=== PATIENT | male | born 1945 | race Caucasian/White ===

== ENCOUNTER 2022-04-04 18:28 | Inpatient (IN) ==
--- NOTE | 2022-04-04 18:39 | Emergency Department Note ---
Impression & Plan Acute exacerbation of chronic obstructive airways disease, Acute bronchitis, RBBB, Hypoxia, Acute UTI (urinary tract infection) ED Provider Note NAME: MOSHE ZABALA AGE: 76 SEX: M : 1945 ARRIVES VIA: Ambulance INFORMANT: Patient, ED PROVIDER(S): Angel Gordon DO CHIEF COMPLAINT: Shortness of breath HPI: The patient is a 76-year-old male who presented to the emergency department by ambulance for an evaluation of shortness of breath. The patient states that he has had a productive cough over the course of the last week. He is having significant shortness of breath with exertion. He denies having any hemoptysis. He has no lower extremity swelling or pain. He has no history of DVT or PE but does have a history of bladder cancer. He went to [facility] and was found have significant hypoxia. He was sent to the emergency department by ambulance for further evaluation. The patient states his symptoms are significantly improved. He was treated with a DuoNeb as well as supplemental oxygen prior to arrival. ROS: See above HPI for pertinent positives & negatives. A total of 10 systems reviewed and were otherwise negative. PAST MEDICAL HISTORY: See Below PAST SURGICAL HISTORY: See Below FAMILY HISTORY: See Below SOCIAL HISTORY: See Below HOME MEDICATIONS: See Below ALLERGIES: See Below VITALS: See Below PHYSICAL EXAMINATION: GENERAL: Patient is awake alert in no acute distress patient is resting comfortably and showing no signs of anxiety EYES: The conjunctivae are clear. The pupils are round and reactive. EARS, NOSE, MOUTH AND THROAT: The nose is without any evidence of any deformity. Mucous membranes are moist. Tongue is midline. NECK: The neck is nontender and supple. RESPIRATORY: Diminished breath sounds are noted throughout. There were rales in both lower lung campuzano. Mild conversational dyspnea was appreciated. CARDIOVASCULAR: Tachycardic and regular heart sounds were noted to auscultation. There is no definite murmur. GASTROINTESTINAL: The abdomen is soft. Abdomen is nontender. MUSCULOSKELETAL/EXTREMITIES: There is no evidence of gross deformity full range of motion is noted in the hips and shoulders. SKIN: There is no obvious evidence of any rash. There is no pedal edema or calf tenderness elicited. NEUROLOGIC: Patient is awake alert and oriented x3 MEDICAL DECISION MAKING: The patient is a 76-year-old male who presented to the emergency department for an evaluation of difficulty breathing. The patient does have a history of COPD. The patient was treated with bronchodilator nebulizer prior to arrival. He initially presented to an urgent care center and was found to have significant hypoxia. The patient did have significant shortness of breath with any exertion. I discussed the patient's laboratory and radiographic studies with him. I did recommend a CT of the chest with contrast but the patient refuses as he was told in the past that his kidneys would not be able to tolerate IV contrast. The patient was treated with IV antibiotics and IV steroids. He was also treated with IV fluids. He was feeling much better on subsequent reevaluation. Given the patient's degree of hypoxia as well as shortness of breath with any exertion I will discuss his case with the on-call [facility] hospitalist. Triage Nursing notes reviewed. Prior medical records reviewed Vital Signs: reviewed and remarkable for tachypnea and tachycardia. Differential diagnosis: Reactive airway disease, pneumonia, pneumothorax, COPD, CHF, infections, cardiac ischemia, pulmonary embolism, musculoskeletal, gastrointestinal, as well as other pathologies. ER treatment provided: See below Diagnostics interpreted by me: ECG: EKG was obtained in the emergency department. My interpretation is sinus tachycardia at 123 bpm. Right bundle branch block pattern was noted. This was compared to a tracing from March 06, 2003. The right bundle branch block is new compared to the earlier tracing. Cardiac Monitoring: An order was placed for continuous cardiac monitoring. The monitor shows a rate of 110 bpm with sinus tachycardia. Laboratory studies: As stated above and show below. Imaging studies: See below Consultation(s): Dr. White was notified about the patient. ED COURSE: Procedures: none Critical Care: I have personally spent greater than 45 minutes of critical care time in the direct management of this patient. This includes bedside care, interpretation of diagnostic studies, and testing, discussion with consultants, patient, and family members, and other required patient management activities. This 45 minutes is in excess of all separately billable procedures. Past Med/Surg History Medical History Bladder tumor Hypokalemia Thrombocytopenia Family History Other Family history non-contributory Social History Smoking Status: Former smoker Tobacco Type: Cigarettes Feels Safe at Home: Yes Allergies Allergies Allergy/AdvReac Type Severity Reaction Status Date / Time bee venom protein (honey bee) Allergy Severe Anaphylaxis Verified 04/04/22 19:58 rhubarb Allergy Intermediate ANXIETY, Verified 04/04/22 19:58 "ON EDGE", "FEELS LIKE NAILS ON CHALKBOARD". Home Meds Home Medications Medication Instructions Recorded Confirmed Lactobacillus acidophilus 10 10,000 mmu cells PO DAILY 04/04/22 04/04/22 billion cell capsule (Probiotic) acetaminophen 500 mg tablet 500 - 1,000 mg PO DIRECTED PRN 04/04/22 04/04/22 (Tylenol Extra Strength) Pain albuterol sulfate 90 mcg/actuation 2 puff inhalation DIRECTED PRN 04/04/22 04/04/22 aerosol inhaler Shortness Of Breath Or Wheezing desonide 0.05 % topical cream 1 applic topical DIRECTED PRN 04/04/22 04/04/22 Skin Irritation fluticasone propionate 50 2 spray intranasal DAILY PRN 04/04/22 04/04/22 mcg/actuation nasal Congestion spray,suspension guaifenesin 600 mg tablet, 600 mg PO Q12H PRN Congestion 04/04/22 04/04/22 extended release 12 hr (Mucinex) hydrophilic 1 applic topical DIRECTED PRN 04/04/22 04/04/22 NEEDED PER MED LIST losartan 25 mg tablet 25 mg PO DAILY 04/04/22 04/04/22 mirabegron 25 mg tablet,extended 25 mg PO DAILY 04/04/22 04/04/22 release 24 hr (Myrbetriq) multivitamin 1 tab PO DAILY 04/04/22 04/04/22 omeprazole 20 mg capsule,delayed 20 mg PO DAILY 04/04/22 04/04/22 release phenazopyridine 100 mg tablet 100 mg PO TID PRN BLADDER PAIN 04/04/22 04/04/22 sildenafil 25 mg tablet 0 mg PO DAILY PRN Sexual Activity 04/04/22 04/04/22 tamsulosin 0.4 mg capsule 0.4 mg PO DAILY 04/04/22 04/04/22 tiotropium 2.5 mcg-olodaterol 2.5 2 inh inhalation DAILY 04/04/22 04/04/22 mcg/actuation mist for inhalation (Stiolto Respimat) Results & Data (ED) Vital Signs Vital Signs - 24 hr 04/04/22 18:34 04/04/22 18:57 04/04/22 18:32 Temperature 36.8 C Temperature Source Oral Pulse Rate 126 H 124 H Pulse Rate from SpO2 Sensor Respiratory Rate 26 H 24 Respiratory Pattern Tachypnea Blood Pressure 148/82 H 148/82 H Blood Pressure Mean 104 104 Pulse Oximetry 94 94 Oxygen Delivery Method Room Air Room Air Room Air Sepsis Recent Fever Within 48 Hours No Sepsis New/Unexplained Change in Mental Status No Sepsis Action Taken by Nursing Physician Notified 04/04/22 19:00 04/04/22 19:40 04/04/22 19:44 Temperature Temperature Source Pulse Rate 134 H 115 H 113 H Pulse Rate from SpO2 Sensor 116 H Respiratory Rate 29 H 29 H 27 H Respiratory Pattern Blood Pressure 110/69 127/59 L 114/69 Blood Pressure Mean 82 81 84 Pulse Oximetry 94 92 92 Oxygen Delivery Method Room Air Room Air Room Air Sepsis Recent Fever Within 48 Hours Sepsis New/Unexplained Change in Mental Status Sepsis Action Taken by Nursing 04/04/22 19:45 04/04/22 20:00 04/04/22 20:15 Temperature Temperature Source Pulse Rate 110 H Pulse Rate from SpO2 Sensor 112 H 109 H Respiratory Rate 34 H 37 H 30 H Respiratory Pattern Blood Pressure 127/59 L 130/78 143/89 H Blood Pressure Mean 81 95 107 Pulse Oximetry 92 92 92 Oxygen Delivery Method Room Air Room Air Room Air Sepsis Recent Fever Within 48 Hours Sepsis New/Unexplained Change in Mental Status Sepsis Action Taken by Nursing 04/04/22 20:45 04/04/22 21:00 Temperature Temperature Source Pulse Rate 115 H 103 H Pulse Rate from SpO2 Sensor Respiratory Rate 29 H 38 H Respiratory Pattern Blood Pressure 133/90 117/75 Blood Pressure Mean 104 89 Pulse Oximetry 92 92 Oxygen Delivery Method Room Air Room Air Sepsis Recent Fever Within 48 Hours Sepsis New/Unexplained Change in Mental Status Sepsis Action Taken by [facility] Medications Current Medication List: was personally reviewed by me Laboratory Data Attestation: I reviewed the patient's lab results. Result diagrams: 04/04/22 18:50 04/04/22 18:50 Lab Results 04/04/22 04/04/22 04/04/22 Range/Units 18:45 18:50 18:50 WBC 11.36 H (4.8-10.8) K/ul RBC 4.84 (4.63-6.08) M/uL Hgb 14.3 (14.0-18.0) g/dl Hct 44.2 (40.1-51.0) % MCV 91.3 (80.0-100.0) fL MCH 29.5 (25.0-34.0) pg MCHC 32.4 (32.0-36.0) g/dL RDW Std Deviation 45.7 (36.4-46.3) fL RDW Coeff of Charanjit 13.5 (11.5-14.5) % Plt Count 206 (130-400) K/uL MPV 8.8 L (9.4-12.4) fL Immature Gran % (Auto) 0.4 % Neut % (Auto) 81.0 % Lymph % (Auto) 7.5 % Parmer % (Auto) 10.3 % Eos % (Auto) 0.4 % Baso % (Auto) 0.4 % Neut # (Auto) 9.20 H (1.4-6.5) K/uL Lymph # (Auto) 0.85 L (1.2-3.4) K/uL Parmer # (Auto) 1.17 H (0.24-0.82) K/uL Eos # (Auto) 0.05 (0-0.50) K/uL Baso # (Auto) 0.04 (0-0.2) K/uL Immature Gran # (Auto) 0.05 H (0.00-0.02) K/uL PT 11.0 (9.0-12.0) Seconds INR 1.0 (0.9-1.1) APTT 29.3 (21.0-31.0) Seconds PTT Ratio 1.1 D-Dimer (0-500) ug/L FEU VBG pH (7.36-7.41) VBG pCO2 (38-50) mmHg VBG pO2 mmHg VBG HCO3 mmol/L VBG O2 Saturation % VBG Base Excess mEq/L Sodium (136-145) mmol/L Potassium (3.5-5.1) mmol/L Chloride (98-107) mmol/L Carbon Dioxide (21-32) mmol/L Anion Gap (3-11) BUN (6-23) mg/dl Creatinine (0.6-1.4) mg/dl Est Cr Clr Drug Dosing ml/min Est GFR ( Amer) ml/min Est GFR (Non-Af Amer) ml/min BUN/Creatinine Ratio (10-20) Glucose (70-99(Fasting)) mg/dl Lactate (0.4-2.0) mmol/L Calcium (8.5-10.1) mg/dl Magnesium (1.7-2.4) mg/dl Total Bilirubin (0.2-1.0) mg/dl Direct Bilirubin (0-0.2) mg/dl AST (13-39) U/L ALT (7-52) U/L Alkaline Phosphatase (34-104) U/L Troponin I High Sens (0-20) pg/ml Total Protein (6.0-8.3) gm/dl Albumin (3.4-5.0) gm/dl Procalcitonin (0-0.5) ng/ml Urine Color Urine Appearance (Clear) Urine pH (4.5-7.5) Ur Specific [place] (1.000-1.030) Urine Protein (Negative) Urine Glucose (UA) (Negative) Urine Ketones (Negative) Urine Blood (Negative) Urine Nitrite (Negative) Urine Bilirubin (Negative) Urine Urobilinogen (Negative) Ur Leukocyte Esterase (Negative) Urine WBC (Auto) (0-5) /hpf Urine RBC (Auto) (0-4) /hpf U Hyaline Cast (Auto) (0-5) /lpf U Epithel Cells (Auto) (0-5) /lpf Urine Bacteria (Auto) (Negative) Ur Renal Epithelial Cell Adenovirus (PCR) Not Detected (NotDetected) B. pertussis DNA (PCR) Not Detected (NotDetected) B.parapertussis DNA PCR Not Detected (NotDetected) C. pneumoniae DNA (PCR) Not Detected (NotDetected) Coronavirus OC43 (PCR) Not Detected (NotDetected) Coronavirus HKU1 (PCR) Not Detected (NotDetected) Coronavirus 229E (PCR) Not Detected (NotDetected) SARS-CoV-2 (PCR) Not Detected (NotDetected) Coronavirus NL63 (PCR) Not Detected (NotDetected) Human Metapneumovir PCR Not Detected (NotDetected) Influenza Type A (PCR) Not Detected (NotDetected) Influenza Type B (PCR) Not Detected (NotDetected) M. pneumoniae (PCR) Not Detected (NotDetected) Parainfluenza 1 (PCR) Not Detected (NotDetected) Parainfluenza 2 (PCR) Not Detected (NotDetected) Parainfluenza 3 (PCR) Not Detected (NotDetected) Parainfluenza 4 (PCR) Not Detected (NotDetected) RSV (PCR) Not Detected (NotDetected) Entero/Rhino (PCR) Not Detected (NotDetected) 04/04/22 04/04/22 04/04/22 Range/Units 18:50 18:50 18:50 WBC (4.8-10.8) K/ul RBC (4.63-6.08) M/uL Hgb (14.0-18.0) g/dl Hct (40.1-51.0) % MCV (80.0-100.0) fL MCH (25.0-34.0) pg MCHC (32.0-36.0) g/dL RDW Std Deviation (36.4-46.3) fL RDW Coeff of Charanjit (11.5-14.5) % Plt Count (130-400) K/uL MPV (9.4-12.4) fL Immature Gran % (Auto) % Neut % (Auto) % Lymph % (Auto) % Parmer % (Auto) % Eos % (Auto) % Baso % (Auto) % Neut # (Auto) (1.4-6.5) K/uL Lymph # (Auto) (1.2-3.4) K/uL Parmer # (Auto) (0.24-0.82) K/uL Eos # (Auto) (0-0.50) K/uL Baso # (Auto) (0-0.2) K/uL Immature Gran # (Auto) (0.00-0.02) K/uL PT (9.0-12.0) Seconds INR (0.9-1.1) APTT (21.0-31.0) Seconds PTT Ratio D-Dimer (0-500) ug/L FEU VBG pH (7.36-7.41) VBG pCO2 (38-50) mmHg VBG pO2 mmHg VBG HCO3 mmol/L VBG O2 Saturation % VBG Base Excess mEq/L Sodium 140 (136-145) mmol/L Potassium 3.6 (3.5-5.1) mmol/L Chloride 105 (98-107) mmol/L Carbon Dioxide 24 (21-32) mmol/L Anion Gap 11 (3-11) BUN 24 H (6-23) mg/dl Creatinine 1.32 (0.6-1.4) mg/dl Est Cr Clr Drug Dosing 43.8 ml/min Est GFR ( Amer) 59.9 ml/min Est GFR (Non-Af Amer) 51.7 ml/min BUN/Creatinine Ratio 18.2 (10-20) Glucose 118 H (70-99(Fasting)) mg/dl Lactate 1.1 (0.4-2.0) mmol/L Calcium 10.3 H (8.5-10.1) mg/dl Magnesium 2.1 (1.7-2.4) mg/dl Total Bilirubin 1.6 H (0.2-1.0) mg/dl Direct Bilirubin 0.4 H (0-0.2) mg/dl AST 79 H (13-39) U/L ALT 73 H (7-52) U/L Alkaline Phosphatase 144 H (34-104) U/L Troponin I High Sens 6.6 (0-20) pg/ml Total Protein 7.7 (6.0-8.3) gm/dl Albumin 4.2 (3.4-5.0) gm/dl Procalcitonin 0.17 (0-0.5) ng/ml Urine Color Urine Appearance (Clear) Urine pH (4.5-7.5) Ur Specific [place] (1.000-1.030) Urine Protein (Negative) Urine Glucose (UA) (Negative) Urine Ketones (Negative) Urine Blood (Negative) Urine Nitrite (Negative) Urine Bilirubin (Negative) Urine Urobilinogen (Negative) Ur Leukocyte Esterase (Negative) Urine WBC (Auto) (0-5) /hpf Urine RBC (Auto) (0-4) /hpf U Hyaline Cast (Auto) (0-5) /lpf U Epithel Cells (Auto) (0-5) /lpf Urine Bacteria (Auto) (Negative) Ur Renal Epithelial Cell Adenovirus (PCR) (NotDetected) B. pertussis DNA (PCR) (NotDetected) B.parapertussis DNA PCR (NotDetected) C. pneumoniae DNA (PCR) (NotDetected) Coronavirus OC43 (PCR) (NotDetected) Coronavirus HKU1 (PCR) (NotDetected) Coronavirus 229E (PCR) (NotDetected) SARS-CoV-2 (PCR) (NotDetected) Coronavirus NL63 (PCR) (NotDetected) Human Metapneumovir PCR (NotDetected) Influenza Type A (PCR) (NotDetected) Influenza Type B (PCR) (NotDetected) M. pneumoniae (PCR) (NotDetected) Parainfluenza 1 (PCR) (NotDetected) Parainfluenza 2 (PCR) (NotDetected) Parainfluenza 3 (PCR) (NotDetected) Parainfluenza 4 (PCR) (NotDetected) RSV (PCR) (NotDetected) Entero/Rhino (PCR) (NotDetected) 04/04/22 04/04/22 04/04/22 Range/Units 18:50 19:17 19:26 WBC (4.8-10.8) K/ul RBC (4.63-6.08) M/uL Hgb (14.0-18.0) g/dl Hct (40.1-51.0) % MCV (80.0-100.0) fL MCH (25.0-34.0) pg MCHC (32.0-36.0) g/dL RDW Std Deviation (36.4-46.3) fL RDW Coeff of Charanjit (11.5-14.5) % Plt Count (130-400) K/uL MPV (9.4-12.4) fL Immature Gran % (Auto) % Neut % (Auto) % Lymph % (Auto) % Parmer % (Auto) % Eos % (Auto) % Baso % (Auto) % Neut # (Auto) (1.4-6.5) K/uL Lymph # (Auto) (1.2-3.4) K/uL Parmer # (Auto) (0.24-0.82) K/uL Eos # (Auto) (0-0.50) K/uL Baso # (Auto) (0-0.2) K/uL Immature Gran # (Auto) (0.00-0.02) K/uL PT (9.0-12.0) Seconds INR (0.9-1.1) APTT (21.0-31.0) Seconds PTT Ratio D-Dimer 2110 H* (0-500) ug/L FEU VBG pH 7.41 (7.36-7.41) VBG pCO2 42 (38-50) mmHg VBG pO2 27 mmHg VBG HCO3 27 mmol/L VBG O2 Saturation < 60.0 % VBG Base Excess 1.7 mEq/L Sodium (136-145) mmol/L Potassium (3.5-5.1) mmol/L Chloride (98-107) mmol/L Carbon Dioxide (21-32) mmol/L Anion Gap (3-11) BUN (6-23) mg/dl Creatinine (0.6-1.4) mg/dl Est Cr Clr Drug Dosing ml/min Est GFR ( Amer) ml/min Est GFR (Non-Af Amer) ml/min BUN/Creatinine Ratio (10-20) Glucose (70-99(Fasting)) mg/dl Lactate (0.4-2.0) mmol/L Calcium (8.5-10.1) mg/dl Magnesium (1.7-2.4) mg/dl Total Bilirubin (0.2-1.0) mg/dl Direct Bilirubin (0-0.2) mg/dl AST (13-39) U/L ALT (7-52) U/L Alkaline Phosphatase (34-104) U/L Troponin I High Sens (0-20) pg/ml Total Protein (6.0-8.3) gm/dl Albumin (3.4-5.0) gm/dl Procalcitonin (0-0.5) ng/ml Urine Color Dark Yellow Urine Appearance Clear (Clear) Urine pH 6.0 (4.5-7.5) Ur Specific [place] 1.018 (1.000-1.030) Urine Protein 2+ H (Negative) Urine Glucose (UA) Negative (Negative) Urine Ketones 1+ H (Negative) Urine Blood 2+ H (Negative) Urine Nitrite Positive A (Negative) Urine Bilirubin 1+ H (Negative) Urine Urobilinogen Negative (Negative) Ur Leukocyte Esterase 2+ H (Negative) Urine WBC (Auto) >30 H (0-5) /hpf Urine RBC (Auto) >30 H (0-4) /hpf U Hyaline Cast (Auto) 0 (0-5) /lpf U Epithel Cells (Auto) >30 H (0-5) /lpf Urine Bacteria (Auto) Negative (Negative) Ur Renal Epithelial Cell Not Reportable Adenovirus (PCR) (NotDetected) B. pertussis DNA (PCR) (NotDetected) B.parapertussis DNA PCR (NotDetected) C. pneumoniae DNA (PCR) (NotDetected) Coronavirus OC43 (PCR) (NotDetected) Coronavirus HKU1 (PCR) (NotDetected) Coronavirus 229E (PCR) (NotDetected) SARS-CoV-2 (PCR) (NotDetected) Coronavirus NL63 (PCR) (NotDetected) Human Metapneumovir PCR (NotDetected) Influenza Type A (PCR) (NotDetected) Influenza Type B (PCR) (NotDetected) M. pneumoniae (PCR) (NotDetected) Parainfluenza 1 (PCR) (NotDetected) Parainfluenza 2 (PCR) (NotDetected) Parainfluenza 3 (PCR) (NotDetected) Parainfluenza 4 (PCR) (NotDetected) RSV (PCR) (NotDetected) Entero/Rhino (PCR) (NotDetected) Administered Medications Sodium Chloride (Nss 1000ml) 500 mls @ 999 mls/hr IV .Q31M ONE Stop: 04/04/22 21:52 Last Admin: 04/04/22 21:24 Dose: 999 mls/hr Documented By: DP Discontinued Medications Piperacillin Sod/Tazobactam Sod (Zosyn) 4.5 gm in 120 mls @ 240 mls/hr IV NOW ONE Stop: 04/04/22 21:04 Last Admin: 04/04/22 21:23 Dose: 240 mls/hr Documented By: MANI Methylprednisolone (Methylprednisolone 125 Mg/2 Ml Vial) 125 mg IV NOW STA Stop: 04/04/22 21:14 Last Admin: 04/04/22 21:21 Dose: 125 mg Documented By: DP Imaging Data Radiologist's Impression: Chest X-Ray 04/04/22 18:35 XR chest 1V portable CLINICAL HISTORY: Sepsis TECHNIQUE: Single frontal radiograph of the chest was obtained. Comparison: None available at the time of this dictation. FINDINGS: No lines and tubes are seen. The cardiomediastinal silhouette is normal. The thien ngs are clear. No evidence of pleural effusion or pneumothorax. IMPRESSION: No acute abnormality and in particular no evidence of pneumonia. ACT 112: Negative or not required by law. Electronically signed by: Eliot Quiñoenz M.D. 04/04/2022 7:[address] 04/04/22 20:37 CT chest diagnostic wo con CLINICAL HISTORY: SOB TECHNIQUE: Multidetector row helical CT of the chest was performed. Coronal and sagittal reformations were obtained. Automated dose lowering techniques and/or adjustment according to patient size were utilized for this exam. CT DOSE: 344.42 mGy.cm Comparison: Comparison is made to chest radiograph 03/25/2022 FINDINGS: Lungs and pleura: Diffuse centrilobular emphysema is seen most prominent in the upper lobes. Tree in bud nodularity is noted prominently in the right upper lobe and bilateral lower lobes. Bronchial wall thickening is noted. Heart and pericardium: Heart size is normal. No pericardial effusion. Vessels: Severe atherosclerotic changes in the aorta and coronary arteries. Mediastinum and myesha: Unremarkable. Chest wall and lower neck: Unremarkable. Abdomen: A right renal cyst is noted. Patient is status post cholecystectomy. Bones: Degenerative changes in the thoracic spine. IMPRESSION: There is diffuse emphysema. Scattered tree in bud nodularity and bronchial wall thickening may represent infectious/inflammatory process. ACT 112: Negative or not required by law. Electronically signed by: Eliot Quiñonez M.D. 04/04/2022 9:06 PM Discharge Plan Visit Data Chief Complaint: Shortness of Breath/Dyspnea Stated Complaint: SOB - COPD ED Provider: Angel Gordon Discharge Problem: Acute exacerbation of chronic obstructive airways disease, Acute bronchitis, RBBB, Hypoxia, Acute UTI (urinary tract infection) Patient Disposition: Being Evaluated by Hospitalist Forms Stand Alone Forms: My [facility] [employer] Prescriptions Prescriptions: No Action multivitamin Tablet 1 tab PO DAILY desonide 0.05 % cream 1 applic TOPICAL DIRECTED PRN (Reason: Skin Irritation) hydrophilic Ointment 1 applic TOPICAL DIRECTED PRN (Reason: NEEDED PER MED LIST) sildenafil 25 mg Tablet 0 mg PO DAILY PRN (Reason: Sexual Activity) Rx Instructions: UNABLE TO VERIFY DOSE. administer 30 minutes to 4 hours before activity acetaminophen [Tylenol Extra Strength] 500 mg Tablet 500 - 1,000 mg PO DIRECTED PRN (Reason: Pain) tamsulosin 0.4 mg capsule 0.4 mg PO DAILY phenazopyridine 100 mg tablet 100 mg PO TID PRN (Reason: BLADDER PAIN) losartan 25 mg tablet 25 mg PO DAILY omeprazole 20 mg capsule,delayed release(DR/EC) 20 mg PO DAILY albuterol sulfate 90 mcg/actuation Hfa Aerosol Inhaler 2 puff INHALATION DIRECTED PRN (Reason: Shortness Of Breath Or Wheezing) fluticasone propionate 50 mcg/actuation spray,suspension 2 spray INTRANASAL DAILY PRN (Reason: Congestion) Probiotic 10 billion cell Capsule 10,000 mmu cells PO DAILY guaifenesin [Mucinex] 600 mg Tablet Extended Release 12hr 600 mg PO Q12H PRN (Reason: Congestion) Stiolto Respimat 2.5-2.5 mcg/actuation mist 2 inh INHALATION DAILY Myrbetriq 25 mg Tablet Extended Release 24 Hr 25 mg PO DAILY Rx Instructions: PT HAS NOT STARTED THIS MEDICATION YET Referrals Referrals: Alejandro Bello DO [Primary Care Provider] -
[2022-04-04 19:02] LABS: Basophils # (auto) 0.04 K/uL (0-0.2); Basophils % (auto) 0.4 %; Eosinophils # (auto) 0.05 K/uL (0-0.50); Eosinophils % (auto) 0.4 %; Hematocrit (blood only) 44.2 % (40.1-51.0); Hemoglobin 14.3 g/dl (14.0-18.0); Immature Granulocytes # (auto) 0.05 K/uL (0.00-0.02); Immature Granulocytes % (auto) 0.4 %; Lymphocytes # (auto) 0.85 K/uL (1.2-3.4); Lymphocytes % (auto) 7.5 %; Mean Corpuscular Hemoglobin 29.5 pg (25.0-34.0); Mean Corpuscular Hgb Conc 32.4 g/dL (32.0-36.0); Mean Corpuscular Volume 91.3 fL (80.0-100.0); Mean Platelet Volume 8.8 fL (9.4-12.4); Monocytes # (auto) 1.17 K/uL (0.24-0.82); Monocytes % (auto) 10.3 %; Platelet Count 206 K/uL (130-400); RDW Coefficient of Variation 13.5 % (11.5-14.5); RDW Standard Deviation 45.7 fL (36.4-46.3); Red Blood Count 4.84 M/uL (4.63-6.08); White Blood Count 11.36 K/ul (4.8-10.8)
[2022-04-04 19:14] LABS: Partial Thromboplastin Ratio 1.1; Partial Thromboplastin Time 29.3 Seconds (21.0-31.0)
--- NOTE | 2022-04-04 19:16 | XRay Report ---
XR chest 1V portable CLINICAL HISTORY: Sepsis TECHNIQUE: Single frontal radiograph of the chest was obtained. Comparison: None available at the time of this dictation. FINDINGS: No lines and tubes are seen. The cardiomediastinal silhouette is normal. The lungs are clear. No evid ence of pleural effusion or pneumothorax. IMPRESSION: No acute abnormality and in particular no evidence of pneumonia. ACT 112: Negative or not required by law. Electronically signed by: Eliot Quiñonez M.D. 04/04/2022 7:15 PM
[2022-04-04 19:28] LABS: Albumin Level 4.2 gm/dl (3.4-5.0); BUN Creatinine Ratio 18.2 (10-20); Bilirubin Direct 0.4 mg/dl (0-0.2); Bilirubin,Total 1.6 mg/dl (0.2-1.0); Calcium 10.3 mg/dl (8.5-10.1); Creatinine Clr Calc Pharmacy 43.8 ml/min; Est GFR (African American) 59.9 ml/min; Est GFR (Non-African American) 51.7 ml/min; Magnesium 2.1 mg/dl (1.7-2.4); Potassium 3.6 mmol/L (3.5-5.1); Total Protein 7.7 gm/dl (6.0-8.3); Troponin I High Sensitivity 6.6 pg/ml (0-20)
[2022-04-04 19:48] LABS: Base Excess VBG 1.7 mEq/L; HCO3 VBG 27 mmol/L; Oxygen Saturation VBG < 60.0 %; PCO2 VBG 42 mmHg (38-50); PO2 VBG 27 mmHg; pH VBG 7.41 (7.36-7.41)
[2022-04-04 19:55] LABS: Appearance Urine Clear (Clear); Bacteria Urine Automated Negative (Negative); Blood Urine 2+ (Negative); Color Urine Dark Yellow; Epithelial Cell Urine Auto >30 /lpf (0-5); Glucose Urine UA Negative (Negative); Ketones Urine 1+ (Negative); Leukocyte Esterase Urine 2+ (Negative); Nitrite Urine Positive (Negative); Protein Urine 2+ (Negative); RBC Urine Automated >30 /hpf (0-4); Specific Gravity Urine 1.018 (1.000-1.030); Urobilinogen Urine Negative (Negative); WBC Urine Automated >30 /hpf (0-5)
[2022-04-04 19:57] LABS: Adenovirus PCR Not Detected (NotDetected); Bordetella parapertussis PCR Not Detected (NotDetected); Bordetella pertussis PCR Not Detected (NotDetected); Chlamydia pneumoniae PCR Not Detected (NotDetected); Coronavirus 229E PCR Not Detected (NotDetected); Coronavirus CoV-2 (COVID19)PCR Not Detected (NotDetected); Coronavirus HKU1 PCR Not Detected (NotDetected); Coronavirus NL63 PCR Not Detected (NotDetected); Coronavirus OC43PCR Not Detected (NotDetected); Human Metapneumovirus PCR Not Detected (NotDetected); Influenza A PCR Not Detected (NotDetected); Influenza B PCR Not Detected (NotDetected); Mycoplasma pneumoniae PCR Not Detected (NotDetected); Parainfluenza Virus 1 PCR Not Detected (NotDetected); Parainfluenza Virus 2 PCR Not Detected (NotDetected); Parainfluenza Virus 3 PCR Not Detected (NotDetected); Parainfluenza Virus 4 PCR Not Detected (NotDetected); Respiratory Syncytial VirusPCR Not Detected (NotDetected); Rhinovirus/Enterovirus PCR Not Detected (NotDetected)
[2022-04-04 19:57] LABS: Bilirubin Urine 1+ (Negative)
[2022-04-04 20:08] LABS: Cast Urine Automated 0 /lpf (0-5)
[2022-04-04] MEDS ORDERED: SODIUM CHLORIDE 0.9% 1000ML 500 ML IV ONE ×2 (20:35→21:22)
[2022-04-04] MEDS ORDERED: PIPERACILLIN/TAZOBACTAM 4.5 GM/120 ML BAG IV ONE (20:35)
--- NOTE | 2022-04-04 21:09 | CT Scan Report ---
CT chest diagnostic wo con CLINICAL HISTORY: SOB TECHNIQUE: Multidetector row helical CT of the chest was performed. Coronal and sagittal reformations were obtained. Automated dose lowering techniques and/or adjustment according to patient size were u tilized for this exam. CT DOSE: 344.42 mGy.cm Comparison: Comparison is made to chest radiograph 03/25/2022 FINDINGS: Lungs and pleura: Diffuse centrilobular emphysema is seen most prominent in the upper lobes. Tree in bud nodularity is noted prominently in the right upper lobe and bilateral lower lobes. Bronchial wall thickening is noted. Heart and pericardium: Heart size is normal. No pericardial effusion. Vessels: Severe atherosclerotic changes in the aorta and coronary arteries. Mediastinum and myesha: Unremarkable. Chest wall and lower neck: Unremarkable. Abdomen: A right renal cyst is noted. Patient is status post cholecystectomy. Bones: Degenerative changes in the thoracic spine. IMPRESSION: There is diffuse emphysema. Scattered tree in bud nodularity and bronchial wall thickening may repres ent infectious/inflammatory process. ACT 112: Negative or not required by law. Electronically signed by: Eliot Quiñonez M.D. 04/04/2022 9:06 PM
[2022-04-04] MEDS ORDERED: cefTRIAXone SODIUM 2,000 MG/70 ML BAG IV STA (21:13)
[2022-04-04] MEDS ORDERED: methylPREDNISolone 125 MG/2 ML VIAL IV STA (21:13)
[2022-04-04] MEDS ORDERED: ALBUT/IPRATROP 3MG/0.5MG NEB 3 ML VIAL NEB STA (21:22)
[2022-04-04 21:28] LABS: D Dimer 2110 ug/L FEU (0-500)
--- NOTE | 2022-04-04 22:18 | History & Physical Report ---
Date of Service April 04, 2022 Assessment & Plan (1) Dyspnea on exertion: Plan: Danie is a 76 year old male w/ PmHx of COPD, HTN, bladder cancer admitted for dyspnea on exertion and hypoxia. Acute exac of chronic obstructive airway disease/Collins/Hypoxia: -Patient tachycardic 100's-120's, otherwise vitals stable. -WBC 11.36, D-dimer 2110. -CT chest w/o contrast w/ evidence of emphysema, possible infectious/inflammatory process R upper lobe, b/l lower lobes. -?Hospital acquired PNA given patient's recent visit to aunt's fdc vs COPD exacerbation vs PE. -Ordered V/Q scan since patient declines contrast per HPI. -Given Zosyn and CTX in ED, continued Zosyn 4.5g q6h and added Azithromycin for atypical coverage. -Received 125mg IV solu-medrol in ED, will continue 40mg PO prednisone for 5 days for possible COPD contribution. -Duoneb q2h PRN, Mucinex BID -Continue to monitor vitals, O2 as needed for O2 <88%. Bladder tumor: -Past history of bladder cancer, in maintenance therapy. -U/A +LE, Nitrates, blood, negative bacteria. -Dysuria most likely secondary to side effect from maintenance therapy or multiple cystoscopy in past. -On Zosyn as above if infection. -Continue home mirabegron, tamsulosin, phenazopyridine PRN. Conjunctivitis: -New onset of purulent conjunctivitis. -Will treat with Ciprofloxacin 0.3% 2 drops QID for 5 days. Transaminitis: -AST 79, ALT 73, T bili 1.6, Alk phos 144 on CMP -CT chest without read of fatty liver for portion visualized. -May be secondary to sepsis from lung infection. -Continue to trend with AM CMP. HTN: -Continue home losartan. GERD: -Continue home omeprazole. DVT Prophylaxis: Heparin 5,000U q12h F/E/N/GI: Regular diet. Code Status: Full code Dispo: Med/Surg Telemetry. (2) Hypoxia: (3) Bladder tumor: (4) Acute exacerbation of chronic obstructive airways disease: (5) Conjunctivitis, right eye: History of Present Illness Chief Complaint: Shortness of breath, hypoxia Primary Care Provider: Alejandro Bello, DO [place] is a 76 year old male w/ PmHx COPD, HTN, GERD presenting to the emergency department sent from urgent care for hypoxia and dyspnea on exertion. For the past 4 days patient has had worsening of shortness of breath with exertion and cough with sputum production of yellow and sometimes white color. He said he was previously in [place] visiting his 93 year old aunt and had to COVID test prior to entering her facility, for which he tested negative. Saturday when he got back he started to have symptoms as described previously for which he thought could be COVID. He called into the [place] and asked for advice and they had advised him to go to urgent care for testing and said they would cover the cost. When he went to urgent care he was found to be hypoxic and told to go the ED. In the ED CXR was clear however CT of chest showed emphysema and evidence for possible early pneumonia, had a WBC 11, and tachycardic. He denies any fevers, chills, chest pain, headaches, diarrhea, nausea, vomiting. Has constipation at times with bowel movements being a few days apart at times. When asked about prior COPD exacerbations, patient denies ever needing to be hospitalized for treatment of COPD however he did have an episode of shortness of breath and cough last July which required a course of prednisone. Regarding patient's history of bladder cancer, he has been seeing urology in [place]. He has a past history of smoking cigars which he quit 6 years ago and had been smoking them since he was in the [place]. He said he is 5 years out or more from his diagnosis and he is now on maintenance treatment for the bladder cancer with BCG, which he gets every 6 weeks, last treatment a few weeks prior. He says that he's had dysuria since August and been on at least 4 antibiotics for the dysuria which he says may be due to a side effect from the BCG. He seems to have discussed this with his urologist and said the alternative would be to undergo chemotherapy. Patient also has conjunctivitis his noticed a few days prior and the other day he had started to get the feeling of having sand in the eye. Today they started to notice discharge from the eye. No swelling to the orbital or periorbital skin noted by patient. No involvement of the other eye. He had previously had cataract surgery a few months prior to this and has antibiotics eye drops from that time but has not used yet. Discussed obtaining CTA with patient and utilizing contrast given his good kidney function on CMP today, however patient says he is hesitant and declines at this time due to being told [facility] that his blood work indicated his kidney function was not the best and recommended against using any contrast for imaging. Allergies Allergy/AdvReac Type Severity Reaction Status Date / Time bee venom protein (honey bee) Allergy Severe Anaphylaxis Verified 04/04/22 19:58 rhubarb Allergy Intermediate ANXIETY, Verified 04/04/22 19:58 "ON EDGE", "FEELS LIKE NAILS ON CHALKBOARD". Home Medications Medication Instructions Recorded Confirmed Type Lactobacillus acidophilus 10 10,000 mmu cells PO DAILY 04/04/22 04/04/22 History billion cell capsule (Probiotic) acetaminophen 500 mg tablet 500 - 1,000 mg PO DIRECTED PRN 04/04/22 04/04/22 History (Tylenol Extra Strength) Pain albuterol sulfate 90 mcg/actuation 2 puff inhalation DIRECTED PRN 04/04/22 04/04/22 History aerosol inhaler Shortness Of Breath Or Wheezing desonide 0.05 % topical cream 1 applic topical DIRECTED PRN 04/04/22 04/04/22 History Skin Irritation fluticasone propionate 50 2 spray intranasal DAILY PRN 04/04/22 04/04/22 History mcg/actuation nasal Congestion spray,suspension guaifenesin 600 mg tablet, 600 mg PO Q12H PRN Congestion 04/04/22 04/04/22 H istory extended release 12 hr (Mucinex) hydrophilic 1 applic topical DIRECTED PRN 04/04/22 04/04/22 History NEEDED PER MED LIST losartan 25 mg tablet 25 mg PO DAILY 04/04/22 04/04/22 History mirabegron 25 mg tablet,extended 25 mg PO DAILY 04/04/22 04/04/22 History release 24 hr (Myrbetriq) multivitamin 1 tab PO DAILY 04/04/22 04/04/22 History omeprazole 20 mg capsule,delayed 20 mg PO DAILY 04/04/22 04/04/22 History release phenazopyridine 100 mg tablet 100 mg PO TID PRN BLADDER PAIN 04/04/22 04/04/22 History sildenafil 25 mg tablet 0 mg PO DAILY PRN Sexual Activity 04/04/22 04/04/22 History tamsulosin 0.4 mg capsule 0.4 mg PO DAILY 04/04/22 04/04/22 History tiotropium 2.5 mcg-olodaterol 2.5 2 inh inhalation DAILY 04/04/22 04/04/22 History mcg/actuation mist for inhalation (Stiolto Respimat) Past Med/Surg History Medical History Bladder tumor Hypokalemia Thrombocytopenia Family History Other Family history non-contributory Social History Smoking Status: Former smoker Tobacco Type: Cigarettes Hx Alcohol Use: No Hx Substance Use: No Preferred Language: [place]an Communication Ability: Effective 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 Physical Exam Constitutional: WD/WN, vitals as above Eyes: Conjunctivitis of the R eye with mild light green discharge. L eye conjunctivitis or discharge. PERRL. Respiratory: Mild end expiratory wheezing at the R mid to lower lung campuzano, clear to auscultation elsewhere. Cardiovascular: Rate/Rhythm: regular rhythm and + tachycardic Heart Sounds: normal S1 and normal S2 No edema at bilateral upper or lower extremities. Pulses 2+ bilaterally U&L extremities. Gastrointestinal (Abdomen): normal bowel sounds, soft, nontender, no hepatosplenomegaly Psychiatric: A+Ox3, euthymic affect Results & Data Results & Data ([facility]) Vital Signs (Past 12 Hours) Vital Signs Temp Pulse Pulse Resp BP Pulse Ox O2 Del Method 04/04/22 21:39 101 H 22 93 Room Air 04/04/22 21:00 103 H 38 H 117/75 92 Room Air 04/04/22 20:45 115 H 29 H 133/90 92 Room Air 04/04/22 20:15 110 H 30 H 143/89 H 92 Room Air 04/04/22 20:00 37 H 130/78 92 Room Air 04/04/22 19:45 34 H 127/59 L 92 Room Air 10/12/22 19:44 113 H 27 H 114/69 92 Room Air 04/04/22 19:40 115 H 29 H 127/59 L 92 Room Air 04/04/22 19:00 134 H 29 H 110/69 94 Room Air 04/04/22 18:32 124 H 24 148/82 H 94 Room Air 04/04/22 18:57 Room Air 04/04/22 18:34 36.8 C 126 H 26 H 148/82 H 94 Room Air Code Status & VTE Plan Code Status Full code Supervising Physician Co-Signing Physician Notes Attending addendum: I have physically seen this patient, have supervised the medical residents activities, and agree with the H&P unless as otherwise noted. Assessment and Plan: Pneumonia/COPD exacerbation/hypoxia- Zosyn 4.5 g IV every 8 hours Azithromycin 5 mg IV daily Status post methylprednisolone 125 mg IV in ED, will continue 40 mg IV every 8 hours Duonebs every 4 hours while awake and every 2 hours when necessary. Guaifenesin extended release 1200 mg p.o. twice daily Sputum gram stain and culture Conjunctivitis- Ciloxan 0.3%, 2 drops 4 times daily for 5 days Abnormal LFTs- CTA chest reports normal-appearing liver Question associated with sepsis Repeat laboratories in a.m. Remaining orders and notations as noted Resident Activity Tracking Resident Involvement: Resident Care Provided Care Provided: Adult [facility] Medicine
[2022-04-05] MEDS ORDERED: AZITHROMYCIN 250 MG TAB PO ONE (02:38)
[2022-04-05] MEDS ORDERED: ALBUTEROL HFA 8 GM INHALER INH PRN (02:38)
[2022-04-05] MEDS ORDERED: POLYETHYLENE (MIRALAX) 17 GM PACK PO PRN (02:38)
[2022-04-05] MEDS ORDERED: ALBUT/IPRATROP 3MG/0.5MG NEB 3 ML VIAL NEB PRN (02:38)
[2022-04-05] MEDS ORDERED: ACETAMINOPHEN 325 MG TAB PO PRN (02:38)
[2022-04-05] MEDS: PIPERACILLIN/TAZOBACTAM 4.5 GM in DEXTROSE 5% 100 ML IV SCH ×2 (03:49→13:56)
[2022-04-05 07:31] LABS: Hematocrit (blood only) 38.7 % (40.1-51.0); Hemoglobin 12.5 g/dl (14.0-18.0); Mean Corpuscular Hemoglobin 29.3 pg (25.0-34.0); Mean Corpuscular Hgb Conc 32.3 g/dL (32.0-36.0); Mean Corpuscular Volume 90.8 fL (80.0-100.0); Mean Platelet Volume 9.1 fL (9.4-12.4); Platelet Count 200 K/uL (130-400); RDW Coefficient of Variation 13.4 % (11.5-14.5); RDW Standard Deviation 44.7 fL (36.4-46.3); Red Blood Count 4.26 M/uL (4.63-6.08); White Blood Count 9.33 K/ul (4.8-10.8)
[2022-04-05 07:59] LABS: Basophils # (auto) 0.01 K/uL (0-0.2); Basophils % (auto) 0.1 %; Echinocytes 1+; Immature Granulocytes # (auto) 0.04 K/uL (0.00-0.02); Immature Granulocytes % (auto) 0.4 %; Lymphocytes # (auto) 0.49 K/uL (1.2-3.4); Lymphocytes % (auto) 5.3 %; Monocytes # (auto) 0.18 K/uL (0.24-0.82); Monocytes % (auto) 1.9 %; Neutrophils # (auto) 8.61 K/uL (1.4-6.5); Neutrophils % (auto) 92.3 %
[2022-04-05 08:02] LABS: Albumin Globulin Ratio 1.3 (0.9-2); Albumin Level 3.9 gm/dl (3.4-5.0); BUN Creatinine Ratio 19.8 (10-20); Bilirubin,Total 1.5 mg/dl (0.2-1.0); Calcium 9.5 mg/dl (8.5-10.1); Creatinine Clr Calc Pharmacy 47.8 ml/min; Est GFR (African American) 66.5 ml/min; Est GFR (Non-African American) 57.4 ml/min; Globulin 2.9 gm/dl (2.5-4.0); Potassium 3.6 mmol/L (3.5-5.1); Total Protein 6.8 gm/dl (6.0-8.3)
[2022-04-05] MEDS: MIRABEGRON ER 25 MG TAB PO SCH (08:20)
[2022-04-05] MEDS: guaiFENesin 600 MG TABCR PO SCH ×2 (08:20→20:07)
[2022-04-05] MEDS: LOSARTAN POTASSIUM 25 MG TAB PO SCH (08:20)
[2022-04-05] MEDS: PANTOprazole 40 MG TAB PO SCH (08:21)
[2022-04-05] MEDS: CIPROFLOXACIN HCL 0.3% OP SOLN 2.5 ML BTL OPR SCH ×4 (08:24→20:06)
[2022-04-05] MEDS: HEPARIN SOD 5,000 UNIT/0.5 ML VIAL SQ SCH ×2 (08:25→20:06)
[2022-04-05] MEDS ORDERED: Nursing to Pharmacy Communication SCH (08:30)
[2022-04-05] MEDS ORDERED: TAMSULOSIN HCL 0.4 MG CAP PO SCH ×2 (09:00→21:00)
--- NOTE | 2022-04-05 09:50 | Nuclear Medicine Report ---
NM pul perfusion CLINICAL HISTORY: Elevated D-dimer, patient declines contrast COMPARISON STUDY: Chest radiograph and chest CT April 04, 2022. TECHNIQUE: A nuclear medicine perfusion study was performed. 5.5 mCi of technetium 99m MAA was inject ed IV at 9:05 AM on April 05, 2022. Following injection, imaging of the chest was performed in mult iple projections. Ventilation imaging was not performed given Covid precautions. FINDINGS: Heterogeneous perfusion is noted. There are several wedge-shaped perfusion defects are iden tified within the lungs. This exam is compromised given lack of ventilation imaging. Therefore, this study is considered intermediate/indeterminate probability for pulmonary embolus. IMPRESSION: Heterogeneous perfusion with several wedge-shaped perfusion defects within the lungs. Ex am compromised given lack of ventilation imaging. This study is considered intermediate/indeterminate probability for pulmonary embolus. ACT 112: Negative or not required by law. Electronically signed by: Javier Flower M.D. 04/05/2022 9:49 AM
--- NOTE | 2022-04-05 10:05 | Hospitalist Progress Note ---
Date of Service April 05, 2022 Assessment & Plan (1) Dyspnea on exertion: Plan: Danie is a 76 year old male w/ PmHx of COPD, HTN, bladder cancer admitted for dyspnea on exertion and hypoxia. Acute hypoxic respiratory failure with COPD exacerbation -WBC 11.36 on admission -D-dimer 2109, -Chest CT without contrast- diffuse emphysema, bronchial wall thickening, possible infectious/inflammatory process -Differential includes bacterial pneumonia, COPD exacerbation, PE -Differential includes pneumonia/viral URI with associated COPD exacerbation, pulmonary embolism -Discontinued Zosyn, continue azithromycin (day 2/5) -Continue prednisone 40 mg daily (day 2/5) -Continue supportive care- Duoneb q2h PRN, Mucinex BID, supplemental O2 -Currently saturating well on RA, hemodynamically stable, afebrile Bladder tumor -Past history of bladder cancer, on maintenance therapy -U/A +LE, nitrates, blood, negative bacteria -Dysuria most likely secondary to side effect from maintenance therapy or multiple cystoscopies in past -Continue home mirabegron, tamsulosin, phenazopyridine PRN Transaminitis: -AST 79, ALT 73 -Likely reactive, low suspicion for acute hepatobiliary pathology -Trend CMP HTN: -Continue home losartan -BP stable GERD: -Continue home omeprazole DVT Prophylaxis: Heparin 5,000U q12h F/E/N/GI: Regular diet. Code Status: Full code Dispo: Medical/surgical with telemetry. (2) Hypoxia: (3) Bladder tumor: (4) Acute exacerbation of chronic obstructive airways disease: (5) Conjunctivitis, right eye: Admission and Anticipated Discharge Date Admission Date: April 04, 2022 Supervising Physician Co-Signing Physician Notes I personally examined the patient and verified all pierre points of history and exam, discussed case, and agree with decision making with Dr Mckeon. Feeling better. Breathing better. Vitals noted, in general he is awake and alert pleasant no distress. HEENT normocephalic atraumatic mucous membranes moist. Breathing unlabored no accesso ry muscle use good effort. However, lungs show diffuse wheezing throughoutsymmetric, bilateral COPD exacerbationsteroids, Zithromax, supportive care. Improving nicely. Otherwise as above. DVT proph - heparin SQ Subjective No acute events overnight. Pt feels his breathing is improved from yesterday, is "correction" back to his usual state of health. Reports less coughing as well, denies other acute complaints. Review of Systems Review of Systems: Per subjective Physical Exam Constitutional: WD/WN, vitals as above Respiratory: Diffuse end expiratory wheezing without crackles, no increased work of breathing Cardiovascular: Rate/Rhythm: regular rate and regular rhythm Heart Sounds: normal S1 and normal S2 No edema at bilateral lower extremities Results & Data Results & Data ([facility]) Vital Signs (Past 12 Hours) Vital Signs Temp Pulse Pulse Resp BP BP Pulse Ox 04/05/22 07:47 36.3 C L 85 16 145/76 H 91 04/05/22 03:27 36.3 C L 87 20 116/72 90 04/05/22 02:03 04/05/22 02:03 36.3 C L 102 H 18 135/76 91 04/05/22 01:30 93 H 26 H 132/80 90 04/05/22 01:15 93 H 26 H 108/68 90 04/05/22 01:00 97 H 27 H 123/66 90 04/05/22 00:45 96 H 29 H 119/71 90 04/05/22 00:32 104 H 26 H 133/78 91 04/05/22 00:15 101 H 21 131/77 93 04/05/22 00:00 100 H 19 121/75 92 04/04/22 23:47 105 H 34 H 135/79 93 04/04/22 23:30 102 H 23 120/76 93 04/04/22 23:15 103 H 33 H 116/75 92 04/04/22 22:45 109 H 35 H 133/73 90 04/04/22 22:30 109 H 41 H 102/66 91 04/04/22 22:15 110 H 31 H 126/69 91 O2 Del Method 04/05/22 07:47 Room Air 04/05/22 03:27 Room Air 04/05/22 02:03 Room Air 04/05/22 02:03 Room Air 04/05/22 01:30 Room Air 04/05/22 01:15 Room Air 04/05/22 01:00 Room Air 04/05/22 00:45 Room Air 04/05/22 00:32 Room Air 04/05/22 00:15 Room Air 04/05/22 00:00 Room Air 04/04/22 23:47 Room Air 04/04/22 23:30 Room Air 04/04/22 23:15 Room Air 04/04/22 22:45 Room Air 04/04/22 22:30 Room Air 04/04/22 22:15 Room Air Resident Activity Tracking Resident Involvement: Resident Care Provided Care Provided: Adult Hospital Medicine
[2022-04-05] MEDS: PHENAZOPYRIDINE HCL 100 MG TAB PO PRN ×2 (12:42→20:07)
[2022-04-05] MEDS ORDERED: predniSONE 20 MG TAB PO STA (14:30)
--- NOTE | 2022-04-05 16:48 | Billing Data ---
Date of Service April 05, 2022 Coding Level of Care Code 38181 Subseq Hosp Care Lvl 3
[2022-04-05] MEDS ORDERED: BENZONATATE 100 MG CAPSULE PO PRN (17:11)
[2022-04-05] MEDS ORDERED: predniSONE 20 MG TAB PO SCH (21:00)
--- NOTE | 2022-04-05 22:14 | Billing Data ---
Date of Service April 05, 2022 Coding Level of Care Code 01553 Initial Inpt Care Lvl 3
--- NOTE | 2022-04-06 05:23 | Electrocardiogram Report ---
Test Reason : Blood Pressure : / mmHG Vent. Rate : 123 BPM Atrial Rate : 123 BPM P-R Int : 138 ms QRS Dur : 144 ms QT Int : 336 ms P-R-T Axes : 061 072 028 degrees QTc Int : 481 ms Sinus tachycardia Right bundle branch block Abnormal ECG When compared with ECG of 05-Mar-2003 11:38, Right bundle branch block is now Present Vent. rate has increased by 60 bpm Confirmed by Mundo Li ([id number]) on 04/06/2022 5:23:15 AM Referred By: REFERRED SELF Confirmed By:Mundo Li
[2022-04-06 06:42] LABS: Hematocrit (blood only) 37.1 % (40.1-51.0); Hemoglobin 12.2 g/dl (14.0-18.0); Mean Corpuscular Hemoglobin 29.4 pg (25.0-34.0); Mean Corpuscular Hgb Conc 32.9 g/dL (32.0-36.0); Mean Corpuscular Volume 89.4 fL (80.0-100.0); Mean Platelet Volume 8.9 fL (9.4-12.4); Platelet Count 226 K/uL (130-400); RDW Coefficient of Variation 13.4 % (11.5-14.5); RDW Standard Deviation 43.9 fL (36.4-46.3); Red Blood Count 4.15 M/uL (4.63-6.08); White Blood Count 17.84 K/ul (4.8-10.8)
[2022-04-06 07:11] LABS: BUN Creatinine Ratio 27.1 (10-20); Calcium 9.6 mg/dl (8.5-10.1); Creatinine Clr Calc Pharmacy 44.8 ml/min; Est GFR (African American) 61.6 ml/min; Est GFR (Non-African American) 53.1 ml/min; Potassium 3.8 mmol/L (3.5-5.1)
[2022-04-06] MEDS: PHENAZOPYRIDINE HCL 100 MG TAB PO PRN (07:21)
[2022-04-06] MEDS: PANTOprazole 40 MG TAB PO SCH (07:21)
[2022-04-06] MEDS: CIPROFLOXACIN HCL 0.3% OP SOLN 2.5 ML BTL OPR SCH ×2 (07:22→13:47)
[2022-04-06] MEDS: HEPARIN SOD 5,000 UNIT/0.5 ML VIAL SQ SCH (07:22)
[2022-04-06] MEDS: LOSARTAN POTASSIUM 25 MG TAB PO SCH (07:22)
[2022-04-06] MEDS: guaiFENesin 600 MG TABCR PO SCH (07:22)
[2022-04-06] MEDS: MIRABEGRON ER 25 MG TAB PO SCH (08:52)
[2022-04-06] MEDS ORDERED: predniSONE 20 MG TAB PO SCH (09:00)
[2022-04-06] MEDS ORDERED: AZITHROMYCIN 250 MG TAB PO SCH (09:00)
[2022-04-06] MEDS ORDERED: INFLUENZA VACCINE HIGH DOSE PF 65+ 0.7 ML SYR IM ONE (09:59)
[2022-04-06] MEDS ORDERED: PNEUMOCOCCAL POLYSACCHARIDES 25 MCG/0.5 ML VIAL/SYR IM ONE (09:59)
--- NOTE | 2022-04-06 12:09 | Discharge Summary ---
Date of Service April 06, 2022 Admission HPI Per Admitting Provider Danie is a 76 year old male w/ PmHx COPD, HTN, GERD presenting to the emergency department sent from urgent care for hypoxia and dyspnea on exertion. For the past 4 days patient has had worsening of shortness of breath with exertion and cough with sputum production of yellow and sometimes white color. He said he was previously in [place] visiting his 93 year old aunt and had to COVID test prior to entering her facility, for which he tested negative. Saturday when he got back he started to have symptoms as described previously for which he thought could be COVID. He called into the [facility] and asked for advice and they had advised him to go to urgent care for testing and said they would cover the cost. When he went to urgent care he was found to be hypoxic and told to go the ED. In the ED CXR was clear however CT of chest showed emphysema and evidence for possible early pneumonia, had a WBC 11, and tachycardic. He denies any fevers, chills, chest pain, headaches, diarrhea, nausea, vomiting. Has constipation at times with bowel movements being a few days apart at times. When asked about prior COPD exacerbations, patient denies ever needing to be hospitalized for treatment of COPD however he did have an episode of shortness of breath and cough last July which required a course of prednisone. Regarding patient's history of bladder cancer, he has been seeing urology in [place]. He has a past history of smoking cigars which he quit 6 years ago and had been smoking them since he was in the [place]. He said he is 5 years out or more from his diagnosis and he is now on maintenance treatment for the bladder cancer with BCG, which he gets every 6 weeks, last treatment a few weeks prior. He says that he's had dysuria since August and been on at least 4 antibiotics for the dysuria which he says may be due to a side effect from the BCG. He seems to have discussed this with his urologist and said the alternative would be to undergo chemotherapy. Patient also has conjunctivitis his noticed a few days prior and the other day he had started to get the feeling of having sand in the eye. Today they started to notice discharge from the eye. No swelling to the orbital or periorbital skin noted by patient. No involvement of the other eye. He had previously had cataract surgery a few months prior to this and has antibiotics eye drops from that time but has not used yet. Discussed obtaining CTA with patient and utilizing contrast given his good kidney function on CMP today, however patient says he is hesitant and declines at this time due to being told last week [facility] that his blood work indicated his kidney function was not the best and recommended against using any contrast for imaging. Admission Exam Per Admitting Provider Constitutional: WD/WN, vitals as above Eyes: Conjunctivitis of the R eye with mild light green discharge. L eye conjunctivitis or discharge. PERRL. Respiratory: Mild end expiratory wheezing at the R mid to lower lung campuzano, clear to auscultation elsewhere. B Cardiovascular: Rate/Rhythm: regular rhythm and + tachycardic Heart Sounds: normal S1 and normal S2 No edema at bilateral upper or lower extremities. Pulses 2+ bilaterally U&L extremities. Gastrointestinal (Abdomen): normal bowel sounds, soft, nontender, no hepatosplenomegaly Psychiatric: A+Ox3, euthymic affect Principal Diagnosis COPD exacerbation Discharge Exam Constitutional: WD/WN, vitals as above Respiratory: Mild expiratory wheezing, significantly improved lung exam from day prior Cardiovascular: Rate/Rhythm: regular rhythm. Heart Sounds: normal S1 and normal S2 No edema at bilateral upper or lower extremities. Discharge Data Allergies Allergy/AdvReac Type Severity Reaction Status Date / Time bee venom protein (honey bee) Allergy Severe Anaphylaxis Verified 04/04/22 19:58 rhubarb Allergy Intermediate ANXIETY, Verified 04/04/22 19:58 "ON EDGE", "FEELS LIKE NAILS ON CHALKBOARD". Consultations 04/04/22 21:17 ED Decision to Admit Stat 04/05/22 15:01 Burn CD for patient Routine Ordered Studies 04/04/22 20:37 CT chest diagnostic wo con Stat Hospital Course (1) Dyspnea on exertion: Danie is a 76 year old male w/ PmHx of COPD, HTN, bladder cancer admitted for dyspnea on exertion and hypoxia. Acute hypoxic respiratory failure with COPD exacerbation -WBC 11.36 on admission, 17.8 at time of discharge (likely due to steroid leukocytosis) -D-dimer 2109 -Chest CT without contrast- diffuse emphysema, bronchial wall thickening, possible infectious/inflammatory process -Suspect symptoms likely due to COPD exacerbation 2/2 viral URI -Pt improved with stable respiratory status and minor wheezing on exam by time of discharge -Discharged with scripts to complete 5 day course of azithromycin and prednisone as outpatient Bladder tumor -Past history of bladder cancer, on maintenance therapy -U/A +LE, nitrates, blood, negative bacteria -Dysuria most likely secondary to side effect from maintenance therapy or multiple cystoscopies in past -Continued home mirabegron, tamsulosin, phenazopyridine PRN (2) Hypoxia: (3) Bladder tumor: (4) Acute exacerbation of chronic obstructive airways disease: (5) Conjunctivitis, right eye: Total Time Total Time Spent Total Time Spent (In Minutes): <30 Discharge Plan Discharge Items Patient Disposition: Home - Self-Care Reason For Visit: PNA, COPD EXACERBATION Discharge Diagnosis: COPD exacerbation, viral infection Activity: Resume your previous activity Non-emergency contact: Primary Care Provider Call non-emergency contact if: your symptoms worsen and you have a fever Follow-up/Referrals: Alejandro Bello, [Primary Care Provider] - 04/09/22 11:30 am (Appointment with Dr. Bello on Saturday April 09, 2022 at 11:30 am.) Diet: Regular Addtl Attending Provider Instructions: You were admitted to the hospital for a COPD exacerbation which was likely caused by a viral infection such as the common cold virus. Your COPD exacerbation was treated with steroids, antibiotics and inhalers/nebulizers. Please keep an eye on your oxygen levels with the pulse oximeter over the next few days and use your inhaler as needed for any shortness of breath. Please get your influenza and pneumonia vaccines at the direction of your PCP at your next appointment. A discharge summary will be sent to your primary care physician to ensure continuity of care. Please bring this discharge summary with you to your next office appointment so that your provider can review it at that time. Follow-up appointments: Make a follow-up appointment with your PCP within the next week. It is very important that you follow up with them shortly after discharge from the hospital. Medications: Your medication list has been reviewed and reconciled upon discharge to ensure accuracy and continuity of care. An updated list of all your medications is included with your hospital discharge paperwork. Please review this list closely, and make note of any changes. We sent two medications to the pharmacy to treat the remainder of your COPD exacerbation. The first is azithromycin, an antibiotic. The second is prednisone, a steroid. You will take both medications tomorrow and Saturday to complete a 5 day treatment course for both. We recommend you take it with food as the prednisone can cause some stomach upset otherwise. Take your medications as instructed; do not skip a dose of your medicines. Make sure all of your doctors know every medicine you are taking (including [id number] medicines, vitamins, and supplements). Call your primary care provider before taking any new medicines (including [id number] medicines, vitamins, and supplements), because some of these may interact with your current medications, or may make your symptoms worse. Tell your primary care provider if you cannot afford your medications. CONTACT YOUR PRIMARY CARE PROVIDER if you experience any of the following: Shortness of breath Fever Chest pain Excessive cough Wheezing Difficulty following your treatment plan, or difficulty taking medications CALL 911 OR GO TO THE EMERGENCY DEPARTMENT if you experience any of the following: Sudden, severe abdominal pain or nausea/vomiting Severe chest pain, or chest pain that radiates (moves) to your jaw or arm Sudden, severe shortness of breath or difficulty breathing Thank you for allowing us to participate in your care. Pending Studies at Discharge: No Stand-Alone Forms: My [facility] Medications and DC Order Prescriptions: New azithromycin 250 mg Tablet 250 mg PO QAM Qty: 2 0RF prednisone 20 mg Tablet 40 mg PO DAILY Qty: 2 0RF Continued multivitamin Tablet 1 tab PO DAILY desonide 0.05 % cream 1 applic TOPICAL DIRECTED PRN (Reason: Skin Irritation) hydrophilic Ointment 1 applic TOPICAL DIRECTED PRN (Reason: NEEDED PER MED LIST) sildenafil 25 mg Tablet 0 mg PO DAILY PRN (Reason: Sexual Activity) Rx Instructions: UNABLE TO VERIFY DOSE. administer 30 minutes to 4 hours before activity acetaminophen [Tylenol Extra Strength] 500 mg Tablet 500 - 1,000 mg PO DIRECTED PRN (Reason: Pain) tamsulosin 0.4 mg capsule 0.4 mg PO DAILY phenazopyridine 100 mg tablet 100 mg PO TID PRN (Reason: BLADDER PAIN) losartan 25 mg tablet 25 mg PO DAILY omeprazole 20 mg capsule,delayed release(DR/EC) 20 mg PO DAILY albuterol sulfate 90 mcg/actuation Hfa Aerosol Inhaler 2 puff INHALATION DIRECTED PRN (Reason: Shortness Of Breath Or Wheezing) fluticasone propionate 50 mcg/actuation spray,suspension 2 spray INTRANASAL DAILY PRN (Reason: Congestion) Probiotic 10 billion cell Capsule 10,000 mmu cells PO DAILY guaifenesin [Mucinex] 600 mg Tablet Extended Release 12hr 600 mg PO Q12H PRN (Reason: Congestion) Stiolto Respimat 2.5-2.5 mcg/actuation mist 2 inh INHALATION DAILY Myrbetriq 25 mg Tablet Extended Release 24 Hr 25 mg PO DAILY Rx Instructions: PT HAS NOT STARTED THIS MEDICATION YET Discharge Orders: Discharge Order (Routine); Ordered 04/06/22 Ordered By: Che Mckeon Admission Data Admit Date/Time: 04/04/22 22:52 Attending Provider: Leeroy Pickett Admit Provider: Milton Gonsalves Primary Care Provider: Alejandro Bello Other Providers: [facility] ; Burke White Other Interventions: Discharge Summary Assessment (RN) Last Done: 04/06/22 12:34 Supervising Physician Co-Signing Physician Notes I personally examined the patient and verified all pierre points of history and exam, discussed case, and agree with decision making with Dr Mckeon. Feeling better. Breathing better. feels up to going home Vitals noted, in general he is awake and alert pleasant no distress. HEENT normocephalic atraumatic mucous membranes moist. Breathing unlabored no accessory muscle use good effort. lungs surprisingly clear - no r/r/w good effort good air entry COPD exacerbationsafe for home - steroids, zithromax. outpt f/u DVT proph - heparin SQ utilized while here Resident Activity Tracking Resident Involvement: Resident Care Provided Care Provided: Adult Hospital Medicine
--- NOTE | 2022-04-06 18:06 | Billing Data ---
Date of Service April 06, 2022 Coding Level of Care Code D/C DAY MANAGEMENT <30 MINS
== END 2022-04-06 13:50 | disposition home or self-care (01) | DRG 189 ==
LOC: ED 18:28 → SUATTDRO 22:52 → 2S 22:52 → 2N 04-05 11:24 → 3W 04-06 02:22
DX: K59.00 Constipation, unspecified; H10.9 Unspecified conjunctivitis; N39.0 Urinary tract infection, site not specified; J96.01 Acute respiratory failure with hypoxia; I45.10 Unspecified right bundle-branch block; J06.9 Acute upper respiratory infection, unspecified; J44.0 Chronic obstructive pulmonary disease with (acute) lower respiratory infection; J44.1 Chronic obstructive pulmonary disease with (acute) exacerbation; C67.9 Malignant neoplasm of bladder, unspecified; Z87.891 Personal history of nicotine dependence

== ENCOUNTER 2022-06-18 02:33 | Inpatient (IN) ==
[2022-06-18] MEDS ORDERED: DEXAMETHASONE SOD INJ 4 MG/ML VIAL IV STA (02:45)
[2022-06-18] MEDS ORDERED: AMPICILLIN/SULBACTAM SOD 1,500 MG in 0.9 % SODIUM CHLORIDE 100 ML IV STA (02:45)
--- NOTE | 2022-06-18 02:49 | Emergency Department Note ---
History of Present Illness General Chief complaint: Sore Throat Stated complaint: SEVERE SORE THROAT, TROUBLING SWALLOWING Time Seen by Provider: 06/18/22 02:40 History of Present Illness Maximum Pain Intensity: 5 This 76-year-old presents to the ER complaining of severe sore throat and dysphagia tonight that was rapid in onset Location: Throat Quality: Difficulty swallowing Severity: Severe Duration: Tonight Timing: Tonight Context: Patient was concerned and came in Modifying factors: better with rest; worse with swallowing No new foods soaps or detergents. Patient states symptoms started tonight and gotten progressively worse. He feels like he is having issues swallowing. His uvula feels slightly enlarged. Patient denies chest pain, dyspnea, fevers, flulike illness. Home Medications Medication Instructions Recorded Confirmed Type Lactobacillus acidophilus 10 10,000 mmu cells PO DAILY 04/04/22 04/04/22 History billion cell capsule (Probiotic) acetaminophen 500 mg tablet 500 - 1,000 mg PO DIRECTED PRN 04/04/22 04/04/22 History (Tylenol Extra Strength) Pain albuterol sulfate 90 mcg/actuation 2 puff inhalation DIRECTED PRN 04/04/22 04/04/22 History aerosol inhaler Shortness Of Breath Or Wheezing desonide 0.05 % topical cream 1 applic topical DIRECTED PRN 04/04/22 04/04/22 History Skin Irritation fluticasone propionate 50 2 spray intranasal DAILY PRN 04/04/22 04/04/22 History mcg/actuation nasal Congestion spray,suspension guaifenesin 600 mg tablet, 600 mg PO Q12H PRN Congestion 04/04/22 04/04/22 History extended release 12 hr (Mucinex) hydrophilic 1 applic topical DIRECTED PRN 04/04/22 04/04/22 History NEEDED PER MED LIST losartan 25 mg tablet 25 mg PO DAILY 04/04/22 04/04/22 History mirabegron 25 mg tablet,extended 25 mg PO DAILY 04/04/22 04/04/22 History release 24 hr (Myrbetriq) multivitamin 1 tab PO DAILY 04/04/22 04/04/22 History omeprazole 20 mg capsule,delayed 20 mg PO DAILY 04/04/22 04/04/22 History release phenazopyridine 100 mg tablet 100 mg PO TID PRN BLADDER PAIN 04/04/22 04/04/22 History sildenafil 25 mg tablet 0 mg PO DAILY PRN Sexual Activity 04/04/22 04/04/22 Hist ory tamsulosin 0.4 mg capsule 0.4 mg PO DAILY 04/04/22 04/04/22 History tiotropium 2.5 mcg-olodaterol 2.5 2 inh inhalation DAILY 04/04/22 04/04/22 History mcg/actuation mist for inhalation (Stiolto Respimat) azithromycin 250 mg tablet 250 mg PO QAM #2 tabs 04/06/22 Rx prednisone 20 mg tablet 40 mg PO DAILY #2 tabs 04/06/22 Rx Allergies Allergy/AdvReac Type Severity Reaction Status Date / Time bee venom protein (honey bee) Allergy Severe Anaphylaxis Verified 04/04/22 19:58 rhubarb Allergy Intermediate ANXIETY, Verified 04/04/22 19:58 "ON EDGE", "FEELS LIKE NAILS ON CHALKBOARD". Past Med/Surg History Medical History Acute exacerbation of chronic obstructive airways disease Bladder spasms Bladder tumor BPH w urinary obs/LUTS COPD (chronic obstructive pulmonary disease) Erectile dysfunction GERD (gastroesophageal reflux disease) Hypertension Hypokalemia Thrombocytopenia Family History Other Family history non-contributory Social History Smoking Status: Former smoker Tobacco Type: Cigarettes Hx Alcohol Use: No Hx Substance Use: No Preferred Language: Nepali Communication Ability: Effective Coil Tester Required: No Beliefs That Will Affect Care: None Current Living Situation: Spouse Feels Safe at Home: Yes Assistive Devices: None Review of Systems A total of 10 systems reviewed and were otherwise negative Physical Exam Vital Signs Vital Signs - 24 hr 06/18/22 02:38 06/18/22 03:55 06/18/22 03:55 Temperature 36.5 C Temperature Source Temporal Artery Scan Pulse Rate 109 H Pulse Rate [Finger] 90 Respiratory Rate 18 20 Respiratory Effort / Characteristics Non-Labored Spontaneous Respiratory Depth Normal Blood Pressure 136/84 Blood Pressure [Left Arm] 172/88 H Blood Pressure Mean 101 Blood Pressure Mean [Left Arm] 116 Pulse Oximetry 94 90 93 Oxygen Delivery Method Room Air Room Air Room Air Sepsis Recent Fever Within 48 Hours No Sepsis New/Unexplained Change in Mental Status N/A Sepsis Action Taken by Nursing No Action Required 06/18/22 06:08 Temperature Temperature Source Pulse Rate Pulse Rate [Finger] 89 Respiratory Rate 12 Respiratory Effort / Characteristics Respiratory Depth Blood Pressure Blood Pressure [Left Arm] 134/89 Blood Pressure Mean Blood Pressure Mean [Left Arm] 104 Pulse Oximetry 93 Oxygen Delivery Method Room Air Sepsis Recent Fever Within 48 Hours Sepsis New/Unexplained Change in Mental Status Sepsis Action Taken by Nursing VITALS: Vitals are noted on the nurse's note and reviewed by myself. Vital signs reviewed. GENERAL: Pleasant gentleman maintaining his own secretions, in no acute distress, nondiaphoretic, well-developed well-nourished. SKIN: The skin was without rashes, erythema, edema, or bruising. There is no tenting of the skin. Capillary reflex less than 2 seconds. HEAD: Normocephalic atraumatic. EARS: External auditory canals clear, tympanic membranes pearly nguyễn without erythema or effusion bilaterally. EYES: Pupils equal round and reactive to light and accommodation. Conjunctivae without injection, sclerae without icterus. Extraocular movements intact. NOSE: Patent, turbinates without inflammation or discharge. MOUTH: Mucous membranes moist. Pharynx with erythema without r exudate. Uvula edematous and glossy and midline. Airway patent. Tongue does not deviate. NECK: Supple without nuchal rigidity. No lymphadenopathy. No thyromegaly. Cervical spine is nontender. No JVD. HEART: Regular rate and rhythm LUNGS: Clear to auscultation bilaterally without wheezes, rales or rhonchi. No retractions or accessory muscle use. ABDOMEN: Positive bowel sounds x 4. Normal tympanic percussion. Soft, nontender, without masses or organomegaly. Youngblood sign negative. No guarding or rebound tenderness. No CVA tenderness MUSCULOSKELETAL: No muscle atrophy, erythema, or edema noted. NEURO: Patient was alert and oriented to person place and time. Normal sensation to light and sharp touch. No focal neurological deficits. Course Administered Medications Ampicillin Sodium/Sulbactam Sodium 3,000 mg/ Sodium Chloride 108 mls @ 200 mls/hr IV Q6H [facility]; Protocol Stop: 06/28/22 06:44 Last Infusion: 06/18/22 18:41 Dose: 0 mls/hr Documented By: Admin: 06/18/22 18:03 Dose: 200 mls/hr Documented By: Infusion: 06/18/22 12:05 Dose: 0 mls/hr Documented By: Admin: 06/18/22 11:34 Dose: 200 mls/hr Documented By: Infusion: 06/18/22 09:14 Dose: 0 mls/hr Documented By: Admin: 06/18/22 07:08 Dose: 200 mls/hr Documented By: LEO Dexamethasone 6 mg/ Syringe 1.5 mls @ 1 mls/min IV Q6H [facility] Stop: 07/18/22 06:44 Last Admin: 06/18/22 18:04 Dose: 1 mls/min Documented By: Admin: 06/18/22 11:33 Dose: 1 mls/min Documented By: Admin: 06/18/22 07:06 Dose: 1 mls/min Documented By: LEO Potassium Chloride/Sodium Chloride (Normal Saline W/20 Meq Kcl) 20 meq in 1,000 mls @ 80 mls/hr IV .[id number] TREV Stop: 07/18/22 09:29 Last Admin: 06/18/22 09:55 Dose: 80 mls/hr Documented By: MARCEL Pantoprazole Sodium 40 mg/ (Syringe) 10 mls @ 5 mls/min IV DAILY@1100 [facility] Stop: 07/18/22 10:59 Last Admin: 06/18/22 11:33 Dose: 5 mls/min Documented By: MARCEL Mirabegron (Mirabegron Er 25 Mg Tab) 25 mg PO DAILY TREV Stop: 07/18/22 09:29 Last Admin: 06/18/22 09:55 Dose: 25 mg Documented By: MARCEL Miscellaneous (Icu Protocol For Hyperglycemia) 1 each N/A ACHS TREV Stop: 06/20/22 09:09 Last Admin: 06/18/22 16:16 Dose: 1 each Documented By: Admin: 06/18/22 11:33 Dose: 1 each Documented By: Admin: 06/18/22 09:55 Dose: 1 each Documented By: MARCEL Tamsulosin HCl (Tamsulosin Hcl 0.4 Mg Cap) 0.4 mg PO DAILY TREV Stop: 07/18/22 09:29 Last Admin: 06/18/22 09:55 Dose: 0.4 mg Documented By: MARCEL Umeclidinium/Vilanterol (Umeclidinium/Vilanterol 62.5/25mcg 7 Puffs/Inhaler) 1 puffs INH DAILY TREV; Protocol Stop: 07/18/22 09:29 Last Admin: 06/18/22 10:17 Dose: 1 puffs Documented By: MARCEL Discontinued Medications Dexamethasone (Dexamethasone Sod Inj 4 Mg/Ml Vial) 10 mg IV NOW STA Stop: 06/18/22 02:46 Last Admin: 06/18/22 03:50 Dose: 10 mg Documented By: ADONIS Ampicillin Sodium/Sulbactam Sodium 1,500 mg/ Sodium Chloride 104 mls @ 200 mls/hr IV NOW STA; Protocol Stop: 06/18/22 03:16 Last Infusion: 06/18/22 04:42 Dose: 0 mls/hr Documented By: Admin: 06/18/22 03:49 Dose: 200 mls/hr Documented By: ADONIS Vancomycin HCl 1,500 mg/ (Sodium Chloride) 530 mls @ 200 mls/hr IV NOW ONE Stop: 06/18/22 08:24 Last Admin: 06/18/22 08:01 Dose: 200 mls/hr Documented By: LEO Famotidine 20 mg/ Syringe 5 mls @ 2.5 mls/min IV Q12H TREV Stop: 07/18/22 09:29 Last Admin: 06/18/22 10:05 Dose: Not Given Documented By: MARCEL Ioversol (Optiray 350 100ml) 100 ml IV ONCE ONE Stop: 06/18/22 04:24 Last Admin: 06/18/22 04:23 Dose: 83 ml Documented By: LIZBETH Critical Care Time Critical Care Time: Yes Total Critical Care Time: 35 I have personally spent 35 minutes of critical care time in the direct management of this patient. This includes bedside care, interpretation of diagnostic studies, and testing, discussion with consultants, patient, and family members, and other required patient management activities. This 35 minutes is in excess of all separately billable procedures. Medical Decision Making Medical Records Attestation: I reviewed the patient's medical records. Home Medications Current Medication List: was personally reviewed by me Laboratory Data Attestation: I reviewed the patient's lab results. Result diagrams: 06/18/22 03:00 06/18/22 03:00 Lab Results 06/18/22 06/18/22 06/18/22 Range/Units 03:00 03:00 03:20 WBC 10.58 (4.8-10.8) K/ul RBC 4.78 (4.63-6.08) M/uL Hgb 14.1 (14.0-18.0) g/dl Hct 43.1 (40.1-51.0) % MCV 90.2 (80.0-100.0) fL MCH 29.5 (25.0-34.0) pg MCHC 32.7 (32.0-36.0) g/dL RDW Std Deviation 44.5 (36.4-46.3) fL RDW Coeff of Charanjit 13.4 (11.5-14.5) % Plt Count 238 (130-400) K/uL MPV 9.1 L (9.4-12.4) fL Immature Gran % (Auto) 0.4 % Neut % (Auto) 78.1 % Lymph % (Auto) 10.9 % Island % (Auto) 6.1 % Eos % (Auto) 3.8 % Baso % (Auto) 0.7 % Neut # (Auto) 8.27 H (1.4-6.5) K/uL Lymph # (Auto) 1.15 L (1.2-3.4) K/uL Island # (Auto) 0.65 (0.24-0.82) K/uL Eos # (Auto) 0.40 (0-0.50) K/uL Baso # (Auto) 0.07 (0-0.2) K/uL Immature Gran # (Auto) 0.04 H (0.00-0.02) K/uL Sodium 137 (136-145) mmol/L Potassium 3.9 (3.5-5.1) mmol/L Chloride 104 (98-107) mmol/L Carbon Dioxide 25 (21-32) mmol/L Anion Gap 8 (3-11) BUN 27 H (6-23) mg/dl Creatinine 1.30 (0.6-1.4) mg/dl Est Cr Clr Drug Dosing 44.5 ml/min Est GFR ( Amer) 61.0 ml/min Est GFR (Non-Af Amer) 52.6 ml/min BUN/Creatinine Ratio 20.8 H (10-20) Glucose 105 H (70-99(Fasting)) mg/dl POC Glucose 107 H (70-99) mg/dl Calcium 9.4 (8.5-10.1) mg/dl Total Bilirubin 1.4 H (0.2-1.0) mg/dl AST 15 (13-39) U/L ALT 15 (7-52) U/L Alkaline Phosphatase 97 (34-104) U/L Total Protein 7.3 (6.0-8.3) gm/dl Albumin 4.2 (3.4-5.0) gm/dl Globulin 3.1 (2.5-4.0) gm/dl Albumin/Globulin Ratio 1.4 (0.9-2) SARS-CoV-2, RNA, NAAT (NEGATIVE) Group A Strep (PCR) (NotDetected) 06/18/22 06/18/22 Range/Units 04:30 06:05 WBC (4.8-10.8) K/ul RBC (4.63-6.08) M/uL Hgb (14.0-18.0) g/dl Hct (40.1-51.0) % MCV (80.0-100.0) fL MCH (25.0-34.0) pg MCHC (32.0-36.0) g/dL RDW Std Deviation (36.4-46.3) fL RDW Coeff of Charanjit (11.5-14.5) % Plt Count (130-400) K/uL MPV (9.4-12.4) fL Immature Gran % (Auto) % Neut % (Auto) % Lymph % (Auto) % Island % (Auto) % Eos % (Auto) % Baso % (Auto) % Neut # (Auto) (1.4-6.5) K/uL Lymph # (Auto) (1.2-3.4) K/uL Island # (Auto) (0.24-0.82) K/uL Eos # (Auto) (0-0.50) K/uL Baso # (Auto) (0-0.2) K/uL Immature Gran # (Auto) (0.00-0.02) K/uL Sodium (136-145) mmol/L Potassium (3.5-5.1) mmol/L Chloride (98-107) mmol/L Carbon Dioxide (21-32) mmol/L Anion Gap (3-11) BUN (6-23) mg/dl Creatinine (0.6-1.4) mg/dl Est Cr Clr Drug Dosing ml/min Est GFR ( Amer) ml/min Est GFR (Non-Af Amer) ml/min BUN/Creatinine Ratio (10-20) Glucose (70-99(Fasting)) mg/dl POC Glucose (70-99) mg/dl Calcium (8.5-10.1) mg/dl Total Bilirubin (0.2-1.0) mg/dl AST (13-39) U/L ALT (7-52) U/L Alkaline Phosphatase (34-104) U/L Total Protein (6.0-8.3) gm/dl Albumin (3.4-5.0) gm/dl Globulin (2.5-4.0) gm/dl Albumin/Globulin Ratio (0.9-2) SARS-CoV-2, RNA, NAAT NEGATIVE (NEGATIVE) Group A Strep (PCR) NOT DETECTED (NotDetected) Imaging Data Attestation: I personally reviewed and interpreted this imaging study as follows: MDM Narrative Prior records/ancillary studies reviewed. Triage Nursing notes reviewed. Additional history obtained from family The patient's history was concerning for a sore throat. Differential diagnosis: Etiologies such as viral syndrome, tonsillitis, streptococcal pharyngitis, mononucleosis, peritonsillar abscess, retropharyngeal abscess, otitis, pneumonia, influenza, as well as others were entertained. ER treatment provided: Decadron, Unasyn, vancomycin On reassessment the patient felt better. Diagnostics interpreted by me: The labs revealed no worrisome leukocytosis, negative strep test Imaging studies: Patient: MOSHE ZABALA (Male) : 43 Status: ER Date: 06/18/22 04:26 Room #: History: SEVERE DYSPHAGIA Slices: 755 Priors: Tech: Dami Mckeon @ [phone] Exams: CT NECK Contrast: IV Amt: 83 ML OPTIRAY 350 Accession Numbers: [id number] Referring Physician: REFERRED SELF Preliminary Findings Only See Final Report For Complete Findings CT NECK: Thickened epiglottis, consistent with epiglottitis. Thickened oropharyngeal/hypopharyngeal mucosa and vocal folds. Moderate stenosis proximal left ICA. Minimal stenosis proximal right ICA. Patent vertebral arteries. E mphysema. Left mastoid effusion. Radiologist: Wendie Diamond MD Consultation: I spoke with Dr. Manuel and will evaluate the patient on consult. He recommends the patient be admitted to the unit with antibiotics and steroids. Medicine is consulted and will be admitted to the medical service. The ICU was made aware. This appears to be consistent with epiglottitis. Dr. Manuel was not on-call but will is willing to see the patient on consult. He recommends patient be admitted to the unit and anesthesia on standby if warranted. Medicine was consulted. Patient will be admitted to the medical service. By the evaluation outlined above emergent etiologies such as peritonsillar abscess, retropharyngeal abscess, otitis, pneumonia, meningitis, urinary tract infection, sepsis, bacteremia, as well as others were deemed relatively unlikely. The pt informed about the findings as listed above. All questions were answered and pleased with the treatment. The chart was completed utilizing [employer] Speech voice recognition software. Grammatical errors, random word insertions, pronoun errors, and incomplete sentences are an occassional consequence of this system due to software limitations, ambient noise, and hardware issues. Any formal questions or concerns about the content, text, or information contained within the body of this dictation should be directly addressed to the physician supply assistant for clarification. Impression & Plan Acute epiglottitis Discharge Plan Visit Data Chief Complaint: Sore Throat Stated Complaint: SEVERE SORE THROAT, TROUBLING SWALLOWING ED Provider: Jared Miller ED Midlevel Provider: Shivani Lara Discharge Problem: Acute epiglottitis Patient Disposition: Admitted As Inpatient Condition: Fair Discharge Instructions Interventions: ED Discharge Assessment Last Done: 06/18/22 08:40 : Acute epiglottitis Qualifiers: Airway obstruction: without obstruction Qualified Code(s): J05.10 - Acute epiglottitis without obstruction
[2022-06-18 03:30] LABS: Basophils # (auto) 0.07 K/uL (0-0.2); Basophils % (auto) 0.7 %; Eosinophils % (auto) 3.8 %; Hematocrit (blood only) 43.1 % (40.1-51.0); Hemoglobin 14.1 g/dl (14.0-18.0); Immature Granulocytes # (auto) 0.04 K/uL (0.00-0.02); Immature Granulocytes % (auto) 0.4 %; Lymphocytes # (auto) 1.15 K/uL (1.2-3.4); Lymphocytes % (auto) 10.9 %; Mean Corpuscular Hemoglobin 29.5 pg (25.0-34.0); Mean Corpuscular Hgb Conc 32.7 g/dL (32.0-36.0); Mean Corpuscular Volume 90.2 fL (80.0-100.0); Mean Platelet Volume 9.1 fL (9.4-12.4); Monocytes # (auto) 0.65 K/uL (0.24-0.82); Monocytes % (auto) 6.1 %; Neutrophils # (auto) 8.27 K/uL (1.4-6.5); Neutrophils % (auto) 78.1 %; Platelet Count 238 K/uL (130-400); RDW Coefficient of Variation 13.4 % (11.5-14.5); RDW Standard Deviation 44.5 fL (36.4-46.3); Red Blood Count 4.78 M/uL (4.63-6.08); White Blood Count 10.58 K/ul (4.8-10.8)
[2022-06-18 03:50] LABS: Albumin Globulin Ratio 1.4 (0.9-2); Albumin Level 4.2 gm/dl (3.4-5.0); BUN Creatinine Ratio 20.8 (10-20); Bilirubin,Total 1.4 mg/dl (0.2-1.0); Calcium 9.4 mg/dl (8.5-10.1); Creatinine Clr Calc Pharmacy 44.5 ml/min; Est GFR (Non-African American) 52.6 ml/min; Globulin 3.1 gm/dl (2.5-4.0); Potassium 3.9 mmol/L (3.5-5.1); Total Protein 7.3 gm/dl (6.0-8.3)
[2022-06-18] MEDS ORDERED: OPTIRAY 350 100ml IV ONE (04:23)
[2022-06-18] MEDS ORDERED: VANCOMYCIN HCL 1,500 MG in SODIUM CHLORIDE 0.9% 500 ML IV ONE (05:46)
[2022-06-18] MEDS ORDERED: VANCOMYCIN CONSULT ACTIVE PRN (05:46)
--- NOTE | 2022-06-18 06:35 | Critical Care Consultation ---
Date of Consultation June 18, 2022 Assessment & Plan (1) Hypertension: (2) Bladder spasms: (3) Acute epiglottitis: (4) COPD (chronic obstructive pulmonary disease): Plan ICU CONSULT NOTE FORMAT: Reason Critically Ill: 76 YOM presents with about 5 days of sore throat and <24 hours of feeling like throat was getting tighter, with initial difficulty swallowing. Improved following steroid dosing. Admitted to ICU with request from ENT. Patient will be NPO, continue steroids and antibiotics. Appreciate surgical evaluation Neuro - No acute needs CAM ICU: Negative Cardiac - HTN, AAA, LICA stenosis - Hold ANASTASIYA/ARB follow hemodyanmics and renal indices - [facility] this year and patient reports this as being measured at 4.1 - LICA stenosis on CT of neck- consider ultrasound for evaluation - asymptomatic Respiratory - Epiglotitis, COPD(emphysema) - Received steroids and abx in EMD- evaluation by ENT pending - ENT consult/Anesthesia consult placed - Patient is without tonsillar/adenoid swelling, uvula is normal in appearance, swallowing and voice is normal, is without stridor - Hypopharynx with mild erythema - Continue Vancomycin and Unasyn - de-escalate as able - NPO - Continue steroids- defer to ENT - received Decadron 10mg in EMD - consideration to flex scope visualization either with ENT or ICU Emphysema- continue JOANNA, continue Stiolto- nebs prn GI - NO acute needs - PPI while on higher dose steroids RENAL/LYTES - No acute needs - ICU electrolyte protocol - avoid nephrotoxic medications - Overactive bladder - continue with tamsulosin and Myrbetriq ENDO - no cacute needs - ICU hyperglycemic protocol while on steroids - goal <180mg/dl HEME - NO acute needs ID - Epiglotitis, Left Mastoid ear effusion - ENT consultation - Care as above- - Group A strep negative, consider Monospot LINES/IV ACCESS - PIV Continue use of these lines DVT PROPHYLAXIS - SCDS - initiate chemoprophylaxis following surgical evaluation DISPO- ICU for airway monitoring I have personally spent 35 minutes of critical care time in the direct management of this patient. This is a life/limb threatening event. This includes time spent evaluating patient, direct bedside care, chart review, placing orders, interpretation of diagnostic studies, discussion with consultants, patient, and family members, as well as other required patient management activities. This time is exclusive of all separately billable procedures, separate from and in addition to any other critical care service time. Thank you for allowing us to participate in the care of this patient. Please refer to my attending physician's documentation for any further recommendations. Supervising Physician Co-Signing Physician Notes I have seen the patient and agree with the assessment and plan of VIBHA Sharma. Patient reports his odynophagia is improving, no voice change no difficulty speaking. Anticipate downgrade tomorrow. Discontinued vancomycin continue with Unasyn. History of Present Illness Reason for Consultation: epiglottis Requesting Physician: Dr. White Attending Physician: Dr. White History of Present Illness 76 YOM with medical history COPD, BPH with overactive bladder, HTN, GERD. He states he was with family for the holiday season and had sore throat that progressively gotten worse. He had onset of feeling like his throat was getting tight and couldn't swallow well. In the EMD the patient received steroids, Unasyn had CT scan of neck completed which was notable for inflammation of the upper airway and epiglottis. ENT was consulted and reqeusted ICU admission. Patient admitted, Anesthesia consultation palced, continue with NPO. COVID Negative on admission CODE: FULL Allergies Allergy/AdvReac Type Severity Reaction Status Date / Time bee venom protein (honey bee) Allergy Severe Anaphylaxis Verified 04/04/22 19:58 rhubarb Allergy Intermediate ANXIETY, Verified 04/04/22 19:58 "ON EDGE", "FEELS LIKE NAILS ON CHALKBOARD". Home Medications Medication Instructions Recorded Confirmed Type Lactobacillus acidophilus 10 10,000 mmu cells PO DAILY 04/04/22 04/04/22 History billion cell capsule (Probiotic) acetaminophen 500 mg tablet 500 - 1,000 mg PO DIRECTED PRN 04/04/22 04/04/22 History (Tylenol Extra Strength) Pain albuterol sulfate 90 mcg/actuation 2 puff inhalation DIRECTED PRN 04/04/22 04/04/22 History aerosol inhaler Shortness Of Breath Or Wheezing desonide 0.05 % topical cream 1 applic topical DIRECTED PRN 04/04/22 04/04/22 History Skin Irritation fluticasone propionate 50 2 spray intranasal DAILY PRN 04/04/22 04/04/22 History mcg/actuation nasal Congestion spray,suspension guaifenesin 600 mg tablet, 600 mg PO Q12H PRN Congestion 04/04/22 04/04/22 History extended release 12 hr (Mucinex) hydrophilic 1 applic topical DIRECTED PRN 04/04/22 04/04/22 History NEEDED PER MED LIST losartan 25 mg tablet 25 mg PO DAILY 04/04/22 04/04/22 History mirabegron 25 mg tablet,extended 25 mg PO DAILY 04/04/22 04/04/22 History release 24 hr (Myrbetriq) multivitamin 1 tab PO DAILY 04/04/22 04/04/22 History omeprazole 20 mg capsule,delayed 20 mg PO DAILY 04/04/22 04/04/22 History release phenazopyridine 100 mg tablet 100 mg PO TID PRN BLADDER PAIN 04/04/22 04/04/22 History sildenafil 25 mg tablet 0 mg PO DAILY PRN Sexual Activity 04/04/22 04/04/22 History tamsulosin 0.4 mg capsule 0.4 mg PO DAILY 04/04/22 04/04/22 History tiotropium 2.5 mcg-olodaterol 2.5 2 inh inhalation DAILY 04/04/22 04/04/22 History mcg/actuation mist for inhalation (Stiolto Respimat) azithromycin 250 mg tablet 250 mg PO QAM #2 tabs 04/06/22 Rx prednisone 20 mg tablet 40 mg PO DAILY #2 tabs 04/06/22 Rx Patient History Medical History Acute exacerbation of chronic obstructive airways disease Bladder spasms Bladder tumor BPH w urinary obs/LUTS COPD (chronic obstructive pulmonary disease) Erectile dysfunction GERD (gastroesophageal reflux disease) Hypertension Hypokalemia Thrombocytopenia Family History Other Family history non-contributory Social History Smoking Status: Former smoker Tobacco Type: Cigarettes Hx Alcohol Use: No Hx Substance Use: No Preferred Language: Italian Communication Ability: Effective 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 Beliefs That Will Affect Care: None Current Living Situation: Spouse Feels Safe at Home: Yes Assistive Devices: None Review of Systems Review of Systems: REVIEW OF SYSTEMS: Constitutional: (+) fever, sweats or chills Eyes: No diplopia, no worsening or blurred vision ENT: (+) left ear fullness, sore throat with pain/difficulty swallowing, wears hearing aids, dentures Respiratory: (+) chronic cough, sputum, dyspnea at rest or on exertion Cardiovascular: (+) AAA history, No chest pain, tightness or palpitations Abdomen: (+) overactive bladder/frequency No pain, nausea, vomiting, diarrhea or constipation Musculoskeletal: No joint pain, calf pain, swelling Neurologic: No weakness, numbness/tingling, or balance problems Psychiatric: No anxiety or depression Skin: No rash or itch Physical Exam Physical Exam: PHYSICAL EXAM: General: awake, alert, no apparent distress Head: Normocephalic, atraumatic ENT: PERRLA, EOMI, no pharyngeal exudate, hypopharyngeal erythema, no obstruction with tonsils or adenoids, no abscess noted upper airway, no submandibular swelling or pain, tongue normal size, swallowing without diff iculty and voice is normal. Neuro: AAO x 3, speech clear and appropriate, strength intact bilaterally 5/5, sensation intact and equal all extremities and dermatomes, no pronator drift Chest: equal rise and fall of the chest, no accessory muscle use, no heaves or thrills, decreased throughout no wheeze Cardiac: Regular rate and rhythm, telemetry reviewed- NSR, skin warm dry, cap refill <3 seconds, peripheral pusles +2 no JVD, no murmur, no JVD, no edema GI: NABS x 4 quadrants, soft, nontender to palpation, no rebound, guarding or tenderness : Spontaneously voiding, no pain, no CVA tenderness, Extremities: Normal inspection, no peripheral edema or erythema, calfs nontender to palpation Psych: Normal mood and affect Skin: no rash or erythema Results & Data Results & Data ([facility]) Vital Signs (Past 12 Hours) Vital Signs Temp Pulse Pulse Resp BP BP Pulse Ox 06/18/22 06:08 89 12 134/89 93 06/18/22 03:55 90 20 172/88 H 93 06/18/22 03:55 90 06/18/22 02:38 36.5 C 109 H 18 136/84 94 O2 Del Method 06/18/22 06:08 Room Air 06/18/22 03:55 Room Air 06/18/22 03:55 Room Air 06/18/22 02:38 Room Air Laboratory Results Abnormal lab results 06/18/22 06/18/22 06/18/22 Range/Units 03:00 03:00 03:20 MPV 9.1 L (9.4-12.4) fL Neut # (Auto) 8.27 H (1.4-6.5) K/uL Lymph # (Auto) 1.15 L (1.2-3.4) K/uL Immature Gran # (Auto) 0.04 H (0.00-0.02) K/uL BUN 27 H (6-23) mg/dl BUN/Creatinine Ratio 20.8 H (10-20) Glucose 105 H (70-99(Fasting)) mg/dl POC Glucose 107 H (70-99) mg/dl Total Bilirubin 1.4 H (0.2-1.0) mg/dl Diagnostic Findings CT soft tissue neck- 06/18 @0245 Medications Administered Home Medications Lactobacillus acidophilus 10 billion cell capsule (Probiotic) 10,000 mmu cells PO DAILY 04/04/22 [History Confirmed 04/04/22] acetaminophen 500 mg tablet (Tylenol Extra Strength) 500 - 1,000 mg PO DIRECTED PRN Pain 04/04/22 [History Confirmed 04/04/22] albuterol sulfate 90 mcg/actuation aerosol inhaler 2 puff inhalation DIRECTED PRN Shortness Of Breath Or Wheezing 04/04/22 [History Confirmed 04/04/22] desonide 0.05 % topical cream 1 applic topical DIRECTED PRN Skin Irritation 04/04/22 [History Confirmed 04/04/22] fluticasone propionate 50 mcg/actuation nasal spray,suspension 2 spray intranasal DAILY PRN Congestion 04/04/22 [History Confirmed 04/04/22] guaifenesin 600 mg tablet, extended release 12 hr (Mucinex) 600 mg PO Q12H PRN Congestion 04/04/22 [History Confirmed 04/04/22] hydrophilic 1 applic topical DIRECTED PRN NEEDED PER MED LIST 04/04/22 [History Confirmed 04/04/22] losartan 25 mg tablet 25 mg PO DAILY 04/04/22 [History Confirmed 04/04/22] mirabegron 25 mg tablet,extended release 24 hr (Myrbetriq) 25 mg PO DAILY 04/04/22 [History Confirmed 04/04/22] multivitamin 1 tab PO DAILY 04/04/22 [History Confirmed 04/04/22] omeprazole 20 mg capsule,delayed release 20 mg PO DAILY 04/04/22 [History Confirmed 04/04/22] phenazopyridine 100 mg tablet 100 mg PO TID PRN BLADDER PAIN 04/04/22 [History Confirmed 04/04/22] sildenafil 25 mg tablet 0 mg PO DAILY PRN Sexual Activity 04/04/22 [History Confirmed 04/04/22] tamsulosin 0.4 mg capsule 0.4 mg PO DAILY 04/04/22 [History Confirmed 04/04/22] tiotropium 2.5 mcg-olodaterol 2.5 mcg/actuation mist for inhalation (Stiolto Respimat) 2 inh inhalation DAILY 04/04/22 [History Confirmed 04/04/22] azithromycin 250 mg tablet 250 mg PO QAM #2 tabs 04/06/22 [Rx] prednisone 20 mg tablet 40 mg PO DAILY #2 tabs 04/06/22 [Rx] Active Medications Vancomycin HCl 1,500 mg/ (Sodium Chloride) 530 mls @ 200 mls/hr IV NOW ONE Stop: 06/18/22 08:24 Ampicillin Sodium/Sulbactam Sodium 3,000 mg/ Sodium Chloride 108 mls @ 200 mls/hr IV Q6H [facility]; Protocol Stop: 06/28/22 06:44 Dexamethasone 6 mg/ Syringe 1.5 mls @ 1 mls/min IV Q6H [facility] Stop: 07/18/22 06:44 Miscellaneous Information (Vancomycin Consult Active) 1 each N/A UD PRN PRN Reason: Consult Stop: 07/18/22 05:45 ECG Additional Comments: ordered on admission Coding Level of Care Code Critical Care 1st 30-74 mins Diagnoses Hypertension I10 Bladder spasms N32.89 Acute epiglottitis J05.10 Airway obstruction: without obstruction COPD (chronic obstructive pulmonary disease) J44.9 (1) Acute epiglottitis Airway obstruction: without obstruction Qualified Code(s): J05.10 - Acute epiglottitis without obstruction
--- NOTE | 2022-06-18 06:50 | History & Physical Report ---
Date of Service June 18, 2022 Assessment & Plan (1) Acute epiglottitis: (2) Bladder tumor: (3) BPH w urinary obs/LUTS: (4) COPD (chronic obstructive pulmonary disease): (5) Hypertension: (6) Bladder spasms: (7) GERD (gastroesophageal reflux disease): (8) Erectile dysfunction: (9) RBBB: Plan Acute epiglottitis- From the ED received the following: Dexamethasone 10 mg IV, vancomycin IV, and Unasyn 3 g IV Dexamethasone 6 mg IV every 6 hours Vancomycin IV per pharmacokinetic monitoring Unasyn 3 g IV every 6 hours Zofran 4 mg IV every 6 hours as needed Famotidine 20 mg IV every 12 hours NSS + KCl 20 mEq at 80 mils per hour NPO Consult ENT Dr. Manuel Patient will be admitted to the ICU for close airway monitoring. He appears to be somewhat improving based on history of presentation with initial ED interventions Hypertension- Hold lisinopril COPD- Hold nebulizers for now Bladder spasm/BPH with LUTS- While n.p.o., hold Myrbetriq, and tamsulosin GERD- Changing omeprazole to famotidine IV for now History of Present Illness Chief Complaint: The patient presents to the emergency department with worsening difficulty with swallowing and controlling secretions, after exposure to a sick grandson for sore throat in the past 24 hours. Primary Care Provider: Eliot Carter MD The patient is a 76-year-old male with a past medical history including COPD, BPH with LUTS, hypertension, bladder spasm, GERD and ED. He presents to the emergency department with rapidly progressive issues with shortness of breath, dyspnea on exertion, and control of secretions with difficulty with swallowing. Work-up in the emergency department for the CT scan of the soft tissues of the neck which showed a thickened epiglottis consistent with epiglottitis. There was thickened oropharyngeal/hypopharyngeal mucosal and vocal folds. Moderate stenosis of the proximal left ICA. Minimal stenosis of the proximal right ICA. Patent vertebral arteries. Emphysema. Left mastoid effusion. From the emergency department the patient received the following: Dexamethasone 10 mg IV, vancomycin IV, and Unasyn 3 g IV Allergies Allergy/AdvReac Type Severity Reaction Status Date / Time bee venom protein (honey bee) Allergy Severe Anaphylaxis Verified 04/04/22 19:58 rhubarb Allergy Intermediate ANXIETY, Verified 04/04/22 19:58 "ON EDGE", "FEELS LIKE NAILS ON CHALKBOARD". Home Medications Medication Instructions Recorded Confirmed Type Lactobacillus acidophilus 10 10,000 mmu cells PO DAILY 04/04/22 04/04/22 History billion cell capsule (Probiotic) acetaminophen 500 mg tablet 500 - 1,000 mg PO DIRECTED PRN 04/04/22 04/04/22 History (Tylenol Extra Strength) Pain albuterol sulfate 90 mcg/actuation 2 puff inhalation DIRECTED PRN 04/04/22 04/04/22 History aerosol inhaler Shortness Of Breath Or Wheezing desonide 0.05 % topical cream 1 applic topical DIRECTED PRN 04/04/22 04/04/22 History Skin Irritation fluticasone propionate 50 2 spray intranasal DAILY PRN 04/04/22 04/04/22 History mcg/actuation nasal Congestion spray,suspension guaifenesin 600 mg tablet, 600 mg PO Q12H PRN Congestion 04/04/22 04/04/22 History extended release 12 hr (Mucinex) hydrophilic 1 applic topical DIRECTED PRN 04/04/22 04/04/22 History NEEDED PER MED LIST losartan 25 mg tablet 25 mg PO DAILY 04/04/22 04/04/22 History mirabegron 25 mg tablet,extended 25 mg PO DAILY 04/04/22 04/04/22 History release 24 hr (Myrbetriq) multivitamin 1 tab PO DAILY 04/04/22 04/04/22 History omeprazole 20 mg capsule,delayed 20 mg PO DAILY 04/04/22 04/04/22 History release phenazopyridine 100 mg tablet 100 mg PO TID PRN BLADDER PAIN 04/04/22 04/04/22 History sildenafil 25 mg tablet 0 mg PO DAILY PRN Sexual Activity 04/04/22 04/04/22 History tamsulosin 0.4 mg capsule 0.4 mg PO DAILY 04/04/22 04/04/22 History tiotropium 2.5 mcg-olodaterol 2.5 2 inh inhalation DAILY 04/04/22 04/04/22 History mcg/actuation mist for inhalation (Stiolto Respimat) azithromycin 250 mg tablet 250 mg PO QAM #2 tabs 04/06/22 Rx prednisone 20 mg tablet 40 mg PO DAILY #2 tabs 10/14/22 Rx Past Med/Surg History Medical History (Updated 06/18/22 @ 06:46 by Burke White MD) Acute exacerbation of chronic obstructive airways disease Bladder spasms Bladder tumor BPH w urinary obs/LUTS COPD (chronic obstructive pulmonary disease) Erectile dysfunction GERD (gastroesophageal reflux disease) Hypertension Hypokalemia Thrombocytopenia Family History Other Family history non-contributory Social History Smoking Status: Never smoker Tobacco Type: Cigarettes Hx Alcohol Use: No Hx Substance Use: No Preferred Language: Salvadorean Communication Ability: Effective 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 Beliefs That Will Affect Care: None Current Living Situation: Spouse Feels Safe at Home: Yes Assistive Devices: None Review of Systems Review of Systems: The patient denies chest pain, palpitations, cough, lower extremity swelling, fevers, chills, sweats, weight change, fatigue, nausea, vomiting, diarrhea , constipation, abdominal pain, pelvic pain, blood in urine or stool, dysuria, urinary frequency or urgency, lightheadedness, dizziness, headache, memory loss, loss of consciousness, rash, abnormal bruising or bleeding, imbalance, focal or generalized weakness, numbness or tingling in arms or legs, generalized arthralgias or myalgias, back or neck pain, or night sweats. The review of systems is otherwise negative other than for that already noted above, and at least 10 systems have been reviewed. Physical Exam Physical Exam: The patient is awake, alert and oriented 3, well developed and well nourished, normocephalic and atraumatic, lying in bed and in no acute distress. HEENT--PERRL, EOMI, mucous membranes and posterior oropharynx with swollen epiglottis and erythematous and edematous mucous membranes Neck--supple. No JVD. No bruits. Thyroid normal, trachea midline, no adenopathy. Heart--normal S1 and S2. No murmurs, rubs or gallops. Lungs--decreased breath sounds throughout. No respiratory distress, no accessory muscle use. Abdomen--normal bowel sounds and soft. Nontender. Nondistended, no hernias or masses, no organomegaly. Extremities--no cyanosis or clubbing. No edema. Dermatologic--normal skin turgor, normal color, no abnormal lymph nodes, no rash. Neurologic--cranial nerves II through XII grossly intact. Rheumatologic--normal range of motion. Psychiatric--normal affect. Results & Data Results & Data ([facility]) Vital Signs (Past 12 Hours) Vital Signs Temp Pulse Pulse Resp BP BP Pulse Ox 06/18/22 06:08 89 12 134/89 93 06/18/22 03:55 90 20 172/88 H 93 06/18/22 03:55 90 06/18/22 02:38 36.5 C 109 H 18 136/84 94 O2 Del Method 06/18/22 06:08 Room Air 06/18/22 03:55 Room Air 06/18/22 03:55 Room Air 06/18/22 02:38 Room Air Laboratory Results Laboratory Results WBC 10.58 K/ul (4.8-10.8) 06/18/22 03:00 RBC 4.78 M/uL (4.63-6.08) 06/18/22 03:00 Hgb 14.1 g/dl (14.0-18.0) 06/18/22 03:00 Hct 43.1 % (40.1-51.0) 06/18/22 03:00 MCV 90.2 fL (80.0-100.0) 06/18/22 03:00 MCH 29.5 pg (25.0-34.0) 06/18/22 03:00 MCHC 32.7 g/dL (32.0-36.0) 06/18/22 03:00 RDW Std Deviation 44.5 fL (36.4-46.3) 06/18/22 03:00 RDW Coeff of Charanjit 13.4 % (11.5-14.5) 06/18/22 03:00 Plt Count 238 K/uL (130-400) 06/18/22 03:00 MPV 9.1 fL (9.4-12.4) L 06/18/22 03:00 Immature Gran % (Auto) 0.4 % 06/18/22 03:00 Neut % (Auto) 78.1 % 06/18/22 03:00 Lymph % (Auto) 10.9 % 06/18/22 03:00 [place] % (Auto) 6.1 % 06/18/22 03:00 Eos % (Auto) 3.8 % 06/18/22 03:00 Baso % (Auto) 0.7 % 06/18/22 03:00 Neut # (Auto) 8.27 K/uL (1.4-6.5) H 06/18/22 03:00 Lymph # (Auto) 1.15 K/uL (1.2-3.4) L 06/18/22 03:00 [place] # (Auto) 0.65 K/uL (0.24-0.82) 06/18/22 03:00 Eos # (Auto) 0.40 K/uL (0-0.50) 06/18/22 03:00 Baso # (Auto) 0.07 K/uL (0-0.2) 06/18/22 03:00 Immature Gran # (Auto) 0.04 K/uL (0.00-0.02) H 06/18/22 03:00 Sodium 137 mmol/L (136-145) 06/18/22 03:00 Potassium 3.9 mmol/L (3.5-5.1) 06/18/22 03:00 Chloride 104 mmol/L (98-107) 06/18/22 03:00 Carbon Dioxide 25 mmol/L (21-32) 06/18/22 03:00 Anion Gap 8 (3-11) 06/18/22 03:00 BUN 27 mg/dl (6-23) H 06/18/22 03:00 Creatinine 1.30 mg/dl (0.6-1.4) 06/18/22 03:00 Est Cr Clr Drug Dosing 44.5 ml/min 06/18/22 03:00 Est GFR ( Amer) 61.0 ml/min 06/18/22 03:00 Est GFR (Non-Af Amer) 52.6 ml/min 06/18/22 03:00 BUN/Creatinine Ratio 20.8 (10-20) H 06/18/22 03:00 Glucose 105 mg/dl (70-99(Fasting)) H 06/18/22 03:00 POC Glucose 107 mg/dl (70-99) H 06/18/22 03:20 Calcium 9.4 mg/dl (8.5-10.1) 06/18/22 03:00 Total Bilirubin 1.4 mg/dl (0.2-1.0) H 06/18/22 03:00 AST 15 U/L (13-39) 06/18/22 03:00 ALT 15 U/L (7-52) 06/18/22 03:00 Alkaline Phosphatase 97 U/L (34-104) 06/18/22 03:00 Total Protein 7.3 gm/dl (6.0-8.3) 06/18/22 03:00 Albumin 4.2 gm/dl (3.4-5.0) 06/18/22 03:00 Globulin 3.1 gm/dl (2.5-4.0) 06/18/22 03:00 Albumin/Globulin Ratio 1.4 (0.9-2) 06/18/22 03:00 SARS-CoV-2, RNA, NAAT NEGATIVE (NEGATIVE) 06/18/22 06:05 Group A Strep (PCR) NOT DETECTED (NotDetected) 06/18/22 04:30 Code Status & VTE Plan Code Status Full code VTE Prophylaxis Plan VTE Prophylaxis will be ordered: Yes Critical Care Time 40 minutes (1) Acute epiglottitis Airway obstruction: without obstruction Qualified Code(s): J05.10 - Acute epiglottitis without obstruction
--- NOTE | 2022-06-18 06:50 | Billing Data ---
Date of Service June 18, 2022 Coding Level of Care Code Critical Care mins
[2022-06-18] MEDS: dexAMETHasone 6 MG in SYRINGE 0 ML IV SCH ×3 (07:06→18:04)
[2022-06-18] MEDS: AMPICILLIN/SULBACTAM SOD 3,000 MG in 0.9 % SODIUM CHLORIDE 100 ML IV SCH ×3 (07:08→18:03)
--- NOTE | 2022-06-18 09:09 | CT Scan Report ---
CT soft tissue neck w con CLINICAL HISTORY: severe dysphagia Technique: Axial CT images of the soft tissues of the neck were obtained following intravenous admini stration of 100 cc of Omnipaque 300. Automated dose lowering techniques and/or adjustment according t o patient size were utilized for this exam. CT DOSE: 483.64 mGy.cm Comparison: None available at the time of this dictation. Findings: There is thickening of the epiglottis. There is mild narrowing of the pharynx. The oropharynx, hypoph arynx, larynx, and trachea are patent. No enlarged lymph nodes are seen. The parotid glands, submandi bular glands, and thyroid gland are unremarkable. Emphysema is partially visualized. There is trace left mastoid effusion. The paranasal sinuses and m astoid air cells are normal in appearance. Impression: Prominence of the epiglottis compatible with epiglottitis. Narrowing of the pharynx without evidence of cut off. ACT 112: Negative or not required by law. Electronically signed by: Eliot Quiñonez M.D. 06/18/2022 9:08 AM
--- NOTE | 2022-06-18 09:10 | ENT Consultation ---
Date of Consultation June 18, 2022 Assessment & Plan (1) Acute epiglottitis: Improved this AM after IV steroids and antibiotics, evaluated with Dr. Hein, he looks good, no plan for surgical intervention or intubation at this point. Must have been very early epiglottitis. History of Present Illness Reason for Consultation: epiglottitis Attending Physician: Burke Whiet MD History of Present Illness 76yo, S/T x 5 days, dyphagia last night, improving this AM after steroids and antibiotics Allergies Allergy/AdvReac Type Severity Reaction Status Date / Time bee venom protein (honey bee) Allergy Severe Anaphylaxis Verified 04/04/22 19:58 rhubarb Allergy Intermediate ANXIETY, Verified 04/04/22 19:58 "ON EDGE", "FEELS LIKE NAILS ON CHALKBOARD". Home Medications Medication Instructions Recorded Confirmed Type Lactobacillus acidophilus 10 10,000 mmu cells PO DAILY 04/04/22 04/04/22 History billion cell capsule (Probiotic) acetaminophen 500 mg tablet 500 - 1,000 mg PO DIRECTED PRN 04/04/22 04/04/22 History (Tylenol Extra Strength) Pain albuterol sulfate 90 mcg/actuation 2 puff inhalation DIRECTED PRN 04/04/22 04/04/22 History aerosol inhaler Shortness Of Breath Or Wheezing desonide 0.05 % topical cream 1 applic topical DIRECTED PRN 04/04/22 04/04/22 History Skin Irritation fluticasone propionate 50 2 spray intranasal DAILY PRN 04/04/22 04/04/22 History mcg/actuation nasal Congestion spray,suspension guaifenesin 600 mg tablet, 600 mg PO Q12H PRN Congestion 04/04/22 04/04/22 History extended release 12 hr (Mucinex) hydrophilic 1 applic topical DIRECTED PRN 04/04/22 04/04/22 History NEEDED PER MED LIST losartan 25 mg tablet 25 mg PO DAILY 04/04/22 04/04/22 History mirabegron 25 mg tablet,extended 25 mg PO DAILY 04/04/22 04/04/22 History release 24 hr (Myrbetriq) multivitamin 1 tab PO DAILY 04/04/22 04/04/22 History omeprazole 20 mg capsule,delayed 20 mg PO DAILY 04/04/22 04/04/22 History release phenazopyridine 100 mg tablet 100 mg PO TID PRN BLADDER PAIN 04/04/22 04/04/22 History sildenafil 25 mg tablet 0 mg PO DAILY PRN Sexual Activity 04/04/22 04/04/22 History tamsulosin 0.4 mg capsule 0.4 mg PO DAILY 04/04/22 04/04/22 History tiotropium 2.5 mcg-olodaterol 2.5 2 inh inhalation DAILY 04/04/22 04/04/22 History mcg/actuation mist for inhalation (Stiolto Respimat) azithromycin 250 mg tablet 250 mg PO QAM #2 tabs 04/06/22 Rx prednisone 20 mg tablet 40 mg PO DAILY #2 tabs 04/06/22 Rx Patient History Medical History Acute exacerbation of chronic obstructive airways disease Bladder spasms Bladder tumor BPH w urinary obs/LUTS COPD (chronic obstructive pulmonary disease) Erectile dysfunction GERD (gastroesophageal reflux disease) Hypertension Hypokalemia Thrombocytopenia Family History Other Family history non-contributory Social History Smoking Status: Never smoker Tobacco Type: Cigarettes Hx Alcohol Use: No Hx Substance Use: No Preferred Language: Colombian Communication Ability: Effective Correction Officer Head Required: No Beliefs That Will Affect Care: None Current Living Situation: Spouse Feels Safe at Home: Yes Assistive Devices: None Physical Exam Constitutional: WD/WN, vitals as above Eyes: PERRL, conjunctivae normal, anicteric sclerae ENMT: external ear and nose normal, oropharynx normal Mouth: + oropharynx abnormality (erythema, minmal edema) Neck: trachea midline, no thyromegaly Respiratory: normal respiratory effort, lungs clear to auscultation Results & Data ([facility]) Vital Signs (Past 12 Hours) Vital Signs Temp Pulse Pulse Resp BP BP Pulse Ox 06/18/22 07:10 93 H 24 138/89 95 06/18/22 06:08 89 12 134/89 93 06/18/22 03:55 90 20 172/88 H 93 06/18/22 03:55 90 06/18/22 02:38 36.5 C 109 H 18 136/84 94 O2 Del Method 06/18/22 07:10 Room Air 06/18/22 06:08 Room Air 06/18/22 03:55 Room Air 06/18/22 03:55 Room Air 06/18/22 02:38 Room Air (1) Acute epiglottitis Airway obstruction: without obstruction Qualified Code(s): J05.10 - Acute epiglottitis without obstruction
[2022-06-18] MEDS ORDERED: FAMOTIDINE 20 MG in SYRINGE 3 ML IV SCH (09:30)
[2022-06-18] MEDS: TAMSULOSIN HCL 0.4 MG CAP PO SCH (09:55)
[2022-06-18] MEDS: MIRABEGRON ER 25 MG TAB PO SCH (09:55)
[2022-06-18] MEDS: NSS + 20MEQ KCL 20 MEQ/1,000 ML BAG IV SCH (09:55)
[2022-06-18] MEDS: ICU Protocol for HYPERglycemia SCH ×4 (09:55→22:13)
[2022-06-18] MEDS: UMECLIDINIUM/VILANTEROL 62.5/25MCG 7 PUFFS/INHALER INH SCH (10:17)
[2022-06-18] MEDS ORDERED: PANTOprazole 40 MG in SYRINGE 0 ML IV SCH (11:00)
--- NOTE | 2022-06-18 12:26 | Electrocardiogram Report ---
Test Reason : Blood Pressure : / mmHG Vent. Rate : 098 BPM Atrial Rate : 098 BPM P-R Int : 154 ms QRS Dur : 140 ms QT Int : 400 ms P-R-T Axes : 028 048 009 degrees QTc Int : 510 ms Poor data quality, interpretation may be adversely affected Normal sinus rhythm Non-specific intra-ventricular conduction block Abnormal ECG When compared with ECG of 04-APR-2022 18:40, Non-specific intra-ventricular conduction block has replaced Right bundle branch block Confirmed by Angel Kuhn ([id number]) on 06/18/2022 12:26:06 PM Referred By: REFERRED SELF Confirmed By:Angel Kuhn
[2022-06-19] MEDS: AMPICILLIN/SULBACTAM SOD 3,000 MG in 0.9 % SODIUM CHLORIDE 100 ML IV SCH ×2 (00:13→06:10)
[2022-06-19] MEDS: dexAMETHasone 6 MG in SYRINGE 0 ML IV SCH ×2 (01:30→06:10)
[2022-06-19] MEDS: NSS + 20MEQ KCL 20 MEQ/1,000 ML BAG IV SCH (02:23)
[2022-06-19 04:47] LABS: Basophils # (auto) 0.02 K/uL (0-0.2); Basophils % (auto) 0.2 %; Hematocrit (blood only) 38.3 % (40.1-51.0); Hemoglobin 12.6 g/dl (14.0-18.0); Immature Granulocytes # (auto) 0.05 K/uL (0.00-0.02); Immature Granulocytes % (auto) 0.5 %; Lymphocytes # (auto) 0.75 K/uL (1.2-3.4); Lymphocytes % (auto) 8.2 %; Mean Corpuscular Hemoglobin 29.3 pg (25.0-34.0); Mean Corpuscular Hgb Conc 32.9 g/dL (32.0-36.0); Mean Corpuscular Volume 89.1 fL (80.0-100.0); Mean Platelet Volume 9.1 fL (9.4-12.4); Monocytes # (auto) 0.26 K/uL (0.24-0.82); Monocytes % (auto) 2.9 %; Neutrophils # (auto) 8.03 K/uL (1.4-6.5); Neutrophils % (auto) 88.2 %; Platelet Count 233 K/uL (130-400); RDW Coefficient of Variation 13.3 % (11.5-14.5); RDW Standard Deviation 43.5 fL (36.4-46.3); White Blood Count 9.11 K/ul (4.8-10.8)
[2022-06-19 05:15] LABS: Albumin Globulin Ratio 1.3 (0.9-2); Albumin Level 3.4 gm/dl (3.4-5.0); BUN Creatinine Ratio 24.4 (10-20); Bilirubin,Total 0.7 mg/dl (0.2-1.0); Calcium 8.9 mg/dl (8.5-10.1); Creatinine Clr Calc Pharmacy 48.6 ml/min; Est GFR (African American) 67.9 ml/min; Est GFR (Non-African American) 58.6 ml/min; Globulin 2.7 gm/dl (2.5-4.0); Magnesium 2.1 mg/dl (1.7-2.4); Potassium 4.5 mmol/L (3.5-5.1); Total Protein 6.1 gm/dl (6.0-8.3)
--- NOTE | 2022-06-19 07:08 | Ears,Nose,Throat Progress Note ---
Date of Service June 19, 2022 Assessment & Plan (1) Acute epiglottitis: Plan: He feels improved today. Able to eat and swallow. Improved. ENT will sign off. Admission and Anticipated Discharge Date Admission Date: June 18, 2022 Subjective He feels improved this morning, minimal sore throat, able to eat Physical Exam Constitutional: WD/WN, vitals as above Eyes: PERRL, conjunctivae normal, anicteric sclerae ENMT: external ear and nose normal, oropharynx normal Neck: trachea midline, no thyromegaly Results & Data ([facility]) Vital Signs (Past 12 Hours) Vital Signs Temp Pulse Resp BP Pulse Ox 06/19/22 04:00 74 17 91 06/19/22 04:00 111/67 06/19/22 03:00 76 12 90 06/19/22 03:00 117/65 06/19/22 02:06 94 H 25 H 92 06/19/22 01:00 76 24 91 06/19/22 00:00 83 19 89 L 06/19/22 00:00 126/81 06/19/22 03:00 36.7 C 06/19/22 00:00 78 06/18/22 23:00 84 18 93 06/18/22 23:00 123/75 06/18/22 22:09 101 H 25 H 93 06/18/22 21:00 101 H 21 91 06/18/22 21:00 117/81 06/18/22 20:01 122 H 28 H 93 06/18/22 20:01 138/78 06/18/22 20:00 116 H 23 89 L 06/18/22 23:00 36.8 C (1) Acute epiglottitis Airway obstruction: without obstruction Qualified Code(s): J05.10 - Acute epiglottitis without obstruction
[2022-06-19] MEDS: ICU Protocol for HYPERglycemia SCH (07:42)
--- NOTE | 2022-06-19 07:46 | Critical Care Progress Note ---
Date of Service June 19, 2022 Assessment & Plan (1) Hypertension: (2) Bladder spasms: (3) Acute epiglottitis: (4) COPD (chronic obstructive pulmonary disease): Plan ICU CONSULT NOTE FORMAT: Reason Critically Ill: 76 YOM presents with about 5 days of sore throat and <24 hours of feeling like throat was getting tighter, with initial difficulty swallowing. Improved following steroid dosing. Admitted to ICU with request from ENT. Continue steroids and antibiotics. Appreciate surgical evaluation Neuro - No acute needs CAM ICU: Negative Cardiac - HTN, AAA, LICA stenosis - Hold ANASTASIYA/ARB follow hemodyanmics and renal indices - [facility] and patient reports this as being measured at 4.1 - LICA stenosis on CT of neck- consider ultrasound for evaluation - asymptomatic Respiratory - Epiglotitis, COPD(emphysema): improving - Received steroids and abx in EMD- evaluation by ENT pending - ENT consult/Anesthesia consult reviewed - Continue Unasyn - consider transition to augmentin by mouth - Discontinue steroids- Emphysema- continue JOANNA, continue Stiolto- nebs prn GI - NO acute needs - PPI while on higher dose steroids RENAL/LYTES - No acute needs - ICU electrolyte protocol - Overactive bladder - continue with tamsulosin and Myrbetriq ENDO - no cacute needs - ICU hyperglycemic protocol while on steroids - goal <180mg/dl HEME - NO acute needs ID - Epiglotitis, Left Mastoid ear effusion - ENT consultation - Care as above- - Group A strep negative, consider Monospot LINES/IV ACCESS - PIV Continue use of these lines DVT PROPHYLAXIS - SCDS DISPO- Stable for downgrade out of the ICU Admission and Anticipated Discharge Date Admission Date: June 18, 2022 Subjective Mild sore throat, however, significant improvement overall. No other complaints. Physical Exam Physical Exam: General: Alert. nontoxic. Skin: Warm, dry, Head: Atraumatic Ears, nose, mouth and throat: airway patent Cardiovascular: Normal peripheral perfusion Respiratory: no respiratory distress Gastrointestinal: Non distended Musculoskeletal: No deformity Results & Data Results & Data ([facility]) Vital Signs (Past 12 Hours) Vital Signs Temp Pulse Resp BP Pulse Ox O2 Del Method 06/19/22 07:00 81 24 118/73 94 Room Air 06/19/22 07:00 36.8 C 06/19/22 07:30 82 06/19/22 04:00 74 17 91 06/19/22 04:00 111/67 06/19/22 03:00 76 12 90 06/19/22 03:00 117/65 06/19/22 02:06 94 H 25 H 92 06/19/22 01:00 76 24 91 06/19/22 00:00 83 19 89 L 06/19/22 00:00 126/81 06/19/22 03:00 36.7 C 06/19/22 00:00 78 06/18/22 23:00 84 18 93 06/18/22 23:00 123/75 06/18/22 22:09 101 H 25 H 93 06/18/22 21:00 101 H 21 91 06/18/22 21:00 117/81 06/18/22 20:01 122 H 28 H 93 06/18/22 20:01 138/78 06/18/22 20:00 116 H 23 89 L 06/18/22 23:00 36.8 C Critical Care Results & Data Vital Signs (Past 12 Hours) Vital Signs Temp Pulse Resp BP Pulse Ox O2 Del Method 06/19/22 07:00 81 24 118/73 94 Room Air 06/19/22 07:00 36.8 C 06/19/22 07:30 82 06/19/22 04:00 74 17 91 06/19/22 04:00 111/67 06/19/22 03:00 76 12 90 06/19/22 03:00 117/65 06/19/22 02:06 94 H 25 H 92 06/19/22 01:00 76 24 91 06/19/22 00:00 83 19 89 L 06/19/22 00:00 126/81 06/19/22 03:00 36.7 C 06/19/22 00:00 78 06/18/22 23:00 84 18 93 06/18/22 23:00 123/75 06/18/22 22:09 101 H 25 H 93 06/18/22 21:00 101 H 21 91 06/18/22 21:00 117/81 06/18/22 20:01 122 H 28 H 93 06/18/22 20:01 138/78 06/18/22 20:00 116 H 23 89 L 06/18/22 23:00 36.8 C Lab & Micro Results (Past 24 Hours) No Data to Display No Data to Display No Data to Display Diagnostic Findings (Past 24 Hours) Soft Tissue Neck CT 06/18/22 02:45 CT soft tissue neck w con CLINICAL HISTORY: severe dysphagia Technique: Axial CT images of the soft tissues of the neck were obtained following intravenous administration of 100 cc of Omnipaque 300. Automated dose lowering techniques and/or adjustment according to patient size were utilized for this exam. CT DOSE: 483.64 mGy.cm Comparison: None available at the time of this dictation. Findings: There is thickening of the epiglottis. There is mild narrowing of the pharynx. The oropharynx, hypopharynx, larynx, and trachea are patent. No enlarged lymph nodes are seen. The parotid glands, submandibular glands, and thyroid gland are unremarkable. Emphysema is partially visualized. There is trace left mastoid effusion. The paranasal sinuses and mastoid air cells are normal in appearance. Impression: Prominence of the epiglottis compatible with epiglottitis. Narrowing of the pharynx without evidence of cut off. ACT 112: Negative or not required by law. Electronically signed by: Eliot Quiñonez M.D. 06/18/2022 9:08 AM I & O Totals 24 Hours 06/18/22 06/19/22 06/20/22 06:59 06:59 06:59 Intake Total 104 / 104 1790 / 1790 Output Total 1153 / 1153 Balance 104 / 104 637 / 637 Cumulative 06/18/22 02:33 thru 06/19/22 06:44 Intake Total 1894 Output Total 1153 Balance 741 RT Ventilator Mngmt (Last Documented) Ventilator Ordered Settings Respiratory Rate 24 06/19/22 07:00 Ventilator - PT Measurements Respiratory Rate 24 Coding Level of Care Code 52482 Subseq Hosp Care Lvl 2 Diagnoses Hypertension I10 Bladder spasms N32.89 Acute epiglottitis J05.10 Airway obstruction: without obstruction COPD (chronic obstructive pulmonary disease) J44.9 (1) Acute epiglottitis Airway obstruction: without obstruction Qualified Code(s): J05.10 - Acute epiglottitis without obstruction
[2022-06-19] MEDS: UMECLIDINIUM/VILANTEROL 62.5/25MCG 7 PUFFS/INHALER INH SCH (08:34)
[2022-06-19] MEDS: MIRABEGRON ER 25 MG TAB PO SCH (08:35)
[2022-06-19] MEDS: TAMSULOSIN HCL 0.4 MG CAP PO SCH (08:35)
--- NOTE | 2022-06-19 10:19 | Discharge Summary ---
Date of Service June 19, 2022 Admission HPI Per Admitting Provider The patient is a 76-year-old male with a past medical history including COPD, BPH with LUTS, hypertension, bladder spasm, GERD and ED. He presents to the emergency department with rapidly progressive issues with shortness of breath, dyspnea on exertion, and control of secretions with difficulty with swallowing. Work-up in the emergency department for the CT scan of the soft tissues of the neck which showed a thickened epiglottis consistent with epiglottitis. There was thickened oropharyngeal/hypopharyngeal mucosal and vocal folds. Moderate stenosis of the proximal left ICA. Minimal stenosis of the proximal right ICA. Patent vertebral arteries. Emphysema. Left mastoid effusion. From the emergency department the patient received the following: Dexamethasone 10 mg IV, vancomycin IV, and Unasyn 3 g IV Principal Diagnosis Epiglottitis Discharge Exam Vitals reviewed Gen: [AAOx3, NAD] HEENT: [anicteric sclerae, EOMI, posterior OP with erythema, no edema, with scant mucoid drainage] CV: [RRR no mgr nl S1S2] Pulm: [CTAB no wcr,diminished throughout] Abd: [+BS soft NT ND no masses or hernias] Ext: [no edema Skin: [no rashes, warm/dry] Neuro: [full strength throughout] Discharge Data Allergies Allergy/AdvReac Type Severity Reaction Status Date / Time bee venom protein (honey bee) Allergy Severe Anaphylaxis Verified 04/04/22 19:58 rhubarb Allergy Intermediate ANXIETY, Verified 04/04/22 19:58 "ON EDGE", "FEELS LIKE NAILS ON CHALKBOARD". Consultations 06/18/22 05:54 ED Decision to Admit Stat 06/18/22 06:46 Consult Anesthesiology Routine 06/18/22 09:10 Consult Engagement Liaison Routine Ordered Studies 06/18/22 02:45 CT soft tissue neck w con Urgent Hospital Course (1) Acute epiglottitis: (2) Bladder tumor: (3) BPH w urinary obs/LUTS: (4) COPD (chronic obstructive pulmonary disease): (5) Hypertension: (6) Bladder spasms: (7) GERD (gastroesophageal reflux disease): (8) Erectile dysfunction: (9) RBBB: Plan 76 YOM presents with about 5 days of sore throat and <24 hours of feeling like throat was getting tighter, with initial difficulty swallowing. Improved following steroid dosing. Admitted to ICU with request from ENT. Was admitted and initially kept NPO, given steroids and antibiotics. Appreciate surgical evaluation--> ENT has signed off, says much iproved, likely was early epiglottitis He had diet advanced and was tolerating a regular diet. Rapid strep negative Stable for dc to home, finish out course of 7 days of Augmentin, no further steroids Cardiac - HTN, AAA, LICA stenosis -ok to restart losartan on discharge - [facility] and patient reports this as being measured at 4.1 - LICA stenosis on CT of neck- consider ultrasound for evaluation as outpt - asymptomatic Emphysema- continue JOANNA, continue Stiolto- nebs prn starting PULM rehab soon GI - NO acute needs - PPI RENAL/LYTES - No acute needs - ICU electrolyte protocol - avoid nephrotoxic medications - Overactive bladder - continue with tamsulosin and Myrbetriq ID - Epiglottitis, Left Mastoid ear effusion - ENT consultation - Care as above- - Group A strep negative finish out antibiotics Total Time Total Time Spent Total Time Spent (In Minutes): 35 min Discharge Plan Discharge Items Patient Disposition: Home - Self-Care Reason For Visit: EPIGLOTTITIS Discharge Diagnosis: Epiglottitis Condition on Discharge: Good Activity: Resume your previous activity Non-emergency contact: Primary Care Provider Call non-emergency contact if: you have any medication questions and your symptoms worsen Follow-up/Referrals: Eliot Briggs MD [Primary Care Provider] - (Follow up within 1-2 weeks.) Diet: Heart Healthy Addtl Attending Provider Instructions: Please finish out the course of antibiotics for your throat infection. If you develop any worsening ability to swallow or breathe, please return to the hospital right away. Pending Studies at Discharge: No Stand-Alone Forms: [facility], Smoking Cessation Medications and DC Order Prescriptions: New amoxicillin-pot clavulanate 875-125 mg tablet 1 tab PO BID Qty: 11 0RF Continued multivitamin Tablet 1 tab PO DAILY desonide 0.05 % cream 1 applic TOPICAL DIRECTED PRN (Reason: Skin Irritation) hydrophilic Ointment 1 applic TOPICAL DIRECTED PRN (Reason: NEEDED PER MED LIST) sildenafil 25 mg Tablet 0 mg PO DAILY PRN (Reason: Sexual Activity) Rx Instructions: UNABLE TO VERIFY DOSE. administer 30 minutes to 4 hours before activity acetaminophen [Tylenol Extra Strength] 500 mg Tablet 500 - 1,000 mg PO DIRECTED PRN (Reason: Pain) tamsulosin 0.4 mg capsule 0.4 mg PO DAILY phenazopyridine 100 mg tablet 100 mg PO TID PRN (Reason: BLADDER PAIN) losartan 25 mg tablet 25 mg PO DAILY omeprazole 20 mg capsule,delayed release(DR/EC) 20 mg PO DAILY albuterol sulfate 90 mcg/actuation Hfa Aerosol Inhaler 2 puff INHALATION DIRECTED PRN (Reason: Shortness Of Breath Or Wheezing) fluticasone propionate 50 mcg/actuation spray,suspension 2 spray INTRANASAL DAILY PRN (Reason: Congestion) Probiotic 10 billion cell Capsule 10,000 mmu cells PO DAILY guaifenesin [Mucinex] 600 mg Tablet Extended Release 12hr 600 mg PO Q12H PRN (Reason: Congestion) Stiolto Respimat 2.5-2.5 mcg/actuation mist 2 inh INHALATION DAILY Myrbetriq 25 mg Tablet Extended Release 24 Hr 25 mg PO DAILY Rx Instructions: PT HAS NOT STARTED THIS MEDICATION YET Discharge Orders: Discharge Order (Routine); Ordered 06/19/22 Ordered By: Trinidad Mckeon Admission Data Admit Date/Time: 06/18/22 06:32 Attending Provider: Trinidad Mckeon Admit Provider: Burke White Primary Care Provider: Eliot Briggs Other Providers: Burke White ; Jovita Dumont ; Dorota Saldivar ; Lyn Padilla ; Elsy Ordaz ; Tami Escalera ; Jack Cannon ; Marcio Paez ; Daniel Navarrete ; Jeffrey Gray ; Erika Gray ; Alejandro Steiner ; Pamela Estrada ; Ryne Delcid ; Caesar Austin ; Devan Franco ; Sheldon Hoyos ; Priyanka Waller ; Rowdy David ; Elizabeth Horan ; Christy David ; Kirit Finnegan ; Mary Jane Alvarado ; Wood Saeed ; Debbie Dorsey ; Radha Newman ; Jared Upton ; Edyta Calderon ; Ese Anderson ; Jazmín Ruelas ; Ernestina Blue ; Nishant Blue V ; Ross Noble ; Dorota Woodall ; Terrell Torres ; Suzan Helton ; Nishant Gagnon ; Saeid Waller ; Eliot Sam ; Nikki Yates ; Roxana Umanzor ; Nishant Hein ; Seymour Diaz ; Oscar Kimble ; Jean Paul Hoyos ; Ela Bear ; Ramon Hickman ; Beverly Browne ; Dami Mariee ; Ramon Ocasio ; Jack Fowler Jr ; Nati Enrique ; Fatou Atkins ; Calli Scott ; Jared Ortiz ; Elsy Shine ; Jeffrey Rodgers ; Zay Berg I. ; Lyly Sellers S. ; Fatou Segovia. ; Lilian Pichardo. ; Alejandro Khalil ; [facility] Coding Level of Care Code D/C DAY MANAGEMENT >30 MINS Diagnoses Acute epiglottitis J05.10 Airway obstruction: without obstruction Bladder tumor D49.4 BPH w urinary obs/LUTS N40.1; N13.8 COPD (chronic obstructive pulmonary disease) J44.9 Hypertension I10 Bladder spasms N32.89 GERD (gastroesophageal reflux disease) K21.9 Erectile dysfunction N52.9 RBBB I45.10
== END 2022-06-19 11:01 | disposition home or self-care (01) | DRG 153 ==
LOC: ED 02:33 → 1E 06:32 → SUATTDRO 06:32 → 1E 08:40

== ENCOUNTER 2023-12-22 20:27 | Inpatient (IN) ==
[2023-12-22 20:57] LABS: Basophils # (auto) 0.04 K/uL (0.00-0.20); Basophils % (auto) 0.4 %; Eosinophils % (auto) 2.8 %; Hematocrit (blood only) 43.1 % (42.0-52.0); Hemoglobin 14.1 g/dl (14.0-18.0); Immature Granulocytes # (auto) 0.04 K/uL (0.01-0.20); Immature Granulocytes % (auto) 0.4 %; Lymphocytes # (auto) 0.84 K/uL (1.20-3.40); Lymphocytes % (auto) 7.8 %; Mean Corpuscular Hemoglobin 29.9 pg (25.0-34.0); Mean Corpuscular Hgb Conc 32.7 g/dL (32.0-36.0); Mean Corpuscular Volume 91.5 fL (80.0-100.0); Mean Platelet Volume 8.9 fL (9.4-12.4); Monocytes # (auto) 0.67 K/uL (0.11-0.59); Monocytes % (auto) 6.2 %; Neutrophils # (auto) 8.86 K/uL (1.40-6.50); Neutrophils % (auto) 82.4 %; Platelet Count 193 K/uL (130-400); RDW Coefficient of Variation 14.4 % (11.5-14.5); RDW Standard Deviation 48.4 fL (36.4-46.3); Red Blood Count 4.71 M/uL (4.70-6.10); White Blood Count 10.75 K/ul (4.8-10.8)
--- NOTE | 2023-12-22 21:03 | Emergency Department Note ---
Impression & Plan Acute hypoxemic respiratory failure, Asthma exacerbation in COPD, Acute dehydration ED Provider Note NAME: MOSHE ZABALA AGE: 78 SEX: M : 1945 ARRIVES VIA: Walk-In INFORMANT: Patient, patient's family members, triage note ED PROVIDER(S): Fredis Juárez MD CHIEF COMPLAINT: Shortness of breath MEDICAL DECISION MAKING: Patient presents due to concern for shortness of breath. IV was established and blood work was obtained along with a bio fire and a chest x-ray. The patient was ordered DuoNeb treatment methylprednisolone IV. Patient was also ordered IV fluids as the patient's blood pressure was soft. Upon reassessment the patient did have an elevated heart rate which may be secondary to the patient's DuoNeb treatment but the patient's blood pressure was still borderline in 90s over 60s. Additional IV fluids were ordered. Patient's room air saturation at rest was 91%. Patient did desat while at rest into the mid 80s. The patient was placed on 2 L supplemental cannula nasal cannula oxygen. I did inform the patient the patient's family of the findings. After further discussion they are amenable to inpatient treatment as I was concerned about the patient's oxygenation and respiratory status as well as dehydration and lower blood pressure. I did speak the on-call hospital service Dr. Dyer and the patient was admitted to the medicine service. Critical Care: I have personally spent 37 minutes of critical care time in direct management of this patient. This includes bedside care, interpretation of diagnostic studies, and testing, discussion with consultants, patient, and family members, and other require inpatient management activities. This 37 minutes is in excess of all separately billable procedures. Discussion w/ other healthcare providers: Dr. Gutierrez inpatient medicine service Prior /Outside records reviewed: None Differential diagnosis: Reactive airway disease, pneumonia, pneumothorax, COPD, CHF, ACS, pulmonary embolism, musculoskeletal, GERD as well as other pathologies were considered. Diagnostics, as interpreted by me: ECG: Normal sinus rhythm, rate of 82, wide QRS, right bundle branch block pattern, 2 inversions anteriorly. This looks grossly unchanged from comparison EKG completed April 04, 2022. Cardiac monitoring: An order was placed for continuous cardiac monitoring. The monitor shows a rate of 77 with sinus rhythm. Patient was placed on pulse oximetry Medical decision rules: None Imaging studies: I informally interpreted the patient's chest x-ray does not show obvious pneumonia or pneumothorax with formal report to follow. HPI: Patient presents due to concern for shortness of breath. The patient has noticed increasing shortness of breath with exertion. The patient does have productive cough with green sputum which is chronic for patient. Patient does have a known history of COPD and follows with pulmonology at the [facility]. Patient has had some recent medication changes and recent diagnosis of Parkinson's back in June. Per the patient's son at bedside he did have a recent addition of medication to help with his Parkinson's last several weeks. No reported falls or trauma. Patient states that he is getting up to and from the bathroom since quite laboring ellis does have associated shortness of breath with exertion. Patient denies any chest pains. No leg swelling. Patient denies any abdominal pain or nausea vomiting. Patient states that he did use his nebulizer this morning but did not have improvement. The patient states that he has have suffered from shortness of breath last 5 years but seem to have worsened since Saturday at which time there was a lift being placed on the patient's car and he sat outside in the heat and ever since then he seems to have had associated worse symptoms. Patient states that he has not had steroids or antibiotics since being seen here in the emergency department which she believes was several months ago. The son also reports that the patient did have a recent cystoscopy and is currently on antibiotics. PAST MEDICAL HISTORY: See Below PAST SURGICAL HISTORY: See Below SOCIAL HISTORY: See Below HOME MEDICATIONS: See Below ALLERGIES: See Below VITALS: See Below PHYSICAL EXAMINATION: GENERAL: NAD, non-toxic. Thin in appearance. EYE EXAM: Normal conjunctiva. PERRL, no anisocoria and EOM's grossly intact w/o pain. OROPHARYNX: Dry mucus membranes, grossly normal dentition. NECK: Trachea midline, no stridor. LUNGS: Clear to auscultation. Normal chest wall mechanics. HEART: NSR, no MRG. ABDOMEN: Abdomen soft, non-tender, no masses, no rebound or guarding. BACK: No CVA TTP. SKIN: No rashes and no bruising. UPPER EXTREMITIES: Upper extremities are grossly normal. LOWER EXTREMITIES: Grossly normal, no edema. NEURO EXAM: A&O x3, cranial nerves II-XII grossly intact, normal speech, moves all 4 extremities. Past Med/Surg History Problem List (Updated 12/23/23 @ 01:17 by Fredis Juárez MD) Acute dehydration (Acute) Asthma exacerbation in COPD (Acute) Acute hypoxemic respiratory failure (Acute) Weight loss, abnormal Acute exacerbation of chronic obstructive airways disease COVID-19 (Acute) Erectile dysfunction GERD (gastroesophageal reflux disease) Bladder spasms Hypertension COPD (chronic obstructive pulmonary disease) BPH w urinary obs/LUTS Acute epiglottitis (Acute) Conjunctivitis, right eye Dyspnea on exertion Acute bronchitis (Acute) RBBB (Acute) Hypoxia (Acute) Acute UTI (urinary tract infection) (Acute) Medical History Thrombocytopenia Hypokalemia Family History Other Family history non-contributory Social History Smoking Status: Former smoker Tobacco Type: Cigarettes Hx Alcohol Use: No Hx Substance Use: No Preferred Language: Lebanese Communication Ability: Effective Prom Burn Off Operator Required: No Beliefs That Will Affect Care: None Current Living Situation: Spouse Feels Safe at Home: Yes Assistive Devices: None Allergies Allergies Allergy/AdvReac Type Severity Reaction Status Date / Time bee venom protein (honey bee) Allergy Severe Anaphylaxis Verified 12/22/23 21:22 rhubarb Allergy Intermediate ANXIETY, Verified 12/22/23 21:22 "ON EDGE", "FEELS LIKE NAILS ON CHALKBOARD". Home Meds Home Medications Medication Instructions Recorded Confirmed acetaminophen 500 mg tablet 500 - 1,000 mg PO DIRECTED PRN 04/04/22 12/22/23 (Tylenol Extra Strength) Pain albuterol sulfate 90 mcg/actuation 2 puff inhalation QID PRN 04/04/22 12/22/23 aerosol inhaler Shortness Of Breath Or Wheezing fluticasone propionate 50 1 - 2 spray intranasal DAILY PRN 04/04/22 12/22/23 mcg/actuation nasal Congestion spray,suspension losartan 25 mg tablet 25 mg PO DAILY 04/04/22 12/22/23 mirabegron 25 mg tablet,extended 25 mg PO DAILY 04/04/22 12/22/23 release 24 hr (Myrbetriq) omeprazole 20 mg capsule,delayed 20 mg PO DAILYBB 04/04/22 12/22/23 release tamsulosin 0.4 mg capsule 0.4 mg PO HS 04/04/22 12/22/23 Lactobacillus acidophilus 1 tab PO DAILY 12/22/23 12/22/23 budesonide 160 mcg-glycopyr 9 2 inh inhalation BID 12/22/23 12/22/23 mcg-formot 4.8 mcg/actuation HFA inhaler (Breztri Aerosphere) carbidopa 25 mg-levodopa 250 mg 2 tab PO TID 12/22/23 12/22/23 tablet docusate sodium 100 mg capsule 100 mg PO BID PRN Constipation 12/22/23 12/22/23 entacapone 200 mg tablet 200 mg PO TID 12/22/23 12/22/23 food supplemt, lactose-reduced 1 ea PO DAILY 12/22/23 12/22/23 (Ensure oral liquid) guaifenesin 200 mg tablet 400 mg PO TID PRN THICK MUCOUS 12/22/23 12/22/23 metoprolol succinate 25 mg 25 mg PO DAILY 12/22/23 12/22/23 tablet,extended release 24 hr multivitamin with minerals 1 tab PO DAILY 12/22/23 12/22/23 nitrofurantoin 100 mg PO BID 12/22/23 12/22/23 monohydrate/macrocrystals 100 mg capsule sildenafil 100 mg tablet 100 mg PO DAILY PRN Sexual Activity 12/22/23 12/22/23 sodium chloride 0.9 % for 3 ml inhalation QID PRN MUCOUS 12/22/23 12/22/23 nebulization MOBILIZATION Results & Data (ED) Vital Signs Vital Signs - 24 hr 12/22/23 20:27 12/22/23 20:37 12/22/23 20:48 Temperature 36.3 C L Temperature Source Temporal Artery Scan Pulse Rate 88 84 Pulse Rate [Apical] Pulse Rhythm [Apical] Pulse Strength [Apical] Respiratory Rate 24 Respiratory Effort / Characteristics Non-Labored Spontaneous Respiratory Depth Normal Respiratory Pattern Regular Blood Pressure 99/62 L Blood Pressure [Right Arm] Blood Pressure Mean 74 Blood Pressure Mean [Right Arm] Blood Pressure Position Sitting Blood Pressure Position [Right Arm] Pulse Oximetry 90 Oxygen Delivery Method Room Air Room Air Oxygen Flow Rate Sepsis Recent Fever Within 48 Hours No Sepsis New/Unexplained Change in Mental Status N/A Sepsis Action Taken by Nursing No Action Required 12/22/23 20:49 12/22/23 22:29 12/22/23 23:06 Temperature Temperature Source Pulse Rate Pulse Rate [Apical] 76 94 H 102 H Pulse Rhythm [Apical] Regular Regular Pulse Strength [Apical] Normal Normal Respiratory Rate 22 20 20 Respiratory Effort / Characteristics Non-Labored Spontaneous Non-Labored Spontaneous Non-Labored Spontaneous Respiratory Depth Normal Normal Normal Respiratory Pattern Regular Regular Blood Pressure Blood Pressure [Right Arm] 102/62 108/59 L 117/62 Blood Pressure Mean Blood Pressure Mean [Right Arm] 75 75 80 Blood Pressure Position Blood Pressure Position [Right Arm] Semi-fowlers Sitting Pulse Oximetry 94 97 91 Oxygen Delivery Method Room Air Room Air Room Air Oxygen Flow Rate Sepsis Recent Fever Within 48 Hours Sepsis New/Unexplained Change in Mental Status Sepsis Action Taken by Nursing 12/23/23 00:08 12/23/23 00:10 12/23/23 00:22 Temperature Temperature Source Pulse Rate 94 H Pulse Rate [Apical] Pulse Rhythm [Apical] Pulse Strength [Apical] Respiratory Rate Respiratory Effort / Characteristics Respiratory Depth Respiratory Pattern Blood Pressure Blood Pressure [Right Arm] Blood Pressure Mean Blood Pressure Mean [Right Arm] Blood Pressure Position Blood Pressure Position [Right Arm] Pulse Oximetry 85 L 90 Oxygen Delivery Method Room Air Nasal Cannula Oxygen Flow Rate 3 Sepsis Recent Fever Within 48 Hours Sepsis New/Unexplained Change in Mental Status Sepsis Action Taken by Residential Medications Current Medication List: was personally reviewed by me Laboratory Data Attestation: I reviewed the patient's lab results. 12/22/23 20:40 12/22/23 20:40 Lab Results 12/22/23 12/22/23 Range/Units 20:40 20:42 WBC 10.75 (4.8-10.8) K/ul RBC 4.71 (4.70-6.10) M/uL Hgb 14.1 (14.0-18.0) g/dl Hct 43.1 (42.0-52.0) % MCV 91.5 (80.0-100.0) fL MCH 29.9 (25.0-34.0) pg MCHC 32.7 (32.0-36.0) g/dL RDW Std Deviation 48.4 H (36.4-46.3) fL RDW Coeff of Charanjit 14.4 (11.5-14.5) % Plt Count 193 (130-400) K/uL MPV 8.9 L (9.4-12.4) fL Immature Gran % (Auto) 0.4 % Neut % (Auto) 82.4 % Lymph % (Auto) 7.8 % [place] % (Auto) 6.2 % Eos % (Auto) 2.8 % Baso % (Auto) 0.4 % Neut # (Auto) 8.86 H (1.40-6.50) K/uL Lymph # (Auto) 0.84 L (1.20-3.40) K/uL [place] # (Auto) 0.67 H (0.11-0.59) K/uL Eos # (Auto) 0.30 (0.00-0.50) K/uL Baso # (Auto) 0.04 (0.00-0.20) K/uL Immature Gran # (Auto) 0.04 (0.01-0.20) K/uL PT 11.0 (9.0-12.0) Seconds INR 1.0 (0.9-1.1) APTT 27 (21-31) Seconds PTT Ratio 1.0 Sodium 137 (136-145) mmol/L Potassium 3.7 (3.5-5.1) mmol/L Chloride 103 (98-107) mmol/L Carbon Dioxide 27 (21-32) mmol/L Anion Gap 7 (3-11) BUN 40 H (6-23) mg/dl Creatinine 1.40 (0.6-1.4) mg/dl Est Cr Clr Drug Dosing Not Reportable Est GFR ( Amer) 55.0 ml/min Est GFR (Non-Af Amer) 47.5 ml/min BUN/Creatinine Ratio 28.6 H (10-20) Glucose 118 H (70-99(Fasting)) mg/dl Calcium 9.7 (8.6-10.3) mg/dl Total Bilirubin 1.3 H (0.2-1.0) mg/dl AST 18 (13-39) U/L ALT 5 L (7-52) U/L Alkaline Phosphatase 119 H (34-104) U/L Troponin I High Sens 4.8 (0-20) pg/ml Total Protein 7.1 (6.0-8.3) gm/dl Albumin 3.9 (3.4-5.0) gm/dl Globulin 3.2 (2.5-4.0) gm/dl Albumin/Globulin Ratio 1.2 (0.9-2) Adenovirus (PCR) Not Detected (NotDetected) B. pertussis DNA (PCR) Not Detected (NotDetected) B.parapertussis DNA PCR Not Detected (NotDetected) C. pneumoniae DNA (PCR) Not Detected (NotDetected) Coronavirus OC43 (PCR) Not Detected (NotDetected) Coronavirus HKU1 (PCR) Not Detected (NotDetected) Coronavirus 229E (PCR) Not Detected (NotDetected) SARS-CoV-2 (PCR) Not Detected (NotDetected) Coronavirus NL63 (PCR) Not Detected (NotDetected) Human Metapneumovir PCR Not Detected (NotDetected) Influenza Type A (PCR) Not Detected (NotDetected) Influenza Type B (PCR) Not Detected (NotDetected) M. pneumoniae (PCR) Not Detected (NotDetected) Parainfluenza 1 (PCR) Not Detected (NotDetected) Parainfluenza 2 (PCR) Not Detected (NotDetected) Parainfluenza 3 (PCR) Not Detected (NotDetected) Parainfluenza 4 (PCR) Not Detected (NotDetected) RSV (PCR) Not Detected (NotDetected) Entero/Rhino (PCR) Not Detected (NotDetected) Administered Medications Discontinued Medications Albuterol (Albut/Ipratrop 3mg/0.5mg Neb 3 Ml Vial) 9 ml INH NOW STA Stop: 12/22/23 21:13 Last Admin: 12/22/23 21:30 Dose: 9 ml Documented By: CARMEN Sodium Chloride (Nss) 1,000 mls @ 999 mls/hr IV .Q1H1M TREV Stop: 12/22/23 22:15 Last Infusion: 12/22/23 23:06 Dose: Infused Documented By: Admin: 12/22/23 21:30 Dose: 999 mls/hr Documented By: CARMEN Sodium Chloride (Nss) 1,000 mls @ 999 mls/hr IV .Q1H1M ONE Stop: 12/23/23 00:19 Last Infusion: 12/23/23 00:57 Dose: Infused Documented By: Admin: 12/22/23 23:55 Dose: 999 mls/hr Documented By: Methylprednisolone (Methylprednisolone 125 Mg/2 Ml Vial) 125 mg IV NOW STA Stop: 12/22/23 21:13 Last Admin: 12/22/23 21:30 Dose: 125 mg Documented By: CARMEN Discharge Plan Visit Data Chief Complaint: Shortness of Breath/Dyspnea Stated Complaint: DIFFICULTY BREATHING ED Provider: Fredis Juárez Discharge Problem: Acute hypoxemic respiratory failure, Asthma exacerbation in COPD, Acute dehydration Forms Stand Alone Forms: My [facility] Prescriptions Prescriptions: No Action acetaminophen [Tylenol Extra Strength] 500 mg Tablet 500 - 1,000 mg PO DIRECTED PRN (Reason: Pain) tamsulosin 0.4 mg capsule 0.4 mg PO HS losartan 25 mg tablet 25 mg PO DAILY omeprazole 20 mg capsule,delayed release(DR/EC) 20 mg PO DAILYBB albuterol sulfate 90 mcg/actuation Hfa Aerosol Inhaler 2 puff INHALATION QID PRN (Reason: Shortness Of Breath Or Wheezing) fluticasone propionate 50 mcg/actuation spray,suspension 1 - 2 spray INTRANASAL DAILY PRN (Reason: Congestion) mirabegron [Myrbetriq] 25 mg Tablet Extended Release 24 Hr 25 mg PO DAILY carbidopa-levodopa 25-250 mg tablet 2 tab PO TID Rx Instructions: TAKES 0600, 1400, & 2200 sildenafil 100 mg Tablet 100 mg PO DAILY PRN (Reason: Sexual Activity) Rx Instructions: DO NOT TAKE WITHIN 6 HRS OF TAMSULOSIN. administer 30 minutes to 4 hours before activity guaifenesin 200 mg Tablet 400 mg PO TID PRN (Reason: THICK MUCOUS) entacapone 200 mg tablet 200 mg PO TID Rx Instructions: 0600, 1400, & 2200 docusate sodium 100 mg Capsule 100 mg PO BID PRN (Reason: Constipation) metoprolol succinate 25 mg tablet extended release 24 hr 25 mg PO DAILY multivitamin with minerals Tablet 1 tab PO DAILY sodium chloride 0.9 % solution for nebulization 3 ml INHALATION QID PRN (Reason: MUCOUS MOBILIZATION) Ensure Liquid 1 ea PO DAILY Lactobacillus acidophilus Tablet,Chewable 1 tab PO DAILY nitrofurantoin monohyd/m-cryst 100 mg capsule 100 mg PO BID Rx Instructions: STARTED 12/19/23 FOR 5 DAYS [place] Aerosphere 160-9-4.8 mcg/actuation Hfa Aerosol Inhaler 2 inh INHALATION BID Referrals Referrals: Eliot Briggs MD [Primary Care Provider] -
[2023-12-22 21:13] LABS: Alanine Aminotransferase 5 U/L (7-52); Albumin Globulin Ratio 1.2 (0.9-2); Albumin Level 3.9 gm/dl (3.4-5.0); Alkaline Phosphatase 119 U/L (34-104); Anion Gap 7 (3-11); Aspartate Aminotransferase 18 U/L (13-39); BUN Creatinine Ratio 28.6 (10-20); Bilirubin,Total 1.3 mg/dl (0.2-1.0); Blood Urea Nitrogen 40 mg/dl (6-23); Calcium 9.7 mg/dl (8.6-10.3); Carbon Dioxide 27 mmol/L (21-32); Chloride 103 mmol/L (98-107); Est GFR (Non-African American) 47.5 ml/min; Globulin 3.2 gm/dl (2.5-4.0); Glucose 118 mg/dl (70-99(Fasting)); Potassium 3.7 mmol/L (3.5-5.1); Sodium 137 mmol/L (136-145); Total Protein 7.1 gm/dl (6.0-8.3)
[2023-12-22 21:20] LABS: Troponin I High Sensitivity 4.8 pg/ml (0-20)
[2023-12-22] MEDS: methylPREDNISolone 125 MG/2 ML VIAL IV STA (21:30)
[2023-12-22] MEDS: SODIUM CHLORIDE 0.9% 1,000 ML IV SCH (21:30)
[2023-12-22] MEDS: ALBUT/IPRATROP 3MG/0.5MG NEB 3 ML VIAL INH STA (21:30)
[2023-12-22 21:40] LABS: Partial Thromboplastin Time 27 Seconds (21-31)
[2023-12-22 21:42] LABS: Adenovirus PCR Not Detected (NotDetected); Bordetella parapertussis PCR Not Detected (NotDetected); Bordetella pertussis PCR Not Detected (NotDetected); Chlamydia pneumoniae PCR Not Detected (NotDetected); Coronavirus 229E PCR Not Detected (NotDetected); Coronavirus CoV-2 (COVID19)PCR Not Detected (NotDetected); Coronavirus HKU1 PCR Not Detected (NotDetected); Coronavirus NL63 PCR Not Detected (NotDetected); Coronavirus OC43PCR Not Detected (NotDetected); Human Metapneumovirus PCR Not Detected (NotDetected); Influenza A PCR Not Detected (NotDetected); Influenza B PCR Not Detected (NotDetected); Mycoplasma pneumoniae PCR Not Detected (NotDetected); Parainfluenza Virus 1 PCR Not Detected (NotDetected); Parainfluenza Virus 2 PCR Not Detected (NotDetected); Parainfluenza Virus 3 PCR Not Detected (NotDetected); Parainfluenza Virus 4 PCR Not Detected (NotDetected); Respiratory Syncytial VirusPCR Not Detected (NotDetected); Rhinovirus/Enterovirus PCR Not Detected (NotDetected)
--- NOTE | 2023-12-22 23:33 | History & Physical Report ---
Date of Service December 22, 2023 Assessment & Plan (1) Acute exacerbation of chronic obstructive airways disease: (2) GERD (gastroesophageal reflux disease): (3) Bladder spasms: (4) Hypertension: (5) BPH w urinary obs/LUTS: (6) Weight loss, abnormal: Plan COPD exacerbation- From the ED received the following: Normal saline 1 L, DuoNeb, Solu-Medrol 125 mg IV Respiratory BioFire test negative Solu-Medrol 40 mg IV every 8 hours Azithromycin 500 mg IV daily Guaifenesin extended release 12 mg p.o. twice daily Duonebs every 4 hours while awake and every 2 hours when necessary. Sputum Gram stain and culture Nasal cannula oxygen, titrate to keep pulse ox around 92% Abnormal weight loss- Reports a 10 pound weight loss over the past few months MI has begun Ensure Question whether this is a function of end-stage COPD, Parkinson's, or just part of progressive debilitation but patient reports that the MI is addressing this issue BPH with LUTS/bladder spasms- Continue Myrbetriq and tamsulosin Stop nitrofurantoin Parkinson's- Continue carbidopa levodopa and entacapone History of Present Illness Chief Complaint: The patient presents to the emergency department with complaint of shortness of breath for the past 5 days, with inability to bring up mucus, and finally came in this evening due to his 's insistence Primary Care Provider: Eliot Carter MD The patient is a 78-year-old male with a past medical history including GERD, bladder spasms, hypertension, COPD, BPH with LUTS, acute epiglottitis, right bundle branch block, history of UTI and bladder tumor. He had 5 days of persistent shortness of breath, with sensation of mucus present but unable to bring it up, whose finally convinced him to come to the ED this evening to be evaluated. He denies any recent travels or sick exposures. He has also had about 10 pound weight loss, [facility] which [facility] about 1 week ago. Allergies Allergy/AdvReac Type Severity Reaction Status Date / Time bee venom protein (honey bee) Allergy Severe Anaphylaxis Verified 12/22/23 21:22 rhubarb Allergy Intermediate ANXIETY, Verified 12/22/23 21:22 "ON EDGE", "FEELS LIKE NAILS ON CHALKBOARD". Home Medications Medication Instructions Recorded Confirmed Type acetaminophen 500 mg tablet 500 - 1,000 mg PO DIRECTED PRN 04/04/22 12/22/23 History (Tylenol Extra Strength) Pain albuterol sulfate 90 mcg/actuation 2 puff inhalation QID PRN 04/04/22 12/22/23 History aerosol inhaler Shortness Of Breath Or Wheezing fluticasone propionate 50 1 - 2 spray intranasal DAILY PRN 04/04/22 12/22/23 History mcg/actuation nasal Congestion spray,suspension losartan 25 mg tablet 25 mg PO DAILY 04/04/22 12/22/23 History mirabegron 25 mg tablet,extended 25 mg PO DAILY 04/04/22 12/22/23 History release 24 hr (Myrbetriq) omeprazole 20 mg capsule,delayed 20 mg PO DAILYBB 04/04/22 12/22/23 History release tamsulosin 0.4 mg capsule 0.4 mg PO HS 04/04/22 12/22/23 History Lactobacillus acidophilus 1 tab PO DAILY 12/22/23 12/22/23 History budesonide 160 mcg-glycopyr 9 2 inh inhalation BID 12/22/23 12/22/23 History mcg-formot 4.8 mcg/actuation HFA inhaler (Breztri Aerosphere) carbidopa 25 mg-levodopa 250 mg 2 tab PO TID 12/22/23 12/22/23 History tablet docusate sodium 100 mg capsule 100 mg PO BID PRN Constipation 12/22/23 12/22/23 History entacapone 200 mg tablet 200 mg PO TID 12/22/23 12/22/23 History food supplemt, lactose-reduced 1 ea PO DAILY 12/22/23 12/22/23 History (Ensure oral liquid) guaifenesin 200 mg tablet 400 mg PO TID PRN THICK MUCOUS 12/22/23 12/22/23 History metoprolol succinate 25 mg 25 mg PO DAILY 12/22/23 12/22/23 History tablet,extended release 24 hr multivitamin with minerals 1 tab PO DAILY 12/22/23 12/22/23 History nitrofurantoin 100 mg PO BID 12/22/23 12/22/23 History monohydrate/macrocrystals 100 mg capsule sildenafil 100 mg tablet 100 mg PO DAILY PRN Sexual Activity 12/22/23 12/22/23 History sodium chloride 0.9 % for 3 ml inhalation QID PRN MUCOUS 12/22/23 12/22/23 History nebulization MOBILIZATION Past Med/Surg History Problem List (Updated 12/22/23 @ 23:42 by Burke White MD) Weight loss, abnormal Acute exacerbation of chronic obstructive airways disease COVID-19 (Acute) Erectile dysfunction GERD (gastroesophageal reflux disease) Bladder spasms Hypertension COPD (chronic obstructive pulmonary disease) BPH w urinary obs/LUTS Acute epiglottitis (Acute) Conjunctivitis, right eye Dyspnea on exertion Acute bronchitis (Acute) RBBB (Acute) Hypoxia (Acute) Acute UTI (urinary tract infection) (Acute) Medical History Erectile dysfunction GERD (gastroesophageal reflux disease) Bladder spasms Hypertension COPD (chronic obstructive pulmonary disease) BPH w urinary obs/LUTS Acute exacerbation of chronic obstructive airways disease Bladder tumor Thrombocytopenia Hypokalemia Family History Other Family history non-contributory Social History Smoking Status: Former smoker Tobacco Type: Cigarettes Hx Alcohol Use: No Hx Substance Use: No Preferred Language: Yi Communication Ability: Effective Technical Customer Support Specialist Required: No Beliefs That Will Affect Care: None Current Living Situation: Spouse Feels Safe at Home: Yes Assistive Devices: None Review of Systems Review of Systems: The patient denies chest pain, palpitations, lower extremity swelling, sore throat, fevers, chills, sweats, nausea, vomiting, diarrhea , constipation, abdominal pain, pelvic pain, blood in urine or stool, dysuria, urinary frequency or urgency, lightheadedness, dizziness, headache, rash, abnormal bruising or bleeding, Focal weakness, numbness or tingling in arms or legs, generalized arthralgias or myalgias, back or neck pain, or night sweats. The review of systems is otherwise negative other than for that already noted above, and at least 10 systems have been reviewed. Physical Exam Physical Exam: The patient is awake, alert and oriented 3, well developed and well nourished, normocephalic and atraumatic, lying in bed and in no acute distress. HEENT--PERRL, EOMI, mucous membranes and oropharynx mildly dry. Neck--supple. No JVD. No bruits. Thyroid normal, trachea midline, no adenopath y. Heart--normal S1 and S2. No murmurs, rubs or gallops. Lungs--coarse breath sounds bilaterally. No respiratory distress, no accessory muscle use. Abdomen--normal bowel sounds and soft. Nontender. Nondistended Extremities--No edema. Dermatologic--skin is dry Neurologic--cranial nerves II through XII grossly intact. Rheumatologic--normal range of motion. Psychiatric--normal affect. Results & Data Results & Data Vital Signs (Past 12 Hours) Vital Signs Temp Pulse Pulse Resp BP BP Pulse Ox 12/22/23 23:06 102 H 20 117/62 91 12/22/23 22:29 94 H 20 108/59 L 97 12/22/23 20:49 76 22 102/62 94 12/22/23 20:48 12/22/23 20:37 84 12/22/23 20:27 36.3 C L 88 24 99/62 L 90 O2 Del Method 12/22/23 23:06 Room Air 12/22/23 22:29 Room Air 12/22/23 20:49 Room Air 12/22/23 20:48 Room Air 12/22/23 20:37 12/22/23 20:27 Room Air Laboratory Results Laboratory Results WBC 10.75 K/ul (4.8-10.8) 12/22/23 20:40 RBC 4.71 M/uL (4.70-6.10) 12/22/23 20:40 Hgb 14.1 g/dl (14.0-18.0) 12/22/23 20:40 Hct 43.1 % (42.0-52.0) 12/22/23 20:40 MCV 91.5 fL (80.0-100.0) 12/22/23 20:40 MCH 29.9 pg (25.0-34.0) 12/22/23 20:40 MCHC 32.7 g/dL (32.0-36.0) 12/22/23 20:40 RDW Std Deviation 48.4 fL (36.4-46.3) H 12/22/23 20:40 RDW Coeff of Charanjit 14.4 % (11.5-14.5) 12/22/23 20:40 Plt Count 193 K/uL (130-400) 12/22/23 20:40 MPV 8.9 fL (9.4-12.4) L 12/22/23 20:40 Immature Gran % (Auto) 0.4 % 12/22/23 20:40 Neut % (Auto) 82.4 % 12/22/23 20:40 Lymph % (Auto) 7.8 % 12/22/23 20:40 Deuel % (Auto) 6.2 % 12/22/23 20:40 Eos % (Auto) 2.8 % 12/22/23 20:40 Baso % (Auto) 0.4 % 12/22/23 20:40 Neut # (Auto) 8.86 K/uL (1.40-6.50) H 12/22/23 20:40 Lymph # (Auto) 0.84 K/uL (1.20-3.40) L 12/22/23 20:40 Deuel # (Auto) 0.67 K/uL (0.11-0.59) H 12/22/23 20:40 Eos # (Auto) 0.30 K/uL (0.00-0.50) 12/22/23 20:40 Baso # (Auto) 0.04 K/uL (0.00-0.20) 12/22/23 20:40 Immature Gran # (Auto) 0.04 K/uL (0.01-0.20) 12/22/23 20:40 PT 11.0 Seconds (9.0-12.0) 12/22/23 20:40 INR 1.0 (0.9-1.1) 12/22/23 20:40 APTT 27 Seconds (21-31) 12/22/23 20:40 PTT Ratio 1.0 12/22/23 20:40 Sodium 137 mmol/L (136-145) 12/22/23 20:40 Potassium 3.7 mmol/L (3.5-5.1) 12/22/23 20:40 Chloride 103 mmol/L (98-107) 12/22/23 20:40 Carbon Dioxide 27 mmol/L (21-32) 12/22/23 20:40 Anion Gap 7 (3-11) 12/22/23 20:40 BUN 40 mg/dl (6-23) H 12/22/23 20:40 Creatinine 1.40 mg/dl (0.6-1.4) 12/22/23 20:40 Est Cr Clr Drug Dosing Not Reportable 12/22/23 20:40 Est GFR ( Amer) 55.0 ml/min 12/22/23 20:40 Est GFR (Non-Af Amer) 47.5 ml/min 12/22/23 20:40 BUN/Creatinine Ratio 28.6 (10-20) H 12/22/23 20:40 Glucose 118 mg/dl (70-99(Fasting)) H 12/22/23 20:40 Calcium 9.7 mg/dl (8.6-10.3) 12/22/23 20:40 Total Bilirubin 1.3 mg/dl (0.2-1.0) H 12/22/23 20:40 AST 18 U/L (13-39) 12/22/23 20:40 ALT 5 U/L (7-52) L 12/22/23 20:40 Alkaline Phosphatase 119 U/L (34-104) H 12/22/23 20:40 Troponin I High Sens 4.8 pg/ml (0-20) 12/22/23 20:40 Total Protein 7.1 gm/dl (6.0-8.3) 12/22/23 20:40 Albumin 3.9 gm/dl (3.4-5.0) 12/22/23 20:40 Globulin 3.2 gm/dl (2.5-4.0) 12/22/23 20:40 Albumin/Globulin Ratio 1.2 (0.9-2) 12/22/23 20:40 Adenovirus (PCR) Not Detected (NotDetected) 12/22/23 20:42 B. pertussis DNA (PCR) Not Detected (NotDetected) 12/22/23 20:42 B.parapertussis DNA PCR Not Detected (NotDetected) 12/22/23 20:42 C. pneumoniae DNA (PCR) Not Detected (NotDetected) 12/22/23 20:42 Coronavirus OC43 (PCR) Not Detected (NotDetected) 12/22/23 20:42 Coronavirus HKU1 (PCR) Not Detected (NotDetected) 12/22/23 20:42 Coronavirus 229E (PCR) Not Detected (NotDetected) 12/22/23 20:42 SARS-CoV-2 (PCR) Not Detected (NotDetected) 12/22/23 20:42 Coronavirus NL63 (PCR) Not Detected (NotDetected) 12/22/23 20:42 Human Metapneumovir PCR Not Detected (NotDetected) 12/22/23 20:42 Influenza Type A (PCR) Not Detected (NotDetected) 12/22/23 20:42 Influenza Type B (PCR) Not Detected (NotDetected) 12/22/23 20:42 M. pneumoniae (PCR) Not Detected (NotDetected) 12/22/23 20:42 Parainfluenza 1 (PCR) Not Detected (NotDetected) 12/22/23 20:42 Parainfluenza 2 (PCR) Not Detected (NotDetected) 12/22/23 20:42 Parainfluenza 3 (PCR) Not Detected (NotDetected) 12/22/23 20:42 Parainfluenza 4 (PCR) Not Detected (NotDetected) 12/22/23 20:42 RSV (PCR) Not Detected (NotDetected) 12/22/23 20:42 Entero/Rhino (PCR) Not Detected (NotDetected) 12/22/23 20:42 Code Status & VTE Plan Code Status Full code VTE Prophylaxis Plan VTE Prophylaxis will be ordered: Yes PG Care Time/CCT Total # of Minutes Spent Total Time Spent with Patient: Total time spent is greater than 50% in coordination of care (as documented) at patient's floor/unit and/or counseling patient: Coding Level of Care Code 22949 INT INP/OBS CARE 3/75MIN Diagnoses Acute exacerbation of chronic obstructive airways disease J44.1 GERD (gastroesophageal reflux disease) K21.9 Bladder spasms N32.89 Hypertension I10 BPH w urinary obs/LUTS N40.1; N13.8 Weight loss, abnormal R63.4
[2023-12-22] MEDS: SODIUM CHLORIDE 0.9% 1,000 ML IV ONE (23:55)
[2023-12-23] MEDS ORDERED: ONDANSETRON INJ 2 MG/ML 2 ML VIAL IV PRN (02:00)
[2023-12-23] MEDS ORDERED: ACETAMINOPHEN 325 MG TAB PO PRN (02:00)
[2023-12-23] MEDS ORDERED: ALBUTEROL HFA 8 GM INHALER INH PRN (02:00)
[2023-12-23] MEDS ORDERED: DOCUSATE SODIUM 100 MG CAP PO PRN (02:00)
[2023-12-23] MEDS: AZITHROMYCIN 500 MG in DEXTROSE 5% 250 ML IV SCH (03:06)
[2023-12-23] MEDS: methylPREDNISolone 40 MG in SYRINGE 0 ML IV SCH (03:06)
[2023-12-23] MEDS: PANTOprazole 40 MG TAB PO SCH (06:15)
--- NOTE | 2023-12-23 06:48 | XRay Report ---
XR chest 1V not portable HISTORY: Chest pain, nonspecific COMPARISON: Chest 04/04/2022. FINDINGS: No pneumothorax. No pleural effusions. No focal lung consolidations to suggest a pneumonia. No evidence for pulmonary edema. Calcifications within the aortic knob. No acute fractures identifie d. Emphysema and mild chronic interstitial thickening persists. A few bibasilar linear densities favo r subsegmental atelectasis or scarring. The heart is normal in size. Prior cholecystectomy. IMPRESSION: No significant change compared to the prior study. No acute process. ACT 112: Negative or not required by law. Electronically signed by: Jeffrey Fernandez M.D. 12/23/2023 6:47 AM
[2023-12-23 07:03] LABS: Hematocrit (blood only) 38.1 % (42.0-52.0); Hemoglobin 12.3 g/dl (14.0-18.0); Mean Corpuscular Hemoglobin 29.4 pg (25.0-34.0); Mean Corpuscular Hgb Conc 32.3 g/dL (32.0-36.0); Mean Corpuscular Volume 91.1 fL (80.0-100.0); Mean Platelet Volume 8.8 fL (9.4-12.4); Platelet Count 166 K/uL (130-400); RDW Standard Deviation 47.5 fL (36.4-46.3); Red Blood Count 4.18 M/uL (4.70-6.10); White Blood Count 7.34 K/ul (4.8-10.8)
[2023-12-23] MEDS: ALBUT/IPRATROP 3MG/0.5MG NEB 3 ML VIAL NEB SCH (07:13)
[2023-12-23 07:40] LABS: Acanthocytes 1+; Basophils # (auto) 0.01 K/uL (0.00-0.20); Basophils % (auto) 0.1 %; Immature Granulocytes # (auto) 0.04 K/uL (0.01-0.20); Immature Granulocytes % (auto) 0.5 %; Lymphocytes # (auto) 0.24 K/uL (1.20-3.40); Lymphocytes % (auto) 3.3 %; Monocytes # (auto) 0.04 K/uL (0.11-0.59); Monocytes % (auto) 0.5 %; Neutrophils # (auto) 7.01 K/uL (1.40-6.50); Neutrophils % (auto) 95.6 %; Polychromasia 1+
[2023-12-23 08:32] LABS: Albumin Level 3.5 gm/dl (3.4-5.0); Calcium 8.6 mg/dl (8.6-10.3); Potassium 3.9 mmol/L (3.5-5.1)
[2023-12-23 08:37] LABS: BUN Creatinine Ratio 32.4 (10-20); Creatinine Clr Calc Pharmacy 51.9 ml/min; Est GFR (African American) 75.3 ml/min; Est GFR (Non-African American) 64.9 ml/min; Phosphorus 2.3 mg/dl (2.5-4.9)
[2023-12-23] MEDS: HEPARIN SOD 5,000 UNIT/0.5 ML VIAL SQ SCH (08:49)
[2023-12-23] MEDS: guaiFENesin 600 MG TABCR PO SCH (08:49)
[2023-12-23] MEDS: CEROVITE ADV FORMULA TAB PO SCH (08:49)
[2023-12-23] MEDS: VIBEGRON 75 MG TAB PO SCH (08:49)
[2023-12-23] MEDS: ENTACAPONE 200 MG TAB PO SCH (08:49)
[2023-12-23] MEDS: CARBIDOPA/LEVODOPA 25-250 1 EA TAB PO SCH (08:50)
[2023-12-23] MEDS: FLUTICASONE FUROATE 200MCG 14 PUFFS/INHALER INH SCH (08:50)
[2023-12-23] MEDS: METOPROLOL SUCC 25MG EXT REL TAB PO SCH (08:50)
[2023-12-23] MEDS: UMECLIDINIUM/VILANTEROL 62.5/25MCG 7 PUFFS/INHALER INH SCH (08:51)
[2023-12-23] MEDS ORDERED: NON-FORMULARY MEDICATION (Lactobacillus Acidophilus Tablet,Chewable) PO SCH (09:00)
[2023-12-23] MEDS ORDERED: NON-FORMULARY MEDICATION (Food Supplemt, Lactose-Reduced [Ensure] Liquid) PO SCH (09:00)
[2023-12-23] MEDS ORDERED: NON-FORMULARY MEDICATION (Multivitamin With Minerals Tablet) PO SCH (09:00)
[2023-12-23] MEDS ORDERED: NON-FORMULARY MEDICATION (Budesonide-Glycopyr-Formoterol [Breztri Aerosphere] 160-9-4.8 mc INH SCH (09:00)
[2023-12-23] MEDS: levoFLOXacin/D5W 750 MG/150 ML BAG IV SCH (12:43)
--- NOTE | 2023-12-23 15:41 | Hospitalist Progress Note ---
Date of Service December 23, 2023 Assessment & Plan (1) Acute exacerbation of chronic obstructive airways disease: Plan: Parenteral steroid therapy. Scheduled nebulizer treatments. Continue Levaquin, day 1. Obtain sputum culture if sputum is produced (2) GERD (gastroesophageal reflux disease): Plan: stable. Continue pantoprazole therapy (3) Hypertension: Plan: Stable. Continue current medical management (4) BPH w urinary obs/LUTS: Plan: Stable. Continue current medical management (5) Parkinson's disease: Plan: Stable. Continue current medical management Plan Hopeful discharge to home within the next 2 to 3 days. Admission and Anticipated Discharge Date Admission Date: December 22, 2023 Subjective Alert and oriented. Oxygen saturation 94% on 2 L. Admission chest x-ray reveals no evidence of pneumonia. He is now on intravenous Levaquin. Will continue parenteral steroid therapy and scheduled nebulizer treatments Review of Systems 2 Review of Systems: Constitutional-no fever or chills ENT-no blurred vision, no double vision, no epistaxis, no sore throat Respiratory-occasionally productive cough of purulent appearing sputum. No hemoptysis. Denies wheezing. Shortness of breath with exertion Cardiac-no palpitations, no chest pain, no syncope GI-no nausea, vomiting, diarrhea, melena, hematochezia -no urinary retention, no urinary incontinence, no dysuria, no hematuria Musculoskeletal-no joint pain, no muscle tenderness Skin-no bruising, no rashes, no pruritus Neuro-no isolated weakness, no paresthesia, no weakness Psych-no depression, no anxiety Physical Exam 2 Physical Exam: General-alert and oriented x3, no fever, no chills HEENT-head atraumatic and normocephalic, pupils equal and reactive to light, extraocular muscles intact Neck-no lymphadenopathy or thyromegaly, trachea midline Chest-diminished breath sounds bilaterally. Midline rhonchi. Bilateral end expiratory wheezes. No dullness to percussion. Cardiac-regular rate and rhythm, normal S1 and S2 Abdomen-normal bowel sounds, no hepatosplenomegaly Extremities-no cyanosis, clubbing, or edema Neuro-cranial nerves II through XII intact, motor and sensory function within normal limits, strength symmetrical, no focal deficits Psych-normal affect, normal mood Results & Data Results & Data Vital Signs (Past 12 Hours) Vital Signs Temp Pulse Pulse Pulse Resp BP BP 12/23/23 15:17 86 18 12/23/23 11:00 95 H 20 12/23/23 10:42 36.6 C 108 H 20 108/64 12/23/23 10:38 103 H 12/23/23 10:38 12/23/23 09:46 36.8 C 99 H 20 129/82 12/23/23 07:15 90 20 12/23/23 06:54 84 12/23/23 04:32 85 18 111/72 Pulse Ox O2 Del Method O2 Flow Rate 12/23/23 15:17 98 Nasal Cannula 4 12/23/23 11:00 93 Nasal Cannula 2 12/23/23 10:42 96 Nasal Cannula 2 12/23/23 10:38 12/23/23 10:38 Nasal Cannula 2 12/23/23 09:46 99 Room Air 12/23/23 07:15 99 Nasal Cannula 2 12/23/23 06:54 12/23/23 04:32 94 Nasal Cannula 2 Laboratory Results 12/23/23 06:33 12/23/23 06:33 PG Care Time/CCT Total # of Minutes Spent Total Time Spent with Patient: Total time spent is greater than 50% in coordination of care (as documented) at patient's floor/unit and/or counseling patient: Coding Level of Care Code 16326 SUB INP/OBS CARE 3/50MIN Diagnoses Acute exacerbation of chronic obstructive airways disease J44.1 GERD (gastroesophageal reflux disease) K21.9 Hypertension I10 BPH w urinary obs/LUTS N40.1; N13.8 Parkinson's disease G20.A1
[2023-12-23] MEDS: TAMSULOSIN HCL 0.4 MG CAP PO SCH (20:42)
[2023-12-23] MEDS: DOCUSATE SODIUM 100 MG CAP PO SCH (20:42)
--- NOTE | 2023-12-24 06:11 | Electrocardiogram Report ---
Test Reason : Blood Pressure : / mmHG Vent. Rate : 082 BPM Atrial Rate : 082 BPM P-R Int : 154 ms QRS Dur : 156 ms QT Int : 420 ms P-R-T Axes : 070 055 054 degrees QTc Int : 490 ms Normal sinus rhythm Right bundle branch block Abnormal ECG When compared with ECG of 18-JUN-2022 07:13, No significant change Confirmed by Mundo Li ([id number]) on 12/24/2023 6:11:22 AM Referred By: REFERRED SELF Confirmed By:Mundo Li
[2023-12-24 06:53] LABS: Hematocrit (blood only) 37.5 % (42.0-52.0); Hemoglobin 12.4 g/dl (14.0-18.0); Mean Corpuscular Hemoglobin 29.7 pg (25.0-34.0); Mean Corpuscular Hgb Conc 33.1 g/dL (32.0-36.0); Mean Corpuscular Volume 89.9 fL (80.0-100.0); Platelet Count 193 K/uL (130-400); RDW Coefficient of Variation 14.1 % (11.5-14.5); RDW Standard Deviation 46.5 fL (36.4-46.3); Red Blood Count 4.17 M/uL (4.70-6.10)
[2023-12-24 07:14] LABS: Albumin Level 3.3 gm/dl (3.4-5.0); Magnesium 1.9 mg/dl (1.7-2.4); Potassium 4.4 mmol/L (3.5-5.1)
[2023-12-24 07:19] LABS: BUN Creatinine Ratio 35.3 (10-20); Creatinine Clr Calc Pharmacy 54.9 ml/min; Est GFR (African American) 80.6 ml/min; Est GFR (Non-African American) 69.6 ml/min
[2023-12-24 07:20] LABS: Basophils # (auto) 0.01 K/uL (0.00-0.20); Basophils % (auto) 0.1 %; Immature Granulocytes % (auto) 0.6 %; Lymphocytes # (auto) 0.55 K/uL (1.20-3.40); Lymphocytes % (auto) 3.3 %; Monocytes # (auto) 0.34 K/uL (0.11-0.59); Monocytes % (auto) 2.1 %; Neutrophils % (auto) 93.9 %
--- NOTE | 2023-12-24 08:01 | Hospitalist Progress Note ---
Date of Service December 24, 2023 Assessment & Plan (1) Acute exacerbation of chronic obstructive airways disease: Plan: Parenteral steroid therapy, Methylprednisolone 40 mg q8 acute on chronic respiratory failure with hypoxia Scheduled nebulizer treatments. Continue Levaquin, sputum culture ->gram negative bacilli noted, no pneumonia on cxr, treat for bronchitis (2) GERD (gastroesophageal reflux disease): Plan: stable. Continue pantoprazole therapy (3) Hypertension: Plan: Stable. Continue current medical management (4) BPH w urinary obs/LUTS: Plan: Stable. No symptoms at present tamsulosin (5) Parkinson's disease: Plan: Stable. Continue current medical management Sinemet and vibegron Plan Ordering boost per family request Admission and Anticipated Discharge Date Admission Date: December 22, 2023 Subjective Patient seems to be bothered by his Parkinson's and his COPD exacerbation on equal degrees. Patient states that he is discouraged because he is having challenges walking and moving with his Parkinson's disease but at the same time is markedly short of breath when he does the same. Clinically at bedside it does seem that his COPD is the worst of the 2, he does have some Parkinson type symptoms, however his dyspnea is the worst at the moment Physical Exam Physical Exam: Mild to moderate respiratory distress at the bedside family able to speak in full sentences does have prolonged expiratory phase and some nonproductive coughing Lungs are with poor air movement throughout no focal wheeze Results & Data Results & Data Vital Signs (Past 12 Hours) Vital Signs Temp Pulse Pulse Resp BP Pulse Ox Pulse Ox 12/24/23 07:43 12/24/23 07:23 83 18 93 12/24/23 07:18 72 12/24/23 03:08 97.9 F 86 18 124/69 93 12/24/23 02:32 99 12/23/23 22:45 97.7 F 82 18 120/70 96 12/23/23 21:43 96 H O2 Del Method O2 Del Method O2 Flow Rate O2 Flow Rate 12/24/23 07:43 Nasal Cannula 2 12/24/23 07:23 Nasal Cannula 2 12/24/23 07:18 12/24/23 03:08 Nasal Cannula 2 12/24/23 02:32 Nasal Cannula 2 12/23/23 22:45 Nasal Cannula 2 12/23/23 21:43 Laboratory Results Reviewed CBC leukocytosis likely from steroid Reviewed chemistry and magnesium, magnesium replete PG Care Time/CCT Total # of Minutes Spent Total Time Spent with Patient: Total time spent is greater than 50% in coordination of care (as documented) at patient's floor/unit and/or counseling patient: Coding Level of Care Code 70462 SUB INP/OBS CARE 2/35MIN Diagnoses Acute exacerbation of chronic obstructive airways disease J44.1 GERD (gastroesophageal reflux disease) K21.9 Hypertension I10 BPH w urinary obs/LUTS N40.1; N13.8 Parkinson's disease G20.A1
[2023-12-25 06:30] LABS: Hematocrit (blood only) 41.5 % (42.0-52.0); Hemoglobin 13.6 g/dl (14.0-18.0); Mean Corpuscular Hemoglobin 29.8 pg (25.0-34.0); Mean Corpuscular Hgb Conc 32.8 g/dL (32.0-36.0); Mean Corpuscular Volume 90.8 fL (80.0-100.0); Mean Platelet Volume 8.8 fL (9.4-12.4); Platelet Count 226 K/uL (130-400); RDW Standard Deviation 46.9 fL (36.4-46.3); Red Blood Count 4.57 M/uL (4.70-6.10); White Blood Count 15.62 K/ul (4.8-10.8)
[2023-12-25 06:38] LABS: Albumin Level 3.5 gm/dl (3.4-5.0); BUN Creatinine Ratio 40.4 (10-20); Calcium 9.5 mg/dl (8.6-10.3); Creatinine Clr Calc Pharmacy 59.6 ml/min; Est GFR (Non-African American) 76.8 ml/min; Magnesium 1.9 mg/dl (1.7-2.4); Phosphorus 2.8 mg/dl (2.5-4.9); Potassium 4.3 mmol/L (3.5-5.1)
[2023-12-25 07:18] LABS: Acanthocytes 1+; Basophils # (auto) 0.02 K/uL (0.00-0.20); Basophils % (auto) 0.1 %; Eosinophils # (auto) 0.01 K/uL (0.00-0.50); Eosinophils % (auto) 0.1 %; Immature Granulocytes # (auto) 0.08 K/uL (0.01-0.20); Immature Granulocytes % (auto) 0.5 %; Lymphocytes # (auto) 0.42 K/uL (1.20-3.40); Lymphocytes % (auto) 2.7 %; Monocytes # (auto) 0.39 K/uL (0.11-0.59); Monocytes % (auto) 2.5 %; Neutrophils % (auto) 94.1 %
--- NOTE | 2023-12-25 17:24 | Hospitalist Progress Note ---
Date of Service December 25, 2023 Assessment & Plan (1) Acute exacerbation of chronic obstructive airways disease: Plan: Parenteral steroid therapy, Methylprednisolone 40 mg q8-transition to po prednisone in am 12/25 acute on chronic respiratory failure with hypoxia Scheduled nebulizer treatments. Continue Levaquin, sputum culture ->gram negative bacilli noted, no pneumonia on cxr, treat for bronchitis (2) GERD (gastroesophageal reflux disease): Plan: stable. Continue pantoprazole therapy (3) Hypertension: Plan: Stable. Continue current medical management (4) BPH w urinary obs/LUTS: Plan: Stable. No symptoms at present tamsulosin (5) Parkinson's disease: Plan: Stable. Continue current medical management Sinemet and vibegron Plan Ordering boost per family request Admission and Anticipated Discharge Date Admission Date: December 22, 2023 Subjective Patient seems feels improved with regard to his breathing his movement disorder still about the same however he is overall encouraged that he feels better. He is encouraged to be [facility] Given his overall improvement if patient can maintain room air status he may be able to be home without oxygen. Will review again 24 hours Physical Exam Physical Exam: Mild respiratory distress, able to speak in full sentences Continues with prolonged expiratory phase and noticeably less coughing Lungs are with poor air movement throughout no focal wheeze Results & Data Results & Data Vital Signs (Past 12 Hours) Vital Signs Temp Pulse Pulse Pulse Resp BP Pulse Ox 12/25/23 15:45 95 H 12/25/23 15:14 97.5 F L 103 H 20 124/77 91 12/25/23 14:29 101 H 18 91 12/25/23 11:23 88 18 90 12/25/23 11:08 97.3 F L 93 H 14 145/81 H 93 12/25/23 09:48 71 12/25/23 07:49 12/25/23 07:26 88 18 93 12/25/23 07:13 97.3 F L 76 15 158/82 H 97 O2 Del Method O2 Flow Rate 12/25/23 15:45 12/25/23 15:14 Room Air 12/25/23 14:29 Room Air 12/25/23 11:23 Room Air 12/25/23 11:08 Room Air 12/25/23 09:48 12/25/23 07:49 Nasal Cannula 2 07/03/24 07:26 Room Air 12/25/23 07:13 Room Air Laboratory Results Reviewed CBC reviewed chemistry updated at bedside PG Care Time/CCT Total # of Minutes Spent Total Time Spent with Patient: Total time spent is greater than 50% in coordination of care (as documented) at patient's floor/unit and/or counseling patient: Coding Level of Care Code 68214 SUB INP/OBS CARE 2/35MIN Diagnoses Acute exacerbation of chronic obstructive airways disease J44.1 GERD (gastroesophageal reflux disease) K21.9 Hypertension I10 BPH w urinary obs/LUTS N40.1; N13.8 Parkinson's disease G20.A1
[2023-12-26] MEDS: POLYETHYLENE (MIRALAX) 17 GM PACK PO PRN (08:20)
[2023-12-26] MEDS: predniSONE 20 MG TAB PO SCH (08:30)
--- NOTE | 2023-12-26 16:30 | Discharge Summary ---
Discharge Summary Date of Service December 26, 2023 Principal Dx & Hospital Course #1 = Principal Diagnosis (1) Acute exacerbation of chronic obstructive airways disease: Dishcarged on oral tapering steroid therapy, acute on chronic respiratory failure with hypoxia resume home inhalers Breztri Continue Levaquin, sputum culture ->gram negative bacilli noted, no pneumonia on cxr, treat for bronchitis complete Levaquin pt was able to graduate off of oxygen prior to discharge (2) GERD (gastroesophageal reflux disease): stable. Continue pantoprazole therapy (3) Hypertension: Stable. Continue current medical management metoprolol and losartan (4) BPH w urinary obs/LUTS: Stable. No symptoms at present tamsulosin (5) Parkinson's disease: Stable. Continue current medical management Sinemet and vibegron Plan Notes For Next Care Provider pt may benefit from referral for consideration of advanced treatment of lung disease Admission HPI Per Admitting Provider The patient is a 78-year-old male with a past medical history including GERD, bladder spasms, hypertension, COPD, BPH with LUTS, acute epiglottitis, right bundle branch block, history of UTI and bladder tumor. He had 5 days of persistent shortness of breath, with sensation of mucus present but unable to bring it up, whose finally convinced him to come to the ED this evening to be evaluated. He denies any recent travels or sick exposures. He has also had about 10 pound weight loss, for which HI started him on Ensure about 1 week ago. Updated Medication List Medication Instructions Recorded Confirmed Type acetaminophen 500 mg tablet 500 - 1,000 mg PO DIRECTED PRN 04/04/22 12/22/23 History (Tylenol Extra Strength) Pain albuterol sulfate 90 mcg/actuation 2 puff inhalation QID PRN 04/04/22 12/22/23 History aerosol inhaler Shortness Of Breath Or Wheezing fluticasone propionate 50 1 - 2 spray intranasal DAILY PRN 04/04/22 12/22/23 History mcg/actuation nasal Congestion spray,suspension losartan 25 mg tablet 25 mg PO DAILY 04/04/22 12/22/23 History mirabegron 25 mg tablet,extended 25 mg PO DAILY 04/04/22 12/22/23 History release 24 hr (Myrbetriq) omeprazole 20 mg capsule,delayed 20 mg PO DAILYBB 04/04/22 12/22/23 History release tamsulosin 0.4 mg capsule 0.4 mg PO HS 04/04/22 12/22/23 History Lactobacillus acidophilus 1 tab PO DAILY 12/22/23 12/22/23 History budesonide 160 mcg-glycopyr 9 2 inh inhalation BID 12/22/23 12/22/23 History mcg-formot 4.8 mcg/actuation HFA inhaler (Breztri Aerosphere) carbidopa 25 mg-levodopa 250 mg 2 tab PO TID 12/22/23 12/22/23 History tablet docusate sodium 100 mg capsule 100 mg PO BID PRN Constipation 12/22/23 12/22/23 History entacapone 200 mg tablet 200 mg PO TID 12/22/23 12/22/23 History food supplemt, lactose-reduced 1 ea PO DAILY 12/22/23 12/22/23 History (Ensure oral liquid) guaifenesin 200 mg tablet 400 mg PO TID PRN THICK MUCOUS 12/22/23 12/22/23 History metoprolol succinate 25 mg 25 mg PO DAILY 12/22/23 12/22/23 History tablet,extended release 24 hr multivitamin with minerals 1 tab PO DAILY 12/22/23 12/22/23 History sildenafil 100 mg tablet 100 mg PO DAILY PRN Sexual Activity 12/22/23 12/22/23 History sodium chloride 0.9 % for 3 ml inhalation QID PRN MUCOUS 12/22/23 12/22/23 History nebulization MOBILIZATION levofloxacin 750 mg tablet 750 mg PO DAILY 3 days #3 tabs 12/26/23 Rx prednisone 10 mg tablet 10 mg PO DIRECTED #40 tabs 12/26/23 Rx Hospital Stay Data Consultations 12/22/23 23:19 ED Decision to Admit Stat Pending Results Patient Have Any Pending Studies at Discharge: No Discharge Instructions Given to Patient (Per Discharging Provider) For your COPD please take prednisone at reducing doses and complete your antibiotics follow up with your neurologist for your movement evaluation Total Time Total Time Spent Total Time Spent (In Minutes): It required greater than 30 minutes to prepare this patient for discharge. Coding Level of Care Code 66889 INP/OBS DISCH >30 MIN Diagnoses Acute exacerbation of chronic obstructive airways disease J44.1 GERD (gastroesophageal reflux disease) K21.9 Hypertension I10 BPH w urinary obs/LUTS N40.1; N13.8 Parkinson's disease G20.A1
== END 2023-12-26 12:29 | disposition home or self-care (01) | DRG 190 ==
LOC: ED 20:27 → SUATTDRO 23:33 → EDINP 23:33 → 2N 12-23 09:46

== ENCOUNTER 2024-02-21 19:59 | Inpatient (IN) ==
--- NOTE | 2024-02-21 20:45 | Emergency Department Note ---
Impression & Plan Acute dyspnea, Acute hypoxemic respiratory failure ED Provider Note HISTORY OF PRESENT ILLNESS: Patient is a 78-year-old male presenting with shortness of breath. Patient reportedly has been having progressively worsening shortness of breath over the last 2 weeks, but more notably in the last few days. He does not wear any supplemental oxygen at baseline. Patient reports he is only able to take about 1-2 steps before becoming significantly winded and having to sit down. He also has had bilateral lower extremity edema over the last 2 to 3 days. No reported fevers. No recent sick contact exposures. Denies any chest pain. He reports he is had a cough productive of a white thick mucus over the last 2 weeks. Family was worried given his respiratory symptoms and swelling, prompting him to come to the emergency department. Patient is not on any anticoagulation. Denies any history of cardiac stents. Denies any DVT or PE history. ROS: as above PHYSICAL EXAM: Constitutional: Patient appears in no acute distress. HENT: Head: Normocephalic and atraumatic. Eyes: EOMI, PERRL Mouth/Throat: Mucous membranes moist. Neck: Trachea midline. Neck supple. Cardiovascular: Tachycardic with regular rhythm. No murmurs, rubs or gallops. Intact distal pulses. Pulmonary/Chest: No respiratory distress. Breath sounds clear and equal bilaterally. Patient is conversationally dyspneic. He has expiratory wheezes in the bilateral upper lobes but noted to have some crackles in the bilateral lower lobes. Abdominal: Abdomen soft, no tenderness, rebound or guarding. Musculoskeletal: No tenderness or deformity noted. Trace edema of the bilateral feet extending to the ankles. Skin: Warm and dry. No rash, erythema, pallor or cyanosis Psychiatric: Appropriate mood and affect for situation. Neurological: Alert and keenly responsive. CN II-XII grossly intact, moving all extremities equally and fully. MDM: - Vitals signs showed hypertension, hypoxia and tachycardia. - History obtained via patient and patient's family. History as above. - Chronic conditions affecting care: RBBB; GERD; HTN; Parkinson's disease - Differential diagnoses include, but are not limited to: Congestive heart failure; acute coronary syndrome; COPD/asthma exacerbation; pulmonary edema; pulmonary embolism; pneumonia; pneumothorax; viral syndrome - Order placed for continuous cardiac monitoring. At this time, monitor showed rate of 90 bpm with normal sinus rhythm, per my interpretation. - External medical records reviewed. Discharge summary dated 12/2023 was reviewed. Patient was admitted at that time for acute exacerbation of COPD. He was discharged on oral steroid taper. - EKG interpreted by myself showed normal sinus rhythm. Rate 97 bpm. QT 384. No acute ischemic changes. Right bundle branch block present. - Laboratory workup interpreted by myself showed normal WBC; normal PT/INR; stable electrolytes; elevated glucose (125); normal troponin; normal BNP - CXR negative for pneumonia, per my interpretation - Viral respiratory panel negative - Patient is on a new [address] PE obtained to rule out PE. - Discussion was had with case therapist about patient's case and need for admission - Hospitalist, Dr. White, consulted for admission - Patient admitted to [facility] for further evaluation and management. ASSESSMENT AND PLAN: Diagnosis: Acute dyspnea; acute hypoxic respiratory failure Plan: admit Past Med/Surg History Problem List (Updated 02/21/24 @ 21:46 by Autumn Martin MD) Acute hypoxemic respiratory failure (Acute) Acute dyspnea (Acute) Parkinson's disease Acute exacerbation of chronic obstructive airways disease COVID-19 (Acute) Erectile dysfunction COPD (chronic obstructive pulmonary disease) Acute epiglottitis (Acute) Conjunctivitis, right eye Dyspnea on exertion Acute bronchitis (Acute) RBBB (Acute) Hypoxia (Acute) Acute UTI (urinary tract infection) (Acute) Medical History Thrombocytopenia Hypokalemia Family History Other Family history non-contributory Social History Smoking Status: Former smoker Tobacco Type: Cigarettes Hx Alcohol Use: No Hx Substance Use: No Preferred Language: Turkmen Communication Ability: Effective Building And Grounds Supervisor Required: No Beliefs That Will Affect Care: None Current Living Situation: Spouse Feels Safe at Home: Yes Assistive Devices: Nebulizer, Walker and Other Allergies Allergies Allergy/AdvReac Type Severity Reaction Status Date / Time bee venom protein (honey bee) Allergy Severe Anaphylaxis Verified 12/22/23 21:22 rhubarb Allergy Intermediate ANXIETY, Verified 12/22/23 21:22 "ON EDGE", "FEELS LIKE NAILS ON CHALKBOARD". Home Meds Home Medications Medication Instructions Recorded Confirmed acetaminophen 500 mg tablet 500 - 1,000 mg PO DIRECTED PRN 04/04/22 12/22/23 (Tylenol Extra Strength) Pain albuterol sulfate 90 mcg/actuation 2 puff inhalation QID PRN 04/04/22 02/21/24 aerosol inhaler Shortness Of Breath Or Wheezing fluticasone propionate 50 1 - 2 spray intranasal DAILY PRN 04/04/22 12/22/23 mcg/actuation nasal Congestion spray,suspension losartan 25 mg tablet 25 mg PO DAILY 04/04/22 02/21/24 mirabegron 25 mg tablet,extended 25 mg PO DAILY 04/04/22 12/22/23 release 24 hr (Myrbetriq) omeprazole 20 mg capsule,delayed 20 mg PO DAILYBB 04/04/22 12/22/23 release tamsulosin 0.4 mg capsule 0.4 mg PO HS 04/04/22 12/22/23 Lactobacillus acidophilus 1 tab PO DAILY 12/22/23 12/22/23 budesonide 160 mcg-glycopyr 9 2 inh inhalation BID 12/22/23 02/21/24 mcg-formot 4.8 mcg/actuation HFA inhaler (Breztri Aerosphere) carbidopa 25 mg-levodopa 250 mg 2 tab PO TID 12/22/23 02/21/24 tablet docusate sodium 100 mg capsule 100 mg PO BID PRN Constipation 12/22/23 12/22/23 entacapone 200 mg tablet 200 mg PO TID 12/22/23 02/21/24 food supplemt, lactose-reduced 1 ea PO DAILY 12/22/23 12/22/23 (Ensure oral liquid) guaifenesin 200 mg tablet 400 mg PO TID PRN THICK MUCOUS 12/22/23 12/22/23 metoprolol succinate 25 mg 25 mg PO DAILY 12/22/23 02/21/24 tablet,extended release 24 hr multivitamin with minerals 1 tab PO DAILY 12/22/23 12/22/23 sildenafil 100 mg tablet 100 mg PO DAILY PRN Sexual Activity 12/22/23 12/22/23 sodium chloride 0.9 % for 3 ml inhalation QID PRN MUCOUS 12/22/23 02/21/24 nebulization MOBILIZATION Previous Rx's Medication Instructions Recorded prednisone 10 mg tablet 10 mg PO DIRECTED #40 tabs 12/26/23 Results & Data (ED) Vital Signs Vital Signs - 24 hr 02/21/24 20:02 02/21/24 20:23 02/21/24 20:40 Temperature 36.4 C L Temperature Source Oral Pulse Rate 105 H Pulse Rate [Apical] Respiratory Rate Blood Pressure 145/90 H Blood Pressure [Left Arm] Blood Pressure Mean 108 Blood Pressure Mean [Left Arm] Pulse Oximetry 92 90 89 L Oxygen Delivery Method Room Air Room Air Room Air Nasal Cannula Oxygen Flow Rate Sepsis Recent Fever Within 48 Hours No Sepsis New/Unexplained Change in Mental Status No Sepsis Action Taken by Nursing No Action Required Oxygen Flow Rate - Titration 2 Pulse Oximetry Post Tiitration 97 02/21/24 20:45 02/21/24 21:30 Temperature Temperature Source Pulse Rate 93 H Pulse Rate [Apical] 90 Respiratory Rate 20 Blood Pressure Blood Pressure [Left Arm] 99/65 L Blood Pressure Mean Blood Pressure Mean [Left Arm] 76 Pulse Oximetry 96 Oxygen Delivery Method Nasal Cannula Oxygen Flow Rate 2 Sepsis Recent Fever Within 48 Hours Sepsis New/Unexplained Change in Mental Status Sepsis Action Taken by Nursing Oxygen Flow Rate - Titration Pulse Oximetry Post Tiitration Laboratory Data 02/21/24 20:31 02/21/24 20:31 Lab Results 02/21/24 Range/Units 20:31 WBC 7.71 (4.8-10.8) K/ul RBC 4.39 L (4.70-6.10) M/uL Hgb 13.0 L (14.0-18.0) g/dl Hct 40.0 L (42.0-52.0) % MCV 91.1 (80.0-100.0) fL MCH 29.6 (25.0-34.0) pg MCHC 32.5 (32.0-36.0) g/dL RDW Std Deviation 46.5 H (36.4-46.3) fL RDW Coeff of Charanjit 13.8 (11.5-14.5) % Plt Count 260 (130-400) K/uL MPV 8.4 L (9.4-12.4) fL Immature Gran % (Auto) 0.5 % Neut % (Auto) 75.2 % Lymph % (Auto) 10.5 % [place] % (Auto) 11.4 % Eos % (Auto) 1.8 % Baso % (Auto) 0.6 % Neut # (Auto) 5.79 (1.40-6.50) K/uL Lymph # (Auto) 0.81 L (1.20-3.40) K/uL [place] # (Auto) 0.88 H (0.11-0.59) K/uL Eos # (Auto) 0.14 (0.00-0.50) K/uL Baso # (Auto) 0.05 (0.00-0.20) K/uL Immature Gran # (Auto) 0.04 (0.01-0.20) K/uL PT 11.1 (9.0-12.0) Seconds INR 1.0 (0.9-1.1) Sodium 135 L (136-145) mmol/L Potassium 3.9 (3.5-5.1) mmol/L Chloride 102 (98-107) mmol/L Carbon Dioxide 27 (21-32) mmol/L Anion Gap 6 (3-11) BUN 24 H (6-23) mg/dl Creatinine 1.08 (0.6-1.4) mg/dl Est Cr Clr Drug Dosing Not Reportable Est GFR ( Amer) 75.3 ml/min Est GFR (Non-Af Amer) 64.9 ml/min BUN/Creatinine Ratio 22.2 H (10-20) Glucose 125 H (70-99(Fasting)) mg/dl Calcium 9.3 (8.6-10.3) mg/dl Magnesium 2.1 (1.7-2.4) mg/dl Total Bilirubin 0.8 (0.2-1.0) mg/dl AST 14 (13-39) U/L ALT < 3 L (7-52) U/L Alkaline Phosphatase 87 (34-104) U/L Troponin I High Sens 5.3 (0-20) pg/ml B-Natriuretic Peptide 34 (0-100) pg/ml Total Protein 6.8 (6.0-8.3) gm/dl Albumin 3.6 (3.4-5.0) gm/dl Globulin 3.2 (2.5-4.0) gm/dl Albumin/Globulin Ratio 1.1 (0.9-2) Adenovirus (PCR) Not Detected (NotDetected) B. pertussis DNA (PCR) Not Detected (NotDetected) B.parapertussis DNA PCR Not Detected (NotDetected) C. pneumoniae DNA (PCR) Not Detected (NotDetected) Coronavirus OC43 (PCR) Not Detected (NotDetected) Coronavirus HKU1 (PCR) Not Detected (NotDetected) Coronavirus 229E (PCR) Not Detected (NotDetected) SARS-CoV-2 (PCR) Not Detected (NotDetected) Coronavirus NL63 (PCR) Not Detected (NotDetected) Human Metapneumovir PCR Not Detected (NotDetected) Influenza Type A (PCR) Not Detected (NotDetected) Influenza Type B (PCR) Not Detected (NotDetected) M. pneumoniae (PCR) Not Detected (NotDetected) Parainfluenza 1 (PCR) Not Detected (NotDetected) Parainfluenza 2 (PCR) Not Detected (NotDetected) Parainfluenza 3 (PCR) Not Detected (NotDetected) Parainfluenza 4 (PCR) Not Detected (NotDetected) RSV (PCR) Not Detected (NotDetected) Entero/Rhino (PCR) Not Detected (NotDetected) Administered Medications Discontinued Medications Albuterol (Albut/Ipratrop 3mg/0.5mg Neb 3 Ml Vial) 3 ml NEB NOW STA; Protocol Stop: 02/21/24 20:44 Last Admin: 02/21/24 20:47 Dose: 3 ml Documented By: TRIPP Ioversol (Optiray 320 125ml) 119 ml IV ONCE ONE Stop: 02/21/24 22:02 Last Admin: 02/21/24 22:01 Dose: 119 ml Documented By: COMPA Discharge Plan Visit Data Chief Complaint: Shortness of Breath/Dyspnea Stated Complaint: PARKINSON, FLUID IN FEET AND MAYBE LUNGS ED Provider: Autumn Martin Discharge Problem: Acute dyspnea, Acute hypoxemic respiratory failure Forms Stand Alone Forms: My [facility] Equivalent DATA Prescriptions Prescriptions: No Action acetaminophen [Tylenol Extra Strength] 500 mg Tablet 500 - 1,000 mg PO DIRECTED PRN (Reason: Pain) tamsulosin 0.4 mg capsule 0.4 mg PO HS losartan 25 mg tablet 25 mg PO DAILY omeprazole 20 mg capsule,delayed release(DR/EC) 20 mg PO DAILYBB albuterol sulfate 90 mcg/actuation Hfa Aerosol Inhaler 2 puff INHALATION QID PRN (Reason: Shortness Of Breath Or Wheezing) fluticasone propionate 50 mcg/actuation spray,suspension 1 - 2 spray INTRANASAL DAILY PRN (Reason: Congestion) mirabegron [Myrbetriq] 25 mg Tablet Extended Release 24 Hr 25 mg PO DAILY carbidopa-levodopa 25-250 mg tablet 2 tab PO TID Rx Instructions: TAKES 0600, 1400, & 2200 sildenafil 100 mg Tablet 100 mg PO DAILY PRN (Reason: Sexual Activity) Rx Instructions: DO NOT TAKE WITHIN 6 HRS OF TAMSULOSIN. administer 30 minutes to 4 hours before activity guaifenesin 200 mg Tablet 400 mg PO TID PRN (Reason: THICK MUCOUS) entacapone 200 mg tablet 200 mg PO TID Rx Instructions: 0600, 1400, & 2200 docusate sodium 100 mg Capsule 100 mg PO BID PRN (Reason: Constipation) metoprolol succinate 25 mg tablet extended release 24 hr 25 mg PO DAILY multivitamin with minerals Tablet 1 tab PO DAILY sodium chloride 0.9 % solution for nebulization 3 ml INHALATION QID PRN (Reason: MUCOUS MOBILIZATION) Ensure Liquid 1 ea PO DAILY Lactobacillus acidophilus Tablet,Chewable 1 tab PO DAILY Breztri Aerosphere 160-9-4.8 mcg/actuation Hfa Aerosol Inhaler 2 inh INHALATION BID prednisone 10 mg tablet 10 mg PO DIRECTED Qty: 40 0RF Rx Instructions: 4 a day x 4 d>3 a day x 4 d>2 a day x 4 d>1 a day Referrals Referrals: Eliot Briggs MD [Primary Care Provider] -
[2024-02-21] MEDS: ALBUT/IPRATROP 3MG/0.5MG NEB 3 ML VIAL NEB STA (20:47)
[2024-02-21 20:53] LABS: Basophils # (auto) 0.05 K/uL (0.00-0.20); Basophils % (auto) 0.6 %; Eosinophils # (auto) 0.14 K/uL (0.00-0.50); Eosinophils % (auto) 1.8 %; Immature Granulocytes # (auto) 0.04 K/uL (0.01-0.20); Immature Granulocytes % (auto) 0.5 %; Lymphocytes # (auto) 0.81 K/uL (1.20-3.40); Lymphocytes % (auto) 10.5 %; Mean Corpuscular Hemoglobin 29.6 pg (25.0-34.0); Mean Corpuscular Hgb Conc 32.5 g/dL (32.0-36.0); Mean Corpuscular Volume 91.1 fL (80.0-100.0); Mean Platelet Volume 8.4 fL (9.4-12.4); Monocytes # (auto) 0.88 K/uL (0.11-0.59); Monocytes % (auto) 11.4 %; Neutrophils # (auto) 5.79 K/uL (1.40-6.50); Neutrophils % (auto) 75.2 %; Platelet Count 260 K/uL (130-400); RDW Coefficient of Variation 13.8 % (11.5-14.5); RDW Standard Deviation 46.5 fL (36.4-46.3); Red Blood Count 4.39 M/uL (4.70-6.10); White Blood Count 7.71 K/ul (4.8-10.8)
[2024-02-21 21:08] LABS: Anion Gap 6 (3-11); BUN Creatinine Ratio 22.2 (10-20); Blood Urea Nitrogen 24 mg/dl (6-23); Calcium 9.3 mg/dl (8.6-10.3); Carbon Dioxide 27 mmol/L (21-32); Chloride 102 mmol/L (98-107); Est GFR (African American) 75.3 ml/min; Est GFR (Non-African American) 64.9 ml/min; Glucose 125 mg/dl (70-99(Fasting)); Potassium 3.9 mmol/L (3.5-5.1); Sodium 135 mmol/L (136-145)
[2024-02-21 21:13] LABS: Alanine Aminotransferase < 3 U/L (7-52); Albumin Globulin Ratio 1.1 (0.9-2); Albumin Level 3.6 gm/dl (3.4-5.0); Alkaline Phosphatase 87 U/L (34-104); Aspartate Aminotransferase 14 U/L (13-39); Bilirubin,Total 0.8 mg/dl (0.2-1.0); Globulin 3.2 gm/dl (2.5-4.0); Magnesium 2.1 mg/dl (1.7-2.4); Total Protein 6.8 gm/dl (6.0-8.3)
[2024-02-21 21:15] LABS: Prothrombin Time 11.1 Seconds (9.0-12.0); Troponin I High Sensitivity 5.3 pg/ml (0-20)
[2024-02-21 21:40] LABS: Adenovirus PCR Not Detected (NotDetected); Bordetella parapertussis PCR Not Detected (NotDetected); Bordetella pertussis PCR Not Detected (NotDetected); Chlamydia pneumoniae PCR Not Detected (NotDetected); Coronavirus 229E PCR Not Detected (NotDetected); Coronavirus CoV-2 (COVID19)PCR Not Detected (NotDetected); Coronavirus HKU1 PCR Not Detected (NotDetected); Coronavirus NL63 PCR Not Detected (NotDetected); Coronavirus OC43PCR Not Detected (NotDetected); Human Metapneumovirus PCR Not Detected (NotDetected); Influenza A PCR Not Detected (NotDetected); Influenza B PCR Not Detected (NotDetected); Mycoplasma pneumoniae PCR Not Detected (NotDetected); Parainfluenza Virus 1 PCR Not Detected (NotDetected); Parainfluenza Virus 2 PCR Not Detected (NotDetected); Parainfluenza Virus 3 PCR Not Detected (NotDetected); Parainfluenza Virus 4 PCR Not Detected (NotDetected); Respiratory Syncytial VirusPCR Not Detected (NotDetected); Rhinovirus/Enterovirus PCR Not Detected (NotDetected)
[2024-02-21] MEDS: OPTIRAY 320 125ml IV ONE (22:01)
--- NOTE | 2024-02-21 22:43 | CT Scan Report ---
Exam(s): CTA CHEST IV Amt: 118ml optiray 320 EXAM: CT Angiography Chest With Intravenous Contrast CLINICAL HISTORY: Reason for exam: PE; hypoxia; SOB. TECHNIQUE: Axial computed tomographic angiography images of the chest with intravenous contrast. CTDI is 16.92 mGy and DLP is 529.57 mGy-cm. Automated exposure control was utilized for the study. A dose lowering technique was utilized adhering to the principles of ALARA. MIP reconstructed images were created and reviewed. COMPARISON: April 04, 2022 FINDINGS: Pulmonary arteries: The pulmonary arterial tree is well opacified with contrast. No pulmonary embolism is identified. Aorta: The thoracic aorta is mildly calcified but nondilated. There is no aneurysm or dissection. Lungs: There are moderate to severe emphysematous changes throughout the lungs, greatest in the upper lobes. There is a small amount of debris in the left mainstem bronchus and small amount of debris partially plugging right lower lobe bronchi suggesting bronchitis. No focal consolidation is seen. Pleural space: Unremarkable. No significant effusion. No pneumothorax. Heart: Unremarkable. No cardiomegaly. No significant pericardial effusion. No evidence of RV dysfunction. Bones/joints: Mild to moderate multilevel degenerative changes throughout the spine. No acute fracture or destructive bone lesion is seen. No dislocation. Soft tissues: Unremarkable. Lymph nodes: Unremarkable. No enlarged lymph nodes. Gallbladder and bile ducts: Previous cholecystectomy. IMPRESSION: 1. There are moderate to severe emphysematous changes throughout the lungs, greatest in the upper lobes. There is a small amount of debris in the left mainstem bronchus and small amount of debris partially plugging right lower lobe bronchi suggesting bronchitis. No focal consolidation is seen. 2. The thoracic aorta is mildly calcified but nondilated. There is no aneurysm or dissection. 3. The pulmonary arterial tree is well opacified with contrast. No pulmonary embolism is identified. Electronically signed by: Sheldon Britt MD 02/21/24 22:42 PM
--- NOTE | 2024-02-21 23:01 | History & Physical Report ---
Date of Service February 21, 2024 Assessment & Plan (1) Acute on chronic respiratory failure with hypoxia: (2) Acute exacerbation of chronic obstructive airways disease: (3) Acute bronchitis: (4) Dyspnea on exertion: (5) Parkinson's disease: (6) Bladder tumor: (7) BPH w urinary obs/LUTS: Plan Acute on chronic respiratory failure with hypoxia/COPD exacerbation/acute bronchitis- Give methylprednisolone 125 mg IV now, then 40 mg IV every 8 hours Azithromycin 500 mg IV daily Cefepime 2 g IV every 12 hours Duonebs every 4 hours while awake and every 2 hours when necessary. Guaifenesin extended release 200 mg syrup p.o. every 6 hours Continue Hernesto Parkinson's- Family feels that her increased carbidopa-levodopa 25-250 dose from 2 tablets 3 times daily to 2-1/2 tablets 3 times daily has actually made things a bit worse. Will return to 2 tablets 3 times daily BPH with LUTS Continue entacapone BPH with LUTS- Continue tamsulosin and mirabegron Hypertension- Hold losartan Change metoprolol succinate from 25 mg every morning to 12.5 mg p.o. twice daily with hold parameters Blood pressure should probably A little bit higher, to allow better cerebral perfusion and interaction with family History of Present Illness Chief Complaint: The patient presents to the emergency department with complaint of shortness of breath over the past 2 weeks, but especially worsening over the past 2 days. Primary Care Provider: Eliot Carter MD The patient is is a 78-year-old male with a past medical history including GERD, bladder spasms, hypertension, COPD, BPH with LUTS, acute epiglottitis, right bundle branch block, history of UTI and bladder tumor, admissions for COPD exacerbation from 12/21-12/26/2023. Family reports that the patient had been seen by a Parkinson's specialist at the [facility] since his last visit, and his Parkinson's medications were adjusted, but they think as opposed improving his Parkinson's, they may actually be making him in general feel less well. He presents to the emergency department with 2 weeks of progressively worsening shortness of breath, productive cough, in particular worsening over the past 2 days. Allergies Allergy/AdvReac Type Severity Reaction Status Date / Time bee venom protein (honey bee) Allergy Severe Anaphylaxis Verified 02/21/24 22:49 rhubarb AdvReac Intermediate ANXIETY, Verified 02/21/24 22:58 "ON EDGE", "FEELS LIKE NAILS ON CHALKBOARD". Home Medications Medication Instructions Recorded Confirmed Type acetaminophen 500 mg tablet 500 - 1,000 mg PO DIRECTED PRN 04/04/22 02/21/24 History (Tylenol Extra Strength) Pain albuterol sulfate 90 mcg/actuation 2 puff inhalation QID PRN 04/04/22 02/21/24 History aerosol inhaler Shortness Of Breath Or Wheezing fluticasone propionate 50 1 - 2 spray intranasal DAILY PRN 04/04/22 02/21/24 History mcg/actuation nasal Congestion spray,suspension losartan 25 mg tablet 25 mg PO DAILY 04/04/22 02/21/24 History mirabegron 25 mg tablet,extended 25 mg PO DAILY 04/04/22 02/21/24 History release 24 hr (Myrbetriq) omeprazole 20 mg capsule,delayed 20 mg PO DAILYBB 04/04/22 02/21/24 History release tamsulosin 0.4 mg capsule 0.4 mg PO HS 04/04/22 02/21/24 History Lactobacillus acidophilus 1 tab PO DAILY 12/22/23 02/21/24 History budesonide 160 mcg-glycopyr 9 2 inh inhalation BID 12/22/23 02/21/24 History mcg-formot 4.8 mcg/actuation HFA inhaler (Breztri Aerosphere) carbidopa 25 mg-levodopa 250 mg 2 tab PO TID 12/22/23 02/21/24 History tablet docusate sodium 100 mg capsule 100 mg PO BID PRN Constipation 12/22/23 02/21/24 History entacapone 200 mg tablet 200 mg PO TID 12/22/23 02/21/24 History guaifenesin 200 mg tablet 400 mg PO TID PRN THICK MUCOUS 12/22/23 02/21/24 History metoprolol succinate 25 mg 25 mg PO DAILY 12/22/23 02/21/24 History tablet,extended release 24 hr multivitamin with minerals 1 tab PO DAILY 12/22/23 02/21/24 History sodium chloride 0.9 % for 3 ml inhalation QID PRN MUCOUS 12/22/23 02/21/24 History nebulization MOBILIZATION Simply Thick 6 units PO DAILY 02/21/24 02/21/24 History Past Med/Surg History Problem List (Updated 02/22/24 @ 02:11 by Burke White MD) BPH w urinary obs/LUTS Acute on chronic respiratory failure with hypoxia Acute hypoxemic respiratory failure (Acute) Acute dyspnea (Acute) Parkinson's disease Acute exacerbation of chronic obstructive airways disease COVID-19 (Acute) Erectile dysfunction COPD (chronic obstructive pulmonary disease) Acute epiglottitis (Acute) Conjunctivitis, right eye Dyspnea on exertion Acute bronchitis (Acute) RBBB (Acute) Hypoxia (Acute) Acute UTI (urinary tract infection) (Acute) Medical History Thrombocytopenia Hypokalemia Family History Other Family history non-contributory Social History Smoking Status: Former smoker Tobacco Type: Cigarettes Hx Alcohol Use: No Hx Substance Use: No Preferred Language: Kinyarwanda Communication Ability: Effective C[employer] Worker Required: No Beliefs That Will Affect Care: None Current Living Situation: Spouse Feels Safe at Home: Yes Assistive Devices: Nebulizer, Walker and Other Review of Systems Review of Systems: The patient denies chest pain, palpitations, sore throat, fevers, chills, sweats, nausea, vomiting, diarrhea , constipation, abdominal pain, pelvic pain, blood in urine or stool, dysuria, urinary frequency or urgency, lightheadedness, dizziness, headache, memory loss, loss of consciousness, rash, abnormal bruising or bleeding, focal weakness, numbness or tingling in arms or legs, generalized arthralgias or myalgias, back or neck pain, or night sweats. The review of systems is otherwise negative other than for that already noted above, and at least 10 systems have been reviewed. Physical Exam Physical Exam: The patient is awake, alert and oriented 3, well developed and well nourished, normocephalic and atraumatic, lying in bed and in no acute distress. HEENT--PERRL, EOMI, mucous membranes and oropharynx normal Neck--supple. No JVD. No bruits. Thyroid normal, trachea midline, no adenopathy. Heart--normal S1 and S2. No murmurs, rubs or gallops. Lungs--grossly audible coarse breath sounds bilaterally., no respiratory distress, no accessory muscle use. Abdomen--normal bowel sounds and soft. Nontender. Nondistended Extremities--trace bilateral pretibial and pedal pitting edema Dermatologic--normal skin turgor, normal color, no abnormal lymph nodes, no rash. Neurologic--cranial nerves II through XII grossly intact. Rheumatologic--normal range of motion. Psychiatric--normal affect. Results & Data Results & Data Vital Signs (Past 12 Hours) Vital Signs Temp Pulse Pulse Resp BP BP Pulse Ox 02/21/24 22:30 90 22 109/68 96 02/21/24 21:30 90 20 99/65 L 96 02/21/24 20:45 93 H 02/21/24 20:40 89 L 02/21/24 20:23 90 02/21/24 20:02 36.4 C L 105 H 145/90 H 92 O2 Del Method O2 Flow Rate 02/21/24 22:30 Nasal Cannula 2 02/21/24 21:30 Nasal Cannula 2 02/21/24 20:45 02/21/24 20:40 Room Air, Nasal Cannula 02/21/24 20:23 Room Air 02/21/24 20:02 Room Air Laboratory Results Laboratory Results WBC 7.71 K/ul (4.8-10.8) 02/21/24 20:31 RBC 4.39 M/uL (4.70-6.10) L 02/21/24 20:31 Hgb 13.0 g/dl (14.0-18.0) L 02/21/24 20:31 Hct 40.0 % (42.0-52.0) L 02/21/24 20:31 MCV 91.1 fL (80.0-100.0) 02/21/24 20: MCH 29.6 pg (25.0-34.0) 02/21/24 20: MCHC 32.5 g/dL (32.0-36.0) 02/21/24 20: RDW Std Deviation 46.5 fL (36.4-46.3) H 02/21/24 20:31 RDW Coeff of Charanjit 13.8 % (11.5-14.5) 02/21/24 20:31 Plt Count 260 K/uL (130-400) 02/21/24 20:31 MPV 8.4 fL (9.4-12.4) L 02/21/24 20:31 Immature Gran % (Auto) 0.5 % 02/21/24 20:31 Neut % (Auto) 75.2 % 02/21/24 20:31 Lymph % (Auto) 10.5 % 02/21/24 20:31 [place] % (Auto) 11.4 % 02/21/24 20:31 Eos % (Auto) 1.8 % 02/21/24 20:31 Baso % (Auto) 0.6 % 02/21/24 20:31 Neut # (Auto) 5.79 K/uL (1.40-6.50) 02/21/24 20:31 Lymph # (Auto) 0.81 K/uL (1.20-3.40) L 02/21/24 20:31 [place] # (Auto) 0.88 K/uL (0.11-0.59) H 02/21/24 20:31 Eos # (Auto) 0.14 K/uL (0.00-0.50) 02/21/24 20:31 Baso # (Auto) 0.05 K/uL (0.00-0.20) 02/21/24 20:31 Immature Gran # (Auto) 0.04 K/uL (0.01-0.20) 02/21/24 20:31 PT 11.1 Seconds (9.0-12.0) 02/21/24 20:31 INR 1.0 (0.9-1.1) 02/21/24 20:31 Sodium 135 mmol/L (136-145) L 02/21/24 20:31 Potassium 3.9 mmol/L (3.5-5.1) 02/21/24 20:31 Chloride 102 mmol/L (98-107) 02/21/24 20:31 Carbon Dioxide 27 mmol/L (21-32) 02/21/24 20:31 Anion Gap 6 (3-11) 02/21/24 20:31 BUN 24 mg/dl (6-23) H 02/21/24 20:31 Creatinine 1.08 mg/dl (0.6-1.4) 02/21/24 20:31 Est Cr Clr Drug Dosing Not Reportable 02/21/24 20:31 Est GFR ( Amer) 75.3 ml/min 02/21/24 20:31 Est GFR (Non-Af Amer) 64.9 ml/min 02/21/24 20:31 BUN/Creatinine Ratio 22.2 (10-20) H 02/21/24 20:31 Glucose 125 mg/dl (70-99(Fasting)) H 02/21/24 20: Calcium 9.3 mg/dl (8.6-10.3) 02/21/24 20: Magnesium 2.1 mg/dl (1.7-2.4) 02/21/24 20: Total Bilirubin 0.8 mg/dl (0.2-1.0) 02/21/24 20: AST 14 U/L (13-39) 02/21/24 20: ALT < 3 U/L (7-52) L 02/21/24 20: Alkaline Phosphatase 87 U/L (34-104) 02/21/24 20: Troponin I High Sens 5.3 pg/ml (0-20) 02/21/24 20: B-Natriuretic Peptide 34 pg/ml (0-100) 02/21/24 20: Total Protein 6.8 gm/dl (6.0-8.3) 02/21/24 20: Albumin 3.6 gm/dl (3.4-5.0) 02/21/24 20: Globulin 3.2 gm/dl (2.5-4.0) 02/21/24 20: Albumin/Globulin Ratio 1.1 (0.9-2) 02/21/24 20:31 Adenovirus (PCR) Not Detected (NotDetected) 02/21/24 20:31 B. pertussis DNA (PCR) Not Detected (NotDetected) 02/21/24 20: B.parapertussis DNA PCR Not Detected (NotDetected) 02/21/24 20:31 C. pneumoniae DNA (PCR) Not Detected (NotDetected) 02/21/24 20:31 Coronavirus OC43 (PCR) Not Detected (NotDetected) 02/21/24 20:31 Coronavirus HKU1 (PCR) Not Detected (NotDetected) 02/21/24 20:31 Coronavirus 229E (PCR) Not Detected (NotDetected) 02/21/24 20:31 SARS-CoV-2 (PCR) Not Detected (NotDetected) 02/21/24 20:31 Coronavirus NL63 (PCR) Not Detected (NotDetected) 02/21/24 20:31 Human Metapneumovir PCR Not Detected (NotDetected) 02/21/24 20:31 Influenza Type A (PCR) Not Detected (NotDetected) 02/21/24 20:31 Influenza Type B (PCR) Not Detected (NotDetected) 02/21/24 20:31 M. pneumoniae (PCR) Not Detected (NotDetected) 02/21/24 20:31 Parainfluenza 1 (PCR) Not Detected (NotDetected) 02/21/24 20:31 Parainfluenza 2 (PCR) Not Detected (NotDetected) 02/21/24 20:31 Parainfluenza 3 (PCR) Not Detected (NotDetected) 02/21/24 20:31 Parainfluenza 4 (PCR) Not Detected (NotDetected) 02/21/24 20:31 RSV (PCR) Not Detected (NotDetected) 02/21/24 20:31 Entero/Rhino (PCR) Not Detected (NotDetected) 02/21/24 20:31 Impressions Chest CTA 02/21/24 21:43 Exam(s): CTA CHEST IV Amt: 118ml optiray 320 EXAM: CT Angiography Chest With Intravenous Contrast CLINICAL HISTORY: Reason for exam: PE; hypoxia; SOB. TECHNIQUE: Axial computed tomographic angiography images of the chest with intravenous contrast. CTDI is 16.92 mGy and DLP is 529.57 mGy-cm. Automated exposure control was utilized for the study. A dose lowering technique was utilized adhering to the principles of ALARA. MIP reconstructed images were created and reviewed. COMPARISON: April 04, 2022 FINDINGS: Pulmonary arteries: The pulmonary arterial tree is well opacified with contrast. No pulmonary embolism is identified. Aorta: The thoracic aorta is mildly calcified but nondilated. There is no aneurysm or dissection. Lungs: There are moderate to severe emphysematous changes throughout the lungs, greatest in the upper lobes. There is a small amount of debris in the left mainstem bronchus and small amount of debris partially plugging right lower lobe bronchi suggesting bronchitis. No focal consolidation is seen. Pleural space: Unremarkable. No significant effusion. No pneumothorax. Heart: Unremarkable. No cardiomegaly. No significant pericardial effusion. No evidence of RV dysfunction. Bones/joints: Mild to moderate multilevel degenerative changes throughout the spine. No acute fracture or destructive bone lesion is seen. No dislocation. Soft tissues: Unremarkable. Lymph nodes: Unremarkable. No enlarged lymph nodes. Gallbladder and bile ducts: Previous cholecystectomy. IMPRESSION: 1. There are moderate to severe emphysematous changes throughout the lungs, greatest in the upper lobes. There is a small amount of debris in the left mainstem bronchus and small amount of debris partially plugging right lower lobe bronchi suggesting bronchitis. No focal consolidation is seen. 2. The thoracic aorta is mildly calcified but nondilated. There is no aneurysm or dissection. 3. The pulmonary arterial tree is well opacified with contrast. No pulmonary embolism is identified. Electronically signed by: Sheldon Britt MD 02/21/24 22:42 PM Code Status & VTE Plan Code Status full code VTE Prophylaxis Plan VTE Prophylaxis will be ordered: Yes PG Care Time/CCT Total # of Minutes Spent Total Time Spent with Patient: Total time spent is greater than 50% in coordination of care (as documented) at patient's floor/unit and/or counseling patient: Coding Level of Care Code 54031 INT INP/OBS CARE 3/75MIN Diagnoses Acute on chronic respiratory failure with hypoxia J96.21 Acute exacerbation of chronic obstructive airways disease J44.1 Acute bronchitis J20.9 Bronchitis organism: unspecified organism Dyspnea on exertion R06.09 Parkinson's disease G20.A1 Bladder tumor D49.4 BPH w urinary obs/LUTS N40.1; N13.8 (3) Acute bronchitis Bronchitis organism: unspecified organism Qualified Code(s): J20.9 - Acute bronchitis, unspecified
[2024-02-21] MEDS: PANTOprazole 40 MG in SYRINGE 0 ML IV STA (23:03)
[2024-02-21] MEDS: methylPREDNISolone 125 MG/2 ML VIAL IV STA (23:03)
[2024-02-21] MEDS: guaiFENesin SUGAR FREE 200 MG/10 ML UDC PO STA (23:03)
[2024-02-21] MEDS: AZITHROMYCIN 500 MG in DEXTROSE 5% 250 ML IV STA (23:03)
[2024-02-22] MEDS ORDERED: SODIUM CHLORIDE 0.9% NEBU SOLN 3 ML NEB PRN (01:16)
[2024-02-22] MEDS ORDERED: ACETAMINOPHEN 1000 MG/100 ML IV IV PRN (01:16)
[2024-02-22] MEDS ORDERED: FLUTICASONE PROPIONATE NA SPR 16 GM BTL NAE PRN (01:16)
[2024-02-22] MEDS ORDERED: ALBUTEROL HFA 8 GM INHALER INH PRN (01:16)
[2024-02-22] MEDS ORDERED: ACETAMINOPHEN 1,000 MG/100 ML VIAL IV PRN (01:45)
[2024-02-22 03:56] LABS: Appearance Urine Clear (Clear); Bilirubin Urine Negative (Negative); Blood Urine Negative (Negative); Color Urine Dark Yellow; Glucose Urine UA Negative (Negative); Ketones Urine Negative (Negative); Leukocyte Esterase Urine Negative (Negative); Nitrite Urine Negative (Negative); Protein Urine Negative (Negative); Specific Gravity Urine 1.032 (1.000-1.030); Urobilinogen Urine Negative (Negative); pH Urine 7.5 (4.5-7.5)
[2024-02-22] MEDS: CEFEPIME 2,000 MG in SYRINGE 0 ML IV SCH (03:59)
[2024-02-22] MEDS: guaiFENesin SUGAR FREE 200 MG/10 ML UDC PO SCH (05:10)
[2024-02-22 06:52] LABS: Basophils # (auto) 0.01 K/uL (0.00-0.20); Basophils % (auto) 0.2 %; Hemoglobin 13.3 g/dl (14.0-18.0); Immature Granulocytes # (auto) 0.04 K/uL (0.01-0.20); Immature Granulocytes % (auto) 0.8 %; Lymphocytes # (auto) 0.43 K/uL (1.20-3.40); Lymphocytes % (auto) 8.3 %; Mean Corpuscular Hemoglobin 30.3 pg (25.0-34.0); Mean Corpuscular Hgb Conc 33.3 g/dL (32.0-36.0); Mean Corpuscular Volume 91.1 fL (80.0-100.0); Mean Platelet Volume 8.4 fL (9.4-12.4); Monocytes # (auto) 0.08 K/uL (0.11-0.59); Monocytes % (auto) 1.5 %; Neutrophils # (auto) 4.63 K/uL (1.40-6.50); Neutrophils % (auto) 89.2 %; Platelet Count 265 K/uL (130-400); RDW Coefficient of Variation 13.2 % (11.5-14.5); RDW Standard Deviation 44.5 fL (36.4-46.3); Red Blood Count 4.39 M/uL (4.70-6.10); White Blood Count 5.19 K/ul (4.8-10.8)
[2024-02-22] MEDS: ALBUT/IPRATROP 3MG/0.5MG NEB 3 ML VIAL NEB SCH (06:57)
[2024-02-22 07:12] LABS: Albumin Globulin Ratio 1.1 (0.9-2); Albumin Level 3.6 gm/dl (3.4-5.0); BUN Creatinine Ratio 18.6 (10-20); Bilirubin,Total 0.8 mg/dl (0.2-1.0); Calcium 9.2 mg/dl (8.6-10.3); Creatinine Clr Calc Pharmacy 41.7 ml/min; Est GFR (African American) 67.6 ml/min; Est GFR (Non-African American) 58.3 ml/min; Globulin 3.3 gm/dl (2.5-4.0); Magnesium 2.2 mg/dl (1.7-2.4); Potassium 4.4 mmol/L (3.5-5.1); Total Protein 6.9 gm/dl (6.0-8.3)
--- NOTE | 2024-02-22 07:27 | Electrocardiogram Report ---
Test Reason : Blood Pressure : */* mmHG Vent. Rate : 97 BPM Atrial Rate : 97 BPM P-R Int : 140 ms QRS Dur : 150 ms QT Int : 384 ms P-R-T Axes : 68 -33 56 degrees QTcB Int : 487 ms Normal sinus rhythm Right bundle branch block Abnormal ECG When compared with ECG of 22-Dec-2023 20:36, No significant change was found Confirmed by Jorge Sharma ([id number]) on 02/22/2024 7:27:11 AM Referred By: REFERRED SELF Confirmed By: Jorge Sharma
--- NOTE | 2024-02-22 07:53 | XRay Report ---
XR chest 1V portable CLINICAL HISTORY: Dyspnea. COMPARISON STUDY: Chest CT April 04, 2022. Chest radiograph December 22, 2023. FINDINGS: There is no pneumothorax or pleural effusion. No consolidation is identified. There is emph ysema. Cardiomediastinal silhouette is unremarkable. There is mild interstitial thickening. IMPRESSION: Mild interstitial thickening. This is likely related to emphysema. Mild pulmonary edema could appear similar. ACT 112: Negative or not required by law. Electronically signed by: Javier Flower M.D. 02/22/2024 7:51 AM
[2024-02-22] MEDS: CARBIDOPA/LEVODOPA 25-250 1 EA TAB PO SCH (08:40)
[2024-02-22] MEDS: ENTACAPONE 200 MG TAB PO SCH (08:40)
[2024-02-22] MEDS: UMECLIDINIUM/VILANTEROL 62.5/25MCG 7 PUFFS/INHALER INH SCH (08:41)
[2024-02-22] MEDS: FLUTICASONE FUROATE 200MCG 14 PUFFS/INHALER INH SCH (08:41)
[2024-02-22] MEDS: METOPROLOL SUCC 25MG EXT REL TAB PO SCH (08:42)
[2024-02-22] MEDS: HEPARIN SOD 5,000 UNIT/0.5 ML VIAL SQ SCH (08:42)
[2024-02-22] MEDS: VIBEGRON 75 MG TAB PO SCH (08:43)
[2024-02-22] MEDS: CEROVITE ADV FORMULA TAB PO SCH (08:43)
[2024-02-22] MEDS ORDERED: NON-FORMULARY MEDICATION (Budesonide-Glycopyr-Formoterol [Breztri Aerosphere] 160-9-4.8 mc INH SCH (09:00)
[2024-02-22] MEDS ORDERED: CARBIDOPA/LEVODOPA 25-250 1 EA TAB PO SCH (09:00)
[2024-02-22] MEDS ORDERED: NON-FORMULARY MEDICATION (Lactobacillus Acidophilus Tablet,Chewable) PO SCH (09:00)
[2024-02-22] MEDS ORDERED: [UNRECOGNIZED DRUG - OTHER] PO SCH (09:00)
--- NOTE | 2024-02-22 11:09 | Hospitalist Progress Note ---
Date of Service February 22, 2024 Assessment & Plan (1) Acute on chronic respiratory failure with hypoxia: (2) Acute exacerbation of chronic obstructive airways disease: (3) Acute bronchitis: (4) Dyspnea on exertion: (5) Parkinson's disease: (6) Bladder tumor: (7) BPH w urinary obs/LUTS: Plan Acute on chronic respiratory failure with hypoxia/COPD exacerbation/acute bronchitis- Give methylprednisolone 125 mg IV now, then 40 mg IV every 8 hours Azithromycin 500 mg IV daily Cefepime 2 g IV every 12 hours Duonebs every 4 hours while awake and every 2 hours when necessary. Guaifenesin extended release 200 mg syrup p.o. every 6 hours On exam this morning, little or no wheeze Parkinson's- Family feels that her increased carbidopa-levodopa 25-250 dose from 2 tablets 3 times daily to 2-1/2 tablets 3 times daily has actually made things a bit worse. Will return to 2 tablets 3 times daily BPH with LUTS Continue entacapone BPH with LUTS- Continue tamsulosin and mirabegron Hypertension- Hold losartan Change metoprolol succinate from 25 mg every morning to 12.5 mg p.o. twice daily with hold parameters Blood pressure should probably A little bit higher, to allow better cerebral perfusion and interaction with family Disposition: Continue to monitor in the hospital, hopefully discharge in next 48 hours Patient states he has a nebulizer machine at home Admission and Anticipated Discharge Date Admission Date: February 21, 2024 Subjective Patient seen and examined, says his shortness of breath is about the same, was having breakfast, and noted that his dentures were loose Review of Systems Review of Systems: All systems reviewed are negative, apart from the ones contained in the history. Physical Exam Physical Exam: The patient is awake, alert and oriented 3, well developed and well nourished, normocephalic and atraumatic, lying in bed and in no acute distress. HEENT--PERRL, EOMI, mucous membranes and oropharynx mildly dry Neck--supple. No JVD. No bruits. Thyroid normal, trachea midline, no adenopathy. Heart--normal S1 and S2. No murmurs, rubs or gallops. Lungs--clear bilaterally, no respiratory distress, no accessory muscle use. Abdomen--normal bowel sounds and soft. Extremities--no cyanosis or clubbing. No edema. Dermatologic--normal skin turgor, normal color, no abnormal lymph nodes, no rash. Neurologic--cranial nerves II through XII grossly intact. Rheumatologic--normal range of motion. Psychiatric--normal affect. Results & Data Results & Data Vital Signs (Past 12 Hours) Vital Signs Temp Pulse Pulse Resp BP Pulse Ox O2 Del Method 02/22/24 10:47 97.9 F 87 16 119/76 93 Room Air 02/22/24 09:26 Nasal Cannula 02/22/24 07:30 75 02/22/24 07:00 98.1 F 83 16 117/72 93 Nasal Cannula 02/22/24 06:57 74 16 96 Nasal Cannula 02/22/24 03:57 98.2 F 73 18 123/74 97 Nasal Cannula 02/22/24 03:50 Nasal Cannula 02/22/24 03:30 81 02/22/24 02:30 75 18 113/78 98 Nasal Cannula 02/22/24 02:00 75 20 116/74 96 Nasal Cannula 02/22/24 01:00 91 H 20 122/76 99 Nasal Cannula 02/22/24 00:43 86 02/22/24 00:30 84 16 110/65 99 Nasal Cannula 02/22/24 00:00 85 18 100/64 97 Nasal Cannula O2 Flow Rate 02/22/24 10:47 02/22/24 09:26 2 02/22/24 07:30 02/22/24 07:00 02/22/24 06:57 2 02/22/24 03:57 2 02/22/24 03:50 2 02/22/24 03:30 02/22/24 02:30 2 02/22/24 02:00 2 02/22/24 01:00 2 02/22/24 00:43 02/22/24 00:30 2 02/22/24 00:00 2 PG Care Time/CCT Total # of Minutes Spent Total Time Spent with Patient: Total time spent is greater than 50% in coordination of care (as documented) at patient's floor/unit and/or counseling patient: Coding Level of Care Code 07006 SUB INP/OBS CARE 2/35MIN Diagnoses Acute on chronic respiratory failure with hypoxia J96.21 Acute exacerbation of chronic obstructive airways disease J44.1 Acute bronchitis J20.9 Bronchitis organism: unspecified organism Dyspnea on exertion R06.09 Parkinson's disease G20.A1 Bladder tumor D49.4 BPH w urinary obs/LUTS N40.1; N13.8 Time Spent (min) 35 (3) Acute bronchitis Bronchitis organism: unspecified organism Qualified Code(s): J20.9 - Acute bronchitis, unspecified
[2024-02-22] MEDS: PANTOprazole 40 MG in SYRINGE 0 ML IV SCH (11:20)
--- NOTE | 2024-02-22 11:30 | Electrocardiogram Report ---
Test Reason : Blood Pressure : */* mmHG Vent. Rate : 73 BPM Atrial Rate : 73 BPM P-R Int : 140 ms QRS Dur : 146 ms QT Int : 424 ms P-R-T Axes : 52 35 36 degrees QTcB Int : 467 ms Normal sinus rhythm Right bundle branch block Abnormal ECG When compared with ECG of 21-Feb-2024 20:23, Nonspecific T wave abnormality no longer evident in Lateral leads Confirmed by Jorge Sharma ([id number]) on 02/22/2024 11:30:00 AM Referred By: REFERRED SELF Confirmed By: Jorge Sharma
--- NOTE | 2024-02-22 11:42 | XCELERA ---
[id number] [id number]
[2024-02-22] MEDS: TAMSULOSIN HCL 0.4 MG CAP PO SCH (20:48)
[2024-02-22] MEDS: AZITHROMYCIN 500 MG in DEXTROSE 5% 250 ML IV SCH (21:55)
[2024-02-23 07:18] LABS: Basophils # (auto) 0.02 K/uL (0.00-0.20); Basophils % (auto) 0.1 %; Eosinophils # (auto) 0.01 K/uL (0.00-0.50); Eosinophils % (auto) 0.1 %; Hematocrit (blood only) 35.8 % (42.0-52.0); Immature Granulocytes # (auto) 0.07 K/uL (0.01-0.20); Immature Granulocytes % (auto) 0.5 %; Lymphocytes # (auto) 1.17 K/uL (1.20-3.40); Lymphocytes % (auto) 8.6 %; Mean Corpuscular Hemoglobin 30.2 pg (25.0-34.0); Mean Corpuscular Hgb Conc 33.5 g/dL (32.0-36.0); Mean Corpuscular Volume 90.2 fL (80.0-100.0); Mean Platelet Volume 8.4 fL (9.4-12.4); Monocytes # (auto) 0.97 K/uL (0.11-0.59); Monocytes % (auto) 7.1 %; Neutrophils % (auto) 83.6 %; Platelet Count 301 K/uL (130-400); RDW Coefficient of Variation 13.5 % (11.5-14.5); RDW Standard Deviation 44.5 fL (36.4-46.3); Red Blood Count 3.97 M/uL (4.70-6.10); White Blood Count 13.64 K/ul (4.8-10.8)
[2024-02-23 07:45] LABS: Albumin Globulin Ratio 1.1 (0.9-2); Albumin Level 3.3 gm/dl (3.4-5.0); BUN Creatinine Ratio 28.9 (10-20); Bilirubin,Total 0.6 mg/dl (0.2-1.0); Calcium 9.1 mg/dl (8.6-10.3); Creatinine Clr Calc Pharmacy 52.4 ml/min; Est GFR (African American) 85.7 ml/min; Est GFR (Non-African American) 73.9 ml/min; Magnesium 2.1 mg/dl (1.7-2.4); Potassium 3.9 mmol/L (3.5-5.1); Total Protein 6.3 gm/dl (6.0-8.3)
[2024-02-23] MEDS: methylPREDNISolone 40 MG in SYRINGE 0 ML IV SCH (13:46)
--- NOTE | 2024-02-23 15:03 | Hospitalist Progress Note ---
Date of Service February 23, 2024 Assessment & Plan (1) Acute on chronic respiratory failure with hypoxia: (2) Acute exacerbation of chronic obstructive airways disease: (3) Acute bronchitis: (4) Dyspnea on exertion: (5) Parkinson's disease: (6) Bladder tumor: (7) BPH w urinary obs/LUTS: Plan Acute on chronic respiratory failure with hypoxia/COPD exacerbation/acute bronchitis- Now on Solu-Medrol 40 mg IV every 8 hours Azithromycin 500 mg IV daily Cefepime 2 g IV every 12 hours Duonebs every 4 hours while awake and every 2 hours when necessary. Guaifenesin extended release 200 mg syrup p.o. every 6 hours Parkinson's- Family feels that her increased carbidopa-levodopa 25-250 dose from 2 tablets 3 times daily to 2-1/2 tablets 3 times daily has actually made things a bit worse. Will return to 2 tablets 3 times daily BPH with LUTS Continue entacapone BPH with LUTS- Continue tamsulosin and mirabegron Hypertension- Hold losartan Change metoprolol succinate from 25 mg every morning to 12.5 mg p.o. twice daily with hold parameters Blood pressure should probably A little bit higher, to allow better cerebral perfusion and interaction with family Full code DVT prophylaxis: Heparin twice daily Admission and Anticipated Discharge Date Admission Date: February 21, 2024 Subjective Patient feels well. Denies chest pain. Breathing has improved. Review of Systems Review of Systems: All systems reviewed & are unremarkable except as noted in Subjective Physical Exam Physical Exam: General: Awake, conversant Heart: S1, S2/regular rate and rhythm, no murmur rubs or gallops Lungs: Clear to auscultation bilaterally. Normal effort Abdomen: Soft/nontender/nondistended. No hepatosplenomegaly Extremities: No clubbing/cyanosis. No edema Behavior: Appropriate, cooperative Results & Data Results & Data Vital Signs (Past 12 Hours) Vital Signs Temp Pulse Pulse Resp BP BP Pulse Ox 02/23/24 13:57 91 H 02/23/24 10:48 36.7 C 74 18 103/62 94 02/23/24 10:41 79 18 94 02/23/24 07:53 02/23/24 07:50 61 02/23/24 07:00 36.6 C 68 20 102/61 92 02/23/24 06:50 63 18 93 02/23/24 03:36 36.5 C 73 26 H 108/64 93 O2 Del Method O2 Flow Rate 02/23/24 13:57 02/23/24 10:48 Nasal Cannula 02/23/24 10:41 Nasal Cannula 2 02/23/24 07:53 Nasal Cannula 2 02/23/24 07:50 02/23/24 07:00 Nasal Cannula 02/23/24 06:50 Room Air 02/23/24 03:36 Nasal Cannula 1.0 Laboratory Results Abnormal lab results 02/23/24 Range/Units 06:22 WBC 13.64 H (4.8-10.8) K/ul RBC 3.97 L (4.70-6.10) M/uL Hgb 12.0 L (14.0-18.0) g/dl Hct 35.8 L (42.0-52.0) % MPV 8.4 L (9.4-12.4) fL Neut # (Auto) 11.40 H (1.40-6.50) K/uL Lymph # (Auto) 1.17 L (1.20-3.40) K/uL [place] # (Auto) 0.97 H (0.11-0.59) K/uL BUN 28 H (6-23) mg/dl BUN/Creatinine Ratio 28.9 H (10-20) Glucose 108 H (70-99(Fasting)) mg/dl AST 11 L (13-39) U/L ALT 4 L (7-52) U/L Albumin 3.3 L (3.4-5.0) gm/dl PG Care Time/CCT Total # of Minutes Spent Total Time Spent with Patient: Total time spent is greater than 50% in coordination of care (as documented) at patient's floor/unit and/or counseling patient: Coding Level of Care Code 16939 SUB INP/OBS CARE 2/35MIN Diagnoses Acute on chronic respiratory failure with hypoxia J96.21 Acute exacerbation of chronic obstructive airways disease J44.1 Acute bronchitis J20.9 Bronchitis organism: unspecified organism Dyspnea on exertion R06.09 Parkinson's disease G20.A1 Bladder tumor D49.4 BPH w urinary obs/LUTS N40.1; N13.8 (3) Acute bronchitis Bronchitis organism: unspecified organism Qualified Code(s): J20.9 - Acute bronchitis, unspecified
[2024-02-24 06:16] LABS: Hematocrit (blood only) 36.3 % (42.0-52.0); Mean Corpuscular Hemoglobin 30.2 pg (25.0-34.0); Mean Corpuscular Hgb Conc 33.1 g/dL (32.0-36.0); Mean Corpuscular Volume 91.4 fL (80.0-100.0); Mean Platelet Volume 8.2 fL (9.4-12.4); Platelet Count 293 K/uL (130-400); RDW Coefficient of Variation 13.7 % (11.5-14.5); RDW Standard Deviation 46.4 fL (36.4-46.3); Red Blood Count 3.97 M/uL (4.70-6.10); White Blood Count 10.75 K/ul (4.8-10.8)
[2024-02-24 06:27] LABS: Albumin Globulin Ratio 1.1 (0.9-2); Albumin Level 3.3 gm/dl (3.4-5.0); BUN Creatinine Ratio 36.3 (10-20); Bilirubin,Total 0.4 mg/dl (0.2-1.0); Calcium 8.7 mg/dl (8.6-10.3); Creatinine Clr Calc Pharmacy 55.9 ml/min; Est GFR (African American) 92.6 ml/min; Est GFR (Non-African American) 79.9 ml/min; Magnesium 2.2 mg/dl (1.7-2.4); Potassium 4.5 mmol/L (3.5-5.1); Total Protein 6.3 gm/dl (6.0-8.3)
[2024-02-24 06:36] LABS: Basophils # (auto) 0.01 K/uL (0.00-0.20); Basophils % (auto) 0.1 %; Immature Granulocytes # (auto) 0.07 K/uL (0.01-0.20); Immature Granulocytes % (auto) 0.7 %; Lymphocytes % (auto) 4.7 %; Monocytes # (auto) 0.22 K/uL (0.11-0.59); Neutrophils # (auto) 9.95 K/uL (1.40-6.50); Neutrophils % (auto) 92.5 %
[2024-02-24] MEDS: methylPREDNISolone 40 MG in SYRINGE 0 ML IV SCH (09:01)
--- NOTE | 2024-02-24 13:34 | Hospitalist Progress Note ---
Date of Service February 24, 2024 Assessment & Plan (1) Acute on chronic respiratory failure with hypoxia: (2) Acute exacerbation of chronic obstructive airways disease: (3) Acute bronchitis: (4) Dyspnea on exertion: (5) Parkinson's disease: (6) Bladder tumor: (7) BPH w urinary obs/LUTS: Plan Acute on chronic respiratory failure with hypoxia/COPD exacerbation/acute bronchitis- Now on Solu-Medrol 40 mg IV every 12 hours Azithromycin 500 mg IV daily Cefepime 2 g IV every 12 hours Duonebs every 4 hours while awake and every 2 hours when necessary. Guaifenesin extended release 200 mg syrup p.o. every 6 hours Parkinson's- Family feels that her increased carbidopa-levodopa 25-250 dose from 2 tablets 3 times daily to 2-1/2 tablets 3 times daily has actually made things a bit worse. Will return to 2 tablets 3 times daily BPH with LUTS Continue entacapone BPH with LUTS- Continue tamsulosin and mirabegron Hypertension- Hold losartan Change metoprolol succinate from 25 mg every morning to 12.5 mg p.o. twice daily with hold parameters Blood pressure should probably A little bit higher, to allow better cerebral perfusion and interaction with family Full code DVT prophylaxis: Heparin twice daily Ordered PT and OT Admission and Anticipated Discharge Date Admission Date: February 21, 2024 Subjective No new complaints. Breathing better Review of Systems Review of Systems: All systems reviewed & are unremarkable except as noted in Subjective Physical Exam Physical Exam: General: Awake, conversant Heart: S1, S2/regular rate and rhythm, no murmur rubs or gallops Lungs: Mild wheezing bilaterally.. Normal effort Abdomen: Soft/nontender/nondistended. No hepatosplenomegaly Extremities: No clubbing/cyanosis. No edema Behavior: Appropriate, cooperative Results & Data Results & Data Vital Signs (Past 12 Hours) Vital Signs Temp Pulse Pulse Resp BP Pulse Ox O2 Del Method 02/24/24 11:23 90 24 96 Nasal Cannula 02/24/24 11:00 36.6 C 94 H 20 112/66 92 Room Air 02/24/24 09:42 Nasal Cannula 02/24/24 07:19 87 18 92 Nasal Cannula 02/24/24 07:00 36.6 C 71 20 120/74 92 Nasal Cannula 02/24/24 03:53 36.6 C 89 22 106/67 92 Nasal Cannula 02/24/24 02:35 97 H O2 Flow Rate 02/24/24 11:23 2 02/24/24 11:00 02/24/24 09:42 2 02/24/24 07:19 2 02/24/24 07:00 02/24/24 03:53 2.0 02/24/24 02:35 Laboratory Results Abnormal lab results 02/24/24 Range/Units 05:31 RBC 3.97 L (4.70-6.10) M/uL Hgb 12.0 L (14.0-18.0) g/dl Hct 36.3 L (42.0-52.0) % RDW Std Deviation 46.4 H (36.4-46.3) fL MPV 8.2 L (9.4-12.4) fL Neut # (Auto) 9.95 H (1.40-6.50) K/uL Lymph # (Auto) 0.50 L (1.20-3.40) K/uL Chloride 108 H (98-107) mmol/L BUN 33 H (6-23) mg/dl BUN/Creatinine Ratio 36.3 H (10-20) Glucose 147 H (70-99(Fasting)) mg/dl ALT 4 L (7-52) U/L Albumin 3.3 L (3.4-5.0) gm/dl PG Care Time/CCT Total # of Minutes Spent Total Time Spent with Patient: Total time spent is greater than 50% in coordination of care (as documented) at patient's floor/unit and/or counseling patient: Coding Level of Care Code 12572 SUB INP/OBS CARE 235MIN Diagnoses Acute on chronic respiratory failure with hypoxia J96.21 Acute exacerbation of chronic obstructive airways disease J44.1 Acute bronchitis J20.9 Bronchitis organism: unspecified organism Dyspnea on exertion R06.09 Parkinson's disease G20.A1 Bladder tumor D49.4 BPH w urinary obs/LUTS N40.1; N13.8 (3) Acute bronchitis Bronchitis organism: unspecified organism Qualified Code(s): J20.9 - Acute bronchitis, unspecified
[2024-02-24] MEDS: POLYETHYLENE (MIRALAX) 17 GM PACK PO PRN (16:41)
[2024-02-24] MEDS: DOCUSATE SODIUM 100 MG CAP PO PRN (16:41)
[2024-02-24] MEDS: COUGH DROP (SUGAR FREE) LOZ 24 LOZ/1 BOX BUCCAL PRN (22:19)
[2024-02-25] MEDS: methylPREDNISolone 40 MG in SYRINGE 0 ML IV SCH (09:25)
--- NOTE | 2024-02-25 15:23 | Hospitalist Progress Note ---
Date of Service February 25, 2024 Assessment & Plan (1) Acute on chronic respiratory failure with hypoxia: (2) Acute exacerbation of chronic obstructive airways disease: (3) Acute bronchitis: (4) Dyspnea on exertion: (5) Parkinson's disease: (6) Bladder tumor: (7) BPH w urinary obs/LUTS: Plan Acute on chronic respiratory failure with hypoxia/COPD exacerbation/acute bronchitis- Now on Solu-Medrol 40 mg IV once daily. Plan to switch to p.o. prednisone tomorrow Azithromycin 500 mg IV daily Cefepime 2 g IV every 12 hours Duonebs every 4 hours while awake and every 2 hours when necessary. Guaifenesin extended release 200 mg syrup p.o. every 6 hours Parkinson's- Family feels that her increased carbidopa-levodopa 25-250 dose from 2 tablets 3 times daily to 2-1/2 tablets 3 times daily has actually made things a bit worse. Will return to 2 tablets 3 times daily BPH with LUTS Continue entacapone BPH with LUTS- Continue tamsulosin and mirabegron Hypertension- Hold losartan Change metoprolol succinate from 25 mg every morning to 12.5 mg p.o. twice daily with hold parameters Blood pressure should probably A little bit higher, to allow better cerebral perfusion and interaction with family Full code DVT prophylaxis: Heparin twice daily Ordered PT and OT Likely discharge tomorrow Admission and Anticipated Discharge Date Admission Date: February 21, 2024 Subjective Patient feels well overall. Denies chest pain or shortness of breath. Breathing better. Review of Systems Review of Systems: All systems reviewed & are unremarkable except as noted in Subjective Physical Exam Physical Exam: General: Awake, conversant Heart: S1, S2/regular rate and rhythm, no murmur rubs or gallops Lungs: Less wheezing bilaterally.. Normal effort Abdomen: Soft/nontender/nondistended. No hepatosplenomegaly Extremities: No clubbing/cyanosis. No edema Behavior: Appropriate, cooperative Results & Data Results & Data Vital Signs (Past 12 Hours) Vital Signs Temp Pulse Pulse Resp BP BP Pulse Ox 02/25/24 14:42 84 17 92 02/25/24 14:20 36.6 C 95 H 17 114/67 93 02/25/24 12:49 02/25/24 11:15 76 15 96 02/25/24 10:57 36.5 C 89 18 125/75 97 02/25/24 08:24 82 02/25/24 07:52 36.5 C 76 17 145/75 H 97 02/25/24 07:34 02/25/24 07:29 78 16 97 02/25/24 03:47 36.3 C L 78 22 137/76 94 Pulse Ox Pulse Ox Pulse Ox O2 Del Method O2 Flow Rate O2 Flow Rate O2 Flow R ate 02/25/24 14:42 Room Air 02/25/24 14:20 Room Air 02/25/24 12:49 95 93 87 L 1.5 0 02/25/24 11:15 Nasal Cannula 1 02/25/24 10:57 Nasal Cannula 2 02/25/24 08:24 02/25/24 07:52 Nasal Cannula 2 02/25/24 07:34 Nasal Cannula 1.5 02/25/24 07:29 Nasal Cannula 2.5 02/25/24 03:47 Nasal Cannula 2.5 O2 Flow Rate 02/25/24 14:42 02/25/24 14:20 02/25/24 12:49 0 02/25/24 11:15 02/25/24 10:57 02/25/24 08:24 02/25/24 07:52 02/25/24 07:34 02/25/24 07:29 02/25/24 03:47 PG Care Time/CCT Total # of Minutes Spent Total Time Spent with Patient: Total time spent is greater than 50% in coordination of care (as documented) at patient's floor/unit and/or counseling patient: Coding Level of Care Code 77404 SUB INP/OBS CARE 2/35MIN Diagnoses Acute on chronic respiratory failure with hypoxia J96.21 Acute exacerbation of chronic obstructive airways disease J44.1 Acute bronchitis J20.9 Bronchitis organism: unspecified organism Dyspnea on exertion R06.09 Parkinson's disease G20.A1 Bladder tumor D49.4 BPH w urinary obs/LUTS N40.1; N13.8 (3) Acute bronchitis Bronchitis organism: unspecified organism Qualified Code(s): J20.9 - Acute b ronchitis, unspecified
[2024-02-26 10:11] VITALS: RESP 18
[2024-02-26] MEDS: predniSONE 20 MG TAB PO SCH (10:45)
[2024-02-26 11:00] VITALS: TEMP 97.7; O2SAT 93
--- NOTE | 2024-02-26 11:04 | Discharge Summary ---
Date of Service February 26, 2024 Admission HPI Per Admitting Provider The patient is is a 78-year-old male with a past medical history including GERD, bladder spasms, hypertension, COPD, BPH with LUTS, acute epiglottitis, right bundle branch block, history of UTI and bladder tumor, admissions for COPD exacerbation from 12/21-12/26/2023. Family reports that the patient had been seen by a Parkinson's specialist at the [facility] since his last visit, and his Parkinson's medications were adjusted, but they think as opposed improving his Parkinson's, they may actually be making him in general feel less well. He presents to the emergency department with 2 weeks of progressively worsening shortness of breath, productive cough, in particular worsening over the past 2 days. Admission Exam Per Admitting Provider The patient is awake, alert and oriented 3, well developed and well nourished, normocephalic and atraumatic, lying in bed and in no acute distress. HEENT--PERRL, EOMI, mucous membranes and oropharynx normal Neck--supple. No JVD. No bruits. Thyroid normal, trachea midline, no adenopathy. Heart--normal S1 and S2. No murmurs, rubs or gallops. Lungs--grossly audible coarse breath sounds bilaterally., no respiratory distress, no accessory muscle use. Abdomen--normal bowel sounds and soft. Nontender. Nondistended Extremities--trace bilateral pretibial and pedal pitting edema Dermatologic--normal skin turgor, normal color, no abnormal lymph nodes, no rash. Neurologic--cranial nerves II through XII grossly intact. Rheumatologic--normal range of motion. Psychiatric--normal affect. Principal Diagnosis Acute on chronic hypoxic respiratory failure due to acute COPD exacerbation/acute bronchitis Discharge Exam General: Awake, conversant Heart: S1, S2/regular rate and rhythm, no murmur rubs or gallops Lungs: Less wheezing bilaterally.. Normal effort Abdomen: Soft/nontender/nondistended. No hepatosplenomegaly Extremities: No clubbing/cyanosis. No edema Behavior: Appropriate, cooperative Discharge Data Allergies Allergy/AdvReac Type Severity Reaction Status Date / Time bee venom protein (honey bee) Allergy Severe Anaphylaxis Verified 02/21/24 22:49 rhubarb AdvReac Intermediate ANXIETY, Verified 02/21/24 22:58 "ON EDGE", "FEELS LIKE NAILS ON CHALKBOARD". Consultations 02/21/24 22:11 ED Decision to Admit Stat Ordered Studies 02/21/24 21:43 CT for pulmonary embolism PE [CT angio chest PE protocol] Stat Hospital Course (1) Acute on chronic respiratory failure with hypoxia: (2) Acute exacerbation of chronic obstructive airways disease: (3) Acute bronchitis: (4) Dyspnea on exertion: (5) Parkinson's disease: (6) Bladder tumor: (7) BPH w urinary obs/LUTS: Plan Acute on chronic respiratory failure with hypoxia/COPD exacerbation/acute bronc hitis- Treated with IV Solu-Medrol. Now switched to p.o. prednisone tapering dose upon discharge Completed a course of cefepime and azithromycin Duonebs every 4 hours while awake and every 2 hours when necessary. Guaifenesin extended release 200 mg syrup p.o. every 6 hours Parkinson's- Family feels that her increased carbidopa-levodopa 25-250 dose from 2 tablets 3 times daily to 2-1/2 tablets 3 times daily has actually made things a bit worse. Will return to 2 tablets 3 times daily Continue entacapone BPH with LUTS- Continue tamsulosin and mirabegron Hypertension- Hold losartan Continue metoprolol succinate from 25 mg every morning Blood pressure should probably a little bit higher, to allow better cerebral perfusion and interaction with family Full code DVT prophylaxis: Heparin twice daily Discharge to home today PT/OT cleared him for discharge to home Total Time Total Time Spent Total Time Spent (In Minutes): 35 Discharge Plan Discharge Items Patient Disposition: Home - Home Health Services Reason For Visit: ACUTE ON CHRONIC RESP FAILURE W/ HYPOXIA, COPD EX Discharge Diagnosis: Acute on chronic hypoxic respiratory failure due to acute COPD exacerbation/acute bronchitis Activity: Resume your previous activity Non-emergency contact: Primary Care Provider Call non-emergency contact if: you have any medication questions and your symptoms worsen Follow-up/Referrals: Eliot Briggs MD [Primary Care Provider] - ([place] will call Pt to schedule follow up) Diet: Heart Healthy Addtl Attending Provider Instructions: Advised to follow-up with PCP in 1 week Pending Studies at Discharge: No Stand-Alone Forms: My [facility] Medications and DC Order Prescriptions: New prednisone 10 mg tablet 10 mg PO DAILY Qty: 20 0RF Rx Instructions: 4 tabs for 2 days, then drop by 1 tab every 2 days, then stop Continued acetaminophen [Tylenol Extra Strength] 500 mg Tablet 500 - 1,000 mg PO DIRECTED PRN (Reason: Pain) tamsulosin 0.4 mg capsule 0.4 mg PO HS omeprazole 20 mg capsule,delayed release(DR/EC) 20 mg PO DAILYBB albuterol sulfate 90 mcg/actuation Hfa Aerosol Inhaler 2 puff INHALATION QID PRN (Reason: Shortness Of Breath Or Wheezing) fluticasone propionate 50 mcg/actuation spray,suspension 1 - 2 spray INTRANASAL DAILY PRN (Reason: Congestion) mirabegron [Myrbetriq] 25 mg Tablet Extended Release 24 Hr 25 mg PO DAILY Simply Thick gel 6 units PO DAILY Rx Instructions: SIX SERVINGS DAILY TO THICKEN FOOD AND LIQUIDS. 02/21/24 : PT REPORTS HE CONSUMES ONE SERVING DAILY - WITH HIS FOOS AND MEDS IN THE MORNING. carbidopa-levodopa 25-250 mg tablet 2 tab PO TID Rx Instructions: TAKES 0600, 1400, & 2200 guaifenesin 200 mg Tablet 400 mg PO TID PRN (Reason: THICK MUCOUS) entacapone 200 mg tablet 200 mg PO TID Rx Instructions: 0600, 1400, & 2200 docusate sodium 100 mg Capsule 100 mg PO BID PRN (Reason: Constipation) metoprolol succinate 25 mg tablet extended release 24 hr 25 mg PO DAILY multivitamin with minerals Tablet 1 tab PO DAILY sodium chloride 0.9 % solution for nebulization 3 ml INHALATION QID PRN (Reason: MUCOUS MOBILIZATION) Lactobacillus acidophilus Tablet,Chewable 1 tab PO DAILY Breztri Aerosphere 160-9-4.8 mcg/actuation Hfa Aerosol Inhaler 2 inh INHALATION BID Discontinued losartan 25 mg tablet 25 mg PO DAILY Discharge Orders: Discharge Order (Routine); Ordered 02/26/24 Ordered By: Evelyn Romero Admission Data Admit Date/Time: 02/21/24 23:00 Attending Provider: Evelyn Romero Admit Provider: Burke White Primary Care Provider: Eliot Briggs Other Providers: Burke White; [facility] Other Interventions: Discharge Summary Assessment (RN) Last Done: 02/26/24 12:22
[2024-02-26 12:24] VITALS: BP 130/79; PULSE 86
== END 2024-02-26 12:52 | disposition home or self-care (01) | DRG 189 ==
LOC: ED 19:59 → SUATTDRO 23:00 → EDINP 23:00 → 2S 02-22 01:16

== ENCOUNTER 2024-03-11 16:33 | Inpatient (IN) ==
--- NOTE | 2024-03-11 17:04 | ED Triage Note ---
Date of Service March 11, 2024 Provider in Triage Author: Myke Cleveland History of Present Illness This patient was briefly evaluated while in triage. An abbreviated physical exam was performed. This patient is a 78-year-old Male, history of emphysema and COPD, who presents to the ED for evaluation of shortness of breath and inability to cough out mucus in his lungs. Patient reports that he was in the emergency department few weeks ago with similar symptoms. Patient was admitted to our facility on his last visit. Patient denies any fever or chills at home. Patient does not use oxygen at home. Patient reports tightness in the chest, but denies any avtar pain. Physical Exam CONSTITUTIONAL: Healthy and well nourished. Patient does not appear in any acute distress. HEENT: No scleral icterus or conjunctival injection. NECK: Full active range of motion without discomfort. RESPIRATORY: Clear to auscultation bilaterally with no wheezing, crackles, rhonchi or stridor. CARDIOVASCULAR: Regular rate and rhythm with no murmurs, rubs or gallops. INTEGUMENTARY: No rash or other significant dermatologic conditions noted. HEMATOLOGIC: No ecchymosis or petechiae. PSYCHIATRIC: Positive affect. NEUROLOGIC: No focal neurologic deficits noted. Initial orders for labs and / or imaging were placed and patient was placed in the waiting area until a bed is available. Please see further documentation for the full ED course.
[2024-03-11 17:25] LABS: Basophils # (auto) 0.02 K/uL (0.00-0.20); Basophils % (auto) 0.3 %; Eosinophils # (auto) 0.09 K/uL (0.00-0.50); Eosinophils % (auto) 1.5 %; Hematocrit (blood only) 37.7 % (42.0-52.0); Hemoglobin 12.2 g/dl (14.0-18.0); Immature Granulocytes # (auto) 0.04 K/uL (0.01-0.20); Immature Granulocytes % (auto) 0.6 %; Lymphocytes % (auto) 8.1 %; Mean Corpuscular Hgb Conc 32.4 g/dL (32.0-36.0); Mean Corpuscular Volume 92.9 fL (80.0-100.0); Mean Platelet Volume 8.3 fL (9.4-12.4); Monocytes # (auto) 0.42 K/uL (0.11-0.59); Monocytes % (auto) 6.8 %; Neutrophils % (auto) 82.7 %; Platelet Count 153 K/uL (130-400); RDW Coefficient of Variation 14.3 % (11.5-14.5); RDW Standard Deviation 48.5 fL (36.4-46.3); Red Blood Count 4.06 M/uL (4.70-6.10); White Blood Count 6.17 K/ul (4.8-10.8)
[2024-03-11] MEDS: ALBUT/IPRATROP 3MG/0.5MG NEB 3 ML VIAL NEB ONE (17:43)
[2024-03-11 17:46] LABS: Alanine Aminotransferase 4 U/L (7-52); Albumin Globulin Ratio 1.3 (0.9-2); Albumin Level 2.7 gm/dl (3.4-5.0); Alkaline Phosphatase 77 U/L (34-104); Anion Gap 5 (3-11); Aspartate Aminotransferase 14 U/L (13-39); BUN Creatinine Ratio 30.6 (10-20); Bilirubin,Total 0.8 mg/dl (0.2-1.0); Blood Urea Nitrogen 22 mg/dl (6-23); Calcium 6.9 mg/dl (8.6-10.3); Carbon Dioxide 23 mmol/L (21-32); Chloride 114 mmol/L (98-107); Est GFR (African American) 102.8 ml/min; Est GFR (Non-African American) 88.7 ml/min; Globulin 2.1 gm/dl (2.5-4.0); Glucose 90 mg/dl (70-99(Fasting)); Magnesium 1.5 mg/dl (1.7-2.4); Potassium 2.9 mmol/L (3.5-5.1); Sodium 142 mmol/L (136-145); Total Protein 4.8 gm/dl (6.0-8.3)
[2024-03-11 17:54] LABS: Troponin I High Sensitivity 5.6 pg/ml (0-20)
--- NOTE | 2024-03-11 18:05 | Emergency Department Note ---
Impression & Plan Hypoxia, Acute exacerbation of chronic obstructive pulmonary disease, Acute hypokalemia, Productive cough, Hypomagnesemia ED Provider Note NAME: MOSHE ZABALA AGE: 78 SEX: Male INFORMANT: Patient and family ED PROVIDER(S): Jean Paul Delcid MD CHIEF COMPLAINT: Shortness of breath PLAN: Disposition: Admitted Outpatient prescription management: none Referral: None MEDICAL DECISION MAKING: Patient presented because of shortness of breath. He has history of COPD. He also had productive cough. He was hypoxic but did respond well to an oxy mask. An hour-long DuoNeb was initiated. Patient was given IV Solu-Medrol. His blood work was concerning for hypomagnesemia and hypokalemia. These were repleted. ECG and cardiac troponin were unremarkable. Patient had some improvement with the hour-long treatment. Chest x-ray shows COPD findings but no evidence of pneumonia. The patient had a BioFire test performed and unfortunately has COVID-19. Further management in the hospital will be necessary given his hypoxia. Consultation was made with Dr. Burke White of the [facility] service. Patient was evaluated in the ER for further management. 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 Vital Signs: reviewed and remarkable for hypoxia Additional History obtained from: Family notes the development of cold symptoms over the weekend Chronic Medical/Social Conditions affecting care: COPD Prior/ Outside/ External records reviewed: none Differential Diagnosis: COPD exacerbation, viral syndrome, reactive airway disease, pneumonia, pneumothorax, CHF, infections, cardiac ischemia, pulmonary embolism, musculoskeletal, gastrointestinal, as well as other pathologies. Diagnostics, independently interpreted by me: ECG: Twelve-lead ECG reveals normal sinus rhythm at 100 beats per minute. Right bundle branch block no evidence of pericarditis, ischemia, ectopy, or dysrhythmia. Cardiac Monitoring: Cardiac monitoring ordered by me: The patient was placed on continuous cardiac monitoring and observed. It revealed a normal sinus rhythm at 98 beats per minute without ectopy or evidence of dysrhythmia. Medical decision rules: none Imaging studies: Chest x-ray reveals chronic changes including flattening of the diaphragm and hyperinflation consistent with COPD. No pneumothorax or pneumonia. HPI: 78 year old Male arrives for evaluation of shortness of breath and dyspnea. This started over the last several days and is worsening. The patient also notes the following associated symptoms, productive cough and weakness. The patient has been trying his nebulizers for relieving factors. Current pain is rated as 0/10. Patient was recently admitted treated for COPD. pt denies LOC, headache, fevers, chills, diaphoresis, visual changes, neck pain, chest pain, nausea, vomiting, abdominal pain, back pain, melena, hematochezia, urinary symptoms, numbness, rash, or other complaints.. PAST MEDICAL HISTORY: See Below, COPD PAST SURGICAL HISTORY: See Below, SOCIAL HISTORY: See Below, former smoker HOME MEDICATIONS: See Below ALLERGIES: See Below VITALS: See Below PHYSICAL EXAMINATION: GENERAL: Awake, alert, dyspneic-appearing, in no distress HENT: Normocephalic, atraumatic. Oropharynx unremarkable. EYES: Normal conjunctiva. Sclera non-icteric. NECK: Inspection normal. Non-tender. Supple. No nuchal rigidity. FROM. No masses. RESPIRATORY: Scattered rhonchi present. Deep cough present as well. No wheezes. No rales. Increased respiratory effort. CARDIAC: Normal rate. Normal rhythm. No murmurs. No rubs. Extremities warm and well perfused. Pulses equal. No JVD. GI: Soft, non-distended. No tenderness to palpation. No rebound or guarding. No masses. RECTAL: Deferred. MUSCULOSKELETAL: Atraumatic. Chest examination reveals no tenderness. The back is symmetrical on inspection without obvious abnormality. There is no CVA tenderness to palpation. No joint edema. LOWER EXTREMITIES: Calves are equal size bilaterally and non-tender. No edema. No discoloration. NEURO: Normal sensorium. No sensory or motor deficits noted. SKIN: No rash or jaundice noted. PROCEDURES: none CRITICAL CARE: I have personally spent 40 minutes of critical care time in the direct management of this patient. This includes bedside care, interpretation of diagnostic studies, and testing, discussion with consultants, patient, and family members, and other required patient management activities. These minutes are in excess of all separately billable procedures. OBSERVATION NOTE: none Past Med/Surg History Problem List (Updated 03/11/24 @ 18:05 by Jean Paul Delcid MD) Hypomagnesemia (Acute) Productive cough (Acute) Acute hypokalemia (Acute) Acute exacerbation of chronic obstructive pulmonary disease (Acute) Hypoxia (Acute) BPH w urinary obs/LUTS Acute on chronic respiratory failure with hypoxia Acute hypoxemic respiratory failure (Acute) Acute dyspnea (Acute) Parkinson's disease Acute exacerbation of chronic obstructive airways disease COVID-19 (Acute) Erectile dysfunction COPD (chronic obstructive pulmonary disease) Acute epiglottitis (Acute) Conjunctivitis, right eye Dyspnea on exertion Acute bronchitis (Acute) RBBB (Acute) Hypoxia (Acute) Acute UTI (urinary tract infection) (Acute) Medical History Thrombocytopenia Hypokalemia Family History Other Family history non-contributory Social History Smoking Status: Never smoker Tobacco Type: Cigarettes Hx Alcohol Use: No Hx Substance Use: No Preferred Language: Israeli Communication Ability: Effective 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 Home Meds Home Medications Medication Instructions Recorded Confirmed acetaminophen 500 mg tablet 500 - 1,000 mg PO DIRECTED PRN 04/04/22 02/21/24 (Tylenol Extra Strength) Pain albuterol sulfate 90 mcg/actuation 2 puff inhalation QID PRN 04/04/22 02/21/24 aerosol inhaler Shortness Of Breath Or Wheezing fluticasone propionate 50 1 - 2 spray intranasal DAILY PRN 04/04/22 02/21/24 mcg/actuation nasal Congestion spray,suspension mirabegron 25 mg tablet,extended 25 mg PO DAILY 04/04/22 02/21/24 release 24 hr (Myrbetriq) omeprazole 20 mg capsule,delayed 20 mg PO DAILYBB 04/04/22 02/21/24 release tamsulosin 0.4 mg capsule 0.4 mg PO HS 04/04/22 02/21/24 Lactobacillus acidophilus 1 tab PO DAILY 12/22/23 02/21/24 budesonide 160 mcg-glycopyr 9 2 inh inhalation BID 12/22/23 02/21/24 mcg-formot 4.8 mcg/actuation HFA inhaler (Breztri Aerosphere) carbidopa 25 mg-levodopa 250 mg 2 tab PO TID 12/22/23 02/21/24 tablet docusate sodium 100 mg capsule 100 mg PO BID PRN Constipation 12/22/23 02/21/24 entacapone 200 mg tablet 200 mg PO TID 12/22/23 02/21/24 guaifenesin 200 mg tablet 400 mg PO TID PRN THICK MUCOUS 12/22/23 02/21/24 metoprolol succinate 25 mg 25 mg PO DAILY 12/22/23 02/21/24 tablet,extended release 24 hr multivitamin with minerals 1 tab PO DAILY 12/22/23 02/21/24 sodium chloride 0.9 % for 3 ml inhalation QID PRN MUCOUS 12/22/23 02/21/24 nebulization MOBILIZATION Simply Thick 6 units PO DAILY 02/21/24 02/21/24 Previous Rx's Medication Instructions Recorded prednisone 10 mg tablet 10 mg PO DAILY #20 tabs 02/26/24 Results & Data (ED) Vital Signs Vital Signs - 24 hr 03/11/24 17:01 03/11/24 17:43 03/11/24 17:45 Temperature 36.9 C Temperature Source Temporal Artery Scan Pulse Rate 112 H 102 H Pulse Rate [Apical] 98 H Respiratory Rate 20 24 Respiratory Effort / Characteristics Non-Labored Spontaneous Short of Breath Respiratory Depth Normal Blood Pressure 93/59 L Blood Pressure [Left Arm] Blood Pressure Mean 70 Blood Pressure Mean [Left Arm] Pulse Oximetry 90 98 Oxygen Delivery Method Room Air Oxymask Oxygen Flow Rate 3 Sepsis Recent Fever Within 48 Hours No Sepsis New/Unexplained Change in Mental Status No Sepsis Action Taken by Nursing Physician Notified 03/11/24 19:19 03/11/24 19:20 03/11/24 19:20 Temperature Temperature Source Pulse Rate 123 H Pulse Rate [Apical] 123 H Respiratory Rate 36 H 36 H Respiratory Effort / Characteristics Respiratory Depth Blood Pressure Blood Pressure [Left Arm] 99/59 L Blood Pressure Mean Blood Pressure Mean [Left Arm] 72 Pulse Oximetry 98 98 98 Oxygen Delivery Method Oxymask Oxymask Oxymask Oxygen Flow Rate 7 7 7 Sepsis Recent Fever Within 48 Hours Sepsis New/Unexplained Change in Mental Status Sepsis Action Taken by Nursing 03/11/24 21:21 03/11/24 21:33 Temperature Temperature Source Pulse Rate 108 H Pulse Rate [Apical] 106 H Respiratory Rate 35 H Respiratory Effort / Characteristics Respiratory Depth Blood Pressure Blood Pressure [Left Arm] 117/75 Blood Pressure Mean Blood Pressure Mean [Left Arm] 89 Pulse Oximetry 98 Oxygen Delivery Method Oxymask Oxygen Flow Rate 7 Sepsis Recent Fever Within 48 Hours Sepsis New/Unexplained Change in Mental Status Sepsis Action Taken by Nursing Laboratory Data 03/11/24 17:17 03/11/24 17:17 Lab Results 03/11/24 03/11/24 03/11/24 Range/Units 17:17 18:29 18:43 WBC 6.17 (4.8-10.8) K/ul RBC 4.06 L (4.70-6.10) M/uL Hgb 12.2 L (14.0-18.0) g/dl Hct 37.7 L (42.0-52.0) % MCV 92.9 (80.0-100.0) fL MCH 30.0 (25.0-34.0) pg MCHC 32.4 (32.0-36.0) g/dL RDW Std Deviation 48.5 H (36.4-46.3) fL RDW Coeff of Charanjit 14.3 (11.5-14.5) % Plt Count 153 (130-400) K/uL MPV 8.3 L (9.4-12.4) fL Immature Gran % (Auto) 0.6 % Neut % (Auto) 82.7 % Lymph % (Auto) 8.1 % [place] % (Auto) 6.8 % Eos % (Auto) 1.5 % Baso % (Auto) 0.3 % Neut # (Auto) 5.10 (1.40-6.50) K/uL Lymph # (Auto) 0.50 L (1.20-3.40) K/uL [place] # (Auto) 0.42 (0.11-0.59) K/uL Eos # (Auto) 0.09 (0.00-0.50) K/uL Baso # (Auto) 0.02 (0.00-0.20) K/uL Immature Gran # (Auto) 0.04 (0.01-0.20) K/uL VBG pH 7.38 (7.36-7.41) VBG pCO2 45 (38-50) mmHg VBG pO2 33 mmHg VBG HCO3 27 mmol/L VBG O2 Saturation < 60.0 % VBG Base Excess 1.0 mEq/L Sodium 142 (136-145) mmol/L Potassium 2.9 L (3.5-5.1) mmol/L Chloride 114 H (98-107) mmol/L Carbon Dioxide 23 (21-32) mmol/L Anion Gap 5 (3-11) BUN 22 (6-23) mg/dl Creatinine 0.72 (0.6-1.4) mg/dl Est Cr Clr Drug Dosing Not Reportable Est GFR ( Amer) 102.8 ml/min Est GFR (Non-Af Amer) 88.7 ml/min BUN/Creatinine Ratio 30.6 H (10-20) Glucose 90 (70-99(Fasting)) mg/dl Calcium 6.9 L (8.6-10.3) mg/dl Magnesium 1.5 L (1.7-2.4) mg/dl Total Bilirubin 0.8 (0.2-1.0) mg/dl AST 14 (13-39) U/L ALT 4 L (7-52) U/L Alkaline Phosphatase 77 (34-104) U/L Troponin I High Sens 5.6 (0-20) pg/ml B-Natriuretic Peptide 30 (0-100) pg/ml Total Protein 4.8 L (6.0-8.3) gm/dl Albumin 2.7 L (3.4-5.0) gm/dl Globulin 2.1 L (2.5-4.0) gm/dl Albumin/Globulin Ratio 1.3 (0.9-2) Adenovirus (PCR) Not Detected (NotDetected) B. pertussis DNA (PCR) Not Detected (NotDetected) B.parapertussis DNA PCR Not Detected (NotDetected) C. pneumoniae DNA (PCR) Not Detected (NotDetected) Coronavirus OC43 (PCR) Not Detected (NotDetected) Coronavirus HKU1 (PCR) Not Detected (NotDetected) Coronavirus 229E (PCR) Not Detected (NotDetected) SARS-CoV-2 (PCR) DETECTED A (NotDetected) Coronavirus NL63 (PCR) Not Detected (NotDetected) Human Metapneumovir PCR Not Detected (NotDetected) Influenza Type A (PCR) Not Detected (NotDetected) Influenza Type B (PCR) Not Detected (NotDetected) M. pneumoniae (PCR) Not Detected (NotDetected) Parainfluenza 1 (PCR) Not Detected (NotDetected) Parainfluenza 2 (PCR) Not Detected (NotDetected) Parainfluenza 3 (PCR) Not Detected (NotDetected) Parainfluenza 4 (PCR) Not Detected (NotDetected) RSV (PCR) Not Detected (NotDetected) Entero/Rhino (PCR) Not Detected (NotDetected) Administered Medications Remdesivir 200 mg/ Sodium (Chloride) 250 mls @ 125 mls/hr IV 2030 ONE; Protocol Stop: 03/11/24 22:29 Last Admin: 03/11/24 21:09 Dose: 125 mls/hr Documented By: BERTA Azithromycin 500 mg/ Dextrose 255 mls @ 125 mls/hr IV 2030 ONE Stop: 03/11/24 22:32 Last Admin: 03/11/24 21:16 Dose: 125 mls/hr Documented By: BERTA Magnesium Sulfate/Dextrose (Magnesium Sulfate / D5w) 1 gm in 100 mls @ 50 mls/hr IV ONE ONE Stop: 03/11/24 22:29 Last Admin: 03/11/24 21:20 Dose: 50 mls/hr Documented By: BERTA Discontinued Medications Albuterol (Albut/Ipratrop 3mg/0.5mg Neb 3 Ml Vial) 12 ml NEB ONE ONE; Protocol Stop: 03/11/24 17:18 Last Admin: 03/11/24 17:43 Dose: 12 ml Documented By: MEI Sodium Chloride (Nss) 1,000 mls @ 125 mls/hr IV .Q8H TREV Stop: 04/10/24 17:14 Last Admin: 03/11/24 18:25 Dose: 125 mls/hr Documented By: ARNIE Magnesium Sulfate/Dextrose (Magnesium Sulfate / D5w) 1 gm in 100 mls @ 50 mls/hr IV ONE ONE Stop: 03/11/24 20:02 Last Infusion: 03/11/24 20:42 Dose: Infused Documented By: Admin: 03/11/24 18:30 Dose: 50 mls/hr Documented By: MMF Potassium Chloride (K Danny / Wtr) 10 meq in 100 mls @ 100 mls/hr IV ONE ONE Stop: 03/11/24 19:02 Last Infusion: 03/11/24 20:42 Dose: Infused Documented By: Admin: 03/11/24 18:33 Dose: 100 mls/hr Documented By: MMF Methylprednisolone (Methylprednisolone 125 Mg/2 Ml Vial) 60 mg IV NOW STA Stop: 03/11/24 17:18 Last Admin: 03/11/24 18:25 Dose: 60 mg Documented By: MMF Methylprednisolone (Methylprednisolone 125 Mg/2 Ml Vial) 60 mg IV NOW STA Stop: 03/11/24 20:08 Last Admin: 03/11/24 21:07 Dose: 60 mg Documented By: BERTA Discharge Plan Visit Data Chief Complaint: Shortness of Breath/Dyspnea Stated Complaint: PULMONARY ISSUES ED Provider: Jean Paul Delcid Discharge Problem: Hypoxia, Acute exacerbation of chronic obstructive pulmonary disease, Acute hypokalemia, Productive cough, Hypomagnesemia Forms Stand Alone Forms: My [facility] [place] Prescriptions Prescriptions: No Action acetaminophen [Tylenol Extra Strength] 500 mg Tablet 500 - 1,000 mg PO DIRECTED PRN (Reason: Pain) tamsulosin 0.4 mg capsule 0.4 mg PO HS omeprazole 20 mg capsule,delayed release(DR/EC) 20 mg PO DAILYBB albuterol sulfate 90 mcg/actuation Hfa Aerosol Inhaler 2 puff INHALATION QID PRN (Reason: Shortness Of Breath Or Wheezing) fluticasone propionate 50 mcg/actuation spray,suspension 1 - 2 spray INTRANASAL DAILY PRN (Reason: Congestion) mirabegron [Myrbetriq] 25 mg Tablet Extended Release 24 Hr 25 mg PO DAILY Simply Thick gel 6 units PO DAILY Rx Instructions: SIX SERVINGS DAILY TO THICKEN FOOD AND LIQUIDS. 02/21/24 : PT REPORTS HE CONSUMES ONE SERVING DAILY - WITH HIS FOOS AND MEDS IN THE MORNING. prednisone 10 mg tablet 10 mg PO DAILY Qty: 20 0RF Rx Instructions: 4 tabs for 2 days, then drop by 1 tab every 2 days, then stop carbidopa-levodopa 25-250 mg tablet 2 tab PO TID Rx Instructions: TAKES 0600, 1400, & 2200 guaifenesin 200 mg Tablet 400 mg PO TID PRN (Reason: THICK MUCOUS) entacapone 200 mg tablet 200 mg PO TID Rx Instructions: 0600, 1400, & 2200 docusate sodium 100 mg Capsule 100 mg PO BID PRN (Reason: Constipation) metoprolol succinate 25 mg tablet extended release 24 hr 25 mg PO DAILY multivitamin with minerals Tablet 1 tab PO DAILY sodium chloride 0.9 % solution for nebulization 3 ml INHALATION QID PRN (Reason: MUCOUS MOBILIZATION) Lactobacillus acidophilus Tablet,Chewable 1 tab PO DAILY Breztri Aerosphere 160-9-4.8 mcg/actuation Hfa Aerosol Inhaler 2 inh INHALATION BID Referrals Referrals: Eliot Briggs MD [Primary Care Provider] -
[2024-03-11] MEDS: SODIUM CHLORIDE 0.9% 1,000 ML IV SCH (18:25)
[2024-03-11] MEDS: methylPREDNISolone 125 MG/2 ML VIAL IV STA ×2 (18:25→21:07)
[2024-03-11] MEDS: MAGNESIUM SULFATE / D5W 1 GM/100 ML BAG IV ONE ×2 (18:30→21:20)
[2024-03-11] MEDS: POTASSIUM CHLORIDE / WTR 10 MEQ/100 ML PLCT IV ONE (18:33)
[2024-03-11 19:10] LABS: HCO3 VBG 27 mmol/L; Oxygen Saturation VBG < 60.0 %; PCO2 VBG 45 mmHg (38-50); PO2 VBG 33 mmHg; pH VBG 7.38 (7.36-7.41)
[2024-03-11 19:42] LABS: Adenovirus PCR Not Detected (NotDetected); Bordetella parapertussis PCR Not Detected (NotDetected); Bordetella pertussis PCR Not Detected (NotDetected); Chlamydia pneumoniae PCR Not Detected (NotDetected); Coronavirus 229E PCR Not Detected (NotDetected); Coronavirus CoV-2 (COVID19)PCR DETECTED (NotDetected); Coronavirus HKU1 PCR Not Detected (NotDetected); Coronavirus NL63 PCR Not Detected (NotDetected); Coronavirus OC43PCR Not Detected (NotDetected); Human Metapneumovirus PCR Not Detected (NotDetected); Influenza A PCR Not Detected (NotDetected); Influenza B PCR Not Detected (NotDetected); Mycoplasma pneumoniae PCR Not Detected (NotDetected); Parainfluenza Virus 1 PCR Not Detected (NotDetected); Parainfluenza Virus 2 PCR Not Detected (NotDetected); Parainfluenza Virus 3 PCR Not Detected (NotDetected); Parainfluenza Virus 4 PCR Not Detected (NotDetected); Respiratory Syncytial VirusPCR Not Detected (NotDetected); Rhinovirus/Enterovirus PCR Not Detected (NotDetected)
--- NOTE | 2024-03-11 21:04 | History & Physical Report ---
Date of Service March 11, 2024 Assessment & Plan (1) COVID-19: (2) Acute exacerbation of chronic obstructive pulmonary disease: (3) Hypoxia: (4) BPH w urinary obs/LUTS: (5) Acute on chronic respiratory failure with hypoxia: Plan COVID-19 infection/acute on chronic respiratory failure with hypoxia/acute COPD exacerbation- Given Solu-Medrol 60 mg IV from the ED, will add additional 60 IV now for total 120 Solu-Medrol 60 mg IV every 8 hours Albuterol HFA 2 puffs 4 times daily, and every 2 hours as needed Pulmicort Respules 0.5 mg inhaled twice daily Remdesivir IV per protocol Azithromycin 500 mg IV daily Guaifenesin extended release 1200 mg p.o. every 12 hours DuoNebs every 2 hours as needed Nasal cannula oxygen, titrate to keep pulse ox around 92% Continue Breztri 2 inhalations twice daily COVID precautions Parkinson's- Continue carbidopa levodopa and entacapone Hypertension- Continue metoprolol succinate BPH with LUTS- Continue tamsulosin History of Present Illness Chief Complaint: The patient presents to the emergency department with worsening breathing over the past 4 to 5 days. He had been discharged after being in the hospital from 02/20-02/26/2024. He had been feeling better for the first week after discharge, but then was exposed to sick family members, and presently is positive for COVID infection Primary Care Provider: Eliot Carter MD The patient is a 78-year-old male with a past medical history including COPD, BPH with LUTS, acute on chronic respiratory failure with hypoxia, Parkinson's disease, history of urinary tract infection, and bladder tumor. He was most recently admitted to [facility] from 02/20-02/26/2024 for acute COPD. He had been feeling better for about a week, but then was exposed to sick family members, and presently is testing positive for COVID infection. Allergies Allergy/AdvReac Type Severity Reaction Status Date / Time bee venom protein (honey bee) Allergy Severe Anaphylaxis Verified 02/21/24 22:49 rhubarb AdvReac Intermediate ANXIETY, Verified 02/21/24 22:58 "ON EDGE", "FEELS LIKE NAILS ON CHALKBOARD". Home Medications Medication Instructions Recorded Confirmed Type acetaminophen 500 mg tablet 500 - 1,000 mg PO DIRECTED PRN 10/12/22 08/30/24 History (Tylenol Extra Strength) Pain albuterol sulfate 90 mcg/actuation 2 puff inhalation QID PRN 04/04/22 02/21/24 History aerosol inhaler Shortness Of Breath Or Wheezing fluticasone propionate 50 1 - 2 spray intranasal DAILY PRN 04/04/22 02/21/24 History mcg/actuation nasal Congestion spray,suspension mirabegron 25 mg tablet,extended 25 mg PO DAILY 04/04/22 02/21/24 History release 24 hr (Myrbetriq) omeprazole 20 mg capsule,delayed 20 mg PO DAILYBB 04/04/22 02/21/24 History release tamsulosin 0.4 mg capsule 0.4 mg PO HS 04/04/22 02/21/24 History Lactobacillus acidophilus 1 tab PO DAILY 12/22/23 02/21/24 History budesonide 160 mcg-glycopyr 9 2 inh inhalation BID 12/22/23 02/21/24 History mcg-formot 4.8 mcg/actuation HFA inhaler (Breztri Aerosphere) carbidopa 25 mg-levodopa 250 mg 2 tab PO TID 12/22/23 02/21/24 History tablet docusate sodium 100 mg capsule 100 mg PO BID PRN Constipation 12/22/23 02/21/24 History entacapone 200 mg tablet 200 mg PO TID 12/22/23 02/21/24 History guaifenesin 200 mg tablet 400 mg PO TID PRN THICK MUCOUS 12/22/23 02/21/24 History metoprolol succinate 25 mg 25 mg PO DAILY 12/22/23 02/21/24 History tablet,extended release 24 hr multivitamin with minerals 1 tab PO DAILY 12/22/23 02/21/24 History sodium chloride 0.9 % for 3 ml inhalation QID PRN MUCOUS 12/22/23 02/21/24 History nebulization MOBILIZATION Simply Thick 6 units PO DAILY 02/21/24 02/21/24 History prednisone 10 mg tablet 10 mg PO DAILY #20 tabs 02/26/24 Rx Past Med/Surg History Problem List (Updated 03/11/24 @ 18:05 by Jean Paul Delcid MD) Hypomagnesemia (Acute) Productive cough (Acute) Acute hypokalemia (Acute) Acute exacerbation of chronic obstructive pulmonary disease (Acute) Hypoxia (Acute) BPH w urinary obs/LUTS Acute on chronic respiratory failure with hypoxia Acute hypoxemic respiratory failure (Acute) Acute dyspnea (Acute) Parkinson's disease Acute exacerbation of chronic obstructive airways disease COVID-19 (Acute) Erectile dysfunction COPD (chronic obstructive pulmonary disease) Acute epiglottitis (Acute) Conjunctivitis, right eye Dyspnea on exertion Acute bronchitis (Acute) RBBB (Acute) Hypoxia (Acute) Acute UTI (urinary tract infection) (Acute) Medical History Thrombocytopenia Hypokalemia Family History Other Family history non-contributory Social History Smoking Status: Never smoker Tobacco Type: Cigarettes Hx Alcohol Use: No Hx Substance Use: No Preferred Language: Pakistani Communication Ability: Effective 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 Beliefs That Will Affect Care: None Current Living Situation: Spouse Feels Safe at Home: Yes Assistive Devices: Wheelchair and Other Review of Systems Review of Systems: the patient denies chest pain, palpitations, lower extremity swelling, sore throat, fevers, chills, sweats, nausea, vomiting, diarrhea , constipation, abdominal pain, pelvic pain, blood in urine or stool, dysuria, urinary frequency or urgency, lightheadedness, dizziness, headache, memory loss, loss of consciousness, rash, abnormal bruising or bleeding, imbalance, focal weakness, numbness or tingling in arms or legs, generalized arthralgias or myalgias, back or neck pain, or night sweats. The review of systems is otherwise negative other than for that already noted above, and at least 10 systems have been reviewed. Physical Exam Physical Exam: The patient is awake, alert and oriented 3, well developed and well nourished, normocephalic and atraumatic, lying in bed and in no acute distress. HEENT--PERRL, EOMI, mucous membranes and oropharynx normal Neck--supple. No JVD. No bruits. Thyroid normal, trachea midline, no adenopathy. Heart--normal S1 and S2. No murmurs, rubs or gallops. Lungs--coarse breath sounds bilaterally. No respiratory distress, no accessory muscle use. Abdomen--normal bowel sounds and soft. Nontender. Nondistended, no hernias or masses, no organomegaly. Extremities--no cyanosis or clubbing. No edema. Dermatologic--normal skin turgor, normal color, no abnormal lymph nodes, no rash. Neurologic--cranial nerves II through XII grossly intact. Rheumatologic--normal range of motion. Psychiatric--normal affect. Results & Data Results & Data Vital Signs (Past 12 Hours) Vital Signs Temp Pulse Pulse Resp BP BP Pulse Ox 03/11/24 19:20 123 H 36 H 99/59 L 98 03/11/24 19:20 98 03/11/24 19:19 123 H 36 H 98 03/11/24 17:45 98 H 24 98 03/11/24 17:43 102 H 03/11/24 17:01 36.9 C 112 H 20 93/59 L 90 O2 Del Method O2 Flow Rate 03/11/24 19:20 Oxymask 7 03/11/24 19:20 Oxymask 7 03/11/24 19:19 Oxymask 7 03/11/24 17:45 Oxymask 3 03/11/24 17:43 03/11/24 17:01 Room Air Laboratory Results Laboratory Results WBC 6.17 K/ul (4.8-10.8) 03/11/24 17:17 RBC 4.06 M/uL (4.70-6.10) L 03/11/24 17:17 Hgb 12.2 g/dl (14.0-18.0) L 03/11/24 17:17 Hct 37.7 % (42.0-52.0) L 03/11/24 17:17 MCV 92.9 fL (80.0-100.0) 03/11/24 17:17 MCH 30.0 pg (25.0-34.0) 03/11/24 17:17 MCHC 32.4 g/dL (32.0-36.0) 03/11/24 17:17 RDW Std Deviation 48.5 fL (36.4-46.3) H 03/11/24 17:17 RDW Coeff of Charanjit 14.3 % (11.5-14.5) 03/11/24 17:17 Plt Count 153 K/uL (130-400) 03/11/24 17:17 MPV 8.3 fL (9.4-12.4) L 03/11/24 17:17 Immature Gran % (Auto) 0.6 % 03/11/24 17:17 Neut % (Auto) 82.7 % 03/11/24 17:17 Lymph % (Auto) 8.1 % 03/11/24 17:17 Angelina % (Auto) 6.8 % 03/11/24 17:17 Eos % (Auto) 1.5 % 03/11/24 17:17 Baso % (Auto) 0.3 % 03/11/24 17:17 Neut # (Auto) 5.10 K/uL (1.40-6.50) 03/11/24 17:17 Lymph # (Auto) 0.50 K/uL (1.20-3.40) L 03/11/24 17:17 Angelina # (Auto) 0.42 K/uL (0.11-0.59) 03/11/24 17:17 Eos # (Auto) 0.09 K/uL (0.00-0.50) 03/11/24 17:17 Baso # (Auto) 0.02 K/uL (0.00-0.20) 03/11/24 17:17 Immature Gran # (Auto) 0.04 K/uL (0.01-0.20) 03/11/24 17:17 VBG pH 7.38 (7.36-7.41) 03/11/24 18:43 VBG pCO2 45 mmHg (38-50) 03/11/24 18:43 VBG pO2 33 mmHg 03/11/24 18:43 VBG HCO3 27 mmol/L 03/11/24 18:43 VBG O2 Saturation < 60.0 % 03/11/24 18:43 VBG Base Excess 1.0 mEq/L 03/11/24 18:43 Sodium 142 mmol/L (136-145) 03/11/24 17:17 Potassium 2.9 mmol/L (3.5-5.1) L 03/11/24 17:17 Chloride 114 mmol/L (98-107) H 03/11/24 17:17 Carbon Dioxide 23 mmol/L (21-32) 03/11/24 17:17 Anion Gap 5 (3-11) 03/11/24 17:17 BUN 22 mg/dl (6-23) 03/11/24 17:17 Creatinine 0.72 mg/dl (0.6-1.4) 03/11/24 17:17 Est Cr Clr Drug Dosing Not Reportable 03/11/24 17:17 Est GFR ( Amer) 102.8 ml/min 03/11/24 17:17 Est GFR (Non-Af Amer) 88.7 ml/min 03/11/24 17:17 BUN/Creatinine Ratio 30.6 (10-20) H 03/11/24 17:17 Glucose 90 mg/dl (70-99(Fasting)) 03/11/24 17:17 Calcium 6.9 mg/dl (8.6-10.3) L 03/11/24 17:17 Magnesium 1.5 mg/dl (1.7-2.4) L 03/11/24 17:17 Total Bilirubin 0.8 mg/dl (0.2-1.0) 03/11/24 17:17 AST 14 U/L (13-39) 03/11/24 17:17 ALT 4 U/L (7-52) L 03/11/24 17:17 Alkaline Phosphatase 77 U/L (34-104) 03/11/24 17:17 Troponin I High Sens 5.6 pg/ml (0-20) 03/11/24 17:17 B-Natriuretic Peptide 30 pg/ml (0-100) 03/11/24 17:17 Total Protein 4.8 gm/dl (6.0-8.3) L 03/11/24 17:17 Albumin 2.7 gm/dl (3.4-5.0) L 03/11/24 17:17 Globulin 2.1 gm/dl (2.5-4.0) L 03/11/24 17:17 Albumin/Globulin Ratio 1.3 (0.9-2) 03/11/24 17:17 Adenovirus (PCR) Not Detected (NotDetected) 03/11/24 18:29 B. pertussis DNA (PCR) Not Detected (NotDetected) 03/11/24 18:29 B.parapertussis DNA PCR Not Detected (NotDetected) 03/11/24 18:29 C. pneumoniae DNA (PCR) Not Detected (NotDetected) 03/11/24 18:29 Coronavirus OC43 (PCR) Not Detected (NotDetected) 03/11/24 18:29 Coronavirus HKU1 (PCR) Not Detected (NotDetected) 03/11/24 18:29 Coronavirus 229E (PCR) Not Detected (NotDetected) 03/11/24 18:29 SARS-CoV-2 (PCR) DETECTED (NotDetected) A 03/11/24 18:29 Coronavirus NL63 (PCR) Not Detected (NotDetected) 03/11/24 18:29 Human Metapneumovir PCR Not Detected (NotDetected) 03/11/24 18:29 Influenza Type A (PCR) Not Detected (NotDetected) 03/11/24 18:29 Influenza Type B (PCR) Not Detected (NotDetected) 03/11/24 18:29 M. pneumoniae (PCR) Not Detected (NotDetected) 03/11/24 18:29 Parainfluenza 1 (PCR) Not Detected (NotDetected) 03/11/24 18:29 Parainfluenza 2 (PCR) Not Detected (NotDetected) 03/11/24 18:29 Parainfluenza 3 (PCR) Not Detected (NotDetected) 03/11/24 18:29 Parainfluenza 4 (PCR) Not Detected (NotDetected) 03/11/24 18:29 RSV (PCR) Not Detected (NotDetected) 03/11/24 18:29 Entero/Rhino (PCR) Not Detected (NotDetected) 03/11/24 18:29 Code Status & VTE Plan Code Status Full code VTE Prophylaxis Plan VTE Prophylaxis will be ordered: Yes PG Care Time/CCT Total # of Minutes Spent Total Time Spent with Patient: Total time spent is greater than 50% in coordination of care (as documented) at patient's floor/unit and/or counseling patient: Coding Level of Care Code 08486 INT INP/OBS CARE 3/75MIN Diagnoses COVID-19 U07.1 Acute exacerbation of chronic obstructive pulmonary disease J44.1 Hypoxia R09.02 BPH w urinary obs/LUTS N40.1; N13.8 Acute on chronic respiratory failure with hypoxia J96.21
[2024-03-11] MEDS: REMDESIVIR 200 MG in SODIUM CHLORIDE 0.9% 210 ML IV ONE (21:09)
[2024-03-11] MEDS: AZITHROMYCIN 500 MG in DEXTROSE 5% 250 ML IV ONE (21:16)
[2024-03-11] MEDS ORDERED: ALBUT/IPRATROP 3MG/0.5MG NEB 3 ML VIAL NEB PRN (21:41)
[2024-03-11] MEDS: guaiFENesin 600 MG TABCR PO STA (22:41)
[2024-03-12] MEDS ORDERED: DOCUSATE SODIUM 100 MG CAP PO PRN (00:20)
[2024-03-12] MEDS ORDERED: ACETAMINOPHEN 325 MG TAB PO PRN (00:20)
[2024-03-12] MEDS ORDERED: ALBUTEROL HFA 8 GM INHALER INH SCH (00:20)
[2024-03-12] MEDS ORDERED: SODIUM CHLORIDE 0.9% NEBU SOLN 3 ML NEB PRN (00:20)
[2024-03-12] MEDS ORDERED: NON-FORMULARY MEDICATION (Budesonide-Glycopyr-Formoterol [Breztri Aerosphere] 160-9-4.8 mc INH SCH (00:20)
[2024-03-12] MEDS ORDERED: ALBUTEROL HFA 8 GM INHALER INH PRN (00:40)
[2024-03-12 01:04] LABS: Appearance Urine Clear (Clear); Bacteria Urine Automated None Seen (None Seen); Bilirubin Urine 1+ (Negative); Blood Urine Negative (Negative); Cast Urine Automated 0-2 /lpf (0-2); Color Urine Dark Yellow; Epithelial Cell Urine Auto 0-2 /hpf (0-2); Glucose Urine UA Negative (Negative); Ketones Urine 1+ (Negative); Leukocyte Esterase Urine Trace (Negative); Nitrite Urine Negative (Negative); Protein Urine 1+ (Negative); Specific Gravity Urine 1.025 (1.000-1.030); Urobilinogen Urine Negative (Negative); WBC Urine Automated 0-5 /hpf (0-5); pH Urine 6.5 (4.5-7.5)
[2024-03-12] MEDS: NSS + 20MEQ KCL 20 MEQ/1,000 ML BAG IV STA (01:39)
[2024-03-12] MEDS: TAMSULOSIN HCL 0.4 MG CAP PO SCH (01:41)
[2024-03-12] MEDS: CARBIDOPA/LEVODOPA 25-250 1 EA TAB PO SCH (01:41)
[2024-03-12] MEDS: ENTACAPONE 200 MG TAB PO SCH (01:41)
[2024-03-12] MEDS ORDERED: methylPREDNISolone 1000 MG/16 ML IV SCH (05:00)
[2024-03-12] MEDS: methylPREDNISolone 60 MG in SYRINGE 0 ML IV SCH (06:06)
[2024-03-12] MEDS: PANTOprazole 40 MG TAB PO SCH (06:07)
--- NOTE | 2024-03-12 06:47 | XRay Report ---
XR chest 1V portable HISTORY: 78 years-old Male Dyspnea acute shortness of breath COMPARISON: CTA chest 02/21/2024 TECHNIQUE: AP view of the chest FINDINGS: Cardiomediastinal and hilar silhouettes are unchanged. Emphysema with chronic fibrotic changes.. No p neumothorax, large pleural effusion or overt pulmonary edema. Right upper quadrant surgical clips. Tunde zo appear grossly intact. IMPRESSION: 1. No acute process of the chest. 2. Emphysema with chronic interstitial coarsening. ACT 112: Negative or not required by law. The above report was generated using voice recognition software. It may contain grammatical, syntax o r spelling errors. Electronically signed by: Esteban Sherman M.D. 03/12/2024 6:46 AM
--- NOTE | 2024-03-12 06:51 | Electrocardiogram Report ---
Test Reason : Blood Pressure : */* mmHG Vent. Rate : 100 BPM Atrial Rate : 100 BPM P-R Int : 134 ms QRS Dur : 146 ms QT Int : 380 ms P-R-T Axes : 71 31 61 degrees QTcB Int : 490 ms Normal sinus rhythm Right bundle branch block Abnormal ECG When compared with ECG of 22-Feb-2024 05:55, No significant change was found Confirmed by Pipo Ko ([id number]) on 03/12/2024 6:51:16 AM Referred By: REFERRED SELF Confirmed By: Pipo Ko
[2024-03-12 06:52] LABS: Hematocrit (blood only) 33.5 % (42.0-52.0); Hemoglobin 11.6 g/dl (14.0-18.0); Mean Corpuscular Hemoglobin 30.9 pg (25.0-34.0); Mean Corpuscular Hgb Conc 34.6 g/dL (32.0-36.0); Mean Corpuscular Volume 89.3 fL (80.0-100.0); Mean Platelet Volume 8.4 fL (9.4-12.4); Platelet Count 175 K/uL (130-400); RDW Coefficient of Variation 14.3 % (11.5-14.5); RDW Standard Deviation 46.5 fL (36.4-46.3); Red Blood Count 3.75 M/uL (4.70-6.10); White Blood Count 4.33 K/ul (4.8-10.8)
[2024-03-12 07:11] LABS: Albumin Globulin Ratio 1.3 (0.9-2); BUN Creatinine Ratio 27.2 (10-20); Bilirubin,Total 0.7 mg/dl (0.2-1.0); Calcium 8.5 mg/dl (8.6-10.3); Creatinine Clr Calc Pharmacy 61.1 ml/min; Est GFR (Non-African American) 84.5 ml/min; Globulin 2.4 gm/dl (2.5-4.0); Magnesium 2.2 mg/dl (1.7-2.4); Total Protein 5.4 gm/dl (6.0-8.3)
[2024-03-12 07:15] LABS: Echinocytes 2+; Immature Granulocytes # (auto) 0.02 K/uL (0.01-0.20); Immature Granulocytes % (auto) 0.5 %; Lymphocytes % (auto) 6.9 %; Monocytes # (auto) 0.09 K/uL (0.11-0.59); Monocytes % (auto) 2.1 %; Neutrophils # (auto) 3.92 K/uL (1.40-6.50); Neutrophils % (auto) 90.5 %
[2024-03-12] MEDS: BUDESONIDE 0.5 MG/2 ML VIAL (PULMICORT) NEB SCH (07:29)
[2024-03-12] MEDS: ADVANCED PROBIOTIC 625 MG CAPSULE PO SCH (08:44)
[2024-03-12] MEDS: VIBEGRON 75 MG TAB PO SCH (08:44)
[2024-03-12] MEDS: METOPROLOL SUCC 25MG EXT REL TAB PO SCH (08:46)
[2024-03-12] MEDS: UMECLIDINIUM/VILANTEROL 62.5/25MCG 7 PUFFS/INHALER INH SCH (08:46)
[2024-03-12] MEDS: ENOXAPARIN INJ 40 MG/0.4 ML SYR SQ SCH (08:47)
[2024-03-12] MEDS: FLUTICASONE PROPIONATE NA SPR 16 GM BTL NAE SCH (08:47)
[2024-03-12] MEDS: FLUTICASONE FUROATE 200MCG 14 PUFFS/INHALER INH SCH (08:47)
[2024-03-12] MEDS: AZITHROMYCIN 500 MG in DEXTROSE 5% 250 ML IV SCH (08:48)
[2024-03-12 09:10] LABS: Estimated Average Glucose 128 mg/dl; Hemoglobin A1C 6.1 % (4.5-5.6)
[2024-03-12] MEDS: guaiFENesin 600 MG TABCR PO SCH (10:35)
[2024-03-12] MEDS: ALBUTEROL HFA 8 GM INHALER INH SCH (11:08)
--- NOTE | 2024-03-12 11:09 | Hospitalist Progress Note ---
Date of Service March 12, 2024 Assessment & Plan (1) Acute exacerbation of chronic obstructive pulmonary disease: (2) Acute hypoxemic respiratory failure: (3) COVID-19: (4) Parkinson's disease: (5) BPH w urinary obs/LUTS: (6) Hypertension: (7) Prediabetes: Plan 78-year-old male with past medical history of COPD, Parkinson's disease, hypertension, BPH who was recently admitted to [facility] from February 21, 2020 24-9 10/12/2023 for acute exacerbation of COPD presents with 4-day history of worsening shortness of breath after being exposed to sick family members and was found to be hypoxic and tested positive for COVID-19 infection. #Acute hypoxemic respiratory failure secondary to COVID-19 infection #Acute exacerbation of COPD secondary to COVID-19 infection #COVID-19 infection Continue COVID-19 isolation Continue IV remdesivir (day 1/5) Switch IV Solu-Medrol to IV dexamethasone 6 mg IV twice daily and taper to dexamethasone 6 mg daily (day 2) Continue oxygen via nasal cannula and keep saturations between 89 to 92% Continue nebulizers and inhalers Continue azithromycin 500 mg daily (day PT/OT consults #Dysphagia Patient is on thick liquids at home Patient states he is not always compliant with it Speech therapy consult for further evaluation #Cachexia Dietitian consult for evaluation #Parkinson's disease Continue carbidopa levodopa and entacapone PT/OT consults #Essential hypertension Continue metoprolol succinate 25 mg p.o. daily Monitor vital signs #BPH Continue Flomax CODE STATUS: Extensive discussion with patient and wishes to be full code. Declined palliative care consult DVT prophylaxis: Lovenox 40 mg subcutaneous daily Discharge planning based on clinical improvement, finishing 5 days of IV remdesivir and PT/OT recommendations Care plan discussed with patient, nursing staff and case management Admission and Anticipated Discharge Date Admission Date: March 11, 2024 Subjective Patient seen and examined H&P reviewed Patient reports improvement in his shortness of breath Complaining of dry cough, denies any chest pain, fever or chills Denies any nausea, vomiting, diarrhea or abdominal pain Patient states she is meant to be on thick liquids at home but is not always compliant with it Patient states he uses a motorized chair at home and lives with his He quit tobacco smoking 8 years ago Denies alcohol use Patient states he does not use oxygen at home at baseline Review of Systems Review of Systems: As per HPI Physical Exam Physical Exam: General: Mild respiratory distress, speaking in full sentences, cachectic in appearance Psych: Awake and alert HEENT: Anicteric sclera, moist oral mucosa CVS: Regular rate and rhythm Lungs: Bilateral air entry, no wheezing noted Abdomen: Soft, nontender, no rebound, no guarding Ext: No lower extremity edema, no calf tenderness Neuro: No focal motor deficits noted Results & Data Results & Data Vital Signs (Past 12 Hours) Vital Signs Temp Pulse Pulse Resp BP BP Pulse Ox 03/12/24 08:40 36.4 C L 91 H 18 108/65 92 03/12/24 07:29 88 22 93 03/12/24 04:24 03/12/24 03:05 36.8 C 87 20 131/82 97 03/12/24 00:49 96 H 03/12/24 00:24 36.6 C 96 H 16 119/74 94 03/12/24 00:20 03/12/24 00:20 36.6 C 96 H 16 119/74 94 03/12/24 00:20 03/11/24 23:29 103 H 24 109/70 98 Pulse Ox O2 Del Method O2 Del Method O2 Flow Rate O2 Flow Rate 03/12/24 08:40 Nasal Cannula 1 03/12/24 07:29 Nasal Cannula 1 03/12/24 04:24 92 Nasal Cannula 1 03/12/24 03:05 Nasal Cannula 03/12/24 00:49 03/12/24 00:24 Nasal Cannula 2 03/12/24 00:20 Nasal Cannula 2 03/12/24 00:20 Nasal Cannula 2 03/12/24 00:20 94 Nasal Cannula 2 03/11/24 23:29 Oxymask 7 Laboratory Results Laboratory Results - last 24 hr 03/11/24 03/11/24 03/11/24 17:17 18:29 18:43 WBC 6.17 RBC 4.06 L Hgb 12.2 L Hct 37.7 L MCV 92.9 MCH 30.0 MCHC 32.4 RDW Std Deviation 48.5 H RDW Coeff of Charanjit 14.3 Plt Count 153 MPV 8.3 L Immature Gran % (Auto) 0.6 Neut % (Auto) 82.7 Lymph % (Auto) 8.1 [place] % (Auto) 6.8 Eos % (Auto) 1.5 Baso % (Auto) 0.3 Neut # (Auto) 5.10 Lymph # (Auto) 0.50 L [place] # (Auto) 0.42 Eos # (Auto) 0.09 Baso # (Auto) 0.02 Immature Gran # (Auto) 0.04 Echinocytes VBG pH 7.38 VBG pCO2 45 VBG pO2 33 VBG HCO3 27 VBG O2 Saturation < 60.0 VBG Base Excess 1.0 Sodium 142 Potassium 2.9 L Chloride 114 H Carbon Dioxide 23 Anion Gap 5 BUN 22 Creatinine 0.72 Est Cr Clr Drug Dosing Not Reportable Est GFR ( Amer) 102.8 Est GFR (Non-Af Amer) 88.7 BUN/Creatinine Ratio 30.6 H Glucose 90 Estimat Average Glucose Hemoglobin A1c Calcium 6.9 L Magnesium 1.5 L Total Bilirubin 0.8 AST 14 ALT 4 L Alkaline Phosphatase 77 Troponin I High Sens 5.6 B-Natriuretic Peptide 30 Total Protein 4.8 L Albumin 2.7 L Globulin 2.1 L Albumin/Globulin Ratio 1.3 Urine Color Urine Appearance Urine pH Ur Specific [place] Urine Protein Urine Glucose (UA) Urine Ketones Urine Blood Urine Nitrite Urine Bilirubin Urine Urobilinogen Ur Leukocyte Esterase Urine WBC (Auto) Urine RBC (Auto) U Hyaline Cast (Auto) U Epithel Cells (Auto) Urine Bacteria (Auto) Adenovirus (PCR) Not Detected B. pertussis DNA (PCR) Not Detected B.parapertussis DNA PCR Not Detected C. pneumoniae DNA (PCR) Not Detected Coronavirus OC43 (PCR) Not Detected Coronavirus HKU1 (PCR) Not Detected Coronavirus 229E (PCR) Not Detected SARS-CoV-2 (PCR) DETECTED A Coronavirus NL63 (PCR) Not Detected Human Metapneumovir PCR Not Detected Influenza Type A (PCR) Not Detected Influenza Type B (PCR) Not Detected M. pneumoniae (PCR) Not Detected Parainfluenza 1 (PCR) Not Detected Parainfluenza 2 (PCR) Not Detected Parainfluenza 3 (PCR) Not Detected Parainfluenza 4 (PCR) Not Detected RSV (PCR) Not Detected Entero/Rhino (PCR) Not Detected 03/12/24 03/12/24 06:30 Unknown WBC 4.33 L RBC 3.75 L Hgb 11.6 L Hct 33.5 L MCV 89.3 MCH 30.9 MCHC 34.6 RDW Std Deviation 46.5 H RDW Coeff of Charanjit 14.3 Plt Count 175 MPV 8.4 L Immature Gran % (Auto) 0.5 Neut % (Auto) 90.5 Lymph % (Auto) 6.9 [place] % (Auto) 2.1 Eos % (Auto) 0.0 Baso % (Auto) 0.0 Neut # (Auto) 3.92 Lymph # (Auto) 0.30 L [place] # (Auto) 0.09 L Eos # (Auto) 0.00 Baso # (Auto) 0.00 Immature Gran # (Auto) 0.02 Echinocytes 2+ VBG pH VBG pCO2 VBG pO2 VBG HCO3 VBG O2 Saturation VBG Base Excess Sodium 138 Potassium 4.0 D Chloride 108 H Carbon Dioxide 23 Anion Gap 7 BUN 22 Creatinine 0.81 Est Cr Clr Drug Dosing 61.1 Est GFR ( Amer) 98.0 Est GFR (Non-Af Amer) 84.5 BUN/Creatinine Ratio 27.2 H Glucose 156 H Estimat Average Glucose 128 Hemoglobin A1c 6.1 H Calcium 8.5 L Magnesium 2.2 Total Bilirubin 0.7 AST 13 ALT 5 L Alkaline Phosphatase 82 Troponin I High Sens B-Natriuretic Peptide Total Protein 5.4 L Albumin 3.0 L Globulin 2.4 L Albumin/Globulin Ratio 1.3 Urine Color Dark Yellow Urine Appearance Clear Urine pH 6.5 Ur Specific [place] 1.025 Urine Protein 1+ H Urine Glucose (UA) Negative Urine Ketones 1+ H Urine Blood Negative Urine Nitrite Negative Urine Bilirubin 1+ H Urine Urobilinogen Negative Ur Leukocyte Esterase Trace H Urine WBC (Auto) 0-5 Urine RBC (Auto) 6-10 H U Hyaline Cast (Auto) 0-2 U Epithel Cells (Auto) 0-2 Urine Bacteria (Auto) None Seen Adenovirus (PCR) B. pertussis DNA (PCR) B.parapertussis DNA PCR C. pneumoniae DNA (PCR) Coronavirus OC43 (PCR) Coronavirus HKU1 (PCR) Coronavirus 229E (PCR) SARS-CoV-2 (PCR) Coronavirus NL63 (PCR) Human Metapneumovir PCR Influenza Type A (PCR) Influenza Type B (PCR) M. pneumoniae (PCR) Parainfluenza 1 (PCR) Parainfluenza 2 (PCR) Parainfluenza 3 (PCR) Parainfluenza 4 (PCR) RSV (PCR) Entero/Rhino (PCR) Diagnostic Findings Chest X-Ray 03/11/24 17:08 XR chest 1V portable HISTORY: 78 years-old Male Dyspnea acute shortness of breath COMPARISON: CTA chest 02/21/2024 TECHNIQUE: AP view of the chest FINDINGS: Cardiomediastinal and hilar silhouettes are unchanged. Emphysema with chronic fibrotic changes.. No pneumothorax, large pleural effusion or overt pulmonary edema. Right upper quadrant surgical clips. Bones appear grossly intact. IMPRESSION: 1. No acute process of the chest. 2. Emphysema with chronic interstitial coarsening. ACT 112: Negative or not required by law. The above report was generated using voice recognition software. It may contain grammatical, syntax or spelling errors. Electronically signed by: Esteban Sherman M.D. 03/12/2024 6:46 AM PG Care Time/CCT Total # of Minutes Spent Total Time Spent with Patient: Total time spent is greater than 50% in coordination of care (as documented) at patient's floor/unit and/or counseling patient: Coding Level of Care Code 01004 SUB INP/OBS CARE 3/50MIN Diagnoses Acute exacerbation of chronic obstructive pulmonary disease J44.1 Acute hypoxemic respiratory failure J96.01 COVID-19 U07.1 Parkinson's disease G20.A1 BPH w urinary obs/LUTS N40.1; N13.8 Hypertension I10 Prediabetes R73.03
[2024-03-12] MEDS ORDERED: CARBOHYDRATES FOR HYPOGLYCEMIA PO PRN (18:06)
[2024-03-12] MEDS ORDERED: GLUCOSE 10 TAB/TUBE PO PRN (18:06)
[2024-03-12] MEDS ORDERED: DEXTROSE 50% 50 ML SYRINGE IV PRN (18:06)
[2024-03-12] MEDS ORDERED: PHARMACY GLYCEMIC MGMT CONSULT PRN (18:06)
[2024-03-12] MEDS ORDERED: GLUCOSE 40% GEL 15 GM TUBE PO PRN (18:06)
[2024-03-12] MEDS ORDERED: GLUCAGON FOR INJ 1 MG VIAL SQ PRN (18:06)
[2024-03-12] MEDS ORDERED: DEXAMETHASONE SOD INJ 4 MG/ML VIAL IV SCH (21:00)
[2024-03-12] MEDS: REMDESIVIR 100 MG in SODIUM CHLORIDE 0.9% 230 ML IV SCH (21:08)
[2024-03-12] MEDS: dexAMETHasone 6 MG in SYRINGE 0 ML IV SCH (21:17)
[2024-03-12] MEDS: INSULIN ASPART PER UNIT CHARGE SC SCH (21:18)
[2024-03-12] MEDS: LANTUS PER UNIT CHARGE SC SCH (21:19)
[2024-03-13 07:30] LABS: Hematocrit (blood only) 37.1 % (42.0-52.0); Hemoglobin 12.1 g/dl (14.0-18.0); Mean Corpuscular Hemoglobin 29.4 pg (25.0-34.0); Mean Corpuscular Hgb Conc 32.6 g/dL (32.0-36.0); Mean Platelet Volume 8.4 fL (9.4-12.4); Platelet Count 202 K/uL (130-400); RDW Coefficient of Variation 14.1 % (11.5-14.5); RDW Standard Deviation 46.4 fL (36.4-46.3); Red Blood Count 4.12 M/uL (4.70-6.10); White Blood Count 16.14 K/ul (4.8-10.8)
[2024-03-13 07:43] LABS: Albumin Globulin Ratio 1.2 (0.9-2); BUN Creatinine Ratio 31.8 (10-20); Bilirubin,Total 0.5 mg/dl (0.2-1.0); Calcium 8.9 mg/dl (8.6-10.3); Creatinine Clr Calc Pharmacy 61.8 ml/min; Est GFR (African American) 96.1 ml/min; Est GFR (Non-African American) 82.9 ml/min; Globulin 2.5 gm/dl (2.5-4.0); Magnesium 2.1 mg/dl (1.7-2.4); Potassium 4.1 mmol/L (3.5-5.1); Total Protein 5.5 gm/dl (6.0-8.3)
[2024-03-13 08:04] LABS: Basophils # (auto) 0.02 K/uL (0.00-0.20); Basophils % (auto) 0.1 %; Echinocytes 1+; Immature Granulocytes % (auto) 0.6 %; Lymphocytes # (auto) 0.46 K/uL (1.20-3.40); Lymphocytes % (auto) 2.9 %; Monocytes # (auto) 0.37 K/uL (0.11-0.59); Monocytes % (auto) 2.3 %; Neutrophils # (auto) 15.19 K/uL (1.40-6.50); Neutrophils % (auto) 94.1 %
--- NOTE | 2024-03-13 09:59 | Hospitalist Progress Note ---
Date of Service March 13, 2024 Assessment & Plan (1) Acute exacerbation of chronic obstructive pulmonary disease: (2) Acute hypoxemic respiratory failure: (3) COVID-19: (4) Parkinson's disease: (5) BPH w urinary obs/LUTS: (6) Hypertension: (7) Prediabetes: Plan 78-year-old male with past medical history of COPD, Parkinson's disease, hypertension, BPH who was recently admitted to [facility] from February 21, 2020 24-9 10/12/2023 for acute exacerbation of COPD presents with 4-day history of worsening shortness of breath after being exposed to sick family members and was found to be hypoxic and tested positive for COVID-19 infection. #Acute hypoxemic respiratory failure secondary to COVID-19 infection #Acute exacerbation of COPD secondary to COVID-19 infection #COVID-19 infection Continue COVID-19 isolation Continue IV remdesivir (day 2/5) Continue IV dexamethasone 6 mg IV twice daily and taper to dexamethasone 6 mg daily (day 3) Continue oxygen via nasal cannula and keep saturations between 89 to 92% Continue nebulizers and inhalers Continue azithromycin 500 mg daily (day 2/3) White count is elevated which I suspect is from steroids PT/OT consults #Dysphagia Patient is on thick liquids at home Patient states he is not always compliant with it Speech therapy saw the patient and is planning on doing a fees study today #Cachexia Dietitian saw the patient and he is on protein shakes twice a day #Parkinson's disease Continue carbidopa levodopa and entacapone PT/OT saw the patient recommended home on discharge #Essential hypertension Continue metoprolol succinate 25 mg p.o. daily Monitor vital signs #BPH Continue Flomax #Prediabetes A1c is 6.1 Pharmacy is managing glycemic control especially since patient is on steroids He is currently on Lantus 5 units subcutaneous nightly along with Accu-Cheks before every meal and nightly with sliding scale insulin coverage Monitor glycemic control CODE STATUS: Full code DVT prophylaxis: Lovenox 40 mg subcutaneous daily Discharge planning based home after finishing 5 days of IV remdesivir Care plan discussed with patient, nursing staff and case management Admission and Anticipated Discharge Date Admission Date: March 11, 2024 Subjective Patient seen and examined He feels better today Still has a cough, shortness of breath is improved He is tolerating oral diet and likes protein shakes He is scheduled for fees study today with speech therapy He denies any nausea, vomiting, diarrhea or abdominal pain Review of Systems Review of Systems: As per HPI Physical Exam Physical Exam: General: No distress noted, speaking in full sentences, cachectic in appearance Psych: Awake and alert HEENT: Anicteric sclera, moist oral mucosa CVS: Regular rate and rhythm Lungs: Bilateral air entry, no wheezing noted Abdomen: Soft, nontender, no rebound, no guarding Ext: No lower extremity edema, no calf tenderness Neuro: No focal motor deficits noted Results & Data Results & Data Vital Signs (Past 12 Hours) Vital Signs Temp Pulse Pulse Resp BP Pulse Ox O2 Del Method 03/13/24 07:48 36.5 C 102 H 16 139/80 94 Nasal Cannula 03/13/24 07:27 107 H 18 94 Nasal Cannula 03/13/24 04:00 03/13/24 02:34 36.5 C 94 H 18 122/71 95 Nasal Cannula 03/12/24 22:56 86 03/12/24 22:31 36.5 C 66 18 109/64 95 Nasal Cannula O2 Del Method O2 Flow Rate 03/13/24 07:48 2 03/13/24 07:27 2 03/13/24 04:00 Nasal Cannula 03/13/24 02:34 2 03/12/24 22:56 03/12/24 22:31 2 Laboratory Results Laboratory Results - last 24 hr 03/12/24 03/13/24 03/13/24 20:24 06:56 07:10 WBC 16.14 H RBC 4.12 L Hgb 12.1 L Hct 37.1 L MCV 90.0 MCH 29.4 MCHC 32.6 RDW Std Deviation 46.4 H RDW Coeff of Charanjit 14.1 Plt Count 202 MPV 8.4 L Immature Gran % (Auto) 0.6 Neut % (Auto) 94.1 Lymph % (Auto) 2.9 [place] % (Auto) 2.3 Eos % (Auto) 0.0 Baso % (Auto) 0.1 Neut # (Auto) 15.19 H Lymph # (Auto) 0.46 L [place] # (Auto) 0.37 Eos # (Auto) 0.00 Baso # (Auto) 0.02 Immature Gran # (Auto) 0.10 Echinocytes 1+ Sodium 138 Potassium 4.1 Chloride 109 H Carbon Dioxide 23 Anion Gap 6 BUN 27 H Creatinine 0.85 Est Cr Clr Drug Dosing 61.8 Est GFR ( Amer) 96.1 Est GFR (Non-Af Amer) 82.9 BUN/Creatinine Ratio 31.8 H Glucose 156 H POC Glucose 212 H 156 H Calcium 8.9 Magnesium 2.1 Total Bilirubin 0.5 AST 12 L ALT 3 L Alkaline Phosphatase 78 Total Protein 5.5 L Albumin 3.0 L Globulin 2.5 Albumin/Globulin Ratio 1.2 PG Care Time/CCT Total # of Minutes Spent Total Time Spent with Patient: Total time spent is greater than 50% in coordination of care (as documented) at patient's floor/unit and/or counseling patient: Coding Level of Care Code 87577 SUB INP/OBS CARE 3/50MIN Diagnoses Acute exacerbation of chronic obstructive pulmonary disease J44.1 Acute hypoxemic respiratory failure J96.01 COVID-19 U07.1 Parkinson's disease G20.A1 BPH w urinary obs/LUTS N40.1; N13.8 Hypertension I10 Prediabetes R73.03
--- NOTE | 2024-03-13 15:06 | Pharmacy Report ---
Pharmacy Glycemic Short Note 2 - Date of Service March 13, 2024 - Glycemic Short BSG Results (Last 24 hours): 03/12/24 03/13/24 03/13/24 20:24 06:56 07:10 Glucose 156 H POC Glucose 212 H 156 H 03/13/24 11:24 Glucose POC Glucose 130 H OUTPATIENT ANTIDIABETIC REGIMEN: * N/A ASSESSMENT: * 78yo M admitted 03/11/24 secondary to an acute COPD exacerbation and Covid-19. Patient is pre-diabetic and pharmacy has been consulted to assist with inpatient glycemic management as BSG last evening was 212mg/dL. * Patient has been ordered a nectar thick/easy to chew diet. Also on currently on IV azithromycin and remdesivir. He received 2 doses of 60mg iv solumedrol yesterday and then dexamethasone 6mg iv bid was initiated last evening which likely explains the elevated BSG reading. * 5 units of Lantus at bedtime was started last evening and fasting BSG improved to 156mg/dL this morning. * Will continue the basal insulin in the evening and weight based bolus insulin with a stress factor between 1 and 2 has been initiated PLAN FOR INPATIENT GLYCEMIC CONTROL: * Basal insulin * Lantus 5 units SQ at bedtime * Bolus insulin * NovoLog per scale ACHS or Q6hrs while NPO * Goal Range: Low 120 mg/dL - High 150 mg/dL * Correction Factor: 35 mg/dL/unit * Nutritional / Prandial insulin per carb ratio of 1 unit per 12 grams CHO consumed
--- NOTE | 2024-03-13 17:09 | Fluoroscopy Report ---
FL video swallow HISTORY: assess for aspiration TECHNIQUE: Video fluoroscopic evaluation of swallowing was performed in the AP and lateral projection s by the speech pathology staff. The patient is fed nectar-thick and thin liquid barium, a barium coa lisa wafer, and barium pudding. FLUOROSCOPY TIME: 1 minute and 5 seconds. A cine loop submitted. Ka,r: 2.15 mGy COMPARISON STUDY: None. FINDINGS: There is normal hyoid excursion and epiglottic deflection. A few episodes of deep penetrati on with the thin liquid barium only to the level of the vocal cords. This improved with chin tuck man euver. No aspiration identified during the examination. IMPRESSION: 1. No aspiration identified. 2. Please see the speech pathologist report for detailed findings and recommendations. ACT 112: Negative or not required by law. Electronically signed by: Jeffrey Fernandez M.D. 03/13/2024 5:07 PM
[2024-03-13] MEDS: NYSTATIN SUSP 500,000 U/5 ML UDC PO SCH (17:18)
[2024-03-14] MEDS: LANTUS PER UNIT CHARGE SC SCH (09:14)
--- NOTE | 2024-03-14 10:40 | Hospitalist Progress Note ---
Date of Service March 14, 2024 Assessment & Plan (1) Acute exacerbation of chronic obstructive pulmonary disease: (2) Acute hypoxemic respiratory failure: (3) COVID-19: (4) Parkinson's disease: (5) BPH w urinary obs/LUTS: (6) Hypertension: (7) Prediabetes: Plan 78-year-old male with past medical history of COPD, Parkinson's disease, hypertension, BPH who was recently admitted to [facility] from February 21, 2020 24-9 10/12/2023 for acute exacerbation of COPD presents with 4-day history of worsening shortness of breath after being exposed to sick family members and was found to be hypoxic and tested positive for COVID-19 infection. #Acute hypoxemic respiratory failure secondary to COVID-19 infection #Acute exacerbation of COPD secondary to COVID-19 infection #COVID-19 infection Continue COVID-19 isolation Continue IV remdesivir (day 3/5) Switch IV dexamethasone 6 mg IV twice daily to IV dexamethasone 6 mg daily (day 10) Continue oxygen via nasal cannula and keep saturations between 89 to 92% Continue nebulizers and inhalers Patient has finished 3 days of azithromycin 500 mg IV daily: Stop azithromycin White count is elevated which I suspect is from steroids: Monitor PT/OT consults #Dysphagia Speech therapy did FEES study on 03/13/2024 As per speech therapist, patient is safe for thin liquids and diet has been changed to thin liquids #Cachexia Dietitian saw the patient and he is on protein shakes twice a day #Parkinson's disease Continue carbidopa levodopa and entacapone PT/OT saw the patient recommended home on discharge #Essential hypertension Continue metoprolol succinate 25 mg p.o. daily Monitor vital signs #BPH Continue Flomax #Prediabetes A1c is 6.1 Pharmacy is managing glycemic control especially since patient is on steroids Monitor glycemic control CODE STATUS: Full code DVT prophylaxis: Lovenox 40 mg subcutaneous daily Telemetry monitoring reviewed: No telemetry events, patient in sinus rhythm. Stop telemetry monitoring and she is transfer to [facility] Discharge planning based home after finishing 5 days of IV remdesivir and will need evaluation for home oxygen with two-step study with likely discharge on 03/16/2024 if medically stable Care plan discussed with patient, nursing staff Admission and Anticipated Discharge Date Admission Date: March 11, 2024 Subjective Patient seen and examined Overall feels much better today with improvement in his cough and appetite He is still requiring oxygen Denies any chest pain or shortness of breath Patient states he had 4 bowel movements yesterday: Regular bowel movements and denies any diarrhea or loose stools Review of Systems Review of Systems: As per HPI Physical Exam Physical Exam: General: No distress noted, cachectic in appearance Psych: Awake and alert HEENT: Anicteric sclera, moist oral mucosa CVS: Regular rate and rhythm Lungs: Bilateral air entry, no wheezing noted Abdomen: Soft, nontender, no rebound, no guarding Ext: No lower extremity edema, no calf tenderness Neuro: No focal motor deficits noted Results & Data Results & Data Vital Signs (Past 12 Hours) Vital Signs Temp Pulse Pulse Resp BP Pulse Ox O2 Del Method 03/14/24 07:32 36.9 C 67 15 131/76 99 Nasal Cannula 03/14/24 07:29 90 16 95 Nasal Cannula 03/14/24 03:20 72 18 95 Nasal Cannula 03/14/24 03:07 36.5 C 68 18 124/74 94 Nasal Cannula 03/14/24 02:34 70 03/13/24 23:57 90 16 94 Nasal Cannula 03/13/24 22:55 36.6 C 74 18 93 Nasal Cannula O2 Flow Rate 03/14/24 07:32 2 03/14/24 07:29 3 03/14/24 03:20 1 03/14/24 03:07 2 03/14/24 02:34 03/13/24 23:57 1 03/13/24 22:55 2 Laboratory Results Laboratory Results - last 24 hr 03/13/24 03/13/24 03/13/24 11:24 16:30 20:14 POC Glucose 130 H 148 H 204 H 03/14/24 07:12 POC Glucose 128 H PG Care Time/CCT Total # of Minutes Spent Total Time Spent with Patient: Total time spent is greater than 50% in coordination of care (as documented) at patient's floor/unit and/or counseling patient: Coding Level of Care Code 38312 SUB INP/OBS CARE 2/35MIN Diagnoses Acute exacerbation of chronic obstructive pulmonary disease J44.1 Acute hypoxemic respiratory failure J96.01 COVID-19 U07.1 Parkinson's disease G20.A1 BPH w urinary obs/LUTS N40.1; N13.8 Hypertension I10 Prediabetes R73.03
[2024-03-15 08:24] LABS: Basophils # (auto) 0.01 K/uL (0.00-0.20); Basophils % (auto) 0.1 %; Hematocrit (blood only) 36.4 % (42.0-52.0); Immature Granulocytes # (auto) 0.04 K/uL (0.01-0.20); Immature Granulocytes % (auto) 0.4 %; Lymphocytes # (auto) 0.84 K/uL (1.20-3.40); Mean Corpuscular Hemoglobin 29.9 pg (25.0-34.0); Mean Corpuscular Volume 90.8 fL (80.0-100.0); Mean Platelet Volume 8.5 fL (9.4-12.4); Monocytes # (auto) 0.78 K/uL (0.11-0.59); Monocytes % (auto) 7.4 %; Neutrophils # (auto) 8.88 K/uL (1.40-6.50); Neutrophils % (auto) 84.1 %; Platelet Count 212 K/uL (130-400); RDW Coefficient of Variation 13.9 % (11.5-14.5); RDW Standard Deviation 46.5 fL (36.4-46.3); Red Blood Count 4.01 M/uL (4.70-6.10); White Blood Count 10.55 K/ul (4.8-10.8)
[2024-03-15 08:45] LABS: Albumin Globulin Ratio 1.2 (0.9-2); Albumin Level 2.9 gm/dl (3.4-5.0); BUN Creatinine Ratio 34.9 (10-20); Bilirubin,Total 0.5 mg/dl (0.2-1.0); Calcium 8.7 mg/dl (8.6-10.3); Creatinine Clr Calc Pharmacy 63.3 ml/min; Est GFR (Non-African American) 83.7 ml/min; Globulin 2.4 gm/dl (2.5-4.0); Potassium 4.3 mmol/L (3.5-5.1); Total Protein 5.3 gm/dl (6.0-8.3)
[2024-03-15] MEDS: LANTUS PER UNIT CHARGE SC SCH ×2 (09:52→19:44)
[2024-03-15] MEDS: dexAMETHasone 6 MG in SYRINGE 0 ML IV SCH (11:15)
--- NOTE | 2024-03-15 13:34 | Hospitalist Progress Note ---
Date of Service March 15, 2024 Assessment & Plan (1) Acute exacerbation of chronic obstructive pulmonary disease: (2) Acute hypoxemic respiratory failure: (3) COVID-19: (4) Parkinson's disease: (5) BPH w urinary obs/LUTS: (6) Hypertension: (7) Prediabetes: Plan 78-year-old male with past medical history of COPD, Parkinson's disease, hypertension, BPH who was recently admitted to [facility] from February 21, 2020 24-9 10/12/2023 for acute exacerbation of COPD presents with 4-day history of worsening shortness of breath after being exposed to sick family members and was found to be hypoxic and tested positive for COVID-19 infection. #Acute hypoxemic respiratory failure secondary to COVID-19 infection #Acute exacerbation of COPD secondary to COVID-19 infection #COVID-19 infection Continue COVID-19 isolation Continue IV remdesivir (day 09/26) Switch IV dexamethasone 6 mg IV twice daily to IV dexamethasone 6 mg daily (day 10/31) Continue oxygen via nasal cannula and keep saturations between 89 to 92% Continue nebulizers and inhalers Patient has finished 3 days of azithromycin 500 mg IV daily White count is improved PT/OT have been working with patient and recommended home for discharge 2 step study home O2 evaluation for need for home O2 in a.m. #Dysphagia Speech therapy did FEES study on 03/13/2024 As per speech therapist, patient is safe for thin liquids and diet has been changed to thin liquids #Cachexia Dietitian saw the patient and he is on protein shakes twice a day #Parkinson's disease Continue carbidopa levodopa and entacapone PT/OT saw the patient recommended home on discharge #Essential hypertension Continue metoprolol succinate 25 mg p.o. daily Monitor vital signs #BPH Continue Flomax #Prediabetes A1c is 6.1 Pharmacy is managing glycemic control especially since patient is on steroids Monitor glycemic control CODE STATUS: Full code DVT prophylaxis: Lovenox 40 mg subcutaneous daily Discharge planning based home after finishing 5 days of IV remdesivir and will need evaluation for home oxygen with two-step study with likely discharge on 03/16/2024 if medically stable Care plan discussed with patient, nursing staff and family including son and updated at bedside Admission and Anticipated Discharge Date Admission Date: March 11, 2024 Subjective Patient seen and examined Son and at bedside Patient reports feeling much better today As per family, they see he has improved As per son, patient is ambulating better than he did at home Patient denies any chest pain or shortness of breath Cough is better He understands that he will need evaluation for home oxygen Review of Systems Review of Systems: As per HPI Physical Exam Physical Exam: General: No distress noted, cachectic in appearance Psych: Awake and alert HEENT: Anicteric sclera, moist oral mucosa CVS: Regular rate and rhythm Lungs: Bilateral air entry, no wheezing noted Abdomen: Soft, nontender, no rebound, no guarding Ext: No lower extremity edema, no calf tenderness Neuro: No focal motor deficits noted Results & Data Results & Data Vital Signs (Past 12 Hours) Vital Signs Temp Pulse Resp BP Pulse Ox O2 Del Method O2 Flow Rate 03/15/24 11:15 85 20 96 Nasal Cannula 3 03/15/24 08:15 Nasal Cannula 1 03/15/24 08:04 36.4 C L 66 16 121/72 94 Nasal Cannula 3 03/15/24 07:33 78 18 91 Nasal Cannula 3 03/15/24 03:10 Nasal Cannula 1.5 03/15/24 03:07 36.3 C L 64 16 142/80 H 96 Nasal Cannula 1.5 03/15/24 02:44 36.4 C L 72 20 134/79 91 Nasal Cannula 2 Laboratory Results Laboratory Results - last 24 hr 03/14/24 03/14/24 03/15/24 16:37 20:52 07:32 WBC 10.55 RBC 4.01 L Hgb 12.0 L Hct 36.4 L MCV 90.8 MCH 29.9 MCHC 33.0 RDW Std Deviation 46.5 H RDW Coeff of Charanjit 13.9 Plt Count 212 MPV 8.5 L Immature Gran % (Auto) 0.4 Neut % (Auto) 84.1 Lymph % (Auto) 8.0 [place] % (Auto) 7.4 Eos % (Auto) 0.0 Baso % (Auto) 0.1 Neut # (Auto) 8.88 H Lymph # (Auto) 0.84 L [place] # (Auto) 0.78 H Eos # (Auto) 0.00 Baso # (Auto) 0.01 Immature Gran # (Auto) 0.04 Sodium 135 L Potassium 4.3 Chloride 104 Carbon Dioxide 27 Anion Gap 4 BUN 29 H Creatinine 0.83 Est Cr Clr Drug Dosing 63.3 Est GFR ( Amer) 97.0 Est GFR (Non-Af Amer) 83.7 BUN/Creatinine Ratio 34.9 H Glucose 85 POC Glucose 125 H 123 H Calcium 8.7 Magnesium 2.0 Total Bilirubin 0.5 AST 56 H ALT 14 Alkaline Phosphatase 82 Total Protein 5.3 L Albumin 2.9 L Globulin 2.4 L Albumin/Globulin Ratio 1.2 03/15/24 03/15/24 08:03 12:28 WBC RBC Hgb Hct MCV MCH MCHC RDW Std Deviation RDW Coeff of Charanjit Plt Count MPV Immature Gran % (Auto) Neut % (Auto) Lymph % (Auto) [place] % (Auto) Eos % (Auto) Baso % (Auto) Neut # (Auto) Lymph # (Auto) [place] # (Auto) Eos # (Auto) Baso # (Auto) Immature Gran # (Auto) Sodium Potassium Chloride Carbon Dioxide Anion Gap BUN Creatinine Est Cr Clr Drug Dosing Est GFR ( Amer) Est GFR (Non-Af Amer) BUN/Creatinine Ratio Glucose POC Glucose 85 94 Calcium Magnesium Total Bilirubin AST ALT Alkaline Phosphatase Total Protein Albumin Globulin Albumin/Globulin Ratio PG Care Time/CCT Total # of Minutes Spent Total Time Spent with Patient: Total time spent is greater than 50% in coordination of care (as documented) at patient's floor/unit and/or counseling patient: Coding Level of Care Code 82825 SUB INP/OBS CARE 2/35MIN Diagnoses Acute exacerbation of chronic obstructive pulmonary disease J44.1 Acute hypoxemic respiratory failure J96.01 COVID-19 U07.1 Parkinson's disease G20.A1 BPH w urinary obs/LUTS N40.1; N13.8 Hypertension I10 Prediabetes R73.03
[2024-03-15] MEDS: ENTACAPONE 200 MG TAB PO SCH (14:56)
[2024-03-16 08:06] VITALS: BP 119/78; TEMP 97.7
[2024-03-16 08:45] LABS: Albumin Globulin Ratio 1.3 (0.9-2); Albumin Level 3.4 gm/dl (3.4-5.0); BUN Creatinine Ratio 28.6 (10-20); Bilirubin,Total 0.8 mg/dl (0.2-1.0); Calcium 9.4 mg/dl (8.6-10.3); Creatinine Clr Calc Pharmacy 49.9 ml/min; Est GFR (African American) 84.6 ml/min; Globulin 2.7 gm/dl (2.5-4.0); Potassium 3.9 mmol/L (3.5-5.1); Total Protein 6.1 gm/dl (6.0-8.3)
[2024-03-16] MEDS ORDERED: LANTUS PER UNIT CHARGE SC SCH (09:00)
[2024-03-16] MEDS: dexAMETHasone 4 MG TAB PO SCH (10:29)
--- NOTE | 2024-03-16 12:13 | Discharge Summary ---
Discharge Summary Date of Service March 16, 2024 Principal Dx & Hospital Course #1 = Principal Diagnosis (1) Acute exacerbation of chronic obstructive pulmonary disease: He is now back to baseline. Will continue prednisone on a tapering basis at the time of discharge (2) Acute hypoxemic respiratory failure: Two-step oxygen evaluation completed today, March 16. He will require 2 L of oxygen with ambulation (3) COVID-19: Asymptomatic. This was positive by nasal swab only. He has previous history of positivity (4) Parkinson's disease: Stable. Continue current medical management (5) BPH w urinary obs/LUTS: Stable. Continue current medical management (6) Hypertension: Stable. Continue current medical management (7) Prediabetes: Plan Home today, March 16, on a prednisone tapering dose. He will use oxygen at 2 L/min per nasal cannula with ambulation. Admission HPI Per Admitting Provider The patient is a 78-year-old male with a past medical history including COPD, BPH with LUTS, acute on chronic respiratory failure with hypoxia, Parkinson's disease, history of urinary tract infection, and bladder tumor. He was most recently admitted to [facility] from 02/20-02/26/2024 for acute COPD. He had been feeling better for about a week, but then was exposed to sick family members, and presently is testing positive for COVID infection. Discharge Exam General-alert and oriented x3, no fever, no chills HEENT-head atraumatic and normocephalic, pupils equal and reactive to light, extraocular muscles intact Neck-no lymphadenopathy or thyromegaly, trachea midline Chest-diminished breath sounds bilaterally. No rhonchi. No wheezing Cardiac-regular rate and rhythm, normal S1 and S2 Abdomen-normal bowel sounds, no hepatosplenomegaly Extremities-no cyanosis, clubbing, or edema Neuro-cranial nerves II through XII intact, motor and sensory function within normal limits, strength symmetrical, no focal deficits Psych-normal affect, normal mood Discharge Plan Discharge Items Patient Disposition: Home - Self-Care Reason For Visit: COVID,COPD EX,ACUTE ON CHRONIC RESP FAILURE W Discharge Diagnosis: Acute exacerbation COPD, acute hypoxic respiratory failure, COVID positivity by nasal swab Activity: Resume your previous activity Non-emergency contact: Primary Care Provider Call non-emergency contact if: you have any medication questions and your symp toms worsen Follow-up/Referrals: Eliot Briggs MD [Primary Care Provider] - (PCP IS A [facility]. PLEASE CALL AND SCHEDULE A HOSPITAL FOLLOW UP IN 7-10 DAYS.) Diet: Regular and Heart Healthy Addtl Attending Provider Instructions: Take prednisone in a tapering dose fashion as directed. Wear oxygen at 2 L/min with ambulation Pending Studies at Discharge: No Stand-Alone Forms: My [facility] [place], Smoking Cessation Medications and DC Order Prescriptions: New prednisone 10 mg tablet See Rx Instructions .ROUTE .COMPLEX Qty: 12 0RF Rx Instructions: 10 mg orally 3 times a day for 2 days, then 10 mg twice a day for 2 days, then 10 mg once a day for 2 days. Then resume previous daily dosage if you are taking it on a daily basis Continued acetaminophen [Tylenol Extra Strength] 500 mg Tablet 500 - 1,000 mg PO DIRECTED PRN (Reason: Pain) tamsulosin 0.4 mg capsule 0.4 mg PO HS omeprazole 20 mg capsule,delayed release(DR/EC) 20 mg PO DAILYBB albuterol sulfate 90 mcg/actuation Hfa Aerosol Inhaler 2 puff INHALATION QID PRN (Reason: Shortness Of Breath Or Wheezing) fluticasone propionate 50 mcg/actuation spray,suspension 1 - 2 spray INTRANASAL DAILY PRN (Reason: Congestion) mirabegron [Myrbetriq] 25 mg Tablet Extended Release 24 Hr 25 mg PO DAILY Simply Thick gel 6 units PO DAILY Rx Instructions: SIX SERVINGS DAILY TO THICKEN FOOD AND LIQUIDS. 02/21/24 : PT REPORTS HE CONSUMES ONE SERVING DAILY - WITH HIS FOOS AND MEDS IN THE MORNING. prednisone 10 mg tablet 10 mg PO DAILY Qty: 20 0RF Rx Instructions: 4 tabs for 2 days, then drop by 1 tab every 2 days, then stop carbidopa-levodopa 25-250 mg tablet 2 tab PO TID Rx Instructions: TAKES 0600, 1400, & 2200 guaifenesin 200 mg Tablet 400 mg PO TID PRN (Reason: THICK MUCOUS) entacapone 200 mg tablet 200 mg PO TID Rx Instructions: 0600, 1400, & 2200 docusate sodium 100 mg Capsule 100 mg PO BID PRN (Reason: Constipation) metoprolol succinate 25 mg tablet extended release 24 hr 25 mg PO DAILY multivitamin with minerals Tablet 1 tab PO DAILY sodium chloride 0.9 % solution for nebulization 3 ml INHALATION QID PRN (Reason: MUCOUS MOBILIZATION) Lactobacillus acidophilus Tablet,Chewable 1 tab PO DAILY Breztri Aerosphere 160-9-4.8 mcg/actuation Hfa Aerosol Inhaler 2 inh INHALATION BID Discharge Orders: Discharge Order (Routine); Ordered 03/16/24 Ordered By: Melo Kearney/Other Patient Handouts: Prediabetes Admission Data Admit Date/Time: 03/11/24 20:23 Attending Provider: Melo Bucio Admit Provider: Burke White Primary Care Provider: Eliot Briggs Other Providers: [facility]; Burke White Hospital Stay Data Consultations 03/11/24 19:52 ED Decision to Admit Stat Diagnostic Imagining Performed 03/13/24 10:30 FL video swallow Routine Pending Results Patient Have Any Pending Studies at Discharge: No Discharge Instructions Given to Patient (Per Discharging Provider) Take prednisone in a tapering dose fashion as directed. Wear oxygen at 2 L/min with ambulation Total Time Total Time Spent Total Time Spent (In Minutes): 45 minutes Coding Level of Care Code 06016 INP/OBS DISCH >30 MIN Diagnoses Acute exacerbation of chronic obstructive pulmonary disease J44.1 Acute hypoxemic respiratory failure J96.01 COVID-19 U07.1 Parkinson's disease G20.A1 BPH w urinary obs/LUTS N40.1; N13.8 Hypertension I10 Prediabetes R73.03
[2024-03-16 14:01] VITALS: PULSE 92; RESP 18; O2SAT 94
== END 2024-03-16 17:22 | disposition home or self-care (01) | DRG 177 ==
LOC: ED 16:33 → SUATTDRO 20:23 → 2S 20:23 → 3N 03-15 03:05

== ENCOUNTER 2024-03-24 23:54 | Inpatient (IN) ==
--- NOTE | 2024-03-25 00:07 | Emergency Department Note ---
Impression & Plan Hypoxia Admission ED Provider Note HPI: History obtained from patient. The patient is a 78-year-old gentleman with history of Parkinson disease, BPH, COPD, presents the emergency department with a chief complaint of cough and shortness of breath. Patient states he has had the symptoms worsening since he was discharged from the hospital in late February. Patient's is at the bedside and states that the patient seemed to have some increased work of breathing this evening and when she checked his pulse it was elevated and his oxygen was low in the 80s and therefore she contacted EMS for the patient to be transported to the ER. ROS: - Per HPI Differential Diagnosis: COPD exacerbation, CHF exacerbation, pneumonia, pleural effusion, pulmonary edema, acute coronary syndrome, viral upper respiratory infection with dyspnea, amongst other potential pathologies. *Outpatient medications and allergy history reviewed. PE: General: Alert, frail-appearing, no acute distress HEENT: Normocephalic, trachea midline Eyes: Extraocular eye movement is intact, no scleral erythema Pulmonary: Coarse breath sounds bilaterally without wheezing, slightly diminished breath sounds bilaterally Cardio: Tachycardic rate with regular rhythm GI: Abdomen is soft to palpation : No suprapubic tenderness MSK: No evidence of trauma or malformation of the extremities, no edema Skin: No evidence of rash Neuro: Alert, no focal deficits Psychiatric: Cooperative INDEPENDENT INTERPRETATIONS: mangle roller: (As interpreted by myself): - An order was placed for continuous cardiac monitoring - Patient was noted to be in sinus tachycardia with a rate of 122 EKG: (As interpreted by myself): Rate: 131 Rhythm: Sinus tachycardia Intervals: Within normal limits ST changes: No ST elevation Time: 0002 Chest x-ray: (As interpreted by myself): No focal infiltrate Interventions provided in ED: -DuoNeb breathing treatment, IV Decadron Medical Decision Making: IV was established and lab work obtained, patient was placed on hack saw operator. Patient was hypoxic on arrival at 88% on room air and therefore was placed on nasal cannula oxygen with good improvement in his saturation. Lab work shows a leukocytosis of 15.88 (in the setting of recent outpatient steroid prescription) hemoglobin is stable at 13.4, platelet count is normal, venous blood gas shows pH of 7.47 with pCO2 reduced at 33, CMP does not show any critical findings, troponin is negative, BNP is within normal limits. Procalcitonin is also noted to be low. Patient did have a recent COVID-19 infection therefore will repeat testing, this is pending at the time of admission. Patient remains tachycardic, reassessment but he is alert he is saturating well on nasal cannula oxygen. I suspect an element of COPD exacerbation likely from a viral infection and likely COVID-19. I do think the patient would benefit from admission for breathing treatments given his hypoxia and tachypnea with tachycardia. He denies any chest pain, low suspicion for PE at this time. I discussed the patient's presentation with the on-call hospitalist, Dr. Britt, and the patient was placed for admission in stable condition. Consultants/Discussions held with other healthcare providers: -Hospitalist, Dr. Britt Disposition discussion held by myself with: -Patient and the patient's at the bedside * CRITICAL CARE TIME: ( 45 ) minutes -Stabilization of patient with hypoxia at 88% on room air requiring nasal cannula oxygen, DuoNeb breathing treatments, and IV steroids for improvement, time spent at the bedside, interpretation of diagnostic studies, discussion with other healthcare providers and arrangement of admission Diagnosis: 1. Hypoxia, acute 2. COPD exacerbation, acute 3. Leukocytosis, acute Disposition: Admission Rowdy Negrete DO Emergency Medicine Past Med/Surg History Problem List (Updated 03/25/24 @ 01:39 by Rowdy Negrete DO) Hypoxia (Acute) Abnormal laboratory test result (Acute) Prediabetes Hypomagnesemia (Acute) Productive cough (Acute) Acute hypokalemia (Acute) Acute exacerbation of chronic obstructive pulmonary disease (Acute) Hypoxia (Acute) BPH w urinary obs/LUTS Acute on chronic respiratory failure with hypoxia Acute hypoxemic respiratory failure (Acute) Acute dyspnea (Acute) Parkinson's disease Acute exacerbation of chronic obstructive airways disease COVID-19 (Acute) Erectile dysfunction COPD (chronic obstructive pulmonary disease) Acute epiglottitis (Acute) Conjunctivitis, right eye Dyspnea on exertion Acute bronchitis (Acute) RBBB (Acute) Hypoxia (Acute) Acute UTI (urinary tract infection) (Acute) Medical History Thrombocytopenia Hypokalemia Family History Other Family history non-contributory Social History Smoking Status: Former smoker Tobacco Type: Cigarettes Hx Alcohol Use: No Hx Substance Use: No Preferred Language: Mongolian Communication Ability: Effective Sole Leveler Required: No Beliefs That Will Affect Care: None Current Living Situation: Spouse Feels Safe at Home: Yes Assistive Devices: Walker and Wheelchair Allergies Allergies Allergy/AdvReac Type Severity Reaction Status Date / Time bee venom protein (honey bee) Allergy Severe Anaphylaxis Verified 02/21/24 22:49 rhubarb AdvReac Intermediate ANXIETY, Verified 02/21/24 22:58 "ON EDGE", "FEELS LIKE NAILS ON CHALKBOARD". Home Meds Home Medications Medication Instructions Recorded Confirmed acetaminophen 500 mg tablet 500 - 1,000 mg PO DIRECTED PRN 04/04/22 03/14/24 (Tylenol Extra Strength) Pain albuterol sulfate 90 mcg/actuation 2 puff inhalation QID PRN 04/04/22 03/14/24 aerosol inhaler Shortness Of Breath Or Wheezing fluticasone propionate 50 1 - 2 spray intranasal DAILY PRN 04/04/22 03/14/24 mcg/actuation nasal Congestion spray,suspension mirabegron 25 mg tablet,extended 25 mg PO DAILY 04/04/22 03/14/24 release 24 hr (Myrbetriq) omeprazole 20 mg capsule,delayed 20 mg PO DAILYBB 04/04/22 03/14/24 release tamsulosin 0.4 mg capsule 0.4 mg PO HS 04/04/22 03/14/24 Lactobacillus acidophilus 1 tab PO DAILY 12/22/23 02/21/24 budesonide 160 mcg-glycopyr 9 2 inh inhalation BID 12/22/23 03/14/24 mcg-formot 4.8 mcg/actuation HFA inhaler (Breztri Aerosphere) carbidopa 25 mg-levodopa 250 mg 2 tab PO TID 12/22/23 03/14/24 tablet docusate sodium 100 mg capsule 100 mg PO BID PRN Constipation 12/22/23 03/14/24 entacapone 200 mg tablet 200 mg PO TID 12/22/23 03/14/24 guaifenesin 200 mg tablet 400 mg PO TID PRN THICK MUCOUS 12/22/23 02/21/24 metoprolol succinate 25 mg 25 mg PO DAILY 12/22/23 03/14/24 tablet,extended release 24 hr multivitamin with minerals 1 tab PO DAILY 12/22/23 03/14/24 sodium chloride 0.9 % for 3 ml inhalation QID PRN MUCOUS 12/22/23 03/14/24 nebulization MOBILIZATION Simply Thick 6 units PO DAILY 02/21/24 03/14/24 Previous Rx's Medication Instructions Recorded prednisone 10 mg tablet 10 mg PO DAILY #20 tabs 02/26/24 prednisone 10 mg tablet See Rx Instructions .Route 03/16/24 .COMPLEX #12 tabs Results & Data (ED) Vital Signs Vital Signs - 24 hr 03/25/24 00:01 03/25/24 00:01 03/25/24 00:01 Temperature 37.7 C H Temperature Source Oral Pulse Rate 127 H Pulse Rhythm Regular Pulse Strength Normal Respiratory Rate 30 H Respiratory Effort / Characteristics Labored SOB on Exertion Labored SOB on Exertion Respiratory Depth Deep Respiratory Pattern Tachypnea Tachypnea Blood Pressure 93/66 L Blood Pressure Mean 75 Blood Pressure Position Sitting Pulse Oximetry 88 L 88 L Oxygen Delivery Method Room Air Room Air Room Air Oxygen Flow Rate 88 Sepsis Recent Fever Within 48 Hours No Sepsis New/Unexplained Change in Mental Status No Sepsis Action Taken by Nursing Physician Notified Oxygen Flow Rate - Titration 4 Pulse Oximetry Post Tiitration 91 03/25/24 00:02 Temperature Temperature Source Pulse Rate 130 H Pulse Rhythm Pulse Strength Respiratory Rate Respiratory Effort / Characteristics Respiratory Depth Respiratory Pattern Blood Pressure Blood Pressure Mean Blood Pressure Position Pulse Oximetry Oxygen Delivery Method Oxygen Flow Rate Sepsis Recent Fever Within 48 Hours Sepsis New/Unexplained Change in Mental Status Sepsis Action Taken by Nursing Oxygen Flow Rate - Titration Pulse Oximetry Post Tiitration Laboratory Data 03/25/24 00:16 03/25/24 00:16 Lab Results 03/25/24 03/25/24 Range/Units 00:16 00:26 WBC 15.88 H (4.8-10.8) K/ul RBC 4.39 L (4.70-6.10) M/uL Hgb 13.4 L (14.0-18.0) g/dl Hct 40.1 L (42.0-52.0) % MCV 91.3 (80.0-100.0) fL MCH 30.5 (25.0-34.0) pg MCHC 33.4 (32.0-36.0) g/dL RDW Std Deviation 49.1 H (36.4-46.3) fL RDW Coeff of Charanjit 14.6 H (11.5-14.5) % Plt Count 192 (130-400) K/uL MPV 8.7 L (9.4-12.4) fL Immature Gran % (Auto) 0.6 % Neut % (Auto) 94.4 % Lymph % (Auto) 1.2 % [place] % (Auto) 3.7 % Eos % (Auto) 0.0 % Baso % (Auto) 0.1 % Neut # (Auto) 14.99 H (1.40-6.50) K/uL Lymph # (Auto) 0.19 L (1.20-3.40) K/uL [place] # (Auto) 0.59 (0.11-0.59) K/uL Eos # (Auto) 0.00 (0.00-0.50) K/uL Baso # (Auto) 0.02 (0.00-0.20) K/uL Immature Gran # (Auto) 0.09 (0.01-0.20) K/uL RBC Morphology Unremarkable PT 11.2 (9.0-12.0) Seconds INR 1.0 (0.9-1.1) VBG pH 7.47 H (7.36-7.41) VBG pCO2 33 L (38-50) mmHg VBG pO2 55 mmHg VBG HCO3 24 mmol/L VBG O2 Saturation 89.5 % VBG Base Excess 0.9 mEq/L Sodium 138 (136-145) mmol/L Potassium 3.5 (3.5-5.1) mmol/L Chloride 107 (98-107) mmol/L Carbon Dioxide 23 (21-32) mmol/L Anion Gap 8 (3-11) BUN 31 H (6-23) mg/dl Creatinine 0.99 (0.6-1.4) mg/dl Est Cr Clr Drug Dosing 49.0 ml/min Est GFR ( Amer) 83.6 ml/min Est GFR (Non-Af Amer) 72.1 ml/min BUN/Creatinine Ratio 31.3 H (10-20) Glucose 111 H (70-99(Fasting)) mg/dl Lactate 1.5 (0.4-2.0) mmol/L Calcium 9.0 (8.6-10.3) mg/dl Total Bilirubin 1.4 H (0.2-1.0) mg/dl AST 12 L (13-39) U/L ALT 3 L (7-52) U/L Alkaline Phosphatase 85 (34-104) U/L Troponin I High Sens 13.7 (0-20) pg/ml B-Natriuretic Peptide 56 (0-100) pg/ml Total Protein 5.7 L (6.0-8.3) gm/dl Albumin 3.1 L (3.4-5.0) gm/dl Globulin 2.6 (2.5-4.0) gm/dl Albumin/Globulin Ratio 1.2 (0.9-2) Procalcitonin 0.05 (0-0.5) ng/ml Administered Medications Discontinued Medications Albuterol (Albut/Ipratrop 3mg/0.5mg Neb 3 Ml Vial) 3 ml NEB NOW STA; Protocol Stop: 03/25/24 00:07 Last Admin: 03/25/24 00:35 Dose: 3 ml Documented By: TED Sodium Chloride (Nss) 500 mls @ 999 mls/hr IV .Q31M ONE Stop: 03/25/24 00:50 Last Infusion: 03/25/24 01:23 Dose: Infused Documented By: Admin: 03/25/24 00:30 Dose: 999 mls/hr Documented By: TED Discharge Plan Visit Data Chief Complaint: Shortness of Breath/Dyspnea Stated Complaint: SHORTNESS OF BREATH ED Provider: Rowdy Negrete Discharge Problem: Hypoxia Forms Stand Alone Forms: My [facility] Prescriptions Prescriptions: No Action acetaminophen [Tylenol Extra Strength] 500 mg Tablet 500 - 1,000 mg PO DIRECTED PRN (Reason: Pain) tamsulosin 0.4 mg capsule 0.4 mg PO HS omeprazole 20 mg capsule,delayed release(DR/EC) 20 mg PO DAILYBB albuterol sulfate 90 mcg/actuation Hfa Aerosol Inhaler 2 puff INHALATION QID PRN (Reason: Shortness Of Breath Or Wheezing) fluticasone propionate 50 mcg/actuation spray,suspension 1 - 2 spray INTRANASAL DAILY PRN (Reason: Congestion) mirabegron [Myrbetriq] 25 mg Tablet Extended Release 24 Hr 25 mg PO DAILY Simply Thick gel 6 units PO DAILY Rx Instructions: SIX SERVINGS DAILY TO THICKEN FOOD AND LIQUIDS. 02/21/24 : PT REPORTS HE CONSUMES ONE SERVING DAILY - WITH HIS FOOS AND MEDS IN THE MORNING. prednisone 10 mg tablet 10 mg PO DAILY Qty: 20 0RF Rx Instructions: 4 tabs for 2 days, then drop by 1 tab every 2 days, then stop carbidopa-levodopa 25-250 mg tablet 2 tab PO TID Rx Instructions: TAKES 0600, 1400, & 2200 guaifenesin 200 mg Tablet 400 mg PO TID PRN (Reason: THICK MUCOUS) entacapone 200 mg tablet 200 mg PO TID Rx Instructions: 0600, 1400, & 2200 docusate sodium 100 mg Capsule 100 mg PO BID PRN (Reason: Constipation) metoprolol succinate 25 mg tablet extended release 24 hr 25 mg PO DAILY multivitamin with minerals Tablet 1 tab PO DAILY sodium chloride 0.9 % solution for nebulization 3 ml INHALATION QID PRN (Reason: MUCOUS MOBILIZATION) Lactobacillus acidophilus Tablet,Chewable 1 tab PO DAILY Breztri Aerosphere 160-9-4.8 mcg/actuation Hfa Aerosol Inhaler 2 inh INHALATION BID prednisone 10 mg tablet See Rx Instructions .ROUTE .COMPLEX Qty: 12 0RF Rx Instructions: 10 mg orally 3 times a day for 2 days, then 10 mg twice a day for 2 days, then 10 mg once a day for 2 days. Then resume previous daily dosage if you are taking it on a daily basis Referrals Referrals: Eliot Briggs MD [Primary Care Provider] -
[2024-03-25] MEDS: SODIUM CHLORIDE 0.9% 500 ML IV ONE (00:30)
[2024-03-25 00:34] LABS: Base Excess VBG 0.9 mEq/L; HCO3 VBG 24 mmol/L; Oxygen Saturation VBG 89.5 %; PCO2 VBG 33 mmHg (38-50); PO2 VBG 55 mmHg; pH VBG 7.47 (7.36-7.41)
[2024-03-25] MEDS: ALBUT/IPRATROP 3MG/0.5MG NEB 3 ML VIAL NEB STA (00:35)
[2024-03-25 00:51] LABS: Hematocrit (blood only) 40.1 % (42.0-52.0); Hemoglobin 13.4 g/dl (14.0-18.0); Mean Corpuscular Hemoglobin 30.5 pg (25.0-34.0); Mean Corpuscular Hgb Conc 33.4 g/dL (32.0-36.0); Mean Corpuscular Volume 91.3 fL (80.0-100.0); Mean Platelet Volume 8.7 fL (9.4-12.4); Platelet Count 192 K/uL (130-400); RDW Coefficient of Variation 14.6 % (11.5-14.5); RDW Standard Deviation 49.1 fL (36.4-46.3); Red Blood Count 4.39 M/uL (4.70-6.10); White Blood Count 15.88 K/ul (4.8-10.8)
[2024-03-25 00:55] LABS: Albumin Globulin Ratio 1.2 (0.9-2); Albumin Level 3.1 gm/dl (3.4-5.0); BUN Creatinine Ratio 31.3 (10-20); Bilirubin,Total 1.4 mg/dl (0.2-1.0); Est GFR (African American) 83.6 ml/min; Est GFR (Non-African American) 72.1 ml/min; Globulin 2.6 gm/dl (2.5-4.0); Potassium 3.5 mmol/L (3.5-5.1); Total Protein 5.7 gm/dl (6.0-8.3)
[2024-03-25 01:02] LABS: Troponin I High Sensitivity 13.7 pg/ml (0-20)
[2024-03-25 01:09] LABS: Basophils # (auto) 0.02 K/uL (0.00-0.20); Basophils % (auto) 0.1 %; Immature Granulocytes # (auto) 0.09 K/uL (0.01-0.20); Immature Granulocytes % (auto) 0.6 %; Lymphocytes # (auto) 0.19 K/uL (1.20-3.40); Lymphocytes % (auto) 1.2 %; Monocytes # (auto) 0.59 K/uL (0.11-0.59); Monocytes % (auto) 3.7 %; Neutrophils # (auto) 14.99 K/uL (1.40-6.50); Neutrophils % (auto) 94.4 %; Prothrombin Time 11.2 Seconds (9.0-12.0); RBC Morphology Unremarkable
[2024-03-25] MEDS: dexAMETHasone**PF** 10 MG/ML VIAL IV ONE (01:49)
--- NOTE | 2024-03-25 01:53 | History & Physical Report ---
Date of Service March 25, 2024 Assessment & Plan (1) Acute exacerbation of chronic obstructive pulmonary disease: Plan: 78yo with COPD presenting with worsening shortness of breath, acute on chronic respiratory failure with hypoxia. Diffuse wheezing present on exam. CXR with no obvious edema or infiltrate. PCR + Covid-19, uncertain if this represents re-infection vs persistently positive PCR testing (was PCR positive on 03/11). Procalcitonin is negative at 0.05, no obvious infiltrates. Suspect leukocytosis with neutrophil predominance is demargination from recent steroid use. -Admission to medical with telemetry -Solumedrol 40mg IV TID -DuoNeb q 4 hours -Albuterol q 2 hours PRN -Breo BID -Mucinex and flutter valve -Humidified supplemental O2 -3% NSS neb as needed for secretion management (2) Acute on chronic respiratory failure with hypoxia: Plan: Secondary to COPD exacerbation -Management with IV steroids, nebs, pulmonary toilet as above (3) Parkinson's disease: Plan: Chronic. Stable -Continue Carbidopa-Levodopa -Aspiration precautions -Thickened liquids -Management of agitation competitive with care with delirium prevention strategies and Seroquel 25mg po qHS as needed (4) COVID-19: Plan: PCR positive on 03/11 - would suspect persistently positive test at this time. Patient is afebrile -Maintain isolation precautions -Solumedrol as above -Secretion management as above -Patient received Remdesivir therapy during prior admission - too far from initial Covid-19 infection -Tylenol PRN Plan Chronic Medical Conditions: Hypertension -Continue Losartan -Continue Metoprolol GERD -Continue Protonix BPH -Continue Flomax History of Present Illness Chief Complaint: shortness of breath Primary Care Provider: Eliot Carter MD Danie Simons is a 78yo male with history of COPD, HTN, GERD, PD presenting from home with shortness of breath. Patient was admitted to [facility] from 03/11/24 - 03/16/24 with COPD exacerbation and Covid-19 infection. He was treated with nebulizers and steroids and discharged home to complete a Prednisone taper. Patient qualified for 2L supplemental O2 with ambulation at that time. [facility] - patient developed acute delirium following his discharge from the hospital with increased confusion, agitation not amenable to redirection- Prednisone thought to be contributing in part therefore was discontinued. Trial of Seroquel for agitation. He returns to the ER today by EMS with complaint of SOB, hypoxia to 82% on room air and cough. Patient requiring continuous supplemental O2 - 4L. Patient denies chest pain, palpitations, abdominal pain, nausea, vomiting, diarrhea. NO additional complaints Of note, history is difficulty to obtain due to dysarthria secondary to Parkinson's Disease. Patient's is at bedside and assists with history. ER Course: Dexamethasone 10mg IV Albuterol 3mL neb NSS x 500mL Allergies Allergy/AdvReac Type Severity Reaction Status Date / Time bee venom protein (honey bee) Allergy Severe Anaphylaxis Verified 02/21/24 22:49 rhubarb AdvReac Intermediate ANXIETY, Verified 02/21/24 22:58 "ON EDGE", "FEELS LIKE NAILS ON CHALKBOARD". Home Medications Medication Instructions Recorded Confirmed Type acetaminophen 500 mg tablet 500 - 1,000 mg PO DIRECTED PRN 04/04/22 03/25/24 History (Tylenol Extra Strength) Pain albuterol sulfate 90 mcg/actuation 2 puff inhalation QID PRN 04/04/22 03/25/24 History aerosol inhaler Shortness Of Breath Or Wheezing fluticasone propionate 50 1 - 2 spray intranasal DAILY PRN 04/04/22 03/25/24 History mcg/actuation nasal Congestion spray,suspension mirabegron 25 mg tablet,extended 25 mg PO DAILY 04/04/22 03/25/24 History release 24 hr (Myrbetriq) omeprazole 20 mg capsule,delayed 20 mg PO DAILYBB 04/04/22 03/25/24 History release tamsulosin 0.4 mg capsule 0.4 mg PO HS 04/04/22 03/25/24 History Lactobacillus acidophilus 1 tab PO DAILY 12/22/23 03/25/24 History budesonide 160 mcg-glycopyr 9 2 inh inhalation BID 12/22/23 03/25/24 History mcg-formot 4.8 mcg/actuation HFA inhaler (Breztri Aerosphere) carbidopa 25 mg-levodopa 250 mg 2 tab PO TID 12/22/23 03/25/24 History tablet docusate sodium 100 mg capsule 100 mg PO BID PRN Constipation 12/22/23 03/25/24 History entacapone 200 mg tablet 200 mg PO TID 12/22/23 03/25/24 History guaifenesin 200 mg tablet 400 mg PO TID PRN THICK MUCOUS 12/22/23 03/25/24 History metoprolol succinate 25 mg 25 mg PO DAILY 12/22/23 03/25/24 History tablet,extended release 24 hr multivitamin with minerals 1 tab PO DAILY 12/22/23 03/25/24 History sodium chloride 0.9 % for 3 ml inhalation QID PRN MUCOUS 12/22/23 03/25/24 History nebulization MOBILIZATION Simply Thick 6 units PO DAILY 02/21/24 03/14/24 History prednisone 10 mg tablet 10 mg PO DAILY #20 tabs 02/26/24 03/14/24 Rx prednisone 10 mg tablet See Rx Instructions .Route 03/16/24 Rx .COMPLEX #12 tabs losartan 25 mg tablet 25 mg PO DAILY 03/25/24 03/25/24 History Past Med/Surg History Problem List Hypoxia (Acute) Abnormal laboratory test result (Acute) Prediabetes Hypomagnesemia (Acute) Productive cough (Acute) Acute hypokalemia (Acute) Acute exacerbation of chronic obstructive pulmonary disease (Acute) Hypoxia (Acute) BPH w urinary obs/LUTS Acute on chronic respiratory failure with hypoxia Acute hypoxemic respiratory failure (Acute) Acute dyspnea (Acute) Parkinson's disease Acute exacerbation of chronic obstructive airways disease COVID-19 (Acute) Erectile dysfunction COPD (chronic obstructive pulmonary disease) Acute epiglottitis (Acute) Conjunctivitis, right eye Dyspnea on exertion Acute bronchitis (Acute) RBBB (Acute) Hypoxia (Acute) Acute UTI (urinary tract infection) (Acute) Medical History Acute hypoxemic respiratory failure GERD (gastroesophageal reflux disease) Hypertension Thrombocytopenia Hypokalemia Family History Other Family history non-contributory Social History Smoking Status: Former smoker Tobacco Type: Cigarettes Hx Alcohol Use: No Hx Substance Use: No Preferred Language: Serbian Communication Ability: Effective It Application Architect Required: No Beliefs That Will Affect Care: None Current Living Situation: Spouse Feels Safe at Home: Yes Assistive Devices: Walker and Wheelchair Review of Systems Review of Systems: All systems reviewed & are unremarkable except as noted in HPI & below Physical Exam Physical Exam: General: chronically ill appearing male, AA&O Skin: warm, dry, intact, no rashes or lesions HEENT: NC/AT, PERRL, EOMI, anicteric sclera, conjunctiva without injection, external ear normal to inspection and nontender, nares patent, dry mucus membranes, dentition intact, no oropharyngeal lesions, neck supple, trachea midline, no LAD, no thyromegaly, no JVD Heart: +S1/S2, regular, tachycardic, no m/r/g Lungs: equal air entry bilaterally, scattered wheezing throughout with coarse breath sounds in bilateral bases Abd: +BS, soft, NT/ND, no masses/organomegaly/ascites Ext: warm, 2+ pulses in UE/LE bilaterally, no clubbing/cyanosis or edema Neuro: patient somewhat inattentive, dysarthric speech Results & Data Results & Data Vital Signs (Past 12 Hours) Vital Signs Temp Pulse Resp BP Pulse Ox O2 Del Method O2 Flow Rate 03/25/24 00:02 130 H 03/25/24 00:01 88 L Room Air 03/25/24 00:01 37.7 C H 127 H 30 H 93/66 L 88 L Room Air 03/25/24 00:01 Room Air 88 Laboratory Results Laboratory Results WBC 15.88 K/ul (4.8-10.8) H 03/25/24 00:16 RBC 4.39 M/uL (4.70-6.10) L 03/25/24 00:16 Hgb 13.4 g/dl (14.0-18.0) L 03/25/24 00:16 Hct 40.1 % (42.0-52.0) L 03/25/24 00:16 MCV 91.3 fL (80.0-100.0) 03/25/24 00:16 MCH 30.5 pg (25.0-34.0) 03/25/24 00:16 MCHC 33.4 g/dL (32.0-36.0) 03/25/24 00:16 RDW Std Deviation 49.1 fL (36.4-46.3) H 03/25/24 00:16 RDW Coeff of Charanjit 14.6 % (11.5-14.5) H 03/25/24 00:16 Plt Count 192 K/uL (130-400) 03/25/24 00:16 MPV 8.7 fL (9.4-12.4) L 03/25/24 00:16 Immature Gran % (Auto) 0.6 % 03/25/24 00:16 Neut % (Auto) 94.4 % 03/25/24 00:16 Lymph % (Auto) 1.2 % 03/25/24 00:16 [place] % (Auto) 3.7 % 03/25/24 00:16 Eos % (Auto) 0.0 % 03/25/24 00:16 Baso % (Auto) 0.1 % 03/25/24 00:16 Neut # (Auto) 14.99 K/uL (1.40-6.50) H 03/25/24 00:16 Lymph # (Auto) 0.19 K/uL (1.20-3.40) L 03/25/24 00:16 [place] # (Auto) 0.59 K/uL (0.11-0.59) 03/25/24 00:16 Eos # (Auto) 0.00 K/uL (0.00-0.50) 03/25/24 00:16 Baso # (Auto) 0.02 K/uL (0.00-0.20) 03/25/24 00:16 Immature Gran # (Auto) 0.09 K/uL (0.01-0.20) 03/25/24 00:16 RBC Morphology Unremarkable 03/25/24 00:16 PT 11.2 Seconds (9.0-12.0) 03/25/24 00:16 INR 1.0 (0.9-1.1) 03/25/24 00:16 VBG pH 7.47 (7.36-7.41) H 03/25/24 00:16 VBG pCO2 33 mmHg (38-50) L 03/25/24 00:16 VBG pO2 55 mmHg 03/25/24 00:16 VBG HCO3 24 mmol/L 03/25/24 00:16 VBG O2 Saturation 89.5 % 03/25/24 00:16 VBG Base Excess 0.9 mEq/L 03/25/24 00:16 Sodium 138 mmol/L (136-145) 03/25/24 00:16 Potassium 3.5 mmol/L (3.5-5.1) 03/25/24 00:16 Chloride 107 mmol/L (98-107) 03/25/24 00:16 Carbon Dioxide 23 mmol/L (21-32) 03/25/24 00:16 Anion Gap 8 (3-11) 03/25/24 00:16 BUN 31 mg/dl (6-23) H 03/25/24 00:16 Creatinine 0.99 mg/dl (0.6-1.4) 03/25/24 00:16 Est Cr Clr Drug Dosing 49.0 ml/min 03/25/24 00:16 Est GFR ( Amer) 83.6 ml/min 03/25/24 00:16 Est GFR (Non-Af Amer) 72.1 ml/min 03/25/24 00:16 BUN/Creatinine Ratio 31.3 (10-20) H 03/25/24 00:16 Glucose 111 mg/dl (70-99(Fasting)) H 03/25/24 00:16 Lactate 1.5 mmol/L (0.4-2.0) 03/25/24 00:26 Calcium 9.0 mg/dl (8.6-10.3) 03/25/24 00:16 Total Bilirubin 1.4 mg/dl (0.2-1.0) H 03/25/24 00:16 AST 12 U/L (13-39) L 03/25/24 00:16 ALT 3 U/L (7-52) L 03/25/24 00:16 Alkaline Phosphatase 85 U/L (34-104) 03/25/24 00:16 Troponin I High Sens 13.7 pg/ml (0-20) 03/25/24 00:16 B-Natriuretic Peptide 56 pg/ml (0-100) 03/25/24 00:16 Total Protein 5.7 gm/dl (6.0-8.3) L 03/25/24 00:16 Albumin 3.1 gm/dl (3.4-5.0) L 03/25/24 00:16 Globulin 2.6 gm/dl (2.5-4.0) 03/25/24 00:16 Albumin/Globulin Ratio 1.2 (0.9-2) 03/25/24 00:16 Procalcitonin 0.05 ng/ml (0-0.5) 03/25/24 00:16 Adenovirus (PCR) Not Detected (NotDetected) 03/25/24 00:30 B. pertussis DNA (PCR) Not Detected (NotDetected) 03/25/24 00:30 B.parapertussis DNA PCR Not Detected (NotDetected) 03/25/24 00:30 C. pneumoniae DNA (PCR) Not Detected (NotDetected) 03/25/24 00:30 Coronavirus OC43 (PCR) Not Detected (NotDetected) 03/25/24 00:30 Coronavirus HKU1 (PCR) Not Detected (NotDetected) 03/25/24 00:30 Coronavirus 229E (PCR) Not Detected (NotDetected) 03/25/24 00:30 SARS-CoV-2 (PCR) DETECTED (NotDetected) A 03/25/24 00:30 Coronavirus NL63 (PCR) Not Detected (NotDetected) 03/25/24 00:30 Human Metapneumovir PCR Not Detected (NotDetected) 03/25/24 00:30 Influenza Type A (PCR) Not Detected (NotDetected) 03/25/24 00:30 Influenza Type B (PCR) Not Detected (NotDetected) 03/25/24 00:30 M. pneumoniae (PCR) Not Detected (NotDetected) 03/25/24 00:30 Parainfluenza 1 (PCR) Not Detected (NotDetected) 03/25/24 00:30 Parainfluenza 2 (PCR) Not Detected (NotDetected) 03/25/24 00:30 Parainfluenza 3 (PCR) Not Detected (NotDetected) 03/25/24 00:30 Parainfluenza 4 (PCR) Not Detected (NotDetected) 03/25/24 00:30 RSV (PCR) Not Detected (NotDetected) 03/25/24 00:30 Entero/Rhino (PCR) Not Detected (NotDetected) 03/25/24 00:30 PG Care Time/CCT Total # of Minutes Spent Total Time Spent with Patient: Total time spent is greater than 50% in coordination of care (as documented) at patient's floor/unit and/or counseling patient: Coding Level of Care Code 88224 INT INP/OBS CARE MIN Diagnoses Acute exacerbation of chronic obstructive pulmonary disease J44.1 Acute on chronic respiratory failure with hypoxia J96.21 Parkinson's disease G20.A1 COVID-19 U07.1
[2024-03-25 02:00] LABS: Adenovirus PCR Not Detected (NotDetected); Bordetella parapertussis PCR Not Detected (NotDetected); Bordetella pertussis PCR Not Detected (NotDetected); Chlamydia pneumoniae PCR Not Detected (NotDetected); Coronavirus 229E PCR Not Detected (NotDetected); Coronavirus CoV-2 (COVID19)PCR DETECTED (NotDetected); Coronavirus HKU1 PCR Not Detected (NotDetected); Coronavirus NL63 PCR Not Detected (NotDetected); Coronavirus OC43PCR Not Detected (NotDetected); Human Metapneumovirus PCR Not Detected (NotDetected); Influenza A PCR Not Detected (NotDetected); Influenza B PCR Not Detected (NotDetected); Mycoplasma pneumoniae PCR Not Detected (NotDetected); Parainfluenza Virus 1 PCR Not Detected (NotDetected); Parainfluenza Virus 2 PCR Not Detected (NotDetected); Parainfluenza Virus 3 PCR Not Detected (NotDetected); Parainfluenza Virus 4 PCR Not Detected (NotDetected); Respiratory Syncytial VirusPCR Not Detected (NotDetected); Rhinovirus/Enterovirus PCR Not Detected (NotDetected)
[2024-03-25] MEDS ORDERED: SODIUM CHLORIDE 0.9% NEBU SOLN 3 ML NEB PRN (02:46)
[2024-03-25] MEDS ORDERED: ACETAMINOPHEN 325 MG TAB PO PRN (02:46)
[2024-03-25] MEDS ORDERED: ALBUTEROL 0.083% NEBU SOLN 3 ML VIAL NEB PRN (02:46)
[2024-03-25] MEDS ORDERED: ONDANSETRON INJ 2 MG/ML 2 ML VIAL IV PRN (02:46)
[2024-03-25] MEDS: DOCUSATE SODIUM 100 MG CAP PO PRN (03:11)
[2024-03-25] MEDS: QUEtiapine FUMARATE 25 MG TABLET PO PRN (03:11)
[2024-03-25] MEDS: ALBUT/IPRATROP 3MG/0.5MG NEB 3 ML VIAL NEB SCH (03:22)
[2024-03-25] MEDS: CARBIDOPA/LEVODOPA 25-250 1 EA TAB PO SCH (06:14)
[2024-03-25] MEDS: ENTACAPONE 200 MG TAB PO SCH (06:14)
--- NOTE | 2024-03-25 08:03 | Hospitalist Progress Note ---
Date of Service March 25, 2024 Assessment & Plan (1) Acute exacerbation of chronic obstructive pulmonary disease: Plan: 78yo with COPD presenting with worsening shortness of breath, acute on chronic respiratory failure with hypoxia. Diffuse wheezing present on exam. CXR with no obvious edema or infiltrate. PCR + Covid-19, uncertain if this represents re-infection vs persistently positive PCR testing (was PCR positive on 03/11). Procalcitonin is negative at 0.05, no obvious infiltrates. Suspect leukocytosis with neutrophil predominance is demargination from recent steroid use. -Admission to medical with telemetry -Solumedrol 40mg IV TID; transition to po taper when s/s improve -DuoNeb q 4 hours -Albuterol q 2 hours PRN -Breo BID -Mucinex and flutter valve -Humidified supplemental O2 -3% NSS neb as needed for secretion management (2) Acute on chronic respiratory failure with hypoxia: Plan: Secondary to COPD exacerbation -Management with IV steroids, nebs, pulmonary toilet as above (3) Parkinson's disease: Plan: Chronic. Stable - Continue Carbidopa-Levodopa - Aspiration precautions - Thickened liquids, [id number] diet - Management of delirium/agitation - increase Seroquel to 50mg po qHS as needed - Lack of orientation and insight into condition raises concern for dementia; contact for baseline mental status (4) COVID-19: Plan: - First tested PCR positive on 03/11; still + on 03/25 - Maintain isolation precautions - Solumedrol as above - Secretion management as above - Received Remdesivir during prior admission - Tylenol PRN, currently afebrile Plan Chronic Medical Conditions: Hypertension -Continue Losartan -Continue Metoprolol GERD -Continue Protonix BPH -Continue Flomax Admission and Anticipated Discharge Date Admission Date: March 25, 2024 Supervising Physician Co-Signing Physician Notes Attending attestation Pt seen and examined in concert with Dr. Painter. In agreement with the documented findings as noted in the resident documentation with any exceptions or additions as noted here. Resting in bed with subjective improvement in shortness of breath with complaint of minimal cough. Does complain that he is concerned that his is going to abandon him, very fixated on this and returns to it with redirection. Spouse not present at bedside. AAOx1 (self, partly to time (year 1945), partly to place ([facility])) On examination, S1/S2 nl RRR no MCG. Decreased breath sounds throughout with scattered wheeze. Abd NT/ND BS+ve Acute hypoxic respiratory failure with COPD exacerbation - O2 per protocol. Continue methylprednisolone with consideration for taper in AM vs. continuation vs. transition to PO. Continue inhaled therapy as ordered. Delirium in the setting of Parkinsonism - contact spouse for evaluation of MS baseline Abnormal urinalysis - no presenting symptoms aside from confusion which may be baseline Else see resident documentation as noted. Subjective Danie was extremely distressed upon interview this morning. He feels no one cares about him, his has abandoned him, and that he will end up on the streets. He feels his COPD and Parkinson's are not well-controlled, and thinks he will keep ending up in the hospital or soon. He indicates not feeling any better since arrival. Physical Exam 2 Physical Exam: Gen: Fail, ill-appearing, distressed HEENT: NCAT, PERRL CV: RRR, no m/r/g, S1/S2 normal Resp: Decreased breath sounds throughout, scattered wheezing, difficulty speaking uninterrupted sentences Abd: Soft, NT/ND Skin: Warm, dry, pink, no rashes or lesions Neuro: Alert, oriented to person and place, dysarthric speech/hypophonia Psych: agitated, perseverates on abandoning him, no SI but states hopelessness, poor insight/judgement Results & Data Results & Data Vital Signs (Past 12 Hours) Vital Signs Temp Pulse Pulse Resp BP BP Pulse Ox 03/25/24 07:29 36.9 C 93 H 18 106/64 97 03/25/24 07:29 93 H 22 96 03/25/24 07:20 99 H 03/25/24 03:22 18 96 03/25/24 02:47 116 H 03/25/24 02:45 03/25/24 02:45 36.9 C 116 H 35 H 127/80 96 03/25/24 02:18 122 H 31 H 96 03/25/24 02:15 129/82 03/25/24 02:15 129/82 03/25/24 02:00 123/78 03/25/24 02:00 123/78 03/25/24 01:57 124 H 32 H 93 03/25/24 01:54 124 H 35 H 95 03/25/24 01:45 126/81 03/25/24 01:30 112/73 03/25/24 01:30 112/73 03/25/24 01:21 123 H 30 H 94 03/25/24 01:15 121 H 48 H 92 03/25/24 01:15 108/67 03/25/24 01:15 108/67 03/25/24 01:15 108/67 03/25/24 01:15 108/67 03/25/24 01:03 122 H 35 H 91 03/25/24 01:00 106/74 03/25/24 01:00 106/74 03/25/24 00:51 119 H 46 H 92 03/25/24 00:45 99/67 L 03/25/24 00:45 125 H 39 H 90 03/25/24 00:30 122 H 45 H 94 03/25/24 00:30 95/64 L 03/25/24 00:30 95/64 L 03/25/24 00:23 91/61 L 03/25/24 00:23 91/61 L 03/25/24 00:15 123 H 39 H 92 03/25/24 00:15 88/60 L 03/25/24 00:15 88/60 L 03/25/24 00:12 126 H 52 H 92 03/25/24 00:04 93/66 L 03/25/24 00:02 130 H 03/25/24 00:01 88 L 03/25/24 00:01 37.7 C H 127 H 30 H 93/66 L 88 L 03/25/24 00:01 O2 Del Method O2 Flow Rate 03/25/24 07:29 Nasal Cannula 3 03/25/24 07:29 Nasal Cannula 3 03/25/24 07:20 03/25/24 03:22 Nasal Cannula 3 03/25/24 02:47 03/25/24 02:45 Nasal Cannula 3 03/25/24 02:45 Nasal Cannula 3 03/25/24 02:18 03/25/24 02:15 03/25/24 02:15 03/25/24 02:00 03/25/24 02:00 03/25/24 01:57 03/25/24 01:54 03/25/24 01:45 03/25/24 01:30 03/25/24 01:30 03/25/24 01:21 03/25/24 01:15 03/25/24 01:15 03/25/24 01:15 03/25/24 01:15 03/25/24 01:15 03/25/24 01:03 03/25/24 01:00 03/25/24 01:00 03/25/24 00:51 03/25/24 00:45 03/25/24 00:45 03/25/24 00:30 03/25/24 00:30 03/25/24 00:30 03/25/24 00:23 03/25/24 00:23 03/25/24 00:15 03/25/24 00:15 03/25/24 00:15 03/25/24 00:12 03/25/24 00:04 03/25/24 00:02 03/25/24 00:01 Room Air 03/25/24 00:01 Room Air 03/25/24 00:01 Room Air 88 Laboratory Results 03/25/24 00:16 03/25/24 00:16 Resident Activity Tracking Resident Involvement: Resident Care Provided Care Provided: Adult Hospital Medicine
--- NOTE | 2024-03-25 08:50 | XRay Report ---
SINGLE VIEW CHEST CLINICAL HISTORY: Dyspnea FINDINGS: 2 AP, portable, upright chest radiographs are compared to study dated 03/18/2024 and correla lisa with chest CT dated 02/21/2024. The examination is degraded by portable technique and patient rota tion. The cardiomediastinal silhouette is top normal for projection noting atherosclerotic calcifica tion of the thoracic aorta. Advanced emphysema and chronic interstitial thickening is similar to prev ious. Scarring/atelectasis is noted at the lung bases. No airspace consolidation or large pleural eff usion is identified. No pneumothorax is seen. The skeletal structures are osteopenic. The bony thorax is grossly intact. Cholecystectomy clips are noted in the right upper quadrant. IMPRESSION: Advanced emphysematous change with no acute cardiopulmonary abnormality identified. ACT 112: Negative or not required by law. Electronically signed by: Kevin Moralez M.D. 03/25/2024 8:47 AM
[2024-03-25] MEDS: methylPREDNISolone 40 MG in SYRINGE 0 ML IV SCH (08:57)
[2024-03-25] MEDS: PANTOprazole 40 MG TAB PO SCH (08:59)
[2024-03-25] MEDS: LOSARTAN POTASSIUM 25 MG TAB PO SCH (08:59)
[2024-03-25] MEDS: METOPROLOL SUCC 25MG EXT REL TAB PO SCH (08:59)
[2024-03-25] MEDS: FLUTICASONE/VILANTEROL 200/25MCG 14 PUFFS/INHALER INH SCH (09:00)
[2024-03-25] MEDS: guaiFENesin 600 MG TABCR PO SCH (09:00)
[2024-03-25 09:30] LABS: Appearance Urine Cloudy (Clear); Bacteria Urine Automated None Seen (None Seen); Bilirubin Urine 1+ (Negative); Blood Urine Negative (Negative); Cast Urine Automated 0-2 /lpf (0-2); Color Urine Dark Yellow; Epithelial Cell Urine Auto 0-2 /hpf (0-2); Glucose Urine UA Negative (Negative); Ketones Urine 2+ (Negative); Leukocyte Esterase Urine Trace (Negative); Nitrite Urine Negative (Negative); Protein Urine 1+ (Negative); Specific Gravity Urine 1.021 (1.000-1.030); Urobilinogen Urine Negative (Negative); WBC Urine Automated 0-5 /hpf (0-5); pH Urine 6.5 (4.5-7.5)
--- NOTE | 2024-03-25 15:18 | Electrocardiogram Report ---
Test Reason : Blood Pressure : */* mmHG Vent. Rate : 131 BPM Atrial Rate : 131 BPM P-R Int : 126 ms QRS Dur : 136 ms QT Int : 312 ms P-R-T Axes : 77 -78 37 degrees QTcB Int : 460 ms Sinus tachycardia Right bundle branch block Abnormal ECG When compared with ECG of 18-Mar-2024 17:40, Premature atrial complexes are no longer Present Confirmed by Jorge Sharma [id number] on 03/25/2024 3:18:05 PM Referred By: Confirmed By: Jorge Sharma
[2024-03-25] MEDS: TAMSULOSIN HCL 0.4 MG CAP PO SCH (21:17)
--- NOTE | 2024-03-26 07:08 | Hospitalist Progress Note ---
Date of Service March 26, 2024 Assessment & Plan (1) Acute exacerbation of chronic obstructive pulmonary disease: Plan: 78yo with COPD presenting with worsening shortness of breath, acute on chronic respiratory failure with hypoxia. Diffuse wheezing present on exam. CXR with no obvious edema or infiltrate. PCR + Covid-19, uncertain if this represents re-infection vs persistently positive PCR testing (was PCR positive on 03/11). Procalcitonin is negative at 0.05, no obvious infiltrates. Suspect leukocytosis with neutrophil predominance is demargination from recent steroid use. - Admission to medical with telemetry - Continue Solumedrol 40mg IV TID; transition to po taper when s/s improve - DuoNeb q 4 hours - Albuterol q 2 hours PRN - Breo BID - Mucinex and flutter valve - Humidified supplemental O2 - 3% NSS neb as needed for secretion management (2) Acute on chronic respiratory failure with hypoxia: Plan: Secondary to COPD exacerbation - Management with IV steroids, nebs, pulmonary toilet as above (3) Parkinson's disease: Plan: - Continue Carbidopa-Levodopa 2 x 25-250mg tabs TID - Aspiration precautions - Thickened liquids, [id number] diet - Management of delirium/agitation - Seroquel to 50mg po qHS as needed - Family describes acute worsening in mentation since last hospital discharge, with increased hostility (towards ) and impulsive behavior, especially notable after stopping prednisone/taper (less acute with the taper) - MRI brain w & w/o con, 03/26: age-related involutional changes; no acute abnormalities (4) COVID-19: Plan: - First tested PCR positive on 03/11; still + on 03/25 - Maintain isolation precautions - Solumedrol as above - Secretion management as above - Received Remdesivir during prior admission - Tylenol PRN, currently afebrile Plan Chronic Medical Conditions: Hypertension -Continue Losartan -Continue Metoprolol GERD -Continue Protonix BPH -Continue Flomax Admission and Anticipated Discharge Date Admission Date: March 25, 2024 Supervising Physician Co-Signing Physician Notes Attending attestation Pt seen and examined in concert with Dr. Painter. In agreement with the documented findings as noted in the resident documentation with any exceptions or additions as noted here. More comfortable at present following nebulizer treatment and with decreased agitation. Spouse not at bedside at time of examination. On examination, S1/S2 nl RRR no MCG. Decreased breath sounds throughout with scattered wheeze, generally improved from previous. Abd NT/ND BS+ve Acute hypoxic respiratory failure with COPD exacerbation - O2 per protocol. Waxing O2 requirement today, so will defer taper until tomorrow. Continue methylprednisolone. Continue inhaled therapy and monitor. Delirium in the setting of Parkinsonism - overall improved in agitation without administration of quetiapine overnight. Will change to standing for qHS and monitor for response in AM, despite improved AMS to ensure improved discharge care. Abnormal urinalysis - no presenting symptoms aside from confusion which is baseline for his presentation. Not currently on abx Else see resident documentation as noted. Subjective Patient less distressed, more conversant this morning. Still questioning why he's here, existentially, and what good we're doing, etc.; generally frustrated w being chronically ill, being a usually very independent person. Less upset today about his family abandoning him and people not caring; said that he believes I care about his health. Indicates feeling slightly improved, able to eat and drink now. Denies CP, WHEELER, GI or issues. Family visited yesterday evening. Seroquel not given last night. Review of Systems 2 Review of Systems: Per HPI. Physical Exam 2 Physical Exam: Gen: Fail, ill-appearing, NAD HEENT: NCAT, PERRL CV: RRR, no m/r/g, S1/S2 normal Resp: Decreased breath sounds with scattered wheezing throughout, no significant change from prior exam Abd: Soft, NT/ND Skin: Warm, dry, pink, no rashes or lesions Neuro: Alert, oriented to person and place, dysarthric speech/hypophonia improved from prior exam, resting tremor noted Psych: Mood and affect improved from prior exam, still somewhat depressed with fair insight/judgement Results & Data Results & Data Vital Signs (Past 12 Hours) Vital Signs Temp Pulse Pulse Resp BP Pulse Ox O2 Del Method 03/26/24 07:04 93 H 03/26/24 04:11 94 H 18 95 Nasal Cannula 03/26/24 03:20 36.3 C L 96 H 20 106/67 93 Nasal Cannula 03/25/24 23:47 36.4 C L 81 20 108/68 94 Nasal Cannula 03/25/24 23:31 Nasal Cannula 03/25/24 23:18 78 16 95 Nasal Cannula 03/25/24 21:55 83 03/25/24 19:57 76 16 94 Nasal Cannula 03/25/24 19:41 36.5 C 78 20 106/66 93 Nasal Cannula O2 Flow Rate 03/26/24 07:04 03/26/24 04:11 3 03/26/24 03:20 2 03/25/24 23:47 2 03/25/24 23:31 2 03/25/24 23:18 2 03/25/24 21:55 03/25/24 19:57 3 03/25/24 19:41 2 Laboratory Results 03/26/24 07:24 03/26/24 07:24 Resident Activity Tracking Resident Involvement: Resident Care Provided Care Provided: Adult Hospital Medicine
[2024-03-26 07:54] LABS: Hemoglobin 12.3 g/dl (14.0-18.0); Mean Corpuscular Hemoglobin 30.7 pg (25.0-34.0); Mean Corpuscular Hgb Conc 34.2 g/dL (32.0-36.0); Mean Corpuscular Volume 89.8 fL (80.0-100.0); Mean Platelet Volume 8.9 fL (9.4-12.4); Platelet Count 192 K/uL (130-400); RDW Coefficient of Variation 14.6 % (11.5-14.5); RDW Standard Deviation 47.8 fL (36.4-46.3); Red Blood Count 4.01 M/uL (4.70-6.10); White Blood Count 17.83 K/ul (4.8-10.8)
[2024-03-26 08:06] LABS: BUN Creatinine Ratio 41.1 (10-20); Potassium 4.1 mmol/L (3.5-5.1)
[2024-03-26] MEDS: GADOBUTROL 65ML VIAL IV ONE (12:29)
--- NOTE | 2024-03-26 12:49 | Magnetic Resonance Report ---
MRI OF THE BRAIN COMBO CLINICAL HISTORY: Parkinsonism. COMPARISON STUDY: No priors. TECHNIQUE: MRI of the brain was performed utilizing various T1 and T2-weighted sequences in the axial , sagittal, and coronal planes. Contrast-enhanced sequences were acquired following the administratio n of 5.5 cc of Gadavist. FINDINGS: Brain parenchyma: There is age-related involutional change noting probable moderate subcortical and p eriventricular microangiopathic disease. There is no hemorrhage or mass effect. There is no restricte d diffusion to suggest acute ischemia. No enhancing mass lesion is identified on the postcontrast gregory ges. Rasmussen-white matter differentiation is preserved. No extra-axial fluid collection is seen. The cer ebellar tonsils are normal in configuration. Ventricles, sulci, and cisterns: Prominent secondary to involutional change. Pituitary and sella: Unremarkable. Intracranial vasculature: Normal flow voids are maintained at the skull base. Orbits: The bony orbits are grossly intact. Orbital contents are normal in appearance noting bilatera l ocular lens implants. Sinuses and mastoids: There is mild mucosal thickening and secretions/fluid in the left maxillary sin us. There is also fluid within the sphenoid sinuses. There is a left mastoid effusion. The right mast oid air cells are clear. Calvarium: Unremarkable. Cervical cord: Partially visualized cervical spinal cord is normal in morphology and signal intensity . IMPRESSION: No acute intracranial abnormality. ACT 112: Negative or not required by law. Electronically signed by: Kevin Moralez M.D. 03/26/2024 12:48 PM
--- NOTE | 2024-03-27 06:50 | XRay Report ---
XR chest 1V portable CLINICAL HISTORY: crackles on exam COMPARISON STUDY: Chest CT February 21, 2024. Chest radiograph March 25, 2024. FINDINGS: Emphysema is noted. There is no pneumothorax or pleural effusion. Cardiomediastinal silhoue tte is normal. Mild left basilar densities are present. There is no definite consolidation to suggest pneumonia. Pulmonary vascularity is normal. IMPRESSION: 1. Emphysema. 2. Mild left basilar densities. Atelectasis is favored although pneumonia could appear similar. ACT 112: Negative or not required by law. Electronically signed by: Javier Flower M.D. 03/27/2024 6:48 AM
[2024-03-27 07:03] LABS: Hematocrit (blood only) 36.3 % (42.0-52.0); Hemoglobin 12.2 g/dl (14.0-18.0); Mean Corpuscular Hemoglobin 30.8 pg (25.0-34.0); Mean Corpuscular Hgb Conc 33.6 g/dL (32.0-36.0); Mean Corpuscular Volume 91.7 fL (80.0-100.0); Mean Platelet Volume 8.6 fL (9.4-12.4); Platelet Count 170 K/uL (130-400); RDW Coefficient of Variation 14.7 % (11.5-14.5); RDW Standard Deviation 49.7 fL (36.4-46.3); Red Blood Count 3.96 M/uL (4.70-6.10); White Blood Count 15.45 K/ul (4.8-10.8)
--- NOTE | 2024-03-27 07:15 | Hospitalist Progress Note ---
Date of Service March 27, 2024 Assessment & Plan (1) Acute exacerbation of chronic obstructive pulmonary disease: Plan: 78yo with COPD presenting with worsening shortness of breath, acute on chronic respiratory failure with hypoxia. Diffuse wheezing present on exam. CXR with no obvious edema or infiltrate. PCR + Covid-19, uncertain if this represents re-infection vs persistently positive PCR testing (was PCR positive on 03/11). Procalcitonin is negative at 0.05, no obvious infiltrates. Suspect leukocytosis with neutrophil predominance is demargination from recent steroid use. - Continue Solumedrol 40mg IV TID; transition to po taper when s/s improve - Humidified supplemental O2, currently 3L; qualified for 2L home O2 at last discharge (03/16) - 3% NSS neb as needed for secretion management - DuoNeb q4h, Albuterol q2h PRN, and Breo BID - Mucinex and flutter valve (2) Acute on chronic respiratory failure with hypoxia: Plan: Secondary to COPD exacerbation - Management with IV steroids, nebs, pulmonary toilet as above (3) Parkinson's disease: Plan: - Continue Carbidopa-Levodopa 2 x 25-250mg tabs TID - Aspiration precautions - Thickened liquids, [id number] diet - Management of delirium/agitation - Seroquel to 50mg po qHS as needed - Family describes acute worsening in mentation since last hospital discharge, with increased hostility (towards ) and impulsive behavior, especially notable after stopping prednisone/taper (less acute with the taper) Will require substantial discharge planning, with at least HH to relieve pt's of caregiver burden - MRI brain w & w/o con, 03/26 showed age-related involutional changes; no acute abnormalities (4) COVID-19: Plan: - First tested PCR positive on 03/11; still + on 03/25 - Maintain isolation precautions - Solumedrol as above - Secretion management as above - Received Remdesivir during prior admission - Tylenol PRN, currently afebrile Plan Chronic Medical Conditions: Hypertension -Continue Losartan -Continue Metoprolol GERD -Continue Protonix BPH -Continue Flomax Admission and Anticipated Discharge Date Admission Date: March 25, 2024 Supervising Physician Co-Signing Physician Notes ATTESTATION I also saw the patient and confirmed pierre portions of the history and exam. I agree with the impression and plan in the resident documentation, and as summarized below. Upon exam, the patient lying semireclined in bed watching television. He has no acute complaints today. EXAM 115/73, 108, 18, 36.4, 94% on nasal cannula 2 L/min Mucous membranes pink and moist Heart regular, rate about 80 upon my auscultation Lungs decreased in the bases, somewhat coarse, expiratory wheezing throughout DATA Labs White blood cell count 15.45, hemoglobin 12.2. Sodium 140, potassium 4.3, BUN 37, creatinine 0.9 Imaging Chest x-ray on 03/26/2024 shows emphysema, mild left basilar density, atelectasis favored although pneumonia could appear similar. IMPRESSION & PLAN Acute hypoxic respiratory failure with COPD exacerbation Continue supplemental oxygen Given continued wheezing, continue methylprednisolone If improved, consider switching to p.o. prednisone tomorrow Repeat chest x-ray in a.m. Delirium in the setting of Parkinsonism Overall improved it seems improved Unfortunately, steroids can exacerbate; however, needed in this clinical situation Additional per resident documentation Subjective Feeling much better today, in terms of mood and health. Reports breathing feels much easier. Is conversant, with thoughts of being abandoned or uncared for. OOB, no problems with eating, drinking, urinating. Denies CP, lightheadedness, joint or muscle aches. Not given seroquel last night. BP meds held this morning because low (~90s/60) overnight. Review of Systems 2 Review of Systems: Per HPI. Physical Exam 2 Physical Exam: Gen: Frail, ill-appearing, NAD HEENT: NCAT, PERRL CV: RRR, no m/r/g, S1/S2 normal Resp: Decreased breath sounds with scattered bibasilar wheezing, normal respiratory effort Abd: Soft, NT/ND Skin: Warm, dry, pink, no rashes or lesions Neuro: Alert, oriented to person and place, dysarthric speech/hypophonia improved from initial exam, resting tremor noted Psych: Mood and affect improved from prior exam, fair insight/judgement Results & Data Results & Data Vital Signs (Past 12 Hours) Vital Signs Temp Pulse Pulse Resp BP Pulse Ox O2 Del Method 03/27/24 03:39 36.5 C 87 20 101/64 95 Nasal Cannula 03/27/24 02:34 89 20 Nasal Cannula 03/26/24 22:42 Nasal Cannula 03/26/24 22:29 95 H 19 95 Nasal Cannula 03/26/24 22:27 36.5 C 95 H 18 96/40 L 95 Nasal Cannula 03/26/24 21:47 98 H 03/26/24 20:14 97 H 20 94 Nasal Cannula 03/26/24 19:38 36.4 C L 97 H 18 103/56 L 94 Nasal Cannula O2 Flow Rate 03/27/24 03:39 3 03/27/24 02:34 3 03/26/24 22:42 3 03/26/24 22:29 3 03/26/24 22:27 3 03/26/24 21:47 03/26/24 20:14 3 03/26/24 19:38 3 Laboratory Results 03/27/24 06:50 03/27/24 06:50 Diagnostic Findings Brain MRI 03/26/24 11:10 MRI OF THE BRAIN COMBO CLINICAL HISTORY: Parkinsonism. COMPARISON STUDY: No priors. TECHNIQUE: MRI of the brain was performed utilizing various T1 and T2-weighted sequences in the axial, sagittal, and coronal planes. Contrast-enhanced sequences were acquired following the administration of 5.5 cc of Gadavist. FINDINGS: Brain parenchyma: There is age-related involutional change noting probable moderate subcortical and periventricular microangiopathic disease. There is no hemorrhage or mass effect. There is no restricted diffusion to suggest acute ischemia. No enhancing mass lesion is identified on the postcontrast images. Rasmussen-white matter differentiation is preserved. No extra-axial fluid collection is seen. The cerebellar tonsils are normal in configuration. Ventricles, sulci, and cisterns: Prominent secondary to involutional change. Pituitary and sella: Unremarkable. Intracranial vasculature: Normal flow voids are maintained at the skull base. Orbits: The bony orbits are grossly intact. Orbital contents are normal in appearance noting bilateral ocular lens implants. Sinuses and mastoids: There is mild mucosal thickening and secretions/fluid in the left maxillary sinus. There is also fluid within the sphenoid sinuses. There is a left mastoid effusion. The right mastoid air cells are clear. Calvarium: Unremarkable. Cervical cord: Partially visualized cervical spinal cord is normal in morphology and signal intensity. IMPRESSION: No acute intracranial abnormality. Electronically signed by: Kevin Moralez M.D. 03/26/2024 12:48 PM Chest X-Ray 03/26/24 22:45 XR chest 1V portable CLINICAL HISTORY: crackles on exam COMPARISON STUDY: Chest CT February 21, 2024. Chest radiograph March 25, 2024. FINDINGS: Emphysema is noted. There is no pneumothorax or pleural effusion. Cardiomediastinal silhouette is normal. Mild left basilar densities are present. There is no definite consolidation to suggest pneumonia. Pulmonary vascularity is normal. IMPRESSION: 1. Emphysema. 2. Mild left basilar densities. Atelectasis is favored although pneumonia could appear similar. Electronically signed by: Javier Flower M.D. 03/27/2024 6:48 AM Resident Activity Tracking Resident Involvement: Resident Care Provided Care Provided: Adult Hospital Medicine
[2024-03-27 07:20] LABS: BUN Creatinine Ratio 41.1 (10-20); Calcium 9.1 mg/dl (8.6-10.3); Creatinine Clr Calc Pharmacy 54.2 ml/min; Potassium 4.3 mmol/L (3.5-5.1)
[2024-03-27] MEDS: ENOXAPARIN INJ 40 MG/0.4 ML SYR SQ SCH (18:21)
--- NOTE | 2024-03-28 06:59 | Hospitalist Progress Note ---
Date of Service March 28, 2024 Assessment & Plan (1) Acute exacerbation of chronic obstructive pulmonary disease: Plan: 78yo with COPD presenting with worsening shortness of breath, acute on chronic respiratory failure with hypoxia. Diffuse wheezing present on exam. CXR with no obvious edema or infiltrate. PCR + Covid-19, uncertain if this represents re-infection vs persistently positive PCR testing (was PCR positive on 03/11). Procalcitonin is negative at 0.05, no obvious infiltrates. Suspect leukocytosis with neutrophil predominance is demargination from recent steroid use. - Continue Solumedrol 40mg IV TID; transition to po taper when s/s improve - Humidified supplemental O2, currently 2L, which is home dose (qualified at last discharge, 03/16) - 3% NSS neb as needed for secretion management - DuoNeb q4h, Albuterol q2h PRN, and Breo BID - Mucinex and flutter valve (2) Acute on chronic respiratory failure with hypoxia: Plan: Secondary to COPD exacerbation - Management with IV steroids, nebs, pulmonary toilet as above (3) Parkinson's disease: Plan: - Continue Carbidopa-Levodopa 2 x 25-250mg tabs TID - Aspiration precautions - Thickened liquids, zyqi-[id number]-[id number] diet - Substantially improved delirium/agitation; Seroquel 50mg has not been needed - Family describes acute worsening in mentation since last hospital discharge, with increased hostility (towards ) and impulsive behavior, especially notable after stopping prednisone/taper (less acute with the taper) - MRI brain w & w/o con, 03/26 showed age-related involutional changes; no acute abnormalities - Needs re-evaluation by PT/OT, ideally HH after discharge (4) COVID-19: Plan: - First tested PCR positive on 03/11; still + on 03/25 - Maintain isolation precautions - Solumedrol as above - Secretion management as above - Received Remdesivir during prior admission - Tylenol PRN, currently afebrile Plan Chronic Medical Conditions: Hypertension -Continue Losartan -Continue Metoprolol GERD -Continue Protonix BPH -Continue Flomax Admission and Anticipated Discharge Date Admission Date: March 25, 2024 Supervising Physician Co-Signing Physician Notes ATTESTATION I also saw the patient and confirmed pierre portions of the history and exam. I agree with the impression and plan in the resident documentation, and as summarized below. He has no complaints. Patient is seen just after nebulizer treatment. EXAM 116/70, 94, 16, 36.4, 96% nasal cannula Mucous membranes pink and moist Heart regular, rate about 80 upon my auscultation Lungs decreased in the bases, improved air exchange compared to yesterday, minimal wheezing DATA Labs White blood cell count 10.28, hemoglobin 12. Sodium 137, potassium 4.2, BUN 33, creatinine 0.8. Imaging Chest x-ray on 03/28/2024 shows persistent left basilar opacity. IMPRESSION & PLAN Acute hypoxic respiratory failure with COPD exacerbation Clinically improving Continue supplemental oxygen, now at home oxygen Change PO prednisone PT/OT Delirium in the setting of Parkinsonism Overall improved it seems improved Unfortunately, steroids can exacerbate; however, needed in this clinical situation Additional per resident documentation Subjective Doing well today. Reports breathing easier and coughing less. Appears to be in a good mood. Some confusion evident, e.g. trying to eat fixodent. No WHEELER, dizziness, CP, abd pain, dysuria. Review of Systems 2 Review of Systems: Per HPI. Physical Exam 2 Physical Exam: Gen: NAD, more alert and pleasant than prior exams HEENT: NCAT, PERRL CV: RRR, no m/r/g, S1/S2 normal Resp: Lungs largely clear, decreased breath sounds b/l bases, normal respiratory effort Abd: Soft, NT/ND Skin: Warm, dry, pink, no rashes or lesions Neuro: AOx3, dysarthric speech/hypophonia improved from initial exam, resting tremor noted Psych: Mood and affect improved from prior exam, fair insight/judgement Results & Data Results & Data Vital Signs (Past 12 Hours) Vital Signs Temp Pulse Pulse Resp BP Pulse Ox O2 Del Method 03/28/24 05:34 36.5 C 92 H 20 112/67 95 Nasal Cannula 03/28/24 02:52 92 H 20 94 Nasal Cannula 03/27/24 23:16 Nasal Cannula 03/27/24 22:36 104 H 18 95 Nasal Cannula 03/27/24 22:18 36.7 C 98 H 18 117/72 96 Nasal Cannula 03/27/24 22:14 96 H 03/27/24 19:33 113 H 18 93 Nasal Cannula 03/27/24 19:15 36.6 C 115 H 18 110/62 93 Nasal Cannula O2 Flow Rate 03/28/24 05:34 2 03/28/24 02:52 2 03/27/24 23:16 3 03/27/24 22:36 2 03/27/24 22:18 2 03/27/24 22:14 03/27/24 19:33 2 03/27/24 19:15 2 Laboratory Results 03/28/24 07:11 03/28/24 07:11 Resident Activity Tracking Resident Involvement: Resident Care Provided Care Provided: Adult Hospital Medicine
--- NOTE | 2024-03-28 07:35 | XRay Report ---
XR chest 1V portable CLINICAL HISTORY: hypoxia COMPARISON STUDY: Chest CT February 21, 2024. Chest radiograph March 26, 2024. FINDINGS: There is no pneumothorax or pleural effusion. Cardiomediastinal silhouette is normal. There is mild interstitial thickening and mild left basilar opacity. Underlying emphysema. IMPRESSION: 1. Persistent left basilar opacity. This may reflect pneumonia. 2. Emphysema. ACT 112: Negative or not required by law. Electronically signed by: Javier Flower M.D. 03/28/2024 7:34 AM
[2024-03-28 08:03] LABS: Hematocrit (blood only) 35.5 % (42.0-52.0); Mean Corpuscular Hemoglobin 30.5 pg (25.0-34.0); Mean Corpuscular Hgb Conc 33.8 g/dL (32.0-36.0); Mean Corpuscular Volume 90.3 fL (80.0-100.0); Mean Platelet Volume 8.4 fL (9.4-12.4); Platelet Count 184 K/uL (130-400); RDW Coefficient of Variation 14.2 % (11.5-14.5); Red Blood Count 3.93 M/uL (4.70-6.10); White Blood Count 10.28 K/ul (4.8-10.8)
[2024-03-28 09:14] LABS: BUN Creatinine Ratio 41.3 (10-20); Calcium 8.9 mg/dl (8.6-10.3); Potassium 4.2 mmol/L (3.5-5.1)
[2024-03-28] MEDS: FLUTICASONE PROPIONATE NA SPR 16 GM BTL PRN (09:44)
[2024-03-29 06:30] LABS: Hematocrit (blood only) 38.4 % (42.0-52.0); Hemoglobin 12.4 g/dl (14.0-18.0); Mean Corpuscular Hemoglobin 29.9 pg (25.0-34.0); Mean Corpuscular Hgb Conc 32.3 g/dL (32.0-36.0); Mean Corpuscular Volume 92.5 fL (80.0-100.0); Mean Platelet Volume 8.3 fL (9.4-12.4); Platelet Count 187 K/uL (130-400); RDW Coefficient of Variation 14.1 % (11.5-14.5); RDW Standard Deviation 47.9 fL (36.4-46.3); Red Blood Count 4.15 M/uL (4.70-6.10)
[2024-03-29 06:53] LABS: BUN Creatinine Ratio 34.8 (10-20); Calcium 9.2 mg/dl (8.6-10.3); Creatinine Clr Calc Pharmacy 54.8 ml/min; Potassium 4.2 mmol/L (3.5-5.1)
--- NOTE | 2024-03-29 07:36 | Hospitalist Progress Note ---
Date of Service March 29, 2024 Assessment & Plan (1) Acute exacerbation of chronic obstructive pulmonary disease: Plan: 78yo with COPD presenting with worsening shortness of breath, acute on chronic respiratory failure with hypoxia. - Initial exam w diffuse wheezing. CXR with no obvious edema or infiltrate. PCR + for Covid-19. Procalcitonin is negative at 0.05. Leukocytosis with neutrophil predominance, likely demargination from recent steroid use. - Repeat CXR x2 show persistent left basilar opacity; may reflect pneumonia, but pt afebrile and clinically improving - Continue Solumedrol 40mg IV TID; transition to po taper when s/s improve - Humidified supplemental O2, currently sat >95% on 2L (which is home dose, qualified at last discharge on 03/16) - 3% NSS neb as needed for secretion management - DuoNeb q4h, Albuterol q2h PRN, and Breo BID - Mucinex and flutter valve (2) Acute on chronic respiratory failure with hypoxia: Plan: Secondary to COPD exacerbation - Management with IV steroids, nebs, pulmonary toilet as above (3) Parkinson's disease: Plan: - Continue Carbidopa-Levodopa 2 x 25-250mg tabs TID - Aspiration precautions - Thickened liquids, [id number] diet - Substantially improved delirium/agitation; Seroquel 50mg has not been needed - Family describes acute worsening in mentation since last hospital discharge, with increased hostility (towards ) and impulsive behavior, especially notable after stopping prednisone/taper (less acute with the taper) - MRI brain w & w/o con, 03/26 showed age-related involutional changes; no acute abnormalities - Needs PT/OT eval, ideally HH after discharge (4) COVID-19: Plan: - First tested PCR positive on 03/11; still + on 03/25 - Maintain isolation precautions - Solumedrol as above - Secretion management as above - Received Remdesivir during prior admission - Tylenol PRN, currently afebrile Plan Chronic Medical Conditions: Hypertension -Continue Losartan -Continue Metoprolol GERD -Continue Protonix BPH -Continue Flomax Admission and Anticipated Discharge Date Admission Date: March 25, 2024 Supervising Physician Co-Signing Physician Notes ATTESTATION I also saw the patient and confirmed pierre portions of the history and exam. I agree with the impression and plan in the resident documentation, and as summarized below. He has no complaints. EXAM VSS Mucous membranes pink and moist Heart regular rate and rhythm Lungs decreased in the bases, scattered wheezing, improved post nebulizer compared to resident exam DATA Labs White blood cell count 9.80, hemoglobin 12.4 Sodium 135, potassium 4.2, BUN 31, creatinine 0.89. IMPRESSION & PLAN Acute hypoxic respiratory failure with COPD exacerbation Clinically improving Continue supplemental oxygen, now at home oxygen Change PO prednisone PT/OT; placement vs home services Delirium in the setting of Parkinsonism Overall improved it seems improved Unfortunately, steroids can exacerbate; however, needed in this clinical situation Additional per resident documentation Subjective Doing well today. Reports breathing easier and coughing less. In a pleasant mood, sitting in chair by window. No WHEELER, dizziness, CP, abd pain, dysuria. Review of Systems 2 Review of Systems: Per HPI. Physical Exam 2 Physical Exam: Gen: NAD, alert, pleasant, not very talkative HEENT: NCAT, PERRL CV: RRR, no m/r/g, S1/S2 normal Resp: Scattered wheezing worsened from yesterday, decreased breath sounds b/l bases, normal respiratory effort, no cough Abd: Soft, NT/ND Skin: Warm, dry, pink, no rashes or lesions Neuro: AOx3, dysarthric speech/hypophonia improved from initial exam, resting tremor noted Psych: Mood and affect good, insight/judgement fair Results & Data Results & Data Vital Signs (Past 12 Hours) Vital Signs Temp Pulse Pulse Resp BP Pulse Ox O2 Del Method 03/29/24 07:22 36.5 C 94 H 20 124/81 93 Nasal Cannula 03/29/24 07:05 79 18 94 Nasal Cannula 03/29/24 04:10 107 H 03/29/24 02:08 92 H 18 95 Nasal Cannula 03/29/24 01:17 36.5 C 87 16 140/81 92 Nasal Cannula 03/28/24 23:10 90 18 87 L Room Air 03/28/24 22:11 Nasal Cannula 03/28/24 19:51 36.5 C 85 18 126/79 92 Room Air 03/28/24 19:37 86 18 93 Room Air O2 Flow Rate 03/29/24 07:22 03/29/24 07:05 3 03/29/24 04:10 03/29/24 02:08 2 03/29/24 01:17 2 03/28/24 23:10 03/28/24 22:11 2 03/28/24 19:51 03/28/24 19:37 Laboratory Results 03/29/24 06:01 03/29/24 06:01 Diagnostic Findings Chest X-Ray 03/28/24 08:00 XR chest 1V portable CLINICAL HISTORY: hypoxia COMPARISON STUDY: Chest CT February 21, 2024. Chest radiograph March 26, 2024. FINDINGS: There is no pneumothorax or pleural effusion. Cardiomediastinal silhouette is normal. There is mild interstitial thickening and mild left basilar opacity. Underlying emphysema. IMPRESSION: 1. Persistent left basilar opacity. This may reflect pneumonia. 2. Emphysema. Electronically signed by: Javier Flower M.D. 03/28/2024 7:34 AM Resident Activity Tracking Resident Involvement: Resident Care Provided Care Provided: Adult Hospital Medicine
[2024-03-30] MEDS: QUEtiapine FUMARATE 25 MG TABLET PO PRN (01:17)
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
[2024-03-30] MEDS: predniSONE 20 MG TAB PO SCH (08:38)
[2024-03-30] MEDS: OLANZapine 10 MG/2.1 ML SDV IM STA ×2 (08:57→10:19)
[2024-03-30 17:10] LABS: Hematocrit (blood only) 42.3 % (42.0-52.0); Hemoglobin 14.2 g/dl (14.0-18.0); Mean Corpuscular Hemoglobin 30.2 pg (25.0-34.0); Mean Corpuscular Hgb Conc 33.6 g/dL (32.0-36.0); Mean Platelet Volume 8.5 fL (9.4-12.4); Platelet Count 185 K/uL (130-400); RDW Coefficient of Variation 13.9 % (11.5-14.5); RDW Standard Deviation 46.2 fL (36.4-46.3); White Blood Count 11.65 K/ul (4.8-10.8)
[2024-03-30 17:15] LABS: BUN Creatinine Ratio 34.5 (10-20); Calcium 9.2 mg/dl (8.6-10.3); Creatinine Clr Calc Pharmacy 56.1 ml/min; Potassium 4.1 mmol/L (3.5-5.1)
--- NOTE | 2024-03-30 18:54 | Billing Data ---
Date of Service March 30, 2024 Coding Level of Care Code 34854 SUB INP/OBS CARE
[2024-03-31 06:56] LABS: Hematocrit (blood only) 42.8 % (42.0-52.0); Hemoglobin 14.4 g/dl (14.0-18.0); Mean Corpuscular Hemoglobin 30.3 pg (25.0-34.0); Mean Corpuscular Hgb Conc 33.6 g/dL (32.0-36.0); Mean Corpuscular Volume 90.1 fL (80.0-100.0); Mean Platelet Volume 8.5 fL (9.4-12.4); Platelet Count 193 K/uL (130-400); RDW Coefficient of Variation 13.9 % (11.5-14.5); RDW Standard Deviation 46.7 fL (36.4-46.3); Red Blood Count 4.75 M/uL (4.70-6.10); White Blood Count 12.13 K/ul (4.8-10.8)
[2024-03-31 07:18] LABS: BUN Creatinine Ratio 33.3 (10-20); Calcium 8.7 mg/dl (8.6-10.3); Creatinine Clr Calc Pharmacy 47.1 ml/min; Potassium 3.6 mmol/L (3.5-5.1)
--- NOTE | 2024-03-31 08:18 | Hospitalist Progress Note ---
Date of Service March 31, 2024 Assessment & Plan (1) Acute exacerbation of chronic obstructive pulmonary disease: Plan: 78yo with COPD & Parkinson's, presenting with worsening shortness of breath, acute on chronic respiratory failure with hypoxia. - Initial exam w diffuse wheezing. CXR with no obvious edema or infiltrate. PCR + for Covid-19. Procalcitonin is negative at 0.05. Leukocytosis with neutrophil predominance, likely demargination from recent steroid use. - Repeat CXR x2 show persistent left basilar opacity; may reflect pneumonia, but pt afebrile and clinically improving - Transition from IV solumedrol to po pred Completed 5 days IV steroids Goal is total 14 day course, including taper 03/30 dose not given d/t pt's delirium; resumed 03/31 09:10 - Humidified supplemental O2, currently sat >95% on 2L (which is home dose, qualified at last discharge on 03/16) - 3% NSS neb as needed for secretion management - DuoNeb q4h, Albuterol q2h PRN, and Breo BID - Mucinex and flutter valve (2) Acute on chronic respiratory failure with hypoxia: Plan: Secondary to COPD exacerbation - Management with IV steroids, nebs, pulmonary toilet as above (3) Parkinson's disease: Plan: - Continue Carbidopa-Levodopa 2 x 25-250mg tabs TID - Aspiration precautions - Thickened liquids, [id number] diet - Family describes acute worsening in mentation since last hospital discharge, with increased hostility (towards ) and impulsive behavior, especially notable after stopping prednisone/taper (less acute with the taper) - MRI brain w & w/o con, 03/26 showed age-related involutional changes; no acute abnormalities - Ongoing delirium/agitation Seroquel 50mg has not been needed 2 x 5mg IM zyprexa needed 10/7 AM Briefly placed on one-to-one observation - Seen by PT/OT; determined to be at physical baseline, recommended going home w HH Son reports 20h [facility] May relieve caregiver burden on to first have brief stay at rehab facility Work w CM and his [facility] to determine best placement (4) COVID-19: Plan: - First tested PCR positive on 03/11; still + on 03/25 - Maintain isolation precautions - Solumedrol as above - Secretion management as above - Received Remdesivir during prior admission - Tylenol PRN, currently afebrile Plan Chronic Medical Conditions: Hypertension -Continue Losartan -Continue Metoprolol GERD -Continue Protonix BPH -Continue Flomax Admission and Anticipated Discharge Date Admission Date: March 25, 2024 Supervising Physician Co-Signing Physician Notes I personally examined the patient and verified all pierre points of history and exam, discussed case, and agree with decision making with Dr Painter. no meaningful HPI or ROS obtainable from pt. updated again at bedside. demonstrated encouraging PO intake. Vitals noted, in general he is awake and alert disoriented pleasant no distress. Breathing unlabored no accessory muscle use good effort. Skin without rashes pallor or icterus. willingly drinks when offered. a little less so with food. IMPRESSION & PLAN Acute hypoxic respiratory failure with COPD exacerbation Clinically improving Continue supportive care, p.o. prednisone. Anticipate need for SNF for rehab Delirium in the setting of Parkinsonism suspect repeated bouts of delirium and worsening deconditioning are part of his acute decline in functional status. Discussed with family in depth, reiterated today. encourage PO intake. PT/OT eval and treat. DVT proph - lovenox Additional per resident documentation Subjective Doing better today. Still somewhat paranoid that people (notably, his family) are out to get him. Complains they changed his TV, took away his phone. Mentioned belief that he's dying several times. Does believe that his care team truly cares about his health. Says he's doing a lot better in terms of breathing and movement. Denies any pain. I spoke w his son, Manoj, last night to answer questions about his worsening mobility, the general prognosis of delirium, and discharge planning. Review of Systems 2 Review of Systems: Per HPI. Physical Exam 2 Physical Exam: Gen: more comfortable and conversant today, still paranoid but directed at fam not hc providers HEENT: NCAT, PERRL Resp: Lungs sound clearer than prior exams; decreased breath sounds throughout; normal respiratory effort Skin: No rashes, bruises, or breakdown Neuro: AOx3, posture, ROM, and str improved from initial assessments, resting tremor noted Results & Data Results & Data Vital Signs (Past 12 Hours) Vital Signs Temp Pulse Pulse Resp BP BP Pulse Ox 03/31/24 07:50 36.6 C 126 H 18 83/55 L 90 03/31/24 07:36 116 H 03/31/24 04:20 36.6 C 94 H 18 106/62 93 03/30/24 23:25 92 H 03/30/24 23:00 36.9 C 98 H 18 107/65 96 03/30/24 21:13 O2 Del Method O2 Flow Rate 03/31/24 07:50 Nasal Cannula 2 03/31/24 07:36 03/31/24 04:20 Nasal Cannula 3 03/30/24 23:25 03/30/24 23:00 Nasal Cannula 2 03/30/24 21:13 Nasal Cannula 2 Laboratory Results 03/31/24 06:11 03/31/24 06:11 Resident Activity Tracking Resident Involvement: Resident Care Provided Care Provided: Adult Hospital Medicine
--- NOTE | 2024-03-31 17:13 | Billing Data ---
Date of Service March 31, 2024 Coding Level of Care Code 17725 SUB INP/OBS CARE
[2024-03-31] MEDS: ALBUT/IPRATROP 3MG/0.5MG NEB 3 ML VIAL NEB PRN (18:49)
[2024-03-31] MEDS ORDERED: methylPREDNISolone 125 MG/2 ML VIAL IV STA (18:56)
[2024-03-31] MEDS ORDERED: LEVALBUTEROL HCL 0.63 MG/3 ML NEB NEB PRN (19:18)
--- NOTE | 2024-03-31 19:35 | XRay Report ---
SINGLE VIEW CHEST CLINICAL HISTORY: Respiratory distress FINDINGS: An AP, portable, upright chest radiograph is compared to study dated 03/28/2024 and correlat ed with chest CT dated 02/21/2024. The cardiomediastinal silhouette is unremarkable noting atheroscler otic calcification of the thoracic aorta. Enlargement of the central pulmonary arteries suggests pulm onary artery hypertension. Advanced emphysema and chronic interstitial thickening is similar to previ ous. Foci of parenchymal scarring are seen throughout both lungs. Left basilar opacities are similar to previous. No large pleural effusion or pneumothorax is identified. The skeletal structures are ost eopenic. The bony thorax is grossly intact. Cholecystectomy clips are seen in the right upper quadran t. IMPRESSION: 1. Advanced emphysema. 2. Left basilar opacities are similar to previous and could represent scarring/atelectasis versus min imal pneumonitis. Clinical correlation would be required and continued follow-up to resolution is rec ommended. ACT 112: Negative or not required by law. Electronically signed by: Kevin Moralez M.D. 03/31/2024 7:33 PM
[2024-03-31] MEDS ORDERED: VANCOMYCIN CONSULT ACTIVE PRN (19:38)
[2024-03-31] MEDS: ALBUMIN 25% 25 GM/100 ML VIAL IV SCH (19:42)
[2024-03-31 19:53] LABS: Hematocrit (blood only) 44.3 % (42.0-52.0); Hemoglobin 15.3 g/dl (14.0-18.0); Mean Corpuscular Hemoglobin 30.9 pg (25.0-34.0); Mean Corpuscular Hgb Conc 34.5 g/dL (32.0-36.0); Mean Corpuscular Volume 89.5 fL (80.0-100.0); Mean Platelet Volume 8.4 fL (9.4-12.4); Platelet Count 214 K/uL (130-400); RDW Coefficient of Variation 14.3 % (11.5-14.5); RDW Standard Deviation 46.3 fL (36.4-46.3); Red Blood Count 4.95 M/uL (4.70-6.10); White Blood Count 17.35 K/ul (4.8-10.8)
[2024-03-31] MEDS: methylPREDNISolone 125 MG in SYRINGE 0 ML IV ONE (19:55)
[2024-03-31] MEDS: SODIUM CHLORIDE 0.9% 250 ML IV ONE (19:57)
[2024-03-31] MEDS: SODIUM CHLORIDE 0.9% 500 ML IV ONE (19:58)
[2024-03-31 20:08] LABS: Albumin Globulin Ratio 1.3 (0.9-2); Albumin Level 3.4 gm/dl (3.4-5.0); BUN Creatinine Ratio 33.9 (10-20); Bilirubin,Total 1.1 mg/dl (0.2-1.0); Creatinine Clr Calc Pharmacy 37.6 ml/min; Globulin 2.7 gm/dl (2.5-4.0); Magnesium 2.2 mg/dl (1.7-2.4); Phosphorus 4.3 mg/dl (2.5-4.9); Potassium 4.2 mmol/L (3.5-5.1); Total Protein 6.1 gm/dl (6.0-8.3)
--- NOTE | 2024-03-31 20:10 | Communication Note ---
Date of Service: March 31, 2024 Danie is a 78M w/ PMH of COPD, prediabetes, BPH w/ LUTS, bladder tumor, PD, ED, and RBBB who presented from home for increased dyspnea and oxygen demand and was admitted for COPD exacerbation related to COVID-19 infection 03/25/24. Patient has been receiving IV Solumedrol (transitioned to PO), DuoNeb q4h, Albuterol q2h PRN, and Breo BID for symptom management. No active antibiotic management. Patient was also admitted 03/11-03/16 for COPD/COVID. Vitals: BP 70s/40s x 2 (1904), tachycardia to 135, afebrile, 91% on BiPAP w/ FiO2 50% Exam: Generally unwell, NAD. Dry mucous membranes. Heat tachycardic rate with regular rhythm. Lungs with diffuse crackles throughout, restricted air entry, labored breathing. NO JVD or LE edema, distal pulses 2+, capillary refill < 2s. ECG: Sinus tachycardia (1929) Assessment/Plan - Ordered ABG and CXR STAT - Patient started on BiPAP 1829 (by day team) w/o improvement in vitals - Albuterol held in favor of Xopinex d/t provocation of HR increase - Remains hemodynamically unstable, NSS 500 cc bolus and Albumin 50g ordered - CBC, CMP, Mag, Phos, Lactate, Procal, Blood cultures ordered - CXR w/ interval worsening - Increased Leukocytosis (0735) additional labs pending, of note patient receiving steroids - Given clinical deterioration, added empiric antibiotic coverage w/ Cefepime/Vancomycin - Limited hemodynamic response to bolus/albumin infusion, case reviewed w/ ICU ANGEL LUIS d/t unstable MAP - Ultimately patient's vitals remained unstable with imminent risk of requiring pressors/intubation - Patient transferred to ICU for ongoing care Resident Activity Tracking Resident Involvement: Resident Care Provided Care Provided: Adult Hospital Medicine
[2024-03-31 20:17] LABS: Base Excess ABG -2.3 mEq/L (-9-1.8); HCO3 ABG 21 mmol/L (19-24); Oxygen Saturation ABG 98.8 % (90-95); PCO2 ABG 32 mmHg (35-46); PO2 ABG 94 mmHg (80-95); pH ABG 7.43 (7.35-7.45)
[2024-03-31 20:18] LABS: Allen Test Pos (Pos)
[2024-03-31] MEDS ORDERED: STAT IV Infusion **Titration per Protocol STA (20:44)
[2024-03-31] MEDS: VANCOMYCIN HCL 1,250 MG in SODIUM CHLORIDE 0.9% 250 ML IV ONE (21:48)
[2024-03-31] MEDS: CEFEPIME 2000MG 2,000 MG/20 ML SYR IV SCH (21:49)
[2024-03-31 22:34] LABS: Thyroid Stimulating Hormone 3.849 uIu/ml (0.300-4.500)
[2024-03-31] MEDS: PHENYLEPHRINE/NSS 25 MG/250 ML BAG IV SCH (22:46)
[2024-03-31 22:50] LABS: Base Excess VBG -2.2 mEq/L; HCO3 VBG 24 mmol/L; Oxygen Saturation VBG < 60.0 %; PCO2 VBG 47 mmHg (38-50); PO2 VBG 32 mmHg; pH VBG 7.32 (7.36-7.41)
[2024-03-31 22:52] LABS: iSTAT Allen Test Pass; iSTAT Art Bld Gas pCO2 Correct 33 mmHg (35-46); iSTAT Art Bld Gas pH Corrected 7.394 (7.35-7.45); iSTAT Arterial Blood Gas HCO3 20 meg/L (19-24); iSTAT Arterial Blood Gas pCO2 33 mmHg (35-46); iSTAT Arterial Blood Gas pH 7.39 (7.35-7.45); iSTAT Arterial Blood Gas pO2 66 mmHg (80-95); iSTAT Arterial Blood Gas pO2 C 64; iSTAT Carbon Dioxide 21 mmol/L (24-31); iSTAT FiO2 35 %; iSTAT Hematocrit 36 % (42-52); iSTAT Hemoglobin 12.2 g/dl (14.0-18.0); iSTAT Potassium 3.6 mmol/L (3.3-5.0); iSTAT Site R Radial; iSTAT Sodium 140 mmol/L (135-144)
[2024-03-31 22:55] LABS: Appearance Urine Clear (Clear); Bacteria Urine Automated None Seen (None Seen); Bilirubin Urine 1+ (Negative); Blood Urine 2+ (Negative); Cast Urine Automated >20 /lpf (0-2); Color Urine Dark Yellow; Epithelial Cell Urine Auto 0-2 /hpf (0-2); Glucose Urine UA Negative (Negative); Ketones Urine Trace (Negative); Leukocyte Esterase Urine Trace (Negative); Nitrite Urine Negative (Negative); Protein Urine 1+ (Negative); RBC Urine Automated >20 /hpf (0-2); Specific Gravity Urine 1.022 (1.000-1.030); Urobilinogen Urine Negative (Negative); pH Urine 5.5 (4.5-7.5)
[2024-03-31] MEDS ORDERED: GLUCOSE 10 TAB/TUBE PO PRN (23:38)
[2024-03-31] MEDS ORDERED: GLUCAGON FOR INJ 1 MG VIAL SQ PRN (23:38)
[2024-03-31] MEDS ORDERED: CARBOHYDRATES FOR HYPOGLYCEMIA PO PRN (23:38)
[2024-03-31] MEDS ORDERED: GLUCOSE 40% GEL 15 GM TUBE PO PRN (23:38)
[2024-03-31] MEDS ORDERED: DEXTROSE 50% 50 ML SYRINGE IV PRN (23:38)
--- NOTE | 2024-03-31 23:56 | Critical Care Consultation ---
Date of Consultation March 31, 2024 Assessment & Plan (1) Acute hypoxemic respiratory failure: See below Plan #Acute exacerbation of COPD (appears to have advanced stage COPD, though no PFT records available) #SELENA on CKD #Parkinsonism #Worsening functional status #Hypovolemic vs vasodilatory shock #Possible LLL pneumonia Neurologic: Avoid sedating medications Patient had required IM Zyprexa due to agitation, was placed on PRN Seroquel which he has not required. He is calm and cooperative on exam MRI Brain shows microvascular disease without ischemia. Patient sees Neurologist in [place] for his Parkinsonism Continue Carbidopa-Levodopa, Entacapone APAP PRN pain/fever Cardiovascular: MAP > 65mmHg and SBP > 90mmHg Vasopressor as needed. Neosynephrine initially selected due to reports of possible atrial flutter. Can transition to Levophed if patient continues to require Hold antihypertensives TTE 01/2024: LVEF intact, grade I diastolic dysfunction. RV moderately dilated. Did not mention pHTN. Difficulty viewing structures POCUS unable to reliably visualize heart or IVC Received 500cc NSS and 500mL 5% albumin per Hospitalist team with improvement in hypotension and tachycardia Respiratory: Patient has shallow breathing when off BIPAP, will continue overnight Scheduled Breztri, PRN albuterol Continue 3% nebs and aggressive pulmonary toileting for airway clearance Repeat CXR in AM Continue steroid for now Antibiotics as below Further recommendations to be made by Protection Analyst in AM Gastrointestinal/Nutrition: Diet: NPO overnight SUP: N/A Bowel regimen: Ordered Painter Decorator consult, patient appears malnourished Endocrine: ISS as needed for BG 140-180 per [facility] guidelines Steroids as above Infectious Disease: Received Cefepime/Vancomycin by Hospitalist team Would start ceftriaxone/azithromycin pending clinical course and culture data MRSA pending, BCx2 pending Heme/Onc: Will obtain venous doppler study to R/O DVT DVT PPX: Enoxaparin Renal/Electrolytes: Received IVF bolus as above Will hold on continuous IVF for now, he responded well to bolus so can consider repeating as needed Cr bump since this AM, prerenal in setting of hypotension Remainder of management per Dr. Sheehan's recommendations. Code status: Full code per patient's and son History of Present Illness Reason for Consultation: Hypotension, Respiratory failure Attending Physician: Leeroy Pickett DO History of Present Illness Mr. Simons is a chronically ill 78YOM with a history of Parkinsonism (Dx 2023), RBBB, Bladder tumor and BPH, hypertension, COPD with frequent admissions for exacerbations, prediabetes who was admitted to [facility] on 03/25/2024 after presenting due to shortness of breath. He was diagnosed with acute exacerbation of COPD. Positive for COVID on admission, initial positive in February and had received Remdesivir as OP. Completed 5 days of Solumedrol, transitioned to PO prednisone. Course complicated by paranoia/delirium. Patient was reportedly placed on BIPAP around 1830. Started on empiric antibiotics, IVF bolus per primary team. BC x2 drawn. ICU was consulted due to hypotension, tachycardia, and worsening respiratory status. Patient seen in room 279. He awakens to voice, does not respond. His SBP is persistently < 90mmHg. He is tachycardic to 130s, unknown rhythm. Patient transferred to ICU for continuation of care. On arrival to ICU 106, patient awakens to voice, attempts to speak while on BIPAP. Not getting adequate tidal volumes thus mask was changed with improvement. He is requiring low dose Neosynephrine. Sinus tachycardia has improved with IVF bolus. Unable to reliably view heart or IVC on POCUS to determine volume status. Air movement is limited diffusely. No significant wheezing. CXR reviewed - perihilar fullness and L basilar scarring vs developing infiltrate. Remains afebrile. Developed mild SELENA on repeat labs. No other significant metabolic abnormalities. Patient unable to provide ROS at this time. Held discussion with family. Per patient's son he sees a Protection Analyst through the [facility] who is a contracted physician. Son states there is nothing done by him for his father, and they are not happy with the care provided. Does not appear our Pulmonology team was consulted for any of patient's numerous admission for AECOPD this calendar year. Allergies Allergy/AdvReac Type Severity Reaction Status Date / Time bee venom protein (honey bee) Allergy Severe Anaphylaxis Verified 02/21/24 22:49 rhubarb AdvReac Intermediate ANXIETY, Verified 02/21/24 22:58 "ON EDGE", "FEELS LIKE NAILS ON CHALKBOARD". Home Medications Medication Instructions Recorded Confirmed Type acetaminophen 500 mg tablet 500 - 1,000 mg PO DIRECTED PRN 04/04/22 03/25/24 History (Tylenol Extra Strength) Pain albuterol sulfate 90 mcg/actuation 2 puff inhalation QID PRN 04/04/22 03/25/24 History aerosol inhaler Shortness Of Breath Or Wheezing fluticasone propionate 50 1 - 2 spray intranasal DAILY PRN 04/04/22 03/25/24 History mcg/actuation nasal Congestion spray,suspension mirabegron 25 mg tablet,extended 25 mg PO DAILY 04/04/22 03/25/24 History release 24 hr (Myrbetriq) omeprazole 20 mg capsule,delayed 20 mg PO DAILYBB 04/04/22 03/25/24 History release tamsulosin 0.4 mg capsule 0.4 mg PO HS 04/04/22 03/25/24 History Lactobacillus acidophilus 1 tab PO DAILY 12/22/23 03/25/24 History budesonide 160 mcg-glycopyr 9 2 inh inhalation BID 12/22/23 03/25/24 History mcg-formot 4.8 mcg/actuation HFA inhaler (Breztri Aerosphere) carbidopa 25 mg-levodopa 250 mg 2 tab PO TID 12/22/23 03/25/24 History tablet docusate sodium 100 mg capsule 100 mg PO BID PRN Constipation 12/22/23 03/25/24 History entacapone 200 mg tablet 200 mg PO TID 12/22/23 03/25/24 History guaifenesin 200 mg tablet 400 mg PO TID PRN THICK MUCOUS 12/22/23 03/25/24 History metoprolol succinate 25 mg 25 mg PO DAILY 12/22/23 03/25/24 History tablet,extended release 24 hr multivitamin with minerals 1 tab PO DAILY 12/22/23 03/25/24 History sodium chloride 0.9 % for 3 ml inhalation QID PRN MUCOUS 12/22/23 03/25/24 Hist ory nebulization MOBILIZATION Simply Thick 6 units PO DAILY 02/21/24 03/14/24 History prednisone 10 mg tablet 10 mg PO DAILY #20 tabs 02/26/24 03/14/24 Rx prednisone 10 mg tablet See Rx Instructions .Route 03/16/24 Rx .COMPLEX #12 tabs losartan 25 mg tablet 25 mg PO DAILY 03/25/24 03/25/24 History Patient History Medical History (Updated 03/28/24 @ 00:10 by Background Daemon) Dyspnea on exertion Acute hypoxemic respiratory failure GERD (gastroesophageal reflux disease) Hypertension Thrombocytopenia Family History Other Family history non-contributory Social History Smoking Status: Former smoker Tobacco Type: Cigarettes Hx Alcohol Use: No Hx Substance Use: No Preferred Language: Czech Communication Ability: Effective Middleware Solutions Architect Required: No Beliefs That Will Affect Care: None Current Living Situation: Spouse Feels Safe at Home: Yes Safety Concerns: Feels Safe At This Time Assistive Devices: Oxygen - Continuous, Walker and Wheelchair Review of Systems Review of Systems: Unobtainable. Physical Exam Constitutional: + frail appearing and + malnourished; no acute distress Eyes: PERRL, conjunctivae normal, anicteric sclerae ENMT: Mouth: + dry oral mucous membranes Respiratory: + tachypneic and symmetric chest movemen t; no respiratory distress, no retractions and does not use accessory muscles Auscultation: + diminished lung sounds; no rales, no rhonchi and no wheezes Cardiovascular: RRR, no murmur, no edema Gastrointestinal (Abdomen): normal bowel sounds, soft, nontender, no hepatosp lenomegaly Skin: no rashes, warm and dry Neurologic: PERRL, EOMI, accommodation nl, no face palsy, no dysarthria Results & Data Results & Data Vital Signs (Past 12 Hours) Vital Signs Temp Pulse Pulse Pulse Resp BP BP 03/31/24 23:01 120 H 29 H 03/31/24 20:27 122 H 20 81/57 L 03/31/24 19:59 131 H 32 H 87/58 L 03/31/24 19:43 130 H 76/52 L 03/31/24 18:49 137 H 34 H 03/31/24 18:49 137 H 34 H 03/31/24 18:09 36.4 C L 142 H 30 H 89/61 L 03/31/24 15:17 36.8 C 123 H 18 95/64 L 03/31/24 14:58 Pulse Ox Pulse Ox O2 Del Method O2 Flow Rate O2 Flow Rate FiO2 03/31/24 23:01 94 35 03/31/24 20:27 99 BiPAP 03/31/24 19:59 98 BiPAP 03/31/24 19:43 98 Room Air 03/31/24 18:49 91 50 03/31/24 18:49 91 BiPAP 50 03/31/24 18:09 90 Oxymask 10 03/31/24 15:17 90 Nasal Cannula 2 03/31/24 14:58 92 2 Coding Level of Care Code 82796 IN/OBS CONSULT LVL 2,35M Diagnoses Acute hypoxemic respiratory failure J96.01 Time Spent (min) 45
[2024-04-01] MEDS: INSULIN ASPART PER UNIT CHARGE SC SCH (00:24)
[2024-04-01] MEDS: ALBUT/IPRATROP 3MG/0.5MG NEB 3 ML VIAL NEB SCH (01:31)
--- NOTE | 2024-04-01 01:46 | Ultrasound Report ---
Exam(s): US VENOUS BILATERAL LOWER EXTREMITIES EXAM: US Duplex Bilateral Lower Extremities Veins CLINICAL HISTORY: Reason for exam: Tachycardia and hypoxemia. TECHNIQUE: Real-time duplex ultrasound scan of the bilateral lower extremity veins integrating B-mode two-dimensional vascular structure, Doppler spectral analysis, color flow Doppler imaging and compression. COMPARISON: No relevant prior studies available. FINDINGS: Right deep veins: Unremarkable. No DVT in the right common femoral, femoral, proximal deep femoral or popliteal veins. The veins demonstrate normal color flow, are normally compressible, with normal phasic flow and/or augmentation response. Right superficial veins: Unremarkable. No thrombus in the visualized right great saphenous vein. Left deep veins: Unremarkable. No DVT in the left common femoral, femoral, proximal deep femoral or popliteal veins. The veins demonstrate normal color flow, are normally compressible, with normal phasic flow and/or augmentation response. Left superficial veins: Unremarkable. No thrombus in the visualized left great saphenous vein. Soft tissues: No acute findings. No popliteal cyst. IMPRESSION: Normal bilateral lower extremity duplex venous ultrasound. Electronically signed by: Bam Machuca MD 04/01/24 01:46 AM
[2024-04-01 04:58] LABS: Calcium 8.8 mg/dl (8.6-10.3); Creatinine Clr Calc Pharmacy 48.6 ml/min; Magnesium 2.2 mg/dl (1.7-2.4); Phosphorus 2.6 mg/dl (2.5-4.9); Potassium 4.1 mmol/L (3.5-5.1)
[2024-04-01 05:03] LABS: Hematocrit (blood only) 36.3 % (42.0-52.0); Hemoglobin 12.2 g/dl (14.0-18.0); Mean Corpuscular Hemoglobin 30.5 pg (25.0-34.0); Mean Corpuscular Hgb Conc 33.6 g/dL (32.0-36.0); Mean Corpuscular Volume 90.8 fL (80.0-100.0); Mean Platelet Volume 8.4 fL (9.4-12.4); Platelet Count 161 K/uL (130-400); RDW Coefficient of Variation 14.5 % (11.5-14.5); RDW Standard Deviation 47.8 fL (36.4-46.3); White Blood Count 18.16 K/ul (4.8-10.8)
[2024-04-01 05:17] LABS: Basophils # (auto) 0.02 K/uL (0.00-0.20); Basophils % (auto) 0.1 %; Immature Granulocytes % (auto) 0.6 %; Lymphocytes # (auto) 0.16 K/uL (1.20-3.40); Lymphocytes % (auto) 0.9 %; Monocytes # (auto) 0.23 K/uL (0.11-0.59); Monocytes % (auto) 1.3 %; Neutrophils # (auto) 17.65 K/uL (1.40-6.50); Neutrophils % (auto) 97.1 %; RBC Morphology Unremarkable
[2024-04-01] MEDS: ICU Protocol for HYPERglycemia SCH (08:08)
[2024-04-01] MEDS ORDERED: DOCUSATE SODIUM SYRUP 100 MG/10 ML UDC PO PRN (10:37)
[2024-04-01] MEDS: methylPREDNISolone 40 MG in SYRINGE 0 ML IV SCH (11:07)
[2024-04-01] MEDS: PANTOprazole 40 MG in SYRINGE DAILY IV SCH (11:07)
--- NOTE | 2024-04-01 13:54 | Hospitalist Progress Note ---
Date of Service April 01, 2024 Assessment & Plan (1) Acute exacerbation of chronic obstructive pulmonary disease: Plan: 78yo with COPD & Parkinson's, presenting with worsening shortness of breath, acute on chronic respiratory failure with hypoxia. - Initial exam w diffuse wheezing. CXR with no obvious edema or infiltrate. PCR + for Covid-19. Procalcitonin is negative at 0.05. Leukocytosis with neutrophil predominance, likely demargination from recent steroid use. - Repeat CXR x2 showed persistent left basilar opacity; may reflect pneumonia, but pt afebrile and clinically improving - Transitioned off IV solumedrol to po pred on 03/30 03/30 dose not given d/t pt's delirium; resumed 03/31 09:10 Back to IV steroids on 04/01 in ICU - Currently on BiPAP IPAP 12 EPAP 5 Rate 12 FIO2 35 TV exhaled 686 - Duoneb q6R, formoterol 20mcg BIDR, budesonide 0.5mg BIDR (2) Acute on chronic respiratory failure with hypoxia: Plan: Secondary to COPD exacerbation Concern for possible aspiration PNA - Transferred to ICU, kept NPO - CXR showed left basilar opacities similar to previous studies; US doppler normal - WBC 18.16, procal 0.04, BNP 90, ABG notable for pCO2 of 32 and O2 sat of 98.8 - Given 1250mg IV Vanco x1 & IV cefepime 2000mg q12h - Vasopressor support is been titrated off. - Continue nebulized budesonide and Perforomist, IV steroids, Bipap - Consider NG tube placement to mitigate malnutrition w/o increasing risk of aspiration (3) Parkinson's disease: Plan: - Continue Carbidopa-Levodopa 2 x 25-250mg tabs TID - Aspiration precautions - Thickened liquids, joih-rv-[id number] diet - Family describes acute worsening in mentation since last hospital discharge, with increased hostility (towards ) and impulsive behavior, especially notable after stopping prednisone/taper (less acute with the taper) - MRI brain w & w/o con, 03/26 showed age-related involutional changes; no acute abnormalities - Ongoing delirium/agitation Seroquel 50mg has not been needed 2 x 5mg IM zyprexa needed 03/30 AM Briefly placed on one-to-one observation - Seen by PT/OT; determined to be at physical baseline, recommended going home w HH Son reports 20h [facility] May relieve caregiver burden on to first have brief stay at rehab facility Work w CM and his [facility] CM to determine best placement (4) COVID-19: Plan: - First tested PCR positive on 03/11; still + on 03/25 - Maintain isolation precautions - Solumedrol as above - Secretion management as above - Received Remdesivir during prior admission - Tylenol PRN, currently afebrile Plan Chronic Medical Conditions: Hypertension -Continue Losartan -Continue Metoprolol GERD -Continue Protonix BPH -Continue Flomax Admission and Anticipated Discharge Date Admission Date: March 25, 2024 Supervising Physician Co-Signing Physician Notes I personally examined the patient and verified all pierre points of history and exam, discussed case, and agree with decision making with Dr Painter. no meaningful HPI or ROS obtainable from pt. Chart reviewed, last night events, discussed with resident at the bedside, as well as attendingwho was covering. updated again at bedside. Vitals noted, in general he is awake and alert disoriented pleasant no distress. bipap in place, but in that context breathing unlabored no accessory muscle use good effort. Skin without rashes pallor or icterus. IMPRESSION & PLAN Acute hypoxic respiratory failure with COPD exacerbation Last night events most consistent with aspiration event. This is most concerning given his severe protein calorie malnutrition, and the fact that he is not able to take meaningful p.o. intake. Discussed with and [id number] about the grave concerns this raises, as well as possible options moving forward. For now try to wean BiPAP and see how he does with p.o. intake. Given that he does want to "everything done" May consider NG tube for enteral nutritional support while waiting to see if the delirium lifts enough for him to eat and drink better. Clinically improving Continue supportive care, p.o. prednisone. Anticipate need for SNF for rehab Delirium in the setting of Parkinsonism suspect repeated bouts of delirium and worsening deconditioning are part of his acute decline in functional status. Discussing with family in depth, reiterated today. PT/OT eval and treat. DVT proph - lovenox Additional per resident documentation Subjective Had a really difficult past 24-hours: low BP, elevated HR, coughing up phlegm, more respiratory distress. Did begin to improve on BiPAP but was moved to ICU anyway at the insistence of nursing. Hemodynamics monitored until acceptable MAP/SBP to stop pressors. Pt's condition improved overnight, taken off pressors this morning. Still distressed (more emotional than respiratory now). Attempting to communicate something, but cannot speak through mask or write anything coherent (notably, is able to hold a pen). Physical Exam 2 Physical Exam: Gen: Fail, ill-appearing, distressed HEENT: NCAT CV: RRR, no m/r/g, no LE edema Resp: mild respiratory distress, symmetric chest rise Abd: Soft, NT/ND, +BS, no HSM Skin: Warm, dry, pink, no rashes or lesions Results & Data Results & Data Vital Signs (Past 12 Hours) Vital Signs Pulse Resp BP Pulse Ox O2 Del Method O2 Flow Rate FiO2 04/01/24 13:21 119 H 16 93 35 04/01/24 12:00 102 H 25 H 93 04/01/24 12:00 113/73 04/01/24 12:00 113/73 04/01/24 12:00 113/73 04/01/24 11:45 119/75 04/01/24 11:33 104 H 24 93 04/01/24 11:30 103 H 24 92 04/01/24 11:30 111/72 04/01/24 11:30 111/72 04/01/24 11:30 111/72 04/01/24 11:15 103 H 20 92 04/01/24 11:15 112/72 04/01/24 11:15 112/72 04/01/24 11:00 106 H 26 H 92 04/01/24 11:00 113/75 04/01/24 11:00 113/75 04/01/24 11:00 113/75 04/01/24 10:45 110/74 04/01/24 10:45 110/74 04/01/24 10:42 108 H 17 94 04/01/24 10:30 117/72 04/01/24 10:30 117/72 04/01/24 10:18 104 H 23 94 04/01/24 10:15 114/71 04/01/24 10:15 114/71 04/01/24 10:15 114/71 04/01/24 10:15 98 H 18 94 04/01/24 10:00 107 H 27 H 93 04/01/24 10:00 119/78 04/01/24 10:00 119/78 04/01/24 10:00 119/78 04/01/24 09:45 108 H 27 H 93 04/01/24 09:45 110/74 04/01/24 09:30 122/83 04/01/24 09:18 107 H 27 H 93 04/01/24 09:15 113/73 04/01/24 09:12 108 H 27 H 92 04/01/24 09:00 109 H 26 H 93 04/01/24 09:00 111/75 04/01/24 09:00 111/75 04/01/24 09:00 111/75 04/01/24 09:00 111/75 04/01/24 08:45 119/73 04/01/24 08:45 119/73 04/01/24 08:42 103 H 23 93 04/01/24 08:30 115/70 04/01/24 08:21 108 H 28 H 93 04/01/24 08:15 111/70 04/01/24 08:09 107 H 27 H 94 04/01/24 08:03 107 H 31 H 93 04/01/24 08:00 115/72 04/01/24 08:00 115/72 04/01/24 08:00 BiPAP 35 04/01/24 07:54 106 H 26 H 94 04/01/24 07:48 106 H 29 H 93 04/01/24 07:30 107/68 04/01/24 07:30 107/68 04/01/24 07:28 75 18 95 35 04/01/24 07:24 103 H 25 H 94 04/01/24 07:11 103 H 04/01/24 07:03 102 H 27 H 94 04/01/24 07:00 106/71 04/01/24 07:00 106/71 04/01/24 07:00 106/71 04/01/24 06:57 102 H 24 94 04/01/24 06:06 107 H 30 H 93 04/01/24 06:00 107/68 04/01/24 05:48 109 H 31 H 94 04/01/24 05:30 110 H 31 H 94 10/09/24 05:30 108/69 04/01/24 05:30 108/69 04/01/24 05:00 108 H 26 H 94 04/01/24 05:00 98/62 L 04/01/24 05:00 98/62 L 04/01/24 04:30 105/69 04/01/24 04:30 105/69 04/01/24 04:27 109 H 25 H 94 04/01/24 04:06 110 H 32 H 94 04/01/24 04:00 93/62 L 04/01/24 03:54 109 H 25 H 94 04/01/24 03:35 111 H 26 H 93 35 04/01/24 03:30 96/62 L 04/01/24 03:27 109 H 27 H 94 04/01/24 03:09 111 H 26 H 93 04/01/24 02:30 95/63 L 04/01/24 02:27 110 H 20 93 04/01/24 02:06 98/66 L 04/01/24 02:06 98/66 L 04/01/24 02:06 98/66 L 04/01/24 02:06 114 H 31 H 94 04/01/24 02:03 114 H 24 93 Laboratory Results 04/01/24 04:30 04/01/24 04:30 Diagnostic Findings Chest X-Ray 03/31/24 18:56 SINGLE VIEW CHEST CLINICAL HISTORY: Respiratory distress FINDINGS: An AP, portable, upright chest radiograph is compared to study dated 03/28/2024 and correlated with chest CT dated 02/21/2024. The cardiomediastinal silhouette is unremarkable noting atherosclerotic calcification of the thoracic aorta. Enlargement of the central pulmonary arteries suggests pulmonary artery hypertension. Advanced emphysema and chronic interstitial thickening is similar to previous. Foci of parenchymal scarring are seen throughout both lungs. Left basilar opacities are similar to previous. No large pleural effusion or pneumothorax is identified. The skeletal structures are osteopenic. The bony thorax is grossly intact. Cholecystectomy clips are seen in the right upper quadrant. IMPRESSION: 1. Advanced emphysema. 2. Left basilar opacities are similar to previous and could represent scarring/atelectasis versus minimal pneumonitis. Clinical correlation would be required and continued follow-up to resolution is recommended. Electronically signed by: Kevin Moralez M.D. 03/31/2024 7:33 PM Venous Doppler Study 03/31/24 20:47 Exam(s): US VENOUS BILATERAL LOWER EXTREMITIES EXAM: US Duplex Bilateral Lower Extremities Veins CLINICAL HISTORY: Reason for exam: Tachycardia and hypoxemia. TECHNIQUE: Real-time duplex ultrasound scan of the bilateral lower extremity veins integrating B-mode two-dimensional vascular structure, Doppler spectral analysis, color flow Doppler imaging and compression. COMPARISON: No relevant prior studies available. FINDINGS: Right deep veins: Unremarkable. No DVT in the right common femoral, femoral, proximal deep femoral or popliteal veins. The veins demonstrate normal color flow, are normally compressible, with normal phasic flow and/or augmentation response. Right superficial veins: Unremarkable. No thrombus in the visualized right great saphenous vein. Left deep veins: Unremarkable. No DVT in the left common femoral, femoral, proximal deep femoral or popliteal veins. The veins demonstrate normal color flow, are normally compressible, with normal phasic flow and/or augmentation response. Left superficial veins: Unremarkable. No thrombus in the visualized left great saphenous vein. Soft tissues: No acute findings. No popliteal cyst. IMPRESSION: Normal bilateral lower extremity duplex venous ultrasound. Electronically signed by: Bam Machuca MD 04/01/24 01:46 AM Resident Activity Tracking Resident Involvement: Resident Care Provided Care Provided: Adult [facility]
--- NOTE | 2024-04-01 14:56 | Critical Care Progress Note ---
Date of Service April 01, 2024 Assessment & Plan (1) Acute hypoxemic respiratory failure: Plan: See below Plan #Acute exacerbation of COPD (appears to have advanced stage COPD, though no PFT records available) #SELENA on CKD #Parkinsonism #Worsening functional status #Hypovolemic vs vasodilatory shock #Possible LLL pneumonia Neurologic: Avoid sedating medications Patient had required IM Zyprexa due to agitation, was placed on PRN Seroquel which he has not required. He is calm and cooperative on exam MRI Brain shows microvascular disease without ischemia. Patient sees Neurologist in [place] for his Parkinsonism Continue Carbidopa-Levodopa, Entacapone APAP PRN pain/fever Cardiovascular: MAP > 65mmHg and SBP > 90mmHg Vasopressor support is been titrated off. Hold antihypertensives TTE 01/2024: LVEF intact, grade I diastolic dysfunction. RV moderately dilated. Did not mention pHTN. Difficulty viewing structures Respiratory: End-stage COPD. Unable to view outside pulmonary function testing, however given his impressive CT findings with significant emphysematous changes and presenting symptoms with diffuse wheezing and respiratory failure, patient likely represents an end-stage process. The patient utilizes Breztri at home. Will transition the patient to nebulized budesonide and Perforomist. Continue with intravenous steroids for now. Patient okay for trials off of BiPAP for breaks as needed. Would utilize BiPAP overnight with sleep, however. Agree with antibiotic coverage for possible lower lobe infiltrative process. Lengthy discussion with patient and family at bedside regarding goals of care moving forward. Gastrointestinal/Nutrition: Diet: NPO overnight SUP: N/A Bowel regimen: Ordered Bricklayer Apprentice consult, patient appears malnourished Endocrine: ISS as needed for BG 140-180 per [facility] guidelines Steroids as above Infectious Disease: Received Cefepime/Vancomycin by Hospitalist team Would start ceftriaxone/azithromycin pending clinical course and culture data MRSA pending, BCx2 pending Heme/Onc: DVT PPX: Enoxaparin Renal/Electrolytes: Will hold on continuous IVF for now, he responded well to bolus so can consider repeating as needed Cr bump since this AM, prerenal in setting of hypotension Code status: Extensive conversation held with the patient in the presence of the patient's and son. Explained that the patient has end-stage COPD and include the risks of endotracheal intubation with mechanical ventilation. My concern is that if the patient would undergo this, the likelihood of him being liberated from the ventilator is very low without the need for tracheostomy placement and transfer to a long-term care facility. I reiterated my concerns with the patient and family. Despite this, the patient reiterates that he would want to be a full code and have all measures performed. This is in alignment with the patient's previous wishes as expressed by the patient's son and . I did have a conversation with the patient's son outside the room. He is not interested in his father undergoing aggressive measures including chest compressions or intubation, but he recognizes that at this point his father may have a degree of delirium, but he does still not wish to go against his father's wishes. I did reiterate with them that if he becomes incapacitated and unable to make decisions, that that would fall on family. The son acknowledges this a nd realizes how unfortunate this would be for himself and his mother. We agree that we will keep the patient is a full code for now, but it is recognized that certainly, in the event of any traumatic changes, decision making would then transition to be that of the family. We did discuss possibility of engaging with hospice care while inpatient as well. The patient and family are not there yet, however the seems open to the discussion moving forward. I do feel that the emphasis of care moving forward should be on quality of care measures given the patient's progressively declining pulmonary status and frequent hospitalizations. Additionally, they are asking about rehab facilities, however I am uncertain that the patient would be able to actively participate in a rehab program at this point. We will rediscuss some of these topics tomorrow and follow-up. Otherwise, patient will remain full code at this time. Admission and Anticipated Discharge Date Admission Date: March 25, 2024 Supervising Physician Co-Signing Physician Notes I saw and evaluated the patient with Eduardo Vann PA-C, and agree with findings and plan as documented in the note. Patient seen and examined at bedside. In respiratory distress He was on BiPAP. 7/5 saturating 91-92%. I changed the BiPAP setting to 10/6 Afebrile, frail-appearing Not on any vasopressors Denied any headache or blurry vision Stated that shortness of breath is at baseline No chest pain Constitutional: Mild respiratory distress, frail-appearing HEENT: EOMI, PERRLA Respiratory system: Decreased air entry bilaterally, no wheeze, no rhonchi, positive crackles bilateral lower lobes CVS: S1-S2 positive, no murmurs or gallops Abdomen: Soft, nontender, nondistended, positive bowel sounds x4 Extremities: +1 pulses bilaterally radialis/ dorsalis pedis, no cyanosis, +2 pitting edema bilateral lower extremity Neuro: Awake alert oriented x3 Psych: Normal mood and affect G/U: Positive [place] -- Prophylaxis VTE: Lovenox GI: Pantoprazole Lines: Peripheral Diet: N.p.o. Plan: In/out: +666, urine output 350 Nasal MRSA is negative, DC vancomycin Chest x-ray from today does show new infiltrate in the left lower lobe. Continue with antibiotics Overall prognosis of the patient is guarded given end-stage COPD Patient is on BrezTri at home, currently will change the inhalers to nebulizers and would recommend nebulizer treatment at home as I do not think patient has the capacity to take good inspiratory effort with inhalers Would recommend palliative care but patient wants intubation in future if need be. I have personally spent 38 minutes of critical care time in the direct management of this patient. This is a life/limb threatening event. This includes time spent evaluating patient, direct bedside care, chart review, placing orders, interpretation of diagnostic studies, discussion with consultants, patient, and family members, as well as other required patient management activities. This time is exclusive of all separately billable procedures, and teaching time and separate from and in addition to any other critical care service time. Please note the above document was generated using voice recognition software. It may contain grammatical, syntax or spelling errors. Subjective Patient seen and evaluated at bedside. He remains on BiPAP with 30% FiO2. Much more comfortable at this time. Vasopressors are off. Review of Systems Review of Systems: Unobtainable. Physical Exam Physical Exam: VITAL SIGNS Vital signs and nursing notes were reviewed. GENERAL 78-year-old male appearing his stated age who is in no acute distress. Pleasantly confused. SKIN Without rashes or lesions. NOSE Midline and without cyanosis. MOUTH/OROPHARYNX Without perioral cyanosis. NECK Neck with FROM. LUNGS Chest wall evaluation demonstrates increased chest wall A:P diameter. Auscultation reveals delayed air entry with minimal scant wheezing. CARDIAC RRR with S1/S2. No murmur, rubs, or gallops appreciated. ABDOMEN Abdominal inspection demonstrates scaphoid. BS normoactive all four quadrants. No tenderness, palpable masses, or ascites noted. EXTREMITIES Nail clubbing not present. No peripheral cyanosis. No pretibial edema present. +3/5 radial palpated throughout. PSYCH A&Ox3 and cooperates fully with examiner. Pt is very pleasant and interacts well with examiner. Results & Data Results & Data Vital Signs (Past 12 Hours) Vital Signs Pulse Resp BP Pulse Ox O2 Del Method O2 Flow Rate FiO2 04/01/24 14:30 127/83 04/01/24 14:30 127/83 04/01/24 14:29 110 H 25 H 91 04/01/24 14:05 111 H 22 92 04/01/24 14:00 125/82 04/01/24 14:00 125/82 04/01/24 13:54 113 H 27 H 93 04/01/24 13:45 127/75 04/01/24 13:45 127/75 04/01/24 13:42 113 H 27 H 93 04/01/24 13:30 140/89 04/01/24 13:30 140/89 04/01/24 13:30 140/89 04/01/24 13:21 12 94 04/01/24 13:21 119 H 16 93 35 04/01/24 13:15 125/76 04/01/24 13:12 112 H 22 92 04/01/24 13:00 119/78 04/01/24 13:00 119/78 04/01/24 12:45 103 H 21 92 04/01/24 12:45 119/75 04/01/24 12:45 119/75 04/01/24 12:30 99 H 18 91 04/01/24 12:30 117/72 04/01/24 12:30 117/72 04/01/24 12:30 117/72 04/01/24 12:00 102 H 25 H 93 04/01/24 12:00 113/73 04/01/24 12:00 113/73 04/01/24 12:00 113/73 04/01/24 11:45 119/75 04/01/24 11:33 104 H 24 93 04/01/24 11:30 103 H 24 92 04/01/24 11:30 111/72 04/01/24 11:30 111/72 04/01/24 11:30 111/72 04/01/24 11:15 103 H 20 92 04/01/24 11:15 112/72 04/01/24 11:15 112/72 04/01/24 11:00 106 H 26 H 92 04/01/24 11:00 113/75 04/01/24 11:00 113/75 04/01/24 11:00 113/75 04/01/24 10:45 110/74 04/01/24 10:45 110/74 04/01/24 10:42 108 H 17 94 04/01/24 10:30 117/72 04/01/24 10:30 117/72 04/01/24 10:18 104 H 23 94 04/01/24 10:15 114/71 04/01/24 10:15 114/71 04/01/24 10:15 114/71 04/01/24 10:15 98 H 18 94 04/01/24 10:00 107 H 27 H 93 04/01/24 10:00 119/78 04/01/24 10:00 119/78 04/01/24 10:00 119/78 04/01/24 09:45 108 H 27 H 93 04/01/24 09:45 110/74 04/01/24 09:30 122/83 04/01/24 09:18 107 H 27 H 93 04/01/24 09:15 113/73 04/01/24 09:12 108 H 27 H 92 04/01/24 09:00 109 H 26 H 93 04/01/24 09:00 111/75 04/01/24 09:00 111/75 04/01/24 09:00 111/75 04/01/24 09:00 111/75 04/01/24 08:45 119/73 04/01/24 08:45 119/73 04/01/24 08:42 103 H 23 93 04/01/24 08:30 115/70 04/01/24 08:21 108 H 28 H 93 04/01/24 08:15 111/70 04/01/24 08:09 107 H 27 H 94 04/01/24 08:03 107 H 31 H 93 04/01/24 08:00 115/72 04/01/24 08:00 115/72 04/01/24 08:00 BiPAP 35 04/01/24 07:54 106 H 26 H 94 04/01/24 07:48 106 H 29 H 93 04/01/24 07:30 107/68 04/01/24 07:30 107/68 04/01/24 07:28 75 18 95 35 04/01/24 07:24 103 H 25 H 94 04/01/24 07:11 103 H 04/01/24 07:03 102 H 27 H 94 04/01/24 07:00 106/71 04/01/24 07:00 106/71 04/01/24 07:00 106/71 04/01/24 06:57 102 H 24 94 04/01/24 06:06 107 H 30 H 93 04/01/24 06:00 107/68 04/01/24 05:48 109 H 31 H 94 04/01/24 05:30 110 H 31 H 94 04/01/24 05:30 108/69 04/01/24 05:30 108/69 04/01/24 05:00 108 H 26 H 94 04/01/24 05:00 98/62 L 04/01/24 05:00 98/62 L 04/01/24 04:30 105/69 04/01/24 04:30 105/69 04/01/24 04:27 109 H 25 H 94 04/01/24 04:06 110 H 32 H 94 04/01/24 04:00 93/62 L 04/01/24 03:54 109 H 25 H 94 04/01/24 03:35 111 H 26 H 93 35 04/01/24 03:30 96/62 L 04/01/24 03:27 109 H 27 H 94 04/01/24 03:09 111 H 26 H 93 Coding Level of Care Code 84561 CRITICAL CARE 1ST 30-74M Diagnoses Acute hypoxemic respiratory failure J96.01
--- NOTE | 2024-04-01 15:11 | Electrocardiogram Report ---
Test Reason : Blood Pressure : */* mmHG Vent. Rate : 129 BPM Atrial Rate : 129 BPM P-R Int : 122 ms QRS Dur : 126 ms QT Int : 322 ms P-R-T Axes : 81 110 71 degrees QTcB Int : 471 ms Sinus tachycardia Right atrial enlargement Right bundle branch block Abnormal ECG When compared with ECG of 25-Mar-2024 00:02, No significant change was found Confirmed by Angel Kuhn [id number] on 04/01/2024 3:10:56 PM Referred By: REFERRED SELF Confirmed By: Angel Kuhn
[2024-04-01] MEDS ORDERED: VANCOMYCIN HCL 1,000 MG in SODIUM CHLORIDE 0.9% 250 ML IV SCH (16:00)
--- NOTE | 2024-04-01 18:26 | Billing Data ---
Date of Service April 01, 2024 Coding Level of Care Code 46080 SUB INP/OBS CARE
[2024-04-01 18:39] LABS: A calco-baum cmplx NotReported Not Detected (NotDetected); Bact fragilis Not Reported Not Detected (NotDetected); Blood Culture Id Panel See PCR Comment (NotDetected); C auris Not Reported Not Detected (NotDetected); Calbicans Not Reported Not Detected (NotDetected); Candida glabrata Not Reported Not Detected (NotDetected); Candida krusei Not Reported Not Detected (NotDetected); Cneoformans/gatti Not Reported Not Detected (NotDetected); Cparapsilosis Not Reported Not Detected (NotDetected); E cloacae compx Not Reported Not Detected (NotDetected); Efaecalis Not Reported Not Detected (NotDetected); Efaecium Not Reported Not Detected (NotDetected); Enterobacterales Not Reported Not Detected (NotDetected); Escherichia coli Not Reported Not Detected (NotDetected); H influenzae Not Reported Not Detected (NotDetected); K aerogenes Not Reported Not Detected (NotDetected); Koxytoca Not Reported Not Detected (NotDetected); Kpneumoniae grp Not Reported Not Detected (NotDetected); Lmonocyt Not Reported Not Detected (NotDetected); N meningitidis Not Reported Not Detected (NotDetected); P aeruginosa Not Reported Not Detected (NotDetected); Proteus spp Not Reported Not Detected (NotDetected); Salmonella spp Not Reported Not Detected (NotDetected); Staph lugdunensis Not Reported Not Detected (NotDetected); Staph spp. Not Reported DETECTED (NotDetected); Staphaureus Not Reported Not Detected (NotDetected); Staphepi Not Reported DETECTED (NotDetected); Staphylococcus spp. DETECTED (NotDetected); Stenmaltophilia Not Reported Not Detected (NotDetected); Strep agal(GrpB) Not Reported Not Detected (NotDetected); Strep pneum Not Reported Not Detected (NotDetected); Strep pyog (GrpA) Not Reported Not Detected (NotDetected); Strep spp Not Reported Not Detected (NotDetected); mecAC Resistant Gene DETECTED (NotDetected)
[2024-04-01] MEDS: FORMOTEROL 20 MCG/2 ML VIAL INH SCH (19:13)
[2024-04-01] MEDS: BUDESONIDE 0.5 MG/2 ML VIAL (PULMICORT) NEB SCH (19:13)
[2024-04-01 19:17] LABS: Staphylococcus epidermidis DETECTED (NotDetected)
[2024-04-01] MEDS: ALBUMIN 25% 25 GM/100 ML VIAL IV ONE (23:21)
[2024-04-02 04:11] LABS: Hematocrit (blood only) 34.8 % (42.0-52.0); Hemoglobin 11.7 g/dl (14.0-18.0); Mean Corpuscular Hemoglobin 30.8 pg (25.0-34.0); Mean Corpuscular Hgb Conc 33.6 g/dL (32.0-36.0); Mean Corpuscular Volume 91.6 fL (80.0-100.0); Mean Platelet Volume 9.1 fL (9.4-12.4); Platelet Count 144 K/uL (130-400); RDW Coefficient of Variation 14.6 % (11.5-14.5); RDW Standard Deviation 48.9 fL (36.4-46.3)
[2024-04-02 04:23] LABS: Magnesium 2.2 mg/dl (1.7-2.4)
[2024-04-02 04:53] LABS: BUN Creatinine Ratio 46.8 (10-20); Bilirubin,Total 1.4 mg/dl (0.2-1.0); Calcium 9.2 mg/dl (8.6-10.3); Creatinine Clr Calc Pharmacy 51.3 ml/min; Potassium 3.8 mmol/L (3.5-5.1)
[2024-04-02 05:28] LABS: Basophils # (auto) 0.02 K/uL (0.00-0.20); Basophils % (auto) 0.1 %; Immature Granulocytes # (auto) 0.08 K/uL (0.01-0.20); Immature Granulocytes % (auto) 0.5 %; Lymphocytes # (auto) 0.37 K/uL (1.20-3.40); Lymphocytes % (auto) 2.3 %; Monocytes # (auto) 0.52 K/uL (0.11-0.59); Monocytes % (auto) 3.3 %; Neutrophils # (auto) 14.81 K/uL (1.40-6.50); Neutrophils % (auto) 93.8 %; RBC Morphology Unremarkable
--- NOTE | 2024-04-02 07:57 | Hospitalist Progress Note ---
Date of Service April 02, 2024 Assessment & Plan (1) Acute exacerbation of chronic obstructive pulmonary disease: Plan: 78yo with COPD & Parkinson's, presenting with worsening shortness of breath, acute on chronic respiratory failure with hypoxia. - Initial exam w diffuse wheezing. CXR with no obvious edema or infiltrate. PCR + for Covid-19. Procalcitonin is negative at 0.05. Leukocytosis with neutrophil predominance, likely demargination from recent steroid use. - Repeat CXR persistently shows left basilar opacity; may reflect pneumonia - Transitioned off IV solumedrol to po pred on 03/30 03/30 dose not given d/t pt's delirium; resumed 03/31 09:10 Back to IV steroids on 04/01 in ICU - Taken off BiPAP 04/02 AM O2 sat >90% on 10L oxymask - Duoneb q6R, formoterol 20mcg BIDR, budesonide 0.5mg BIDR - Engineering Secretary team determined he's safe to downgrade; transfer to Med-Surg (2) Acute on chronic respiratory failure with hypoxia: Plan: Concern for possible aspiration PNA - Transferred to ICU 03/31 PM; kept NPO; back to med-surg on 04/02 PM - CXR showed left basilar opacities similar to previous studies; US doppler normal - WBC 18.16, procal 0.04, BNP 90, ABG notable for pCO2 of 32 and O2 sat of 98.8 - Given 1250mg IV Vanco x1 & IV cefepime 2000mg q12h Vanc stopped after 1 dose ICU team recc finishing 5d course of cefepime - Vasopressor support is been titrated off; bipap off this morning ICU team recc BiPAP use with sleep; goal saturation 88 to 92%. - Continue nebulized budesonide and Perforomist, IV steroids - Consider NG tube placement to mitigate malnutrition w/o increasing risk of aspiration Failed swallow study 04/02; SLT recc keeping NPO, approve trying NGT (3) Parkinson's disease: Plan: - Continue Carbidopa-Levodopa 2 x 25-250mg tabs TID - Aspiration precautions - Thickened liquids, [id number] diet - Family describes acute worsening in mentation since last hospital discharge, with increased hostility (towards ) and impulsive behavior, especially notable after stopping prednisone/taper (less acute with the taper) - MRI brain w & w/o con, 03/26 showed age-related involutional changes; no acute abnormalities - Ongoing delirium/agitation Seroquel 50mg has not been needed 2 x 5mg IM zyprexa needed 10/7 AM Briefly placed on one-to-one observation - Seen by PT/OT; determined to be at physical baseline, recommended going home w HH Son reports 20h [facility] May relieve caregiver burden on to first have brief stay at rehab facility Work w CM and his [facility] to determine best placement (4) COVID-19: Plan: - First tested PCR positive on 03/11; still + on 03/25 - Maintain isolation precautions - Solumedrol as above - Secretion management as above - Received Remdesivir during prior admission - Tylenol PRN, currently afebrile Plan Chronic Medical Conditions: Hypertension -Continue Losartan -Continue Metoprolol GERD -Continue Protonix BPH -Continue Flomax Admission and Anticipated Discharge Date Admission Date: March 25, 2024 Supervising Physician Co-Signing Physician Notes I personally examined the patient and verified all pierre points of history and exam, discussed case, and agree with decision making with Dr Painter. no meaningful HPI or ROS obtainable from pt. extensive discussion with . Vitals noted, in general he is awake and alert disoriented pleasant no distress. oxymask in place, no accessory muscles good effort skin no rashes no pallor or icterus IMPRESSION & PLAN Acute hypoxic respiratory failure with COPD exacerbation 03/31 events most consistent with aspiration event. This is most concerning given his severe protein calorie malnutrition, and the fact that he is not able to take meaningful p.o. intake. Discussed with and [id number] on 04/01 about the grave concerns this raises, as well as possible options moving forward. discussed again today with - trial of NG tube for enteral nutritional support while waiting to see if the delirium lifts enough for him to eat and drink better. Continue supportive care, steroids Anticipate need for SNF for rehab eventually Delirium in the setting of Parkinsonism suspect repeated bouts of delirium and worsening deconditioning are part of his acute decline in functional status. Discussing with family in depth, right now malnutrition is really the biggest chronic problem of terminal makeup operator consequence. PT/OT eval and treat. DVT proph - lovenox Additional per resident documentation Subjective NAEO. Bipap removed this morning; doing well on 10L oxymask. No meaningful history obtained but he is able to recognize me, and indicates to nursing that he's angry about being NPO. Physical Exam 2 Physical Exam: Gen: Fail, ill-appearing, NAD HEENT: NCAT CV: RRR, no m/r/g, no LE edema Resp: O2 sat >90% on 10L oxymask, no respiratory distress, symmetric chest rise Abd: Soft, NT/ND, +BS, no HSM Skin: Warm, dry, pink, no rashes or lesions Results & Data Results & Data Vital Signs (Past 12 Hours) Vital Signs Temp Pulse Pulse Resp BP Pulse Ox O2 Del Method 04/02/24 07:25 98 H 20 97 04/02/24 07:25 98 H 20 97 BiPAP 04/02/24 07:13 36.5 C 04/02/24 06:09 104 H 20 94 04/02/24 05:03 99 H 17 105/68 96 04/02/24 04:48 100 H 18 97 04/02/24 04:00 112/70 04/02/24 04:00 103 H 19 112/70 98 04/02/24 03:45 103 H 10 L 113/72 98 04/02/24 03:33 36.9 C 04/02/24 03:00 106 H 18 114/72 96 04/02/24 02:45 89 19 94 04/02/24 02:45 89 19 94 BiPAP 04/02/24 02:30 80 18 121/75 95 04/02/24 02:15 90 18 101/67 92 04/02/24 02:12 93 H 18 92 04/02/24 02:00 113/72 04/02/24 01:57 96 H 21 93 04/02/24 01:45 93 H 17 107/69 93 04/02/24 01:30 113/74 04/02/24 01:21 96 H 19 94 04/02/24 01:15 129/92 04/02/24 01:12 90 19 94 04/02/24 01:06 91 H 20 108/73 90 04/02/24 00:54 96 H 18 89 L 04/02/24 00:45 97 H 19 113/74 93 04/02/24 00:30 94 H 17 120/79 93 04/02/24 00:24 96 H 18 93 04/02/24 00:15 119/80 04/02/24 00:00 118/80 04/01/24 23:56 36.7 C 04/01/24 23:45 113/69 04/01/24 23:33 94 H 17 91 04/01/24 23:32 96 H 04/01/24 23:30 92 H 15 106/69 92 04/01/24 23:12 95 H 15 100/62 93 04/01/24 22:49 95 H 17 98 04/01/24 22:48 97 H 19 98 04/01/24 22:45 120/67 04/01/24 22:42 98 H 17 96 04/01/24 22:30 101/65 04/01/24 22:27 101 H 16 96 04/01/24 21:30 125/72 04/01/24 21:15 108/71 04/01/24 21:09 108 H 22 98 04/01/24 21:00 109 H 26 H 114/77 98 04/01/24 20:45 109 H 19 117/75 97 04/01/24 20:15 111 H 22 120/84 96 04/01/24 20:11 111 H 22 94 04/01/24 20:11 111 H 22 94 BiPAP 04/01/24 20:03 110 H 22 114/80 98 04/01/24 19:58 BiPAP 04/01/24 19:57 36.3 C L FiO2 04/02/24 07:25 40 04/02/24 07:25 40 04/02/24 07:13 04/02/24 06:09 04/02/24 05:03 04/02/24 04:48 04/02/24 04:00 04/02/24 04:00 04/02/24 03:45 04/02/24 03:33 04/02/24 03:00 04/02/24 02:45 40 04/02/24 02:45 40 04/02/24 02:30 04/02/24 02:15 04/02/24 02:12 04/02/24 02:00 04/02/24 01:57 04/02/24 01:45 04/02/24 01:30 04/02/24 01:21 04/02/24 01:15 04/02/24 01:12 04/02/24 01:06 04/02/24 00:54 04/02/24 00:45 04/02/24 00:30 04/02/24 00:24 04/02/24 00:15 04/02/24 00:00 04/01/24 23:56 04/01/24 23:45 04/01/24 23:33 04/01/24 23:32 04/01/24 23:30 04/01/24 23:12 04/01/24 22:49 35 04/01/24 22:48 04/01/24 22:45 04/01/24 22:42 04/01/24 22:30 04/01/24 22:27 04/01/24 21:30 04/01/24 21:15 04/01/24 21:09 04/01/24 21:00 04/01/24 20:45 04/01/24 20:15 04/01/24 20:11 35 04/01/24 20:11 35 04/01/24 20:03 04/01/24 19:58 35 04/01/24 19:57 Laboratory Results 04/02/24 03:45 04/02/24 03:45 Diagnostic Findings Chest X-Ray 04/02/24 09:39 XR chest 1V portable CLINICAL HISTORY: f/u COMPARISON STUDY: Chest CT February 21, 2024. Chest radiograph March 31, 2024. FINDINGS: There is no pneumothorax or pleural effusion. Underlying emphysema is present. Cardiomediastinal silhouette is normal. There is no evidence for pulmonary edema. Mild left basilar opacity persists. Right lung is clear. IMPRESSION: 1. No change in mild left basilar opacity which could reflect pneumonia or atelectasis. Continued radiographic follow-up to ensure resolution is recommended. 2. Emphysema. Electronically signed by: Javier Flower M.D. 04/02/2024 10:42 AM Resident Activity Tracking Resident Involvement: Resident Care Provided Care Provided: Adult Hospital Medicine
--- NOTE | 2024-04-02 08:47 | Critical Care Progress Note ---
Date of Service April 02, 2024 Assessment & Plan (1) Acute hypoxemic respiratory failure: Plan: See below Plan #Acute exacerbation of COPD (appears to have advanced stage COPD, though no PFT records available) #SELENA on CKD #Parkinsonism #Worsening functional status #Hypovolemic vs vasodilatory shock #Possible LLL pneumonia Neurologic: Remains pleasantly confused. Continue to remove sedating medications if able. Question degree of ICU delirium secondary to acuity of illness, multiple indications, etc. MRI Brain shows microvascular disease without ischemia. Patient sees Neurologist in [place] for his Parkinsonism Continue Carbidopa-Levodopa, Entacapone APAP PRN pain/fever Cardiovascular: MAP > 65mmHg and SBP > 90mmHg Hold antihypertensives. Reinstitute as tolerated and when clinically appropria te. TTE 01/2024: LVEF intact, grade I diastolic dysfunction. RV moderately dilated. Did not mention pHTN. Difficulty viewing structures Respiratory: End-stage COPD. Unable to view outside pulmonary function testing, however given his impressive CT findings with significant emphysematous changes and presenting symptoms with diffuse wheezing and respiratory failure, patient likely represents an end-stage process. The patient utilizes Breztri at home. Will transition the patient to nebulized budesonide and Perforomist. Continue with intravenous steroids for now. Patient okay for trials off of BiPAP for breaks as needed. Would utilize BiPAP overnight with sleep, however. Goal saturation 88 to 92%. Agree with antibiotic coverage for possible lower lobe infiltrative process. Lengthy discussion with patient and family at bedside regarding goals of care moving forward. Gastrointestinal/Nutrition: Diet: NPO overnight SUP: N/A Bowel regimen: Ordered Brush Holder Inspector consult, patient appears malnourished Endocrine: ISS as needed for BG 140-180 per [facility] guidelines Steroids as above Infectious Disease: Complete course of cefepime MRSA pending, BCx2 pending Heme/Onc: DVT PPX: Enoxaparin Renal/Electrolytes: Will hold on continuous IVF for now, he responded well to bolus so can consider repeating as needed Slight increase in sodium. Will receive hypotonic fluids for 1 back. Code status: Extensive conversation held with the patient in the presence of the patient's and son. Explained that the patient has end-stage COPD and include the risks of endotracheal intubation with mechanical ventilation. My concern is that if the patient would undergo this, the likelihood of him being liberated from the ventilator is very low without the need for tracheostomy placement and transfer to a long-term care facility. I reiterated my concerns with the patient and family. Despite this, the patient reiterates that he would want to be a full code and have all measures performed. This is in alignment with the patient's previous wishes as expressed by the patient's son and . I did have a conversation with the patient's son outside the room. He is not interested in his father undergoing aggressive measures including chest compressions or intubation, but he recognizes that at this point his father may have a degree of delirium, but he does still not wish to go against his father's wishes. I did reiterate with them that if he becomes incapacitated and unable to make decisions, that that would fall on family. The son acknowledges this and realizes how unfortunate this would be for himself and his mother. We agree that we will keep the patient is a full code for now, but it is recognized that certainly, in the event of any traumatic changes, decision making would then transition to be that of the family. We did discuss possibility of engaging with hospice care while inpatient as well. The patient and family are not there yet, however the seems open to the discussion moving forward. I do feel that the emphasis of care moving forward should be on quality of care measures given the patient's progressively declining pulmonary status and frequent hospitalizations. Additionally, they are asking about rehab facilities, however I am uncertain that the patient would be able to actively participate in a rehab program at this point. We will rediscuss some of these topics tomorrow and follow-up. Otherwise, patient will remain full code at this time. Disposition: Patient is stable for downgrade from the ICU at this time. Admission and Anticipated Discharge Date Admission Date: March 25, 2024 Supervising Physician Co-Signing Physician Notes I saw and evaluated the patient with Eduardo Vann PA-C, and agree with findings and plan as documented in the note. Patient seen and examined at bedside. No acute distress, notable symptoms overnight He was on oxy mask 10 L saturating 92-93% He seems to be still very lethargic Not on any vasopressors for more than 24 hours. Did use BiPAP overnight Constitutional: No acute distress, frail-appearing HEENT: EOMI, PERRLA Respiratory system: Decreased air entry bilaterally, no wheeze, no rhonchi, positive crackles bilateral lower lobes CVS: S1-S2 positive, no murmurs or gallops Abdomen: Soft, nontender, nondistended, positive bowel sounds x4 Extremities: +1 pulses bilaterally radialis/ dorsalis pedis, no cyanosis, +2 pitting edema bilateral lower extremity Neuro: Awake, oriented to self Psych: Flat mood and affect G/U: Positive Landaverde -- Prophylaxis VTE: Lovenox GI: Pantoprazole Lines: Peripheral Diet: N.p.o. Plan: In/out: +923, urine output 1023 Continue with antibiotics for left lower lobe pneumonia for total of 5 days Overall prognosis of the patient is guarded given end-stage COPD Continue with nebulized bronchodilators Unfortunately patient seems to be failing swallow eval Will get official swallow eval. Patient hemodynamically stable to be downgrade to medical floor He might benefit from a BiPAP machine at home Please note the above document was generated using voice recognition software. It may contain grammatical, syntax or spelling errors.Any formal questions or concerns about the content, text or information contained within the body of this dictation should be directly addressed to the provider for clarification. Subjective Patient seen and evaluated at bedside. No adverse events overnight. The patient was removed from BiPAP this morning is saturating well on oxime mask. Review of Systems Review of Systems: Unobtainable. Physical Exam Physical Exam: VITAL SIGNS Vital signs and nursing notes were reviewed. GENERAL 78-year-old male appearing his stated age who is in no acute distress. Pleasantly confused. SKIN Without rashes or lesions. NOSE Midline and without cyanosis. MOUTH/OROPHARYNX Without perioral cyanosis. NECK Neck with FROM. LUNGS Chest wall evaluation demonstrates increased chest wall A:P diameter. Auscultation reveals delayed air entry with minimal scant wheezing. CARDIAC RRR with S1/S2. No murmur, rubs, or gallops appreciated. ABDOMEN Abdominal inspection demonstrates scaphoid. BS normoactive all four quadrants. No tenderness, palpable masses, or ascites noted. EXTREMITIES Nail clubbing not present. No peripheral cyanosis. No pretibial edema present. +3/5 radial palpated throughout. PSYCH A&Ox3 and cooperates fully with examiner. Pt is very pleasant and interacts well with examiner. Results & Data Results & Data Vital Signs (Past 12 Hours) Vital Signs Temp Pulse Pulse Resp BP Pulse Ox O2 Del Method 04/02/24 08:36 Oxymask 04/02/24 08:00 95 Oxymask 04/02/24 07:25 98 H 20 97 04/02/24 07:25 98 H 20 97 BiPAP 04/02/24 07:13 36.5 C 04/02/24 06:09 104 H 20 94 04/02/24 05:03 99 H 17 105/68 96 04/02/24 04:48 100 H 18 97 04/02/24 04:00 112/70 04/02/24 04:00 103 H 19 112/70 98 04/02/24 03:45 103 H 10 L 113/72 98 04/02/24 03:33 36.9 C 04/02/24 03:00 106 H 18 114/72 96 04/02/24 02:45 89 19 94 04/02/24 02:45 89 19 94 BiPAP 04/02/24 02:30 80 18 121/75 95 04/02/24 02:15 90 18 101/67 92 04/02/24 02:12 93 H 18 92 04/02/24 02:00 113/72 04/02/24 01:57 96 H 21 93 04/02/24 01:45 93 H 17 107/69 93 04/02/24 01:30 113/74 04/02/24 01:21 96 H 19 94 04/02/24 01:15 129/92 04/02/24 01:12 90 19 94 04/02/24 01:06 91 H 20 108/73 90 04/02/24 00:54 96 H 18 89 L 04/02/24 00:45 97 H 19 113/74 93 04/02/24 00:30 94 H 17 120/79 93 04/02/24 00:24 96 H 18 93 04/02/24 00:15 119/80 04/02/24 00:00 118/80 04/01/24 23:56 36.7 C 04/01/24 23:45 113/69 04/01/24 23:33 94 H 17 91 04/01/24 23:32 96 H 04/01/24 23:30 92 H 15 106/69 92 04/01/24 23:12 95 H 15 100/62 93 04/01/24 22:49 95 H 17 98 04/01/24 22:48 97 H 19 98 04/01/24 22:45 120/67 04/01/24 22:42 98 H 17 96 04/01/24 22:30 101/65 04/01/24 22:27 101 H 16 96 04/01/24 21:30 125/72 04/01/24 21:15 108/71 04/01/24 21:09 108 H 22 98 04/01/24 21:00 109 H 26 H 114/77 98 O2 Flow Rate FiO2 04/02/24 08:36 10 04/02/24 08:00 10 04/02/24 07:25 40 04/02/24 07:25 40 04/02/24 07:13 04/02/24 06:09 04/02/24 05:03 04/02/24 04:48 04/02/24 04:00 04/02/24 04:00 04/02/24 03:45 04/02/24 03:33 04/02/24 03:00 04/02/24 02:45 40 04/02/24 02:45 40 04/02/24 02:30 04/02/24 02:15 04/02/24 02:12 04/02/24 02:00 04/02/24 01:57 04/02/24 01:45 04/02/24 01:30 04/02/24 01:21 04/02/24 01:15 04/02/24 01:12 04/02/24 01:06 04/02/24 00:54 04/02/24 00:45 04/02/24 00:30 04/02/24 00:24 04/02/24 00:15 04/02/24 00:00 04/01/24 23:56 04/01/24 23:45 04/01/24 23:33 04/01/24 23:32 04/01/24 23:30 04/01/24 23:12 04/01/24 22:49 35 04/01/24 22:48 04/01/24 22:45 04/01/24 22:42 04/01/24 22:30 04/01/24 22:27 04/01/24 21:30 04/01/24 21:15 04/01/24 21:09 04/01/24 21:00 Coding Level of Care Code 18032 SUB INP/OBS CARE 2/35MIN Diagnoses Acute hypoxemic respiratory failure J96.01
[2024-04-02] MEDS: D5W AND 1/2NSS 1,000 ML IV SCH (08:50)
--- NOTE | 2024-04-02 10:43 | XRay Report ---
XR chest 1V portable CLINICAL HISTORY: f/u COMPARISON STUDY: Chest CT February 21, 2024. Chest radiograph March 31, 2024. FINDINGS: There is no pneumothorax or pleural effusion. Underlying emphysema is present. Cardiomedias tinal silhouette is normal. There is no evidence for pulmonary edema. Mild left basilar opacity persi sts. Right lung is clear. IMPRESSION: 1. No change in mild left basilar opacity which could reflect pneumonia or atelectasis. Continued rad iographic follow-up to ensure resolution is recommended. 2. Emphysema. ACT 112: Negative or not required by law. Electronically signed by: Javier Flower M.D. 04/02/2024 10:42 AM
--- NOTE | 2024-04-02 17:17 | Billing Data ---
Date of Service April 02, 2024 Coding Level of Care Code 95405 SUB INP/OBS CARE MIN
[2024-04-03 07:39] LABS: Hematocrit (blood only) 40.4 % (42.0-52.0); Hemoglobin 13.2 g/dl (14.0-18.0); Mean Corpuscular Hemoglobin 30.1 pg (25.0-34.0); Mean Corpuscular Hgb Conc 32.7 g/dL (32.0-36.0); Mean Platelet Volume 8.9 fL (9.4-12.4); Platelet Count 140 K/uL (130-400); RDW Coefficient of Variation 14.7 % (11.5-14.5); RDW Standard Deviation 50.1 fL (36.4-46.3); Red Blood Count 4.39 M/uL (4.70-6.10); White Blood Count 13.91 K/ul (4.8-10.8)
[2024-04-03 07:56] LABS: BUN Creatinine Ratio 54.5 (10-20); Calcium 9.5 mg/dl (8.6-10.3); Creatinine Clr Calc Pharmacy 62.6 ml/min; Potassium 3.8 mmol/L (3.5-5.1)
--- NOTE | 2024-04-03 07:57 | Hospitalist Progress Note ---
Date of Service April 03, 2024 Assessment & Plan (1) Acute exacerbation of chronic obstructive pulmonary disease: Plan: 78yo with COPD & Parkinson's, presenting with worsening shortness of breath, acute on chronic respiratory failure with hypoxia. - Initial exam w diffuse wheezing. CXR with no obvious edema or infiltrate. PCR + for Covid-19. Procalcitonin is negative at 0.05. Leukocytosis with neutrophil predominance, likely demargination from recent steroid use. - Repeat CXR persistently shows left basilar opacity; may reflect pneumonia - Transitioned off IV solumedrol to po pred on 03/30 03/30 dose not given d/t pt's delirium; resumed 03/31 09:10 Back to IV steroids on 04/01 in ICU - Taken off BiPAP 04/02 AM O2 sat >90% on 10L oxymask Sales Account Representative team recc continuing Bipap at night - Duoneb q6R, formoterol 20mcg BIDR, budesonide 0.5mg BIDR - Sales Account Representative team determined he's safe to downgrade; transferred to Med-Surg 04/02 (2) Acute on chronic respiratory failure with hypoxia: Plan: Initially 2/2 advanced COPD Concern for possible aspiration PNA - Transferred to ICU 03/31 PM; kept NPO; back to med-surg on 04/02 PM - CXR showed left basilar opacities similar to previous studies; US doppler normal - WBC 18.16, procal 0.04, BNP 90, ABG notable for pCO2 of 32 and O2 sat of 98.8 - Given 1250mg IV Vanco x1 & IV cefepime 2000mg q12h Vanc stopped after 1 dose ICU team recc finishing 5d course of cefepime - Vasopressor support is been titrated off; bipap off this morning ICU team recc BiPAP use with sleep; goal saturation 88 to 92%. - Continue nebulized budesonide and Perforomist, IV steroids - Continue NPO; oral medications held - Consider NGT feedings to mitigate malnutrition w/o increasing risk of aspiration Failed swallow study 04/02; SLT recc keeping NPO, approve trying NGT Failed NGT placement x2 04/02 PM Fluoroscopic swallow study 04/03 showing substantial silent aspiration on thin and mildly-thick liquids SLT accepting of another attempt at NGT placement; if successful, would need f/u video swallow in 3 days - Several extensive discussions conducted w family regarding expectations for pt's mental and functional status and capacity/decision-making; when lucid, patient expressed wanting "everything done" so family would like to honor that as long as possible; says they would be open to hospice consult in the indefinite future (3) Parkinson's disease: Plan: - Carbidopa-Levodopa 2 x 25-250mg tabs TID not given d/t all po meds held - Aspiration precautions, NPO - Family describes acute worsening in mentation since last hospital discharge, with increased hostility (towards ) and impulsive behavior, especially notable after stopping prednisone/taper (less acute with the taper) - MRI brain w & w/o con, 03/26 showed age-related involutional changes; no acute abnormalities - Ongoing delirium/agitation Seroquel 50mg has not been needed 2 x 5mg IM zyprexa needed 10/7 AM Briefly placed on one-to-one observation - Seen by PT/OT; determined to be at physical baseline, recommended going home w HH Son reports 20h [facility] May relieve caregiver burden on to first have brief stay at rehab facility Work w CM and his [facility] CM to determine best placement (4) COVID-19: Plan: - First tested PCR positive on 03/11; still + on 03/25 - Maintain isolation precautions - Solumedrol as above - Secretion management as above - Received Remdesivir during prior admission - Tylenol PRN, currently afebrile Plan Chronic Medical Conditions: Hypertension -Continue Losartan -Continue Metoprolol GERD -Continue Protonix BPH -Continue Flomax Admission and Anticipated Discharge Date Admission Date: March 25, 2024 Supervising Physician Co-Signing Physician Notes I personally examined the patient and verified all pierre points of history and exam, discussed case, and agree with decision making with Dr Painter. no meaningful HPI or ROS obtainable from pt. extensive discussion with again - trying NG once more. Vitals noted, in general he is awake and alert disoriented pleasant no distress. oxymask in place, no accessory muscles good effort skin no rashes no pallor or icterus IMPRESSION & PLAN Acute hypoxic respiratory failure with COPD exacerbation 03/31 events most consistent with aspiration event. This is most concerning given his severe protein calorie malnutrition, and the fact that he is not able to take meaningful p.o. intake. Discussed with and [id number] on 04/01 about the grave concerns this raises, as well as possible options moving forward. discussed again 04/02 with - trial of NG tube for enteral nutritional support while waiting to see if the delirium lifts enough for him to eat and drink better. later placement of NG failed 04/03 - failed video swallow - revisited discussions - retry NGT - success. trial of tube feeds Continue supportive care, steroids Anticipate need for SNF for rehab eventually Delirium in the setting of Parkinsonism suspect repeated bouts of delirium and worsening deconditioning are part of his acute decline in functional status. Discussing with family in depth, right now malnutrition is really the biggest chronic problem of terminal carman consequence. PT/OT eval and treat. likely will need SNF once stable enough DVT proph - lovenox Additional per resident documentation Subjective NGT placement failed 2x yesterday. On bipap overnight; doing well on 11L oxymask during day. No meaningful history obtained but he is able to recognize me and appears distressed but not antagonistic. Physical Exam 2 Physical Exam: Gen: Fail, ill-appearing, somewhat distressed HEENT: NCAT CV: RRR, no m/r/g, no LE edema Resp: O2 sat >90% on oxymask, no respiratory distress, symmetric chest rise Abd: Soft, NT/ND, +BS, no HSM Skin: Warm, dry, pink, no rashes or lesions Results & Data Results & Data Vital Signs (Past 12 Hours) Vital Signs Temp Pulse Pulse Resp BP Pulse Ox O2 Del Method 04/03/24 07:34 103 H 21 96 04/03/24 07:34 103 H 21 96 BiPAP 04/03/24 02:52 99 H 16 93 04/03/24 00:46 98 H 18 93 Ambu-Bag 04/02/24 22:41 96 H 20 94 04/02/24 21:00 Oxymask 04/02/24 20:05 36.5 C 94 H 18 122/72 96 Oxymask 04/02/24 19:55 92 H 20 97 Oxymask O2 Flow Rate FiO2 04/03/24 07:34 40 04/03/24 07:34 04/03/24 02:52 40 04/03/24 00:46 40 04/02/24 22:41 50 04/02/24 21:00 11 04/02/24 20:05 11 04/02/24 19:55 11 Laboratory Results 04/03/24 07:21 04/03/24 07:21 Resident Activity Tracking Resident Involvement: Resident Care Provided Care Provided: Adult Hospital Medicine
--- NOTE | 2024-04-03 15:21 | Fluoroscopy Report ---
FL video swallow CLINICAL HISTORY: 78 years-old Male with assess for aspiration. Dysphagia with aspiration TECHNIQUE: Video fluoroscopic evaluation of swallowing was performed in the AP and lateral projection s by the speech pathology staff. The patient is fed varying consistencies of barium. FLUOROSCOPY TIME: 59 seconds. 1706 images were submitted.2.23 mGy COMPARISON STUDY: 03/13/2024 FINDINGS: There is markedly abnormal hyoid excursion and epiglottic deflection. Disordered oral phary ngeal transit. Large amount of aspiration with thin and nectar consistencies, most of which is silent aspiration. IMPRESSION: 1. Silent aspiration with thin and nectar consistencies. 2. Please see the speech pathologist report for detailed findings and recommendations. ACT 112: Negative or not required by law. Electronically signed by: Esteban Sherman M.D. 04/03/2024 3:20 PM
--- NOTE | 2024-04-03 17:39 | XRay Report ---
SINGLE VIEW CHEST CLINICAL HISTORY: Enteric tube placement. FINDINGS: 2 AP, portable, upright chest radiographs are compared to study dated 04/02/2024 and correl ated with chest CT dated 02/21/2024. An enteric tube has been placed. This is coiled in the esophagus and repositioning is indicated. The cardiomediastinal silhouette is unremarkable noting atherosclerot ic calcification of the thoracic aorta. Enlargement of the central pulmonary arteries suggests pulmon feliz artery hypertension. Advanced emphysema and chronic interstitial thickening is similar to previou s. Foci of parenchymal scarring are seen throughout both lungs. There are increasing left basilar air space opacities. No large pleural effusion or pneumothorax is identified. The skeletal structures are osteopenic. The bony thorax is grossly intact. Cholecystectomy clips are seen in the right upper kym drant. IMPRESSION: 1. An enteric tube has been placed and is coiled within the esophagus. Repositioning is indicated. 2. Advanced emphysema. 3. There are increasing left basilar opacities which could represent progressive atelectasis versus p neumonia/aspiration pneumonitis. Clinical correlation will be required and radiographic follow-up to resolution is recommended. ACT 112: Negative or not required by law. Electronically signed by: Kevin Moralez M.D. 04/03/2024 5:38 PM
--- NOTE | 2024-04-03 18:32 | Billing Data ---
Date of Service April 03, 2024 Coding Level of Care Code 19045 SUB INP/OBS CARE MIN
--- NOTE | 2024-04-03 18:46 | XRay Report ---
SINGLE VIEW CHEST CLINICAL HISTORY: Enteric tube placement. FINDINGS: An AP, portable, upright chest radiograph is compared to study performed earlier the same d ay 04/03/2024 and correlated with chest CT dated 02/21/2024. An enteric tube has been placed. The tip projects below the diaphragm over the mid to distal stomach. The cardiomediastinal silhouette is unre markable noting atherosclerotic calcification of the thoracic aorta. Enlargement of the central pulmo nary arteries suggests pulmonary artery hypertension. Advanced emphysema and chronic interstitial thi ckening is similar to previous. Foci of parenchymal scarring are seen throughout both lungs. Airspace consolidation is again seen at the left lung base. No large pleural effusion or pneumothorax is iden tified. The skeletal structures are osteopenic. The bony thorax is grossly intact. Cholecystectomy cl ips are seen in the right upper quadrant. IMPRESSION: 1. An enteric tube has been placed as above. 2. Advanced emphysema. 3. Airspace consolidation is again seen at the left lung base. ACT 112: Negative or not required by law. Electronically signed by: Kevin Moralez M.D. 04/03/2024 6:45 PM
[2024-04-03] MEDS: PEPTAMEN 1.5 CAL 1,000 ML BAG NG SCH (22:24)
[2024-04-04 05:54] LABS: Hematocrit (blood only) 43.2 % (42.0-52.0); Hemoglobin 13.6 g/dl (14.0-18.0); Mean Corpuscular Hemoglobin 29.8 pg (25.0-34.0); Mean Corpuscular Hgb Conc 31.5 g/dL (32.0-36.0); Mean Corpuscular Volume 94.7 fL (80.0-100.0); Platelet Count 157 K/uL (130-400); RDW Coefficient of Variation 14.7 % (11.5-14.5); RDW Standard Deviation 51.2 fL (36.4-46.3); Red Blood Count 4.56 M/uL (4.70-6.10); White Blood Count 10.53 K/ul (4.8-10.8)
[2024-04-04 06:19] LABS: Calcium 9.9 mg/dl (8.6-10.3); Potassium 4.4 mmol/L (3.5-5.1)
[2024-04-04 06:25] LABS: BUN Creatinine Ratio 68.8 (10-20); Creatinine Clr Calc Pharmacy 62.6 ml/min
--- NOTE | 2024-04-04 07:58 | Hospitalist Progress Note ---
Date of Service April 04, 2024 Assessment & Plan (1) Acute exacerbation of chronic obstructive pulmonary disease: Plan: 78yo with COPD & Parkinson's, presenting with worsening shortness of breath, acute on chronic respiratory failure with hypoxia. - End stage COPD -Initial exam w diffuse wheezing. CXR with no obvious edema or infiltrate. PCR + for Covid-19. Procalcitonin is negative at 0.05. Leukocytosis with neutrophil predominance, likely demargination from recent steroid use. - Repeat CXR persistently shows left basilar opacity; may reflect pneumonia - IV solumedrol 40 mg IV daily (started on 04/01 on ICU) - Taken off BiPAP 04/02 AM O2 sat >90% on 5 L oxymask [employer] team recc continuing Bipap at night - Duoneb q6R, formoterol 20mcg BIDR, budesonide 0.5mg BIDR - (2) Acute on chronic respiratory failure with hypoxia: Plan: Initially 2/2 advanced COPD Concern for possible aspiration PNA - Transferred to ICU 03/31 PM; kept NPO; back to med-surg on 04/02 PM - CXR showed left basilar opacities similar to previous studies; US doppler normal - Given 1250mg IV Vanco x1 & IV cefepime 2000mg q12h -[employer] 8 Visiting Teacher/ Pulmonology consulted, appreciate recommendations: - Finish 5 days course of Cefepime -Bipap use with sleep; goal saturation 88 to 92%. - Continue nebulized budesonide and Perforomist, IV steroids - Continue NPO; oral medications held - Several extensive discussions conducted w family regarding expectations for pt's mental and functional status and capacity/decision-making; when lucid, patient expressed wanting "everything done" so family would like to honor that as long as possible; says they would be open to hospice consult in the indefinite future (3) Parkinson's disease: Plan: - Delirium/ agitation + - Aspiration precautions, NPO - Family describes acute worsening in mentation since last hospital discharge, with increased hostility (towards ) and impulsive behavior, especially notable after stopping prednisone/taper (less acute with the taper) - MRI brain w & w/o con, 03/26 showed age-related involutional changes; no acute abnormalities - Carbidopa-Levodopa 2 x 25-250mg tabs TID (held) - Ongoing delirium/agitation Seroquel 50mg prn - has not been needed 2 x 5mg IM zyprexa needed 10/7 AM Briefly placed on one-to-one observation - Seen by PT/OT; determined to be at physical baseline, recommended going home w HH Son reports [facility]h [facility] May relieve caregiver burden on to first have brief stay at rehab facility Work w CM and [facility] to determine best placement (4) COVID-19: Plan: - First tested PCR positive on 03/11; still + on 03/25 - Maintain isolation precautions - Solumedrol as above - Secretion management as above - Received Remdesivir during prior admission - Tylenol PRN, currently afebrile (5) Severe protein-calorie malnutrition: Plan: - NGT in placed - feedings to mitigate malnutrition w/o increasing risk of aspiration Failed swallow study 04/02; SLT recc keeping NPO, approve trying NGT Fluoroscopic swallow study 04/03 showing substantial silent aspiration on thin and mildly-thick liquids SLT accepting of another attempt at NGT placement; if successful, would need f/u video swallow in 3 days - Monitor electrolytes for possible refeeding syndrome - Hypernatremia: free water boluses. Continue BMP monitoring. Increased as necessary Plan Chronic Medical Conditions: Hypertension - Losartan and Metoprolol (hold) GERD -Continue Protonix IV BPH -Continue Flomax (hold) FEN: NPO - NGT tube Code status: full code DVT ppx: Lovenox sq Held home meds: PO meds Dispo: [med/surg with tele Admission and Anticipated Discharge Date Admission Date: March 25, 2024 Supervising Physician Co-Signing Physician Notes I personally examined the patient and verified all pierre points of history and exam, discussed case, and agree with decision making with Dr Painter. no meaningful HPI or ROS obtainable from pt. extensive discussion with again - trying NG once more. Vitals noted, in general he is awake and alert disoriented pleasant no distress. oxymask in place, no accessory muscles good effort skin no rashes no pallor or icterus IMPRESSION & PLAN delirium, deconditioning, severe protein calorie malnutrition -appears to be the undercurrent of his decline over the last few months -PO intake currently monumentally unsafe due to profound aspiration, pt appears mostly aspirating due to delirium - so the potential exists that if the delirium starts to clear he can possibly have improved PO intake over time -because of this, and because pt's stated wishes have been more in line with "do everything" NG placed (first attempt 04/02 failed, fortunately successful on 04/03) - this is with the hope that with time his delirium will improve but that if we wait until then his malnutrition will worsen to where his situation is beyond the ability to recover - would anticipate ~2wks tube feedings at the most to allow time for reassessment and improvement - if no improvement by then it would then be time to consider more palliative line of care as i do not believe PEG would be of penitentiary benefit if this ends up being a more permanent decline rather than temporary delirium; if shows improvement sooner and able to tolerate PO better, than would be ideal to dc NG sooner if possible -titrate H2O given hypernatremia, follow BMP -d/w - right now he is not pulling at tube, but given paramount importance of nutrition in giving him any chance to get back to an improved functional status/stave off an irreparable decline, she consents for mitts or soft restrains if needed to protect NG tube at this time -continue to follow; titrate tube feeds to goal of ~45-50/hr (getting to about [id number] [place]/day) if tolerated Acute hypoxic respiratory failure with COPD exacerbation -improving. steroids, abx, nebs, supportive care Delirium in the setting of Parkinsonism suspect repeated bouts of delirium and worsening deconditioning are part of his acute decline in functional status. 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 see above. PT/OT eval and treat. likely will need SNF once stable enough DVT proph - lovenox Additional per resident documentation Subjective Seem this morning. Comfortable in NAD. NGT in placed. Enteral feeding running. Continue with Oxymax during the day 5L Review of Systems Review of Systems: as per HPI Physical Exam Physical Exam: Gen: Fail, ill-appearing, non distress HEENT: NCAT CV: RRR, no m/r/g, no LE edema Resp: O2 sat >90% on oxymask, no respiratory distress, symmetric chest rise Abd: Soft, NT/ND, +BS, no HSM Skin: Warm, dry, pink, no rashes or lesions Results & Data Results & Data Vital Signs (Past 12 Hours) Vital Signs Temp Pulse Pulse Pulse Resp BP Pulse Ox 04/04/24 07:31 105 H 18 93 04/04/24 07:27 106 H 18 93 04/04/24 02:01 96 H 12 98 04/04/24 02:00 96 H 12 97 04/03/24 23:43 105 H 15 94 04/03/24 22:30 04/03/24 20:21 36.2 C L 124 H 20 127/87 96 O2 Del Method O2 Flow Rate FiO2 04/04/24 07:31 40 04/04/24 07:27 BiPAP 40 04/04/24 02:01 40 04/04/24 02:00 BiPAP 40 04/03/24 23:43 50 04/03/24 22:30 Oxymask, BiPAP 7 04/03/24 20:21 Oxymask 10 Resident Activity Tracking Resident Involvement: Resident Care Provided Care Provided: Adult Hospital Medicine
[2024-04-04] MEDS: TUBE FEEDING WATER FLUSH GT SCH (08:56)
[2024-04-04 10:01] LABS: Magnesium 2.5 mg/dl (1.7-2.4)
[2024-04-04 10:07] LABS: Phosphorus 2.9 mg/dl (2.5-4.9)
--- NOTE | 2024-04-04 10:19 | Billing Data ---
Date of Service April 04, 2024 Coding Level of Care Code 78879 SUB INP/OBS CARE MIN
[2024-04-04 15:12] LABS: BUN Creatinine Ratio 67.5 (10-20); Creatinine Clr Calc Pharmacy 58.1 ml/min; Potassium 4.4 mmol/L (3.5-5.1)
[2024-04-04] MEDS: PEPTAMEN 1.5 CAL 1,000 ML BAG NG SCH (21:59)
[2024-04-05 06:03] LABS: Hematocrit (blood only) 45.6 % (42.0-52.0); Hemoglobin 14.5 g/dl (14.0-18.0); Mean Corpuscular Hgb Conc 31.8 g/dL (32.0-36.0); Mean Corpuscular Volume 94.2 fL (80.0-100.0); Mean Platelet Volume 9.1 fL (9.4-12.4); Platelet Count 212 K/uL (130-400); RDW Coefficient of Variation 14.9 % (11.5-14.5); RDW Standard Deviation 51.5 fL (36.4-46.3); Red Blood Count 4.84 M/uL (4.70-6.10); White Blood Count 13.92 K/ul (4.8-10.8)
[2024-04-05 06:20] LABS: Magnesium 2.6 mg/dl (1.7-2.4); Phosphorus 2.1 mg/dl (2.5-4.9)
[2024-04-05 08:00] LABS: BUN Creatinine Ratio 72.9 (10-20); Calcium 10.2 mg/dl (8.6-10.3); Creatinine Clr Calc Pharmacy 56.7 ml/min; Potassium 4.1 mmol/L (3.5-5.1)
--- NOTE | 2024-04-05 08:10 | XRay Report ---
KUB HISTORY: Status post placement of a feeding tube core safe placement COMPARISON: CT abdomen and pelvis 07/18/2023 FINDINGS: Distal tip enteric tube projects over the abdominal left upper quadrant, likely within the gastric fundus. Mild left basilar opacities. Lower abdomen is excluded from the [id number]. Cholec ystectomy with moderate colonic fecal retention. No renal calculi. No ureteral calculi. No pneumoper itoneum or pneumatosis. No fracture. IMPRESSION: Distal tip of feeding tube projects over the abdominal left upper quadrant, likely within the gastric fundus. ACT 112: Negative or not required by law. The above report was generated using voice recognition software. It may contain grammatical, syntax o r spelling errors. Electronically signed by: Esteban Sherman M.D. 04/05/2024 8:08 AM
[2024-04-05] MEDS ORDERED: POTASSIUM PHOS 3 MMOL/1 ML INFUSION IV STA (10:07)
--- NOTE | 2024-04-05 10:11 | Hospitalist Progress Note ---
Date of Service April 05, 2024 Assessment & Plan (1) Acute exacerbation of chronic obstructive pulmonary disease: Plan: 78yo with COPD & Parkinson's, presenting with worsening shortness of breath, acute on chronic respiratory failure with hypoxia. - End stage COPD -Initial exam w diffuse wheezing. CXR with no obvious edema or infiltrate. PCR + for Covid-19. Procalcitonin is negative at 0.05. Leukocytosis with neutrophil predominance, likely demargination from recent steroid use. - Repeat CXR persistently shows left basilar opacity; may reflect pneumonia - IV solumedrol 40 mg IV daily (started on 04/01 on ICU) - Taken off BiPAP 04/02 AM O2 sat >90% on 4 L nasal cannula Continuing Bipap at night - Duoneb q6R, formoterol 20mcg BIDR, budesonide 0.5mg BIDR - (2) Acute on chronic respiratory failure with hypoxia: Plan: Initially 2/2 advanced COPD Concern for possible aspiration PNA - Transferred to ICU 108 PM; kept NPO; back to med-surg on 04/02 PM - CXR showed left basilar opacities similar to previous studies; US doppler normal - Given 1250mg IV Vanco x1 & IV cefepime 2000mg q12h -Hand Roller Engraver/ Pulmonology consulted, appreciate recommendations: - Finish 5 days course of Cefepime (last dose 04/05) -Bipap use with sleep; goal saturation 88 to 92%. - Continue nebulized budesonide and Perforomist, IV steroids - Continue NPO; oral medications held - if continue tolerating well NGT may start giving med through tube - Several extensive discussions conducted w family regarding expectations for pt's mental and functional status and capacity/decision-making; when lucid, patient expressed wanting "everything done" so family would like to honor that as long as possible; says they would be open to hospice consult in the indefinite future (3) Parkinson's disease: Plan: - Delirium/ agitation + - Aspiration precautions, NPO - Family describes acute worsening in mentation since last hospital discharge, with increased hostility (towards ) and impulsive behavior, especially notable after stopping prednisone/taper (less acute with the taper) - MRI brain w & w/o con, 03/26 showed age-related involutional changes; no acute abnormalities - Carbidopa-Levodopa 2 x 25-250mg tabs TID (held) - Ongoing delirium/agitation Seroquel 50mg prn - has not been needed 2 x 5mg IM zyprexa needed 10/7 AM - Seen by PT/OT; determined to be at physical baseline, recommended going home w HH Son reports 20h [facility] May relieve caregiver burden on to first have brief stay at rehab facility Work w CM and his [facility] to determine best placement (4) COVID-19: Plan: - First tested PCR positive on 03/11; still + on 03/25 - Maintain isolation precautions - Solumedrol as above - Secretion management as above - Received Remdesivir during prior admission - Tylenol PRN, currently afebrile (5) Severe protein-calorie malnutrition: Plan: - NGT in placed - feedings to mitigate malnutrition w/o increasing risk of aspiration Failed swallow study 04/02; SLT recc keeping NPO, approve trying NGT Fluoroscopic swallow study 04/03 showing substantial silent aspiration on thin and mildly-thick liquids SLT accepting of another attempt at NGT placement; if successful, would need f/u video swallow in 3 days - Monitor electrolytes for possible refeeding syndrome - replaced as needed - Hypernatremia: free water boluses. Continue BMP monitoring. Increased as necessary Plan Chronic Medical Conditions: Hypertension - Losartan and Metoprolol (hold) GERD -Continue Protonix IV BPH -Continue Flomax (hold) FEN: NPO - NGT tube Code status: full code DVT ppx: Lovenox sq Held home meds: PO meds Dispo: [med/surg with tele Admission and Anticipated Discharge Date Admission Date: March 25, 2024 Supervising Physician Co-Signing Physician Notes I personally examined the patient and verified all pierre points of history and exam, discussed case, and agree with decision making with Dr Painter. no meaningful HPI or ROS obtainable from pt. NG was pulled back some but appears still placed in stomach. Vitals noted, in general he is awake and alert disoriented pleasant no distress. breathing unlabored, no accessory muscles good effort skin no rashes no pallor or icterus IMPRESSION & PLAN delirium, deconditioning, severe protein calorie malnutrition -appears to be the undercurrent of his decline over the last few months -PO intake currently monumentally unsafe due to profound aspiration, pt appears mostly aspirating due to delirium - so the potential exists that if the delirium starts to clear he can possibly have improved PO intake over time -because of this, and because pt's stated wishes have been more in line with "do everything" NG placed (first attempt 04/02 failed, fortunately successful on 04/03) - this is with the hope that with time his delirium will improve but that if we wait until then his malnutrition will worsen to where his situation is beyond the ability to recover - would anticipate ~2wks tube feedings at the most to allow time for reassessment and improvement - if no improvement by then it would then be time to consider more palliative line of care as i do not believe PEG would be of watermelon inspector benefit if this ends up being a more permanent decline rather than temporary delirium; if shows improvement sooner and able to tolerate PO better, than would be ideal to dc NG sooner if possible -titrate H2O given hypernatremia, follow BMP (today increase water from 50 q4 to 100 q4 given that Na rising more or less leveled off but did not improve) -d/w - right now he is not pulling at tube, but given paramount importance of nutrition in giving him any chance to get back to an improved functional status/stave off an irreparable decline, she consents for mitts or soft restrains if needed to protect NG tube at this time -continue to follow; titrate tube feeds to goal of ~45-50/hr (getting to about [id number] [place]/day) if tolerated//otherwise as per nutrition (who currently have goal set at ~40/hr) Acute hypoxic respiratory failure with COPD exacerbation -improving. steroids, abx, nebs, supportive care Delirium in the setting of Parkinsonism suspect repeated bouts of delirium and worsening deconditioning are part of his acute decline in functional status. have been discussing with family in depth, right now malnutrition is really the biggest chronic problem of [facility] consequence. see above. PT/OT eval and treat. likely will need SNF once stable enough DVT proph - lovenox Additional per resident documentation Subjective Seem this morning. Comfortable in NAD. NGT in placed. Overnight patient seem to have pull his NGT. Xray showed tube on gastric fundus. Review of Systems Review of Systems: as per HPI Physical Exam Physical Exam: Gen: Fail, ill-appearing, non distress HEENT: NCAT CV: RRR, no m/r/g, no LE edema Resp: O2 sat >90% on oxymask, no respiratory distress, symmetric chest rise Abd: Soft, NT/ND, +BS, no HSM Skin: Warm, dry, pink, no rashes or lesions Results & Data Results & Data Vital Signs (Past 12 Hours) Vital Signs Temp Pulse Pulse Resp BP Pulse Ox O2 Del Method 04/05/24 08:00 109 H 18 94 Nasal Cannula 04/05/24 07:57 36.6 C 103 H 18 144/95 H 96 Nasal Cannula 04/05/24 05:15 111 H 19 95 Nasal Cannula 04/05/24 03:43 111 H 14 95 04/05/24 01:40 108 H 13 94 BiPAP 04/04/24 22:13 108 H 15 93 O2 Flow Rate FiO2 04/05/24 08:00 4 04/05/24 07:57 4 04/05/24 05:15 4 04/05/24 03:43 40 04/05/24 01:40 40 04/04/24 22:13 40 Resident Activity Tracking Resident Involvement: Resident Care Provided Care Provided: Adult Hospital Medicine
[2024-04-05] MEDS: TUBE FEEDING WATER FLUSH GT SCH ×2 (10:19→17:48)
[2024-04-05] MEDS: POT PHOSPHATE MONOBASIC W/ SOD TAB PO SCH (11:13)
[2024-04-05] MEDS ORDERED: ALBUT/IPRATROP 3MG/0.5MG NEB 3 ML VIAL NEB PRN (13:21)
--- NOTE | 2024-04-05 14:50 | Billing Data ---
Date of Service April 05, 2024 Coding Level of Care Code 67061 SUB INP/OBS CARE MIN
[2024-04-05 15:15] LABS: BUN Creatinine Ratio 71.1 (10-20); Creatinine Clr Calc Pharmacy 53.6 ml/min
[2024-04-05 19:19] LABS: Creatinine Clr Calc Pharmacy 53.6 ml/min; Potassium 3.9 mmol/L (3.5-5.1)
[2024-04-05] MEDS ORDERED: MoRPHine SULFATE 2 MG/ML CARP IV PRN (20:32)
[2024-04-05] MEDS: ACETAMINOPHEN 1,000 MG/100 ML VIAL IV STA (20:51)
[2024-04-05] MEDS ORDERED: guaiFENesin SUGAR FREE 200 MG/10 ML UDC PO PRN (21:31)
[2024-04-06 01:06] LABS: BUN Creatinine Ratio 69.6 (10-20); Calcium 10.3 mg/dl (8.6-10.3); Creatinine Clr Calc Pharmacy 47.3 ml/min; Potassium 4.2 mmol/L (3.5-5.1)
[2024-04-06] MEDS: MoRPHine SULFATE 4 MG/ML 1 ML CARP\\VIAL IV PRN (03:42)
[2024-04-06 06:26] LABS: Hematocrit (blood only) 46.1 % (42.0-52.0); Hemoglobin 15.3 g/dl (14.0-18.0); Mean Corpuscular Hemoglobin 31.4 pg (25.0-34.0); Mean Corpuscular Hgb Conc 33.2 g/dL (32.0-36.0); Mean Corpuscular Volume 94.5 fL (80.0-100.0); Mean Platelet Volume 9.2 fL (9.4-12.4); Platelet Count 219 K/uL (130-400); RDW Coefficient of Variation 14.9 % (11.5-14.5); RDW Standard Deviation 51.8 fL (36.4-46.3); Red Blood Count 4.88 M/uL (4.70-6.10); White Blood Count 13.23 K/ul (4.8-10.8)
[2024-04-06 06:35] LABS: BUN Creatinine Ratio 74.2 (10-20); Creatinine Clr Calc Pharmacy 46.7 ml/min
--- NOTE | 2024-04-06 08:31 | Hospitalist Progress Note ---
Date of Service April 06, 2024 Assessment & Plan (1) Acute exacerbation of chronic obstructive pulmonary disease: (2) Acute on chronic respiratory failure with hypoxia: (3) Parkinson's disease: (4) COVID-19: (5) Severe protein-calorie malnutrition: (6) Hypernatremia: Plan Acute exacerbation of COPD Acute on Chronic Respiratory Failure COVID-19 78yo with COPD & Parkinson's, presented in acute on chronic respiratory failure with hypoxia. -End stage COPD - PCR + for Covid-19 on 03/25. Per CDC guidelines, pt is appropriate to discontinue droplet precautions today. - Repeat CXR persistently shows left basilar opacity; may reflect pneumonia - IV solumedrol 40 mg IV daily (started on 04/01 on ICU). Consider slow taper - O2 sat >90% on 3 L nasal cannula - Continuing Bipap at night - Duoneb q6R, formoterol 20mcg BIDR, budesonide 0.5mg BIDR - Palliative consult ordered for goals of care decision making Parkinson's Disease - Delirium/ agitation. Improving with increased attention span, no witnessed agitation - DOPER OPERATOR re-eval ordered. Continued recommendations for NPO due to high risk of aspiration. Patient requesting water and food. - Carbidopa-Levodopa 2 x 25-250mg tabs TID - Ongoing delirium/agitation Seroquel 50mg prn - has not been needed - Discontinued bed rest status - Re-ordered PT/ OT evaluation for anticipated discharge placement as well as mobility due to discontinued bed rest status Severe Protein-Calorie Nutrition - NGT remains in place and used for primary nutrition - feedings to mitigate malnutrition w/o increasing risk of aspiration Continued NPO due to high aspiration risk. DOPER OPERATOR re-evaluated on 04/06 stating patient was no longer silent aspirating, but still aspirating on pudding thickness. - Monitor electrolytes for possible refeeding syndrome - replaced as needed Hypernatremia Baseline hypernatremic, but gradually increasing over the last 4 days. Currently at 153. -Increased sterile water boluses to 250mL q4h via NGT -Recheck Na in pm Chronic Medical Conditions: Hypertension - Losartan and Metoprolol (hold) GERD -Continue Protonix IV BPH -Continue Flomax (hold) FEN: NPO - NGT tube Code status: full code DVT ppx: Lovenox sq Held home meds: PO meds Dispo: [med/surg with tele Admission and Anticipated Discharge Date Admission Date: March 25, 2024 Supervising Physician Co-Signing Physician Notes Attending Physician Supervision Note: I independently interviewed and examined the patient and verified the pierre history and physical, reviewed labs and image studies and agree with findings and care plan noted above. Alert this am. Reported back pain and wanting to eat. Oriented to self, place and year. Lungs - decreased breath sounds globally. No obvious resp distress. Delirium - resolved. COPD exacerbation - improved. wean steroids. nebs. Acute resp failure - persistent ? O2 need. wean O2. SaO2 goal 88 Parkinson ds - home meds - PT/OT. Severe protein calorie malnutrition/Frailty - NG tube feeding Swallowing dysfunction - profound aspiration - per discussion with - consult palliative care for goals of care discussion. Hypernatremia - Increased free water supplementation. Recheck Na later today - improving Lovenox. Subjective Pt is a 78 yo male with PMH of COPD and Parkinson's disease who presented with acute hypoxic respiratory failure 12 days ago. Today, pt is c/o pain all over body aches, primarily in his mid and lower back. Pt denies chest pain, SOB, nausea, or numbness/tingling Review of Systems Review of Systems: As per HPI Physical Exam Physical Exam: Gen: Fail, ill-appearing, non distress HEENT: dry oral mucosa, difficulty projecting voice to speak and say words CV: RRR, no m/r/g, no LE edema Resp: O2 sat >90% on NC at 3L, no respiratory distress, symmetric chest rise Abd: Soft, NT/ND, +BS, no HSM Skin: Warm, dry, pink, no rashes or lesions Results & Data Results & Data Vital Signs (Past 12 Hours) Vital Signs Pulse Pulse Resp BP Pulse Ox O2 Del Method O2 Flow Rate 04/06/24 07:15 100 H 20 94 Nasal Cannula 3 04/06/24 03:55 103 H 23 99 04/05/24 23:22 114 H 20 124/87 97 BiPAP 04/05/24 23:07 107 H 22 97 04/05/24 21:10 Nasal Cannula 4 FiO2 04/06/24 07:15 04/06/24 03:55 40 04/05/24 23:22 04/05/24 23:07 40 04/05/24 21:10 Resident Activity Tracking Resident Involvement: Resident Care Provided Care Provided: Adult Hospital Medicine
[2024-04-06] MEDS: TUBE FEEDING WATER FLUSH GT SCH (12:52)
[2024-04-06 15:47] LABS: BUN Creatinine Ratio 75.9 (10-20); Creatinine Clr Calc Pharmacy 52.4 ml/min; Potassium 4.2 mmol/L (3.5-5.1)
[2024-04-07 06:44] LABS: Hematocrit (blood only) 43.7 % (42.0-52.0); Hemoglobin 14.2 g/dl (14.0-18.0); Mean Corpuscular Hemoglobin 30.4 pg (25.0-34.0); Mean Corpuscular Hgb Conc 32.5 g/dL (32.0-36.0); Mean Corpuscular Volume 93.6 fL (80.0-100.0); Mean Platelet Volume 9.3 fL (9.4-12.4); Platelet Count 200 K/uL (130-400); RDW Coefficient of Variation 14.7 % (11.5-14.5); RDW Standard Deviation 50.4 fL (36.4-46.3); Red Blood Count 4.67 M/uL (4.70-6.10); White Blood Count 12.86 K/ul (4.8-10.8)
[2024-04-07 07:05] LABS: BUN Creatinine Ratio 82.1 (10-20); Calcium 9.5 mg/dl (8.6-10.3); Creatinine Clr Calc Pharmacy 65.8 ml/min; Potassium 3.8 mmol/L (3.5-5.1)
--- NOTE | 2024-04-07 07:47 | Hospitalist Progress Note ---
Date of Service April 07, 2024 Assessment & Plan (1) Acute exacerbation of chronic obstructive pulmonary disease: (2) Acute on chronic respiratory failure with hypoxia: (3) Parkinson's disease: (4) COVID-19: (5) Severe protein-calorie malnutrition: (6) Hypernatremia: Plan 78yo with COPD & Parkinson's, presented in acute on chronic respiratory failure with hypoxia. Acute exacerbation of COPD Acute on Chronic Respiratory Failure COVID-19 -End stage COPD - PCR + for Covid-19 on 03/25. No longer on droplet precautions. - IV solumedrol 40 mg IV daily (started on 04/01 on ICU). Consider slow taper - O2 sat >90% on 4-6 L oxymask, but reported difficulty breathing this afternoon. Ordered urgent EKG and troponin level EKG without significant change from last EKG on 03/31 Initial Troponin 27.3, Ordered second trop to be taken at 1600 Likely ischemic demand in setting of acute hypoxic failure - Continuing Bipap at night - Duoneb q6R, formoterol 20mcg BIDR, budesonide 0.5mg BIDR - Saline nebs PRN - Palliative consult completed Family to discuss code status and possible transfer to hospice. Touch base with family on 04/08 Parkinson's Disease - Delirium/ agitation. Improving with increased attention span, no witnessed agitation - Continue following recommendations from [employer]OR for NPO due to high risk of aspiration. - Carbidopa-Levodopa 2 x 25-250mg tabs TID - Ongoing delirium/agitation Seroquel 50mg prn - has not been needed - Discontinued bed rest status - PT/ OT evaluations not completed Recommending awaiting palliative evaluation and recs Severe Protein-Calorie Nutrition - NGT remains in place and used for primary nutrition - feedings to mitigate malnutrition w/o increasing risk of aspiration Continued NPO due to high aspiration risk per [employer] re-evaluation. - Monitor electrolytes for possible refeeding syndrome - replace as needed Hypernatremia Baseline hypernatremic. Mild decrease from 153 to 150 after 250mL saline boluses via NGT started 04/06. -Increased sterile water boluses to 300mL q4h via NGT -Recheck Na in pm Chronic Medical Conditions: Hypertension - Losartan and Metoprolol (hold) GERD -Continue Protonix IV BPH -Continue Flomax (hold) FEN: NPO - NGT tube Code status: full code DVT ppx: Lovenox sq Held home meds: PO meds Dispo: [med/surg with tele Admission and Anticipated Discharge Date Admission Date: March 25, 2024 Supervising Physician Co-Signing Physician Notes Attending Physician Supervision Note: I independently interviewed and examined the patient and verified the pierre history and physical, reviewed labs and image studies and agree with findings a nd care plan noted above. Alert this am. Back pain persists. Oriented to self, place and year. Lungs - decreased breath sounds globally. No obvious resp distress. no rhonchi/wheeze Delirium - resolved. COPD exacerbation - improved. weaning steroids. nebs. Add saline nebs to help with mucous/flutter valve - unable to exporate. Acute resp failure - persistent O2 need. wean O2. SaO2 goal 88 Parkinson ds - home meds - PT/OT. Severe protein calorie malnutrition/Frailty - NG tube feeding Hypernatremia - Increased free water supplementation further to 300ml qid. Swallowing dysfunction - profound aspiration - NPO/NGT, per discussion with - palliative care consulted. -Family to have a meeting tonight and then will update us on the plan regarding hospice care and also make decision on the code status. Lovenox. Subjective Pt is a 78 yo male with PMH of COPD and Parkinson's disease who presented with acute hypoxic respiratory failure 12 days ago. This morning, pt is in good spirits and sitting up in his bed. Continues with difficulty projecting his voice. But no complaints at that time. In afternoon, Pt's nurse reported pt was complaining of chest pain and difficulty breathing. When asked where he felt pain, he pointed at anterior neck and repeated "can't breathe". Review of Systems Review of Systems: As per HPI Physical Exam Physical Exam: Gen: Fail, ill-appearing, HEENT: dry oral mucosa, difficulty projecting voice to speak and saying words CV: RRR, tachycardia no m/r/g, no LE edema Resp: O2 sat >88-90% on oxymask at 4L, no respiratory distress, symmetric chest rise Abd: Soft, NT/ND, +BS, no HSM Skin: Warm, dry, pink, no rashes or lesions Results & Data Results & Data Vital Signs (Past 12 Hours) Vital Signs Temp Pulse Pulse Resp BP Pulse Ox O2 Del Method 04/07/24 07:19 113 H 20 90 Oxymask 04/06/24 23:27 104 H 20 96 04/06/24 21:19 36.7 C 102 H 20 114/72 94 Nasal Cannula 04/06/24 20:02 102 H 18 94 Nasal Cannula O2 Flow Rate FiO2 04/07/24 07:19 6 04/06/24 23:27 40 04/06/24 21:19 2 04/06/24 20:02 3 Resident Activity Tracking Resident Involvement: Resident Care Provided Care Provided: Adult Hospital Medicine
[2024-04-07] MEDS: TUBE FEEDING WATER FLUSH GT SCH (08:00)
[2024-04-07] MEDS: methylPREDNISolone 30 MG in SYRINGE 0 ML IV SCH (08:13)
[2024-04-07] MEDS ORDERED: PANTOprazole 40 MG/10 ML SYR IV SCH (09:00)
[2024-04-07] MEDS ORDERED: methylPREDNISolone 125 MG/2 ML VIAL IV SCH (09:00)
[2024-04-07] MEDS: PANTOPRAZOLE 40 MG IV ONE (09:35)
[2024-04-07] MEDS: SODIUM CHLORIDE 0.9% NEBU SOLN 3 ML NEB ONE (11:20)
--- NOTE | 2024-04-07 11:43 | Palliative Care Consultation ---
Date of Consultation April 07, 2024 Assessment & Plan (1) Agitation: (2) Confusion and disorientation: (3) Weakness generalized: (4) Discussion about advance care planning held with family member: A 30min telephonic ACP was held Manoj Simons, son. We discussed the pierre medical issues at length/how things at this junction are not curable/reversible/fixable. Son was inclined to agree. Pt's dtr arrives tonight. They will discuss as a family tonight with pt and inform us tomorrow, son is asking about options for home hospice vs [facility] - he was honest that home hospice likely won't work and is concerned about costs for SNF hospice vs what [facility] options may be/can they be more affordable? It might be worth looking into what [facility] options may be in anticipation of their decision. We discussed the hospice benefit: an interdisciplinary program offered by nurses, nurses aides, social workers, chaplains and a pesticide use medical coordinator for patients with a terminal condition and a life expectancy of less than 6 months. This is covered by Medicare at 100%/no out of pocket expense to patient and all meds/supplies needed by patient for the reason they are on hospice are paid for/covered by hospice. The goal is assure quality of life of the patient in their home setting (home, jail, inpatient hospice setting) by providing symptoms management, psychosocial and spiritual support. However, they cannot offer 24 hours care and if the family is unable to provide that care, they will have to consider personal care with out of pocket cost vs. jail placement. We discussed the goals of hospice as a patient service and the goals of care; we discussed EOL trajectories and transitions faustino the emotional impact of realizing mortality as a concrete reality from prior abstract considerations. Pt was reassured that no matter where they are along this trajectory, they are not alone - their medical team will remain by their side through their journey. Discussed the pros/cons of accepting help when especially weakened and distressed by pain-which would also help provide relief/decrease caregiver burden/strain. We also discussed code, pt is no longer decisional and I recc no code given the adv COPD, adv PD, frailty etc. Son was in agreement but wants to formally discus s with family before making the change, he will update us tomorrow. I offered a follow up family meeting in person tomorrow at 10am, he is going to call my office if that is desired but otherwise he may just update primary team or nursing with his final decisions. (5) Aspiration of food: (6) Palliative care by specialist: Introduced Palliative Medicine and explained our role in patient's care. Patient and/or family were receptive to palliative services for goals of care discussions. Reviewed we are different from hospice, a home health nurse visiting service. Plan Family meeting confirmed 10am tomorrow at bedside otherwise as noted above teams updated thank you for this consult Thank you for allowing us to participate in the ongoing care of this patient. Please page with any additional concerns. Lynette Fenton DNP Director, Palliative Medicine History of Present Illness Reason for Consultation: GOC, adv COPD Attending Physician: Jana Neri MD History of Present Illness Ray Simons is a 78yo male admitted 03/25/2024. He has COPD & Parkinson's Disease; he came to ER with dyspnea and was found to be in acute on chronic respiratory failure with hypoxia d/t End stage COPD. His PCR + for Covid-19 on 03/25. Per CDC guidelines, pt is appropriate to discontinue droplet precaution; his CXR persistently shows left basilar opacity which ?may reflect pneumonia. He intermittently refuses NIV but has been cooperative with nasal cannula He is struggling with confusion/delirium/ agitation likely due to his PD; chart review indicates "family describes acute worsening in mentation since last hospital discharge, with increased hostility (towards ) and impulsive behavior, especially notable after stopping prednisone/taper (less acute with the taper);" his MRI brain w & w/o con 03/26/24 revealed "age-related involutional changes; no acute abnormalities." His Carbidopa-Levodopa 2 x 25- 250mg tabs TID are on hold due to swallowing impairment. For the ongoing delirium/agitation, he has been started on Seroquel 50mg prn but no doses have been given. He has required two doses of Zyprexa 5mg IM on morning of 03/30/24. Re Aspiration: He unfortunately failed swallow study 04/02 and SLT recc NPO. His Fluoroscopic swallow study 04/03 showed substantial silent aspiration on thin and mildly-thick liquids. NGT trial underway due to aspiration and severe malnutrition, there has been no clear discussion re PEG. Ray is confused and unable to participate in this consult. Allergies Allergy/AdvReac Type Severity Reaction Status Date / Time bee venom protein (honey bee) Allergy Severe Anaphylaxis Verified 02/21/24 22:49 rhubarb AdvReac Intermediate ANXIETY, Verified 02/21/24 22:58 "ON EDGE", "FEELS LIKE NAILS ON CHALKBOARD". Home Medications Medication Instructions Recorded Confirmed Type acetaminophen 500 mg tablet 500 - 1,000 mg PO DIRECTED PRN 04/04/22 03/25/24 History (Tylenol Extra Strength) Pain albuterol sulfate 90 mcg/actuation 2 puff inhalation QID PRN 04/04/22 03/25/24 History aerosol inhaler Shortness Of Breath Or Wheezing fluticasone propionate 50 1 - 2 spray intranasal DAILY PRN 04/04/22 03/25/24 History mcg/actuation nasal Congestion spray,suspension mirabegron 25 mg tablet,extended 25 mg PO DAILY 04/04/22 03/25/24 History release 24 hr (Myrbetriq) omeprazole 20 mg capsule,delayed 20 mg PO DAILYBB 04/04/22 03/25/24 History release tamsulosin 0.4 mg capsule 0.4 mg PO HS 04/04/22 03/25/24 History Lactobacillus acidophilus 1 tab PO DAILY 12/22/23 03/25/24 History budesonide 160 mcg-glycopyr 9 2 inh inhalation BID 12/22/23 03/25/24 History mcg-formot 4.8 mcg/actuation HFA inhaler (Breztri Aerosphere) carbidopa 25 mg-levodopa 250 mg 2 tab PO TID 12/22/23 03/25/24 History tablet docusate sodium 100 mg capsule 100 mg PO BID PRN Constipation 12/22/23 03/25/24 History entacapone 200 mg tablet 200 mg PO TID 12/22/23 03/25/24 History guaifenesin 200 mg tablet 400 mg PO TID PRN THICK MUCOUS 12/22/23 03/25/24 History metoprolol succinate 25 mg 25 mg PO DAILY 12/22/23 03/25/24 History tablet,extended release 24 hr multivitamin with minerals 1 tab PO DAILY 12/22/23 03/25/24 History sodium chloride 0.9 % for 3 ml inhalation QID PRN MUCOUS 12/22/23 03/25/24 History nebulization MOBILIZATION Simply Thick 6 units PO DAILY 02/21/24 03/14/24 History prednisone 10 mg tablet 10 mg PO DAILY #20 tabs 02/26/24 03/14/24 Rx prednisone 10 mg tablet See Rx Instructions .Route 03/16/24 Rx .COMPLEX #12 tabs losartan 25 mg tablet 25 mg PO DAILY 03/25/24 03/25/24 History Patient History Medical History (Updated 04/07/24 @ 11:42 by Fatou Fenton DNP) Dyspnea on exertion Acute hypoxemic respiratory failure GERD (gastroesophageal reflux disease) Hypertension Thrombocytopenia Family History Other Family history non-contributory Social History Smoking Status: Former smoker Tobacco Type: Cigarettes Hx Alcohol Use: No Hx Substance Use: No Preferred Language: Slovak Communication Ability: Effective Visiting Nurse Required: No Beliefs That Will Affect Care: None Current Living Situation: Spouse Feels Safe at Home: Yes Safety Concerns: Feels Safe At This Time Assistive Devices: Oxygen - Continuous, Walker and Wheelchair Review of Systems Review of Systems: Unobtainable due to cognitive status Physical Exam Constitutional: bitemp wasting confused disheveled Eyes: PERRL, conjunctivae normal, anicteric sclerae ENMT: corflo in place mucosa pink dentition fair neck without stridor Neck: no stridor supple Respiratory: inc effort with some use of accessory muscles anterior chest wall tenderness to palpation Cardiovascular: RRR, no murmur, no edema Gastrointestinal (Abdomen): scaphoid NTP BS+ Musculoskeletal: deconditioned thin muscle wasting Skin: pale, sl clammy Neurologic: opens eyes to name unable to identify place or time unable to answer more than simple questions such as "Does it hurt if I push here?" Psychiatric: confused/sl agitated Results & Data Vital Signs (Past 12 Hours) Vital Signs Temp Pulse Resp BP Pulse Ox O2 Del Method O2 Flow Rate 04/07/24 11:22 114 H 24 92 Aerosol Mask 7 04/07/24 08:07 36.6 C 112 H 20 111/78 91 Oxymask 6 04/07/24 08:00 Nasal Cannula 2 04/07/24 07:19 113 H 20 90 Oxymask 6 Laboratory Results 04/07/24 04/07/24 04/06/24 Range/Units 13:15 06:24 15:18 WBC 12.86 H (4.8-10.8) K/ul RBC 4.67 L (4.70-6.10) M/uL Hgb 14.2 (14.0-18.0) g/dl POC Hgb (14.0-18.0) g/dl Hct 43.7 (42.0-52.0) % POC Hct (42-52) % MCV 93.6 (80.0-100.0) fL MCH 30.4 (25.0-34.0) pg MCHC 32.5 (32.0-36.0) g/dL RDW Std Deviation 50.4 H (36.4-46.3) fL RDW Coeff of Charanjit 14.7 H (11.5-14.5) % Plt Count 200 (130-400) K/uL MPV 9.3 L (9.4-12.4) fL Immature Gran % (Auto) % Neut % (Auto) % Lymph % (Auto) % Mora % (Auto) % Eos % (Auto) % Baso % (Auto) % Neut # (Auto) (1.40-6.50) K/uL Lymph # (Auto) (1.20-3.40) K/uL Mora # (Auto) (0.11-0.59) K/uL Eos # (Auto) (0.00-0.50) K/uL Baso # (Auto) (0.00-0.20) K/uL Immature Gran # (Auto) (0.01-0.20) K/uL RBC Morphology Sample Site POC pH (7.35-7.45) POC pCO2 (35-46) mmHg POC pO2 (80-95) mmHg POC HCO3 (19-24) matt/L POC Total CO2 (24-31) mmol/L POC Base Excess (-9-1.8) matt/L ABG pH (7.35-7.45) ABG pH (Temp Correct) (7.35-7.45) ABG pCO2 (35-46) mmHg ABG pCO2 (Temp Corrct (35-46) mmHg ABG pO2 (80-95) mmHg POC ABG pO2 at Pt Temp ABG HCO3 (19-24) mmol/L POC ABG O2 Sat (90-95) % ABG O2 Saturation (90-95) % ABG Base Excess (-9-1.8) mEq/L Eder Test (Pos) VBG pH (7.36-7.41) VBG pCO2 (38-50) mmHg VBG pO2 mmHg VBG HCO3 mmol/L VBG O2 Saturation % VBG Base Excess mEq/L Oxygen Given O2 Delivery Device POC O2 Rate POC FiO2 % IPAP POC Sodium (135-144) mmol/L Sodium 150 H 150 H (136-145) mmol/L POC Potassium (3.3-5.0) mmol/L Potassium 3.8 4.2 (3.5-5.1) mmol/L Chloride 118 H 120 H (98-107) mmol/L Carbon Dioxide 27 26 (21-32) mmol/L Anion Gap 5 4 (3-11) BUN 55 H 63 H (6-23) mg/dl Creatinine 0.67 0.83 (0.6-1.4) mg/dl Est Cr Clr Drug Dosing 65.8 52.4 ml/min eGFR 94.98 89.03 BUN/Creatinine Ratio 82.1 H 75.9 H (10-20) Glucose 149 H 196 H (70-99(Fasting)) mg/dl POC Glucose (70-99) mg/dl Lactate (0.4-2.0) mmol/L Calcium 9.5 10.0 (8.6-10.3) mg/dl Phosphorus (2.5-4.9) mg/dl Magnesium (1.7-2.4) mg/dl Total Bilirubin (0.2-1.0) mg/dl AST (13-39) U/L ALT (7-52) U/L Alkaline Phosphatase (34-104) U/L Troponin I High Sens 27.3 H (0-20) pg/ml B-Natriuretic Peptide (0-100) pg/ml Total Protein (6.0-8.3) gm/dl Albumin (3.4-5.0) gm/dl Globulin (2.5-4.0) gm/dl Albumin/Globulin Ratio (0.9-2) Procalcitonin (0-0.5) ng/ml TSH (0.300-4.500) uIu/ml Urine Color Urine Appearance (Clear) Urine pH (4.5-7.5) Ur Specific [place] (1.000-1.030) Urine Protein (Negative) Urine Glucose (UA) (Negative) Urine Ketones (Negative) Urine Blood (Negative) Urine Nitrite (Negative) Urine Bilirubin (Negative) Urine Urobilinogen (Negative) Ur Leukocyte Esterase (Negative) Urine WBC (Auto) (0-5) /hpf Urine RBC (Auto) (0-2) /hpf U Hyaline Cast (Auto) (0-2) /lpf U Epithel Cells (Auto) (0-2) /hpf Urine Bacteria (Auto) (None Seen) Nasal Screen MRSA (PCR) (Negative) Staphylococcus sp PCR (NotDetected) mecA/C-Methicil Resis Gene (NotDetected) Staph epidermidis (PCR) (NotDetected) Bld Cult ID Panel PCR (NotDetected) 04/06/24 04/06/24 04/05/24 Range/Units 05:58 00:19 18:48 WBC 13.23 H (4.8-10.8) K/ul RBC 4.88 (4.70-6.10) M/uL Hgb 15.3 (14.0-18.0) g/dl POC Hgb (14.0-18.0) g/dl Hct 46.1 (42.0-52.0) % POC Hct (42-52) % MCV 94.5 (80.0-100.0) fL MCH 31.4 (25.0-34.0) pg MCHC 33.2 (32.0-36.0) g/dL RDW Std Deviation 51.8 H (36.4-46.3) fL RDW Coeff of Charanjit 14.9 H (11.5-14.5) % Plt Count 219 (130-400) K/uL MPV 9.2 L (9.4-12.4) fL Immature Gran % (Auto) % Neut % (Auto) % Lymph % (Auto) % Mora % (Auto) % Eos % (Auto) % Baso % (Auto) % Neut # (Auto) (1.40-6.50) K/uL Lymph # (Auto) (1.20-3.40) K/uL Mora # (Auto) (0.11-0.59) K/uL Eos # (Auto) (0.00-0.50) K/uL Baso # (Auto) (0.00-0.20) K/uL Immature Gran # (Auto) (0.01-0.20) K/uL RBC Morphology Sample Site POC pH (7.35-7.45) POC pCO2 (35-46) mmHg POC pO2 (80-95) mmHg POC HCO3 (19-24) matt/L POC Total CO2 (24-31) mmol/L POC Base Excess (-9-1.8) matt/L ABG pH (7.35-7.45) ABG pH (Temp Correct) (7.35-7.45) ABG pCO2 (35-46) mmHg ABG pCO2 (Temp Corrct (35-46) mmHg ABG pO2 (80-95) mmHg POC ABG pO2 at Pt Temp ABG HCO3 (19-24) mmol/L POC ABG O2 Sat (90-95) % ABG O2 Saturation (90-95) % ABG Base Excess (-9-1.8) mEq/L Eder Test (Pos) VBG pH (7.36-7.41) VBG pCO2 (38-50) mmHg VBG pO2 mmHg VBG HCO3 mmol/L VBG O2 Saturation % VBG Base Excess mEq/L Oxygen Given O2 Delivery Device POC O2 Rate POC FiO2 % IPAP POC Sodium (135-144) mmol/L Sodium 153 H 152 H 151 H (136-145) mmol/L POC Potassium (3.3-5.0) mmol/L Potassium 4.0 4.2 3.9 (3.5-5.1) mmol/L Chloride 119 H 117 H 118 H (98-107) mmol/L Carbon Dioxide 28 29 27 (21-32) mmol/L Anion Gap 6 6 6 (3-11) BUN 69 H 71 H 63 H (6-23) mg/dl Creatinine 0.93 1.02 0.90 (0.6-1.4) mg/dl Est Cr Clr Drug Dosing 46.7 47.3 53.6 ml/min eGFR 83.53 74.76 86.88 BUN/Creatinine Ratio 74.2 H 69.6 H 70.0 H (10-20) Glucose 146 H 142 H 176 H (70-99(Fasting)) mg/dl POC Glucose (70-99) mg/dl Lactate (0.4-2.0) mmol/L Calcium 10.0 10.3 10.0 (8.6-10.3) mg/dl Phosphorus (2.5-4.9) mg/dl Magnesium (1.7-2.4) mg/dl Total Bilirubin (0.2-1.0) mg/dl AST (13-39) U/L ALT (7-52) U/L Alkaline Phosphatase (34-104) U/L Troponin I High Sens (0-20) pg/ml B-Natriuretic Peptide (0-100) pg/ml Total Protein (6.0-8.3) gm/dl Albumin (3.4-5.0) gm/dl Globulin (2.5-4.0) gm/dl Albumin/Globulin Ratio (0.9-2) Procalcitonin (0-0.5) ng/ml TSH (0.300-4.500) uIu/ml Urine Color Urine Appearance (Clear) Urine pH (4.5-7.5) Ur Specific [place] (1.000-1.030) Urine Protein (Negative) Urine Glucose (UA) (Negative) Urine Ketones (Negative) Urine Blood (Negative) Urine Nitrite (Negative) Urine Bilirubin (Negative) Urine Urobilinogen (Negative) Ur Leukocyte Esterase (Negative) Urine WBC (Auto) (0-5) /hpf Urine RBC (Auto) (0-2) /hpf U Hyaline Cast (Auto) (0-2) /lpf U Epithel Cells (Auto) (0-2) /hpf Urine Bacteria (Auto) (None Seen) Nasal Screen MRSA (PCR) (Negative) Staphylococcus sp PCR (NotDetected) mecA/C-Methicil Resis Gene (NotDetected) Staph epidermidis (PCR) (NotDetected) Bld Cult ID Panel PCR (NotDetected) 04/05/24 04/05/24 04/04/24 Range/Units 14:36 05:42 14:44 WBC 13.92 H (4.8-10.8) K/ul RBC 4.84 (4.70-6.10) M/uL Hgb 14.5 (14.0-18.0) g/dl POC Hgb (14.0-18.0) g/dl Hct 45.6 (42.0-52.0) % POC Hct (42-52) % MCV 94.2 (80.0-100.0) fL MCH 30.0 (25.0-34.0) pg MCHC 31.8 L (32.0-36.0) g/dL RDW Std Deviation 51.5 H (36.4-46.3) fL RDW Coeff of Charanjit 14.9 H (11.5-14.5) % Plt Count 212 (130-400) K/uL MPV 9.1 L (9.4-12.4) fL Immature Gran % (Auto) % Neut % (Auto) % Lymph % (Auto) % Mora % (Auto) % Eos % (Auto) % Baso % (Auto) % Neut # (Auto) (1.40-6.50) K/uL Lymph # (Auto) (1.20-3.40) K/uL Mora # (Auto) (0.11-0.59) K/uL Eos # (Auto) (0.00-0.50) K/uL Baso # (Auto) (0.00-0.20) K/uL Immature Gran # (Auto) (0.01-0.20) K/uL RBC Morphology Sample Site POC pH (7.35-7.45) POC pCO2 (35-46) mmHg POC pO2 (80-95) mmHg POC HCO3 (19-24) matt/L POC Total CO2 (24-31) mmol/L POC Base Excess (-9-1.8) matt/L ABG pH (7.35-7.45) ABG pH (Temp Correct) (7.35-7.45) ABG pCO2 (35-46) mmHg ABG pCO2 (Temp Corrct (35-46) mmHg ABG pO2 (80-95) mmHg POC ABG pO2 at Pt Temp ABG HCO3 (19-24) mmol/L POC ABG O2 Sat (90-95) % ABG O2 Saturation (90-95) % ABG Base Excess (-9-1.8) mEq/L Eder Test (Pos) VBG pH (7.36-7.41) VBG pCO2 (38-50) mmHg VBG pO2 mmHg VBG HCO3 mmol/L VBG O2 Saturation % VBG Base Excess mEq/L Oxygen Given O2 Delivery Device POC O2 Rate POC FiO2 % IPAP POC Sodium (135-144) mmol/L Sodium 151 H 150 H 150 H (136-145) mmol/L POC Potassium (3.3-5.0) mmol/L Potassium 4.0 4.1 4.4 (3.5-5.1) mmol/L Chloride 117 H 118 H 117 H (98-107) mmol/L Carbon Dioxide 28 23 27 (21-32) mmol/L Anion Gap 6 9 6 (3-11) BUN 64 H 62 H 56 H (6-23) mg/dl Creatinine 0.90 0.85 0.83 (0.6-1.4) mg/dl Est Cr Clr Drug Dosing 53.6 56.7 58.1 ml/min eGFR 86.88 88.39 89.03 BUN/Creatinine Ratio 71.1 H 72.9 H 67.5 H (10-20) Glucose 158 H 142 H 182 H (70-99(Fasting)) mg/dl POC Glucose (70-99) mg/dl Lactate (0.4-2.0) mmol/L Calcium 10.0 10.2 10.0 (8.6-10.3) mg/dl Phosphorus 2.1 L (2.5-4.9) mg/dl Magnesium 2.6 H (1.7-2.4) mg/dl Total Bilirubin (0.2-1.0) mg/dl AST (13-39) U/L ALT (7-52) U/L Alkaline Phosphatase (34-104) U/L Troponin I High Sens (0-20) pg/ml B-Natriuretic Peptide (0-100) pg/ml Total Protein (6.0-8.3) gm/dl Albumin (3.4-5.0) gm/dl Globulin (2.5-4.0) gm/dl Albumin/Globulin Ratio (0.9-2) Procalcitonin (0-0.5) ng/ml TSH (0.300-4.500) uIu/ml Urine Color Urine Appearance (Clear) Urine pH (4.5-7.5) Ur Specific [place] (1.000-1.030) Urine Protein (Negative) Urine Glucose (UA) (Negative) Urine Ketones (Negative) Urine Blood (Negative) Urine Nitrite (Negative) Urine Bilirubin (Negative) Urine Urobilinogen (Negative) Ur Leukocyte Esterase (Negative) Urine WBC (Auto) (0-5) /hpf Urine RBC (Auto) (0-2) /hpf U Hyaline Cast (Auto) (0-2) /lpf U Epithel Cells (Auto) (0-2) /hpf Urine Bacteria (Auto) (None Seen) Nasal Screen MRSA (PCR) (Negative) Staphylococcus sp PCR (NotDetected) mecA/C-Methicil Resis Gene (NotDetected) Staph epidermidis (PCR) (NotDetected) Bld Cult ID Panel PCR (NotDetected) 04/04/24 04/03/24 04/02/24 Range/Units 05:28 07:21 12:14 WBC 10.53 13.91 H (4.8-10.8) K/ul RBC 4.56 L 4.39 L (4.70-6.10) M/uL Hgb 13.6 L 13.2 L (14.0-18.0) g/dl POC Hgb (14.0-18.0) g/dl Hct 43.2 40.4 L (42.0-52.0) % POC Hct (42-52) % MCV 94.7 92.0 (80.0-100.0) fL MCH 29.8 30.1 (25.0-34.0) pg MCHC 31.5 L 32.7 (32.0-36.0) g/dL RDW Std Deviation 51.2 H 50.1 H (36.4-46.3) fL RDW Coeff of Charanjit 14.7 H 14.7 H (11.5-14.5) % Plt Count 157 140 (130-400) K/uL MPV 9.0 L 8.9 L (9.4-12.4) fL Immature Gran % (Auto) % Neut % (Auto) % Lymph % (Auto) % Mora % (Auto) % Eos % (Auto) % Baso % (Auto) % Neut # (Auto) (1.40-6.50) K/uL Lymph # (Auto) (1.20-3.40) K/uL Mora # (Auto) (0.11-0.59) K/uL Eos # (Auto) (0.00-0.50) K/uL Baso # (Auto) (0.00-0.20) K/uL Immature Gran # (Auto) (0.01-0.20) K/uL RBC Morphology Sample Site POC pH (7.35-7.45) POC pCO2 (35-46) mmHg POC pO2 (80-95) mmHg POC HCO3 (19-24) matt/L POC Total CO2 (24-31) mmol/L POC Base Excess (-9-1.8) matt/L ABG pH (7.35-7.45) ABG pH (Temp Correct) (7.35-7.45) ABG pCO2 (35-46) mmHg ABG pCO2 (Temp Corrct (35-46) mmHg ABG pO2 (80-95) mmHg POC ABG pO2 at Pt Temp ABG HCO3 (19-24) mmol/L POC ABG O2 Sat (90-95) % ABG O2 Saturation (90-95) % ABG Base Excess (-9-1.8) mEq/L Eder Test (Pos) VBG pH (7.36-7.41) VBG pCO2 (38-50) mmHg VBG pO2 mmHg VBG HCO3 mmol/L VBG O2 Saturation % VBG Base Excess mEq/L Oxygen Given O2 Delivery Device POC O2 Rate POC FiO2 % IPAP POC Sodium (135-144) mmol/L Sodium 149 H 147 H (136-145) mmol/L POC Potassium (3.3-5.0) mmol/L Potassium 4.4 3.8 (3.5-5.1) mmol/L Chloride 116 H 114 H (98-107) mmol/L Carbon Dioxide 25 26 (21-32) mmol/L Anion Gap 8 7 (3-11) BUN 53 H 42 H (6-23) mg/dl Creatinine 0.77 0.77 (0.6-1.4) mg/dl Est Cr Clr Drug Dosing 62.6 62.6 ml/min eGFR 91.07 91.07 BUN/Creatinine Ratio 68.8 H 54.5 H (10-20) Glucose 157 H 90 (70-99(Fasting)) mg/dl POC Glucose 145 H (70-99) mg/dl Lactate (0.4-2.0) mmol/L Calcium 9.9 9.5 (8.6-10.3) mg/dl Phosphorus 2.9 (2.5-4.9) mg/dl Magnesium 2.5 H (1.7-2.4) mg/dl Total Bilirubin (0.2-1.0) mg/dl AST (13-39) U/L ALT (7-52) U/L Alkaline Phosphatase (34-104) U/L Troponin I High Sens (0-20) pg/ml B-Natriuretic Peptide (0-100) pg/ml Total Protein (6.0-8.3) gm/dl Albumin (3.4-5.0) gm/dl Globulin (2.5-4.0) gm/dl Albumin/Globulin Ratio (0.9-2) Procalcitonin (0-0.5) ng/ml TSH (0.300-4.500) uIu/ml Urine Color Urine Appearance (Clear) Urine pH (4.5-7.5) Ur Specific [place] (1.000-1.030) Urine Protein (Negative) Urine Glucose (UA) (Negative) Urine Ketones (Negative) Urine Blood (Negative) Urine Nitrite (Negative) Urine Bilirubin (Negative) Urine Urobilinogen (Negative) Ur Leukocyte Esterase (Negative) Urine WBC (Auto) (0-5) /hpf Urine RBC (Auto) (0-2) /hpf U Hyaline Cast (Auto) (0-2) /lpf U Epithel Cells (Auto) (0-2) /hpf Urine Bacteria (Auto) (None Seen) Nasal Screen MRSA (PCR) (Negative) Staphylococcus sp PCR (NotDetected) mecA/C-Methicil Resis Gene (NotDetected) Staph epidermidis (PCR) (NotDetected) Bld Cult ID Panel PCR (NotDetected) 04/02/24 04/01/24 04/01/24 Range/Units 03:45 23:28 18:51 WBC 15.80 H (4.8-10.8) K/ul RBC 3.80 L (4.70-6.10) M/uL Hgb 11.7 L (14.0-18.0) g/dl POC Hgb (14.0-18.0) g/dl Hct 34.8 L (42.0-52.0) % POC Hct (42-52) % MCV 91.6 (80.0-100.0) fL MCH 30.8 (25.0-34.0) pg MCHC 33.6 (32.0-36.0) g/dL RDW Std Deviation 48.9 H (36.4-46.3) fL RDW Coeff of Charanjit 14.6 H (11.5-14.5) % Plt Count 144 (130-400) K/uL MPV 9.1 L (9.4-12.4) fL Immature Gran % (Auto) 0.5 % Neut % (Auto) 93.8 % Lymph % (Auto) 2.3 % Mora % (Auto) 3.3 % Eos % (Auto) 0.0 % Baso % (Auto) 0.1 % Neut # (Auto) 14.81 H (1.40-6.50) K/uL Lymph # (Auto) 0.37 L (1.20-3.40) K/uL [place] # (Auto) 0.52 (0.11-0.59) K/uL Eos # (Auto) 0.00 (0.00-0.50) K/uL Baso # (Auto) 0.02 (0.00-0.20) K/uL Immature Gran # (Auto) 0.08 (0.01-0.20) K/uL RBC Morphology Unremarkable Sample Site POC pH (7.35-7.45) POC pCO2 (35-46) mmHg POC pO2 (80-95) mmHg POC HCO3 (19-24) matt/L POC Total CO2 (24-31) mmol/L POC Base Excess (-9-1.8) matt/L ABG pH (7.35-7.45) ABG pH (Temp Correct) (7.35-7.45) ABG pCO2 (35-46) mmHg ABG pCO2 (Temp Corrct (35-46) mmHg ABG pO2 (80-95) mmHg POC ABG pO2 at Pt Temp ABG HCO3 (19-24) mmol/L POC ABG O2 Sat (90-95) % ABG O2 Saturation (90-95) % ABG Base Excess (-9-1.8) mEq/L Eder Test (Pos) VBG pH (7.36-7.41) VBG pCO2 (38-50) mmHg VBG pO2 mmHg VBG HCO3 mmol/L VBG O2 Saturation % VBG Base Excess mEq/L Oxygen Given O2 Delivery Device POC O2 Rate POC FiO2 % IPAP POC Sodium (135-144) mmol/L Sodium 146 H (136-145) mmol/L POC Potassium (3.3-5.0) mmol/L Potassium 3.8 (3.5-5.1) mmol/L Chloride 115 H (98-107) mmol/L Carbon Dioxide 21 (21-32) mmol/L Anion Gap 10 (3-11) BUN 44 H (6-23) mg/dl Creatinine 0.94 (0.6-1.4) mg/dl Est Cr Clr Drug Dosing 51.3 ml/min eGFR 82.46 BUN/Creatinine Ratio 46.8 H (10-20) Glucose 108 H (70-99(Fasting)) mg/dl POC Glucose 115 H 134 H (70-99) mg/dl Lactate (0.4-2.0) mmol/L Calcium 9.2 (8.6-10.3) mg/dl Phosphorus 3.0 (2.5-4.9) mg/dl Magnesium 2.2 (1.7-2.4) mg/dl Total Bilirubin 1.4 H (0.2-1.0) mg/dl AST 9 L (13-39) U/L ALT 17 (7-52) U/L Alkaline Phosphatase 55 (34-104) U/L Troponin I High Sens (0-20) pg/ml B-Natriuretic Peptide (0-100) pg/ml Total Protein 6.0 (6.0-8.3) gm/dl Albumin 4.0 (3.4-5.0) gm/dl Globulin 2.0 L (2.5-4.0) gm/dl Albumin/Globulin Ratio 2.0 (0.9-2) Procalcitonin (0-0.5) ng/ml TSH (0.300-4.500) uIu/ml Urine Color Urine Appearance (Clear) Urine pH (4.5-7.5) Ur Specific [place] (1.000-1.030) Urine Protein (Negative) Urine Glucose (UA) (Negative) Urine Ketones (Negative) Urine Blood (Negative) Urine Nitrite (Negative) Urine Bilirubin (Negative) Urine Urobilinogen (Negative) Ur Leukocyte Esterase (Negative) Urine WBC (Auto) (0-5) /hpf Urine RBC (Auto) (0-2) /hpf U Hyaline Cast (Auto) (0-2) /lpf U Epithel Cells (Auto) (0-2) /hpf Urine Bacteria (Auto) (None Seen) Nasal Screen MRSA (PCR) (Negative) Staphylococcus sp PCR (NotDetected) mecA/C-Methicil Resis Gene (NotDetected) Staph epidermidis (PCR) (NotDetected) Bld Cult ID Panel PCR (NotDetected) 04/01/24 04/01/24 04/01/24 Range/Units 12:05 09:57 04:30 WBC 18.16 H (4.8-10.8) K/ul RBC 4.00 L (4.70-6.10) M/uL Hgb 12.2 L D (14.0-18.0) g/dl POC Hgb (14.0-18.0) g/dl Hct 36.3 L (42.0-52.0) % POC Hct (42-52) % MCV 90.8 (80.0-100.0) fL MCH 30.5 (25.0-34.0) pg MCHC 33.6 (32.0-36.0) g/dL RDW Std Deviation 47.8 H (36.4-46.3) fL RDW Coeff of Charanjit 14.5 (11.5-14.5) % Plt Count 161 (130-400) K/uL MPV 8.4 L (9.4-12.4) fL Immature Gran % (Auto) 0.6 % Neut % (Auto) 97.1 % Lymph % (Auto) 0.9 % Mora % (Auto) 1.3 % Eos % (Auto) 0.0 % Baso % (Auto) 0.1 % Neut # (Auto) 17.65 H (1.40-6.50) K/uL Lymph # (Auto) 0.16 L (1.20-3.40) K/uL [place] # (Auto) 0.23 (0.11-0.59) K/uL Eos # (Auto) 0.00 (0.00-0.50) K/uL Baso # (Auto) 0.02 (0.00-0.20) K/uL Immature Gran # (Auto) 0.10 (0.01-0.20) K/uL RBC Morphology Unremarkable Sample Site POC pH (7.35-7.45) POC pCO2 (35-46) mmHg POC pO2 (80-95) mmHg POC HCO3 (19-24) matt/L POC Total CO2 (24-31) mmol/L POC Base Excess (-9-1.8) matt/L ABG pH (7.35-7.45) ABG pH (Temp Correct) (7.35-7.45) ABG pCO2 (35-46) mmHg ABG pCO2 (Temp Corrct (35-46) mmHg ABG pO2 (80-95) mmHg POC ABG pO2 at Pt Temp ABG HCO3 (19-24) mmol/L POC ABG O2 Sat (90-95) % ABG O2 Saturation (90-95) % ABG Base Excess (-9-1.8) mEq/L Eder Test (Pos) VBG pH (7.36-7.41) VBG pCO2 (38-50) mmHg VBG pO2 mmHg VBG HCO3 mmol/L VBG O2 Saturation % VBG Base Excess mEq/L Oxygen Given O2 Delivery Device POC O2 Rate POC FiO2 % IPAP POC Sodium (135-144) mmol/L Sodium 140 (136-145) mmol/L POC Potassium (3.3-5.0) mmol/L Potassium 4.1 (3.5-5.1) mmol/L Chloride 110 H (98-107) mmol/L Carbon Dioxide 23 (21-32) mmol/L Anion Gap 7 (3-11) BUN 41 H (6-23) mg/dl Creatinine 1.00 (0.6-1.4) mg/dl Est Cr Clr Drug Dosing 48.6 ml/min eGFR 76.56 BUN/Creatinine Ratio 41.0 H (10-20) Glucose 144 H (70-99(Fasting)) mg/dl POC Glucose 121 H (70-99) mg/dl Lactate (0.4-2.0) mmol/L Calcium 8.8 (8.6-10.3) mg/dl Phosphorus 2.6 D (2.5-4.9) mg/dl Magnesium 2.2 (1.7-2.4) mg/dl Total Bilirubin (0.2-1.0) mg/dl AST (13-39) U/L ALT (7-52) U/L Alkaline Phosphatase (34-104) U/L Troponin I High Sens (0-20) pg/ml B-Natriuretic Peptide 90 (0-100) pg/ml Total Protein (6.0-8.3) gm/dl Albumin (3.4-5.0) gm/dl Globulin (2.5-4.0) gm/dl Albumin/Globulin Ratio (0.9-2) Procalcitonin (0-0.5) ng/ml TSH (0.300-4.500) uIu/ml Urine Color Urine Appearance (Clear) Urine pH (4.5-7.5) Ur Specific [place] (1.000-1.030) Urine Protein (Negative) Urine Glucose (UA) (Negative) Urine Ketones (Negative) Urine Blood (Negative) Urine Nitrite (Negative) Urine Bilirubin (Negative) Urine Urobilinogen (Negative) Ur Leukocyte Esterase (Negative) Urine WBC (Auto) (0-5) /hpf Urine RBC (Auto) (0-2) /hpf U Hyaline Cast (Auto) (0-2) /lpf U Epithel Cells (Auto) (0-2) /hpf Urine Bacteria (Auto) (None Seen) Nasal Screen MRSA (PCR) (Negative) Staphylococcus sp PCR (NotDetected) mecA/C-Methicil Resis Gene (NotDetected) Staph epidermidis (PCR) (NotDetected) Bld Cult ID Panel PCR (NotDetected) 03/31/24 03/31/24 03/31/24 Range/Units Unknown 23:23 22:42 WBC (4.8-10.8) K/ul RBC (4.70-6.10) M/uL Hgb (14.0-18.0) g/dl POC Hgb 12.2 L (14.0-18.0) g/dl Hct (42.0-52.0) % POC Hct 36 L (42-52) % MCV (80.0-100.0) fL MCH (25.0-34.0) pg MCHC (32.0-36.0) g/dL RDW Std Deviation (36.4-46.3) fL RDW Coeff of Charanjit (11.5-14.5) % Plt Count (130-400) K/uL MPV (9.4-12.4) fL Immature Gran % (Auto) % Neut % (Auto) % Lymph % (Auto) % Mora % (Auto) % Eos % (Auto) % Baso % (Auto) % Neut # (Auto) (1.40-6.50) K/uL Lymph # (Auto) (1.20-3.40) K/uL Mora # (Auto) (0.11-0.59) K/uL Eos # (Auto) (0.00-0.50) K/uL Baso # (Auto) (0.00-0.20) K/uL Immature Gran # (Auto) (0.01-0.20) K/uL RBC Morphology Sample Site R Radial POC pH 7.39 (7.35-7.45) POC pCO2 33 L (35-46) mmHg POC pO2 66 L (80-95) mmHg POC HCO3 20 (19-24) matt/L POC Total CO2 21 L (24-31) mmol/L POC Base Excess -5.0 (-9-1.8) matt/L ABG pH (7.35-7.45) ABG pH (Temp Correct) 7.394 (7.35-7.45) ABG pCO2 (35-46) mmHg ABG pCO2 (Temp Corrct 33 L (35-46) mmHg ABG pO2 (80-95) mmHg POC ABG pO2 at Pt Temp 64 ABG HCO3 (19-24) mmol/L POC ABG O2 Sat 93.0 (90-95) % ABG O2 Saturation (90-95) % ABG Base Excess (-9-1.8) mEq/L Eder Test Pass (Pos) VBG pH (7.36-7.41) VBG pCO2 (38-50) mmHg VBG pO2 mmHg VBG HCO3 mmol/L VBG O2 Saturation % VBG Base Excess mEq/L Oxygen Given O2 Delivery Device BIPAP POC O2 Rate 16 POC FiO2 35 % IPAP 12 POC Sodium 140 (135-144) mmol/L Sodium (136-145) mmol/L POC Potassium 3.6 (3.3-5.0) mmol/L Potassium (3.5-5.1) mmol/L Chloride (98-107) mmol/L Carbon Dioxide (21-32) mmol/L Anion Gap (3-11) BUN (6-23) mg/dl Creatinine (0.6-1.4) mg/dl Est Cr Clr Drug Dosing ml/min eGFR BUN/Creatinine Ratio (10-20) Glucose (70-99(Fasting)) mg/dl POC Glucose 245 H (70-99) mg/dl Lactate (0.4-2.0) mmol/L Calcium (8.6-10.3) mg/dl Phosphorus (2.5-4.9) mg/dl Magnesium (1.7-2.4) mg/dl Total Bilirubin (0.2-1.0) mg/dl AST (13-39) U/L ALT (7-52) U/L Alkaline Phosphatase (34-104) U/L Troponin I High Sens (0-20) pg/ml B-Natriuretic Peptide (0-100) pg/ml Total Protein (6.0-8.3) gm/dl Albumin (3.4-5.0) gm/dl Globulin (2.5-4.0) gm/dl Albumin/Globulin Ratio (0.9-2) Procalcitonin (0-0.5) ng/ml TSH (0.300-4.500) uIu/ml Urine Color Dark Yellow Urine Appearance Clear (Clear) Urine pH 5.5 (4.5-7.5) Ur Specific [place] 1.022 (1.000-1.030) Urine Protein 1+ H (Negative) Urine Glucose (UA) Negative (Negative) Urine Ketones Trace H (Negative) Urine Blood 2+ H (Negative) Urine Nitrite Negative (Negative) Urine Bilirubin 1+ H (Negative) Urine Urobilinogen Negative (Negative) Ur Leukocyte Esterase Trace H (Negative) Urine WBC (Auto) 11-20 H (0-5) /hpf Urine RBC (Auto) >20 H (0-2) /hpf U Hyaline Cast (Auto) >20 H (0-2) /lpf U Epithel Cells (Auto) 0-2 (0-2) /hpf Urine Bacteria (Auto) None Seen (None Seen) Nasal Screen MRSA (PCR) (Negative) Staphylococcus sp PCR (NotDetected) mecA/C-Methicil Resis Gene (NotDetected) Staph epidermidis (PCR) (NotDetected) Bld Cult ID Panel PCR (NotDetected) 03/31/24 03/31/24 03/31/24 Range/Units 22:35 21:01 20:06 WBC (4.8-10.8) K/ul RBC (4.70-6.10) M/uL Hgb (14.0-18.0) g/dl POC Hgb (14.0-18.0) g/dl Hct (42.0-52.0) % POC Hct (42-52) % MCV (80.0-100.0) fL MCH (25.0-34.0) pg MCHC (32.0-36.0) g/dL RDW Std Deviation (36.4-46.3) fL RDW Coeff of Charanjit (11.5-14.5) % Plt Count (130-400) K/uL MPV (9.4-12.4) fL Immature Gran % (Auto) % Neut % (Auto) % Lymph % (Auto) % Mora % (Auto) % Eos % (Auto) % Baso % (Auto) % Neut # (Auto) (1.40-6.50) K/uL Lymph # (Auto) (1.20-3.40) K/uL [place] # (Auto) (0.11-0.59) K/uL Eos # (Auto) (0.00-0.50) K/uL Baso # (Auto) (0.00-0.20) K/uL Immature Gran # (Auto) (0.01-0.20) K/uL RBC Morphology Sample Site POC pH (7.35-7.45) POC pCO2 (35-46) mmHg POC pO2 (80-95) mmHg POC HCO3 (19-24) matt/L POC Total CO2 (24-31) mmol/L POC Base Excess (-9-1.8) matt/L ABG pH 7.43 (7.35-7.45) ABG pH (Temp Correct) (7.35-7.45) ABG pCO2 32 L (35-46) mmHg ABG pCO2 (Temp Corrct (35-46) mmHg ABG pO2 94 (80-95) mmHg POC ABG pO2 at Pt Temp ABG HCO3 21 (19-24) mmol/L POC ABG O2 Sat (90-95) % ABG O2 Saturation 98.8 H (90-95) % ABG Base Excess -2.3 (-9-1.8) mEq/L Eder Test Pos (Pos) VBG pH 7.32 L (7.36-7.41) VBG pCO2 47 (38-50) mmHg VBG pO2 32 mmHg VBG HCO3 24 mmol/L VBG O2 Saturation < 60.0 % VBG Base Excess -2.2 mEq/L Oxygen Given 10 O2 Delivery Device POC O2 Rate POC FiO2 % IPAP POC Sodium (135-144) mmol/L Sodium (136-145) mmol/L POC Potassium (3.3-5.0) mmol/L Potassium (3.5-5.1) mmol/L Chloride (98-107) mmol/L Carbon Dioxide (21-32) mmol/L Anion Gap (3-11) BUN (6-23) mg/dl Creatinine (0.6-1.4) mg/dl Est Cr Clr Drug Dosing ml/min eGFR BUN/Creatinine Ratio (10-20) Glucose (70-99(Fasting)) mg/dl POC Glucose (70-99) mg/dl Lactate (0.4-2.0) mmol/L Calcium (8.6-10.3) mg/dl Phosphorus (2.5-4.9) mg/dl Magnesium (1.7-2.4) mg/dl Total Bilirubin (0.2-1.0) mg/dl AST (13-39) U/L ALT (7-52) U/L Alkaline Phosphatase (34-104) U/L Troponin I High Sens (0-20) pg/ml B-Natriuretic Peptide (0-100) pg/ml Total Protein (6.0-8.3) gm/dl Albumin (3.4-5.0) gm/dl Globulin (2.5-4.0) gm/dl Albumin/Globulin Ratio (0.9-2) Procalcitonin (0-0.5) ng/ml TSH (0.300-4.500) uIu/ml Urine Color Urine Appearance (Clear) Urine pH (4.5-7.5) Ur Specific [place] (1.000-1.030) Urine Protein (Negative) Urine Glucose (UA) (Negative) Urine Ketones (Negative) Urine Blood (Negative) Urine Nitrite (Negative) Urine Bilirubin (Negative) Urine Urobilinogen (Negative) Ur Leukocyte Esterase (Negative) Urine WBC (Auto) (0-5) /hpf Urine RBC (Auto) (0-2) /hpf U Hyaline Cast (Auto) (0-2) /lpf U Epithel Cells (Auto) (0-2) /hpf Urine Bacteria (Auto) (None Seen) Nasal Screen MRSA (PCR) Negative (Negative) Staphylococcus sp PCR (NotDetected) mecA/C-Methicil Resis Gene (NotDetected) Staph epidermidis (PCR) (NotDetected) Bld Cult ID Panel PCR (NotDetected) 03/31/24 03/31/24 Range/Units 20:04 19:35 WBC 17.35 H (4.8-10.8) K/ul RBC 4.95 (4.70-6.10) M/uL Hgb 15.3 (14.0-18.0) g/dl POC Hgb (14.0-18.0) g/dl Hct 44.3 (42.0-52.0) % POC Hct (42-52) % MCV 89.5 (80.0-100.0) fL MCH 30.9 (25.0-34.0) pg MCHC 34.5 (32.0-36.0) g/dL RDW Std Deviation 46.3 (36.4-46.3) fL RDW Coeff of Charanjit 14.3 (11.5-14.5) % Plt Count 214 (130-400) K/uL MPV 8.4 L (9.4-12.4) fL Immature Gran % (Auto) % Neut % (Auto) % Lymph % (Auto) % Mora % (Auto) % Eos % (Auto) % Baso % (Auto) % Neut # (Auto) (1.40-6.50) K/uL Lymph # (Auto) (1.20-3.40) K/uL Mora # (Auto) (0.11-0.59) K/uL Eos # (Auto) (0.00-0.50) K/uL Baso # (Auto) (0.00-0.20) K/uL Immature Gran # (Auto) (0.01-0.20) K/uL RBC Morphology Sample Site POC pH (7.35-7.45) POC pCO2 (35-46) mmHg POC pO2 (80-95) mmHg POC HCO3 (19-24) matt/L POC Total CO2 (24-31) mmol/L POC Base Excess (-9-1.8) matt/L ABG pH (7.35-7.45) ABG pH (Temp Correct) (7.35-7.45) ABG pCO2 (35-46) mmHg ABG pCO2 (Temp Corrct (35-46) mmHg ABG pO2 (80-95) mmHg POC ABG pO2 at Pt Temp ABG HCO3 (19-24) mmol/L POC ABG O2 Sat (90-95) % ABG O2 Saturation (90-95) % ABG Base Excess (-9-1.8) mEq/L Eder Test (Pos) VBG pH (7.36-7.41) VBG pCO2 (38-50) mmHg VBG pO2 mmHg VBG HCO3 mmol/L VBG O2 Saturation % VBG Base Excess mEq/L Oxygen Given O2 Delivery Device POC O2 Rate POC FiO2 % IPAP POC Sodium (135-144) mmol/L Sodium 137 (136-145) mmol/L POC Potassium (3.3-5.0) mmol/L Potassium 4.2 (3.5-5.1) mmol/L Chloride 103 (98-107) mmol/L Carbon Dioxide 25 (21-32) mmol/L Anion Gap 9 (3-11) BUN 42 H (6-23) mg/dl Creatinine 1.24 (0.6-1.4) mg/dl Est Cr Clr Drug Dosing 37.6 ml/min eGFR 59.14 BUN/Creatinine Ratio 33.9 H (10-20) Glucose 218 H (70-99(Fasting)) mg/dl POC Glucose (70-99) mg/dl Lactate 1.8 (0.4-2.0) mmol/L Calcium 9.0 (8.6-10.3) mg/dl Phosphorus 4.3 (2.5-4.9) mg/dl Magnesium 2.2 (1.7-2.4) mg/dl Total Bilirubin 1.1 H (0.2-1.0) mg/dl AST 14 (13-39) U/L ALT 9 (7-52) U/L Alkaline Phosphatase 86 (34-104) U/L Troponin I High Sens (0-20) pg/ml B-Natriuretic Peptide (0-100) pg/ml Total Protein 6.1 (6.0-8.3) gm/dl Albumin 3.4 (3.4-5.0) gm/dl Globulin 2.7 (2.5-4.0) gm/dl Albumin/Globulin Ratio 1.3 (0.9-2) Procalcitonin 0.04 (0-0.5) ng/ml TSH 3.849 (0.300-4.500) uIu/ml Urine Color Urine Appearance (Clear) Urine pH (4.5-7.5) Ur Specific [place] (1.000-1.030) Urine Protein (Negative) Urine Glucose (UA) (Negative) Urine Ketones (Negative) Urine Blood (Negative) Urine Nitrite (Negative) Urine Bilirubin (Negative) Urine Urobilinogen (Negative) Ur Leukocyte Esterase (Negative) Urine WBC (Auto) (0-5) /hpf Urine RBC (Auto) (0-2) /hpf U Hyaline Cast (Auto) (0-2) /lpf U Epithel Cells (Auto) (0-2) /hpf Urine Bacteria (Auto) (None Seen) Nasal Screen MRSA (PCR) (Negative) Staphylococcus sp PCR DETECTED A (NotDetected) mecA/C-Methicil Resis Gene DETECTED A (NotDetected) Staph epidermidis (PCR) DETECTED A (NotDetected) Bld Cult ID Panel PCR See PCR Comment (NotDetected) Diagnostic Findings Chest X-Ray 03/25/24 00:05 SINGLE VIEW CHEST CLINICAL HISTORY: Dyspnea FINDINGS: 2 AP, portable, upright chest radiographs are compared to study dated 03/18/2024 and correlated with chest CT dated 02/21/2024. The examination is degraded by portable technique and patient rotation. The cardiomediastinal silhouette is top normal for projection noting atherosclerotic calcification of the thoracic aorta. Advanced emphysema and chronic interstitial thickening is similar to previous. Scarring/atelectasis is noted at the lung bases. No airspace consolidation or large pleural effusion is identified. No pneumothorax is seen. The skeletal structures are osteopenic. The bony thorax is grossly intact. Cholecystectomy clips are noted in the right upper quadrant. IMPRESSION: Advanced emphysematous change with no acute cardiopulmonary abnormality identified. ACT 112: Negative or not required by law. Electronically signed by: Kevin Moralez M.D. 03/25/2024 8:47 AM Brain MRI 03/26/24 11:10 MRI OF THE BRAIN COMBO CLINICAL HISTORY: Parkinsonism. COMPARISON STUDY: No priors. TECHNIQUE: MRI of the brain was performed utilizing various T1 and T2-weighted sequences in the axial, sagittal, and coronal planes. Contrast-enhanced sequences were acquired following the administration of 5.5 cc of Gadavist. FINDINGS: Brain parenchyma: There is age-related involutional change noting probable moderate subcortical and periventricular microangiopathic disease. There is no hemorrhage or mass effect. There is no restricted diffusion to suggest acute ischemia. No enhancing mass lesion is identified on the postcontrast images. Rasmussen-white matter differentiation is preserved. No extra-axial fluid collection is seen. The cerebellar tonsils are normal in configuration. Ventricles, sulci, and cisterns: Prominent secondary to involutional change. Pituitary and sella: Unremarkable. Intracranial vasculature: Normal flow voids are maintained at the skull base. Orbits: The bony orbits are grossly intact. Orbital contents are normal in appearance noting bilateral ocular lens implants. Sinuses and mastoids: There is mild mucosal thickening and secretions/fluid in the left maxillary sinus. There is also fluid within the sphenoid sinuses. There is a left mastoid effusion. The right mastoid air cells are clear. Calvarium: Unremarkable. Cervical cord: Partially visualized cervical spinal cord is normal in morphology and signal intensity. IMPRESSION: No acute intracranial abnormality. ACT 112: Negative or not required by law. Electronically signed by: Kevin Moralez M.D. 03/26/2024 12:48 PM Chest X-Ray 03/26/24 22:45 XR chest 1V portable CLINICAL HISTORY: crackles on exam COMPARISON STUDY: Chest CT February 21, 2024. Chest radiograph March 25, 2024. FINDINGS: Emphysema is noted. There is no pneumothorax or pleural effusion. Cardiomediastinal silhouette is normal. Mild left basilar densities are present. There is no definite consolidation to suggest pneumonia. Pulmonary vascularity is normal. IMPRESSION: 1. Emphysema. 2. Mild left basilar densities. Atelectasis is favored although pneumonia could appear similar. ACT 112: Negative or not required by law. Electronically signed by: Javier Flower M.D. 03/27/2024 6:48 AM Chest X-Ray 03/28/24 08:00 XR chest 1V portable CLINICAL HISTORY: hypoxia COMPARISON STUDY: Chest CT February 21, 2024. Chest radiograph March 26, 2024. FINDINGS: There is no pneumothorax or pleural effusion. Cardiomediastinal silhouette is normal. There is mild interstitial thickening and mild left basilar opacity. Underlying emphysema. IMPRESSION: 1. Persistent left basilar opacity. This may reflect pneumonia. 2. Emphysema. ACT 112: Negative or not required by law. Electronically signed by: Javier Flower M.D. 03/28/2024 7:34 AM Chest X-Ray 03/31/24 18:56 SINGLE VIEW CHEST CLINICAL HISTORY: Respiratory distress FINDINGS: An AP, portable, upright chest radiograph is compared to study dated 03/28/2024 and correlated with chest CT dated 02/21/2024. The cardiomediastinal silhouette is unremarkable noting atherosclerotic calcification of the thoracic aorta. Enlargement of the central pulmonary arteries suggests pulmonary artery hypertension. Advanced emphysema and chronic interstitial thickening is similar to previous. Foci of parenchymal scarring are seen throughout both lungs. Left basilar opacities are similar to previous. No large pleural effusion or pneumothorax is identified. The skeletal structures are osteopenic. The bony thorax is grossly intact. Cholecystectomy clips are seen in the right upper quadrant. IMPRESSION: 1. Advanced emphysema. 2. Left basilar opacities are similar to previous and could represent scarring/atelectasis versus minimal pneumonitis. Clinical correlation would be required and continued follow-up to resolution is recommended. ACT 112: Negative or not required by law. Electronically signed by: Kevin Moralez M.D. 03/31/2024 7:33 PM Venous Doppler Study 03/31/24 20:47 Exam(s): US VENOUS BILATERAL LOWER EXTREMITIES EXAM: US Duplex Bilateral Lower Extremities Veins CLINICAL HISTORY: Reason for exam: Tachycardia and hypoxemia. TECHNIQUE: Real-time duplex ultrasound scan of the bilateral lower extremity veins integrating B-mode two-dimensional vascular structure, Doppler spectral analysis, color flow Doppler imaging and compression. COMPARISON: No relevant prior studies available. FINDINGS: Right deep veins: Unremarkable. No DVT in the right common femoral, femoral, proximal deep femoral or popliteal veins. The veins demonstrate normal color flow, are normally compressible, with normal phasic flow and/or augmentation response. Right superficial veins: Unremarkable. No thrombus in the visualized right great saphenous vein. Left deep veins: Unremarkable. No DVT in the left common femoral, femoral, proximal deep femoral or popliteal veins. The veins demonstrate normal color flow, are normally compressible, with normal phasic flow and/or augmentation response. Left superficial veins: Unremarkable. No thrombus in the visualized left great saphenous vein. Soft tissues: No acute findings. No popliteal cyst. IMPRESSION: Normal bilateral lower extremity duplex venous ultrasound. Electronically signed by: Bam Machuca MD 04/01/24 01:46 AM Chest X-Ray 04/02/24 09:39 XR chest 1V portable CLINICAL HISTORY: f/u COMPARISON STUDY: Chest CT February 21, 2024. Chest radiograph March 31, 2024. FINDINGS: There is no pneumothorax or pleural effusion. Underlying emphysema is present. Cardiomediastinal silhouette is normal. There is no evidence for pulmonary edema. Mild left basilar opacity persists. Right lung is clear. IMPRESSION: 1. No change in mild left basilar opacity which could reflect pneumonia or atelectasis. Continued radiographic follow-up to ensure resolution is recommended. 2. Emphysema. ACT 112: Negative or not required by law. Electronically signed by: Javier Flower M.D. 04/02/2024 10:42 AM Videofluoroscopic Swallow 04/03/24 13:45 FL video swallow CLINICAL HISTORY: 78 years-old Male with assess for aspiration. Dysphagia with aspiration TECHNIQUE: Video fluoroscopic evaluation of swallowing was performed in the AP and lateral projections by the speech pathology staff. The patient is fed varying consistencies of barium. FLUOROSCOPY TIME: 59 seconds. 1706 images were submitted.2.23 mGy COMPARISON STUDY: 03/13/2024 FINDINGS: There is markedly abnormal hyoid excursion and epiglottic deflection. Disordered oral pharyngeal transit. Large amount of aspiration with thin and nectar consistencies, most of which is silent aspiration. IMPRESSION: 1. Silent aspiration with thin and nectar consistencies. 2. Please see the speech pathologist report for detailed findings and recommendations. ACT 112: Negative or not required by law. Electronically signed by: Esteban Sherman M.D. 04/03/2024 3:20 PM Chest X-Ray 04/03/24 17:19 SINGLE VIEW CHEST CLINICAL HISTORY: Enteric tube placement. FINDINGS: 2 AP, portable, upright chest radiographs are compared to study dated 04/02/2024 and correlated with chest CT dated 02/21/2024. An enteric tube has been placed. This is coiled in the esophagus and repositioning is indicated. The cardiomediastinal silhouette is unremarkable noting atherosclerotic calcification of the thoracic aorta. Enlargement of the central pulmonary arteries suggests pulmonary artery hypertension. Advanced emphysema and chronic interstitial thickening is similar to previous. Foci of parenchymal scarring are seen throughout both lungs. There are increasing left basilar airspace opacities. No large pleural effusion or pneumothorax is identified. The skeletal structures are osteopenic. The bony thorax is grossly intact. Cholecystectomy clips are seen in the right upper quadrant. IMPRESSION: 1. An enteric tube has been placed and is coiled within the esophagus. Repositioning is indicated. 2. Advanced emphysema. 3. There are increasing left basilar opacities which could represent progressive atelectasis versus pneumonia/aspiration pneumonitis. Clinical correlation will be required and radiographic follow-up to resolution is recommended. ACT 112: Negative or not required by law. Electronically signed by: Kevin Moralez M.D. 04/03/2024 5:38 PM Chest X-Ray 04/03/24 18:06 SINGLE VIEW CHEST CLINICAL HISTORY: Enteric tube placement. FINDINGS: An AP, portable, upright chest radiograph is compared to study performed earlier the same day 04/03/2024 and correlated with chest CT dated 02/21/2024. An enteric tube has been placed. The tip projects below the diaphragm over the mid to distal stomach. The cardiomediastinal silhouette is unremarkable noting atherosclerotic calcification of the thoracic aorta. Enlargement of the central pulmonary arteries suggests pulmonary artery hypertension. Advanced emphysema and chronic interstitial thickening is similar to previous. Foci of parenchymal scarring are seen throughout both lungs. Airspace consolidation is again seen at the left lung base. No large pleural effusion or pneumothorax is identified. The skeletal structures are osteopenic. The bony thorax is grossly intact. Cholecystectomy clips are seen in the right upper quadrant. IMPRESSION: 1. An enteric tube has been placed as above. 2. Advanced emphysema. 3. Airspace consolidation is again seen at the left lung base. ACT 112: Negative or not required by law. Electronically signed by: Kevin Moralez M.D. 04/03/2024 6:45 PM KUB X-Ray 04/05/24 04:50 KUB HISTORY: Status post placement of a feeding tube core safe placement COMPARISON: CT abdomen and pelvis 07/18/2023 FINDINGS: Distal tip enteric tube projects over the abdominal left upper quadrant, likely within the gastric fundus. Mild left basilar opacities. Lower abdomen is excluded from the [id number]. Cholecystectomy with moderate colonic fecal retention. No renal calculi. No ureteral calculi. No pneumoperitoneum or pneumatosis. No fracture. IMPRESSION: Distal tip of feeding tube projects over the abdominal left upper quadrant, likely within the gastric fundus. ACT 112: Negative or not required by law. The above report was generated using voice recognition software. It may contain grammatical, syntax or spelling errors. Electronically signed by: Esteban Sherman M.D. 04/05/2024 8:08 AM PG Care Time/CCT Total # of Minutes Spent Total Time Spent with Patient: Total time spent is greater than 50% in coordination of care (as documented) at patient's floor/unit and/or counseling patient: I spent 90 minutes overall addressing this case: 15 min in medical data review/discussion with referring provider(s) and/or preparation for the visit 15 min in direct interaction with the patient/exam 30 min in Advance Care Planning/Goals of Care discussions as detailed above in note (must be >16min) 15 min in subsequent review and synthesis of assessment and plan 15min communicating with other providers regarding the p atient's case: Advanced Care Planning 57367 Advanced Care Planning 30 [place] [address] IN/OBS CONSULT LVL 4,60M (25 - SIGNIFICANT, SEPARATELY IDENTIFIABLE ) Patient Type New Medical Decision Making High Complexity Diagnoses Agitation R45.1 Confusion and disorientation R41.0 Weakness generalized R53.1 Discussion about advance care planning held with family member Z71.0 Aspiration of food T17.928A; [id number] Palliative care by specialist Z51.5 Additional Codes Advanced Care Planning - 32555 Advanced Care Planning 30 Min: 77599 Advanced Care Planning 30 Min ([id number])
--- NOTE | 2024-04-07 16:31 | Electrocardiogram Report ---
Test Reason : Blood Pressure : */* mmHG Vent. Rate : 109 BPM Atrial Rate : 109 BPM P-R Int : 116 ms QRS Dur : 130 ms QT Int : 360 ms P-R-T Axes : 89 121 76 degrees QTcB Int : 484 ms Sinus tachycardia Right bundle branch block with repolarization abnormality ST depression in Anterior leads , consider ischemia Abnormal ECG When compared with ECG of 31-Mar-2024 19:52, HR has decreased by 20 bpm Otherwise no significant change Confirmed by Bakari Sparrow ([id number]) on 04/07/2024 4:31:09 PM Referred By: REFERRED SELF Confirmed By: Bakari Sparrow
--- NOTE | 2024-04-08 06:46 | XRay Report ---
KUB CLINICAL HISTORY: NG tube placement COMPARISON STUDY: CT of the abdomen and pelvis July 18, 2023. KUB April 05, 2024. FINDINGS: Tip of feeding tube projects over the proximal stomach are likely within the gastric fundus . Left basilar opacity persists. There are cholecystectomy clips. IMPRESSION: 1. Tip of feeding tube projects over the gastric fundus. The tube could be advanced. 2. Persistent left basilar opacity which could reflect pneumonia or atelectasis. ACT 112: Negative or not required by law. Electronically signed by: Javier Flower M.D. 04/08/2024 6:45 AM
--- NOTE | 2024-04-08 06:57 | XRay Report ---
XR chest 1V portable CLINICAL HISTORY: possible aspiration TECHNIQUE: Single frontal radiograph of the chest was obtained. Comparison: Comparison is made to chest radiograph 04/03/2024 FINDINGS: Lines and tubes are stable. The cardiomediastinal silhouette is normal. Faint bibasilar airspace opac ities are seen. No evidence of pleural effusion or pneumothorax. IMPRESSION: Faint bibasilar airspace opacities which may represent atelectasis, pneumonia, and/or aspiration. Thi s is essentially unchanged from prior exam. ACT 112: Negative or not required by law. Electronically signed by: Eliot Quiñonez M.D. 04/08/2024 6:56 AM
--- NOTE | 2024-04-08 06:59 | Communication Note ---
Date of Service: April 08, 2024 Notified by nursing that patient had dislodged NG and pulled it out to 20 (had previously been placed at a depth of 55) while the NG was running ongoing tube feeds. It was unknown how long the NG had been in this position. Tube feeds were paused and the NG was repositioned, confirmed with KUB. Nursing had concerns that the patient was coughing some and could have aspirated while the NG was displaced. I ordered a chest x-ray, per my interpretation there were no obvious changes. Patient had slight drop in SPO2, supplemental oxygen was increased to 8 L oxymask. I kept the tube feeds held overnight except for free water flushes. Encourage ongoing conversation with patient and family regarding the high risk of future aspiration events. Resident Activity Tracking Resident Involvement: Resident Care Provided Care Provided: Adult [facility] Medicine
--- NOTE | 2024-04-08 07:30 | Hospitalist Progress Note ---
Date of Service April 08, 2024 Assessment & Plan (1) Acute exacerbation of chronic obstructive pulmonary disease: (2) Acute on chronic respiratory failure with hypoxia: (3) Parkinson's disease: (4) COVID-19: (5) Severe protein-calorie malnutrition: (6) Hypernatremia: Plan 78yo with COPD & Parkinson's, presented in acute on chronic respiratory failure with hypoxia. Acute exacerbation of COPD Acute on Chronic Respiratory Failure COVID-19- resolved -End stage COPD - Increased oxygen demand with pressure (BiPap). Concern for aspiration following dislodging of NGT on 04/07. - Holding NGT feedings - Continue IV solumedrol 40 mg IV daily (started on 04/01 on ICU). - O2 sat in 80's% on BiPAP, - Duoneb q6R, formoterol 20mcg BIDR, budesonide 0.5mg BIDR - Saline nebs PRN - Palliative consult completed, family has made decisions regarding goals of care. Changing code status to DNR/DNI Plan to continue full care, will consider transfer to comfort measures if his status declines Parkinson's Disease - Continue following recommendations from ANTHROPOLOGY LECTURER for NPO due to high risk of aspiration. - Restart Carbidopa-Levodopa 2 x 25-250mg tabs TID and entacapone 200mg tabs- crushed and diluted in water to be given via NGT - Delirium/agitation Seroquel 50mg prn - has not been needed Severe Protein-Calorie Nutrition - NGT was repositioned 04/07 after being dislodged and used for primary nutri tion - Hold feedings for 04/08 Continued NPO due to high aspiration risk per ANTHROPOLOGY LECTURER re-evaluation. - Monitor electrolytes Hypernatremia Baseline hypernatremic. Mild decrease from 150 to 146 after 300mL saline boluses via NGT started 04/07. -Continue sterile water boluses to 300mL q4h via NGT -Recheck Na in pm Chronic Medical Conditions: Hypertension - Losartan and Metoprolol (hold) GERD -Continue Protonix IV BPH -Continue Flomax (hold) FEN: NPO - NGT tube Code status: DNR/DNI DVT ppx: Lovenox sq Held home meds: PO meds Dispo: [med/surg with tele Admission and Anticipated Discharge Date Admission Date: March 25, 2024 Supervising Physician Co-Signing Physician Notes Attending Physician Supervision Note: I independently interviewed and examined the patient and verified the pierre history and physical, reviewed labs and image studies and agree with findings and care plan noted above. Pulled NGT last night to 20cm emma. Reinserted and placement confirmed with imaging. Was coughing so feeds were held. Became hypoxic and placed on bipap. Tolerating bipap. Alert this am. Reported pain everywhere - son noted grimacing when moving right shoulder. Unable to assess orientated while on bipap. Lungs - bilateral exp wheezing in lower lung field. Recurrent aspiration Swallowing dysfunction - profound aspiration on swallow eval. -holding NGT feeds. continue free water flush and reassess in am. -Add IVF while tube feeds held. Acute respiratory failure d/t recurrent aspiration -continue bipap COPD exac -continue steroids at current dose in setting of bronchospasm d/t recurrent aspiration. continue nebs Parkinsons -crush meds for dispensing via NGT Hypernatremia -continue free water supplementation 300ml qid. Severe protein calorie malnutrition/Frailty -To resume NG tube feeding with improvement in current status Right shoulder pain -Check shoulder xray. Delirium -recurrent with waxing and waning clinical status. Follow Palliative care consulted -switched code status to DNR/DNI. -With further worsening - family wants transition to comfort care. Lovenox. Will not be able to participate in PT/OT in current status. Subjective Pt is a 78 yo male with PMH of COPD and Parkinson's disease who presented with acute hypoxic respiratory failure 12 days ago. Overnight, patient's NGT dislodged preventing effective feeding. NGT was repositioned and reassessed with KUB. Tube feeding was held overnight, but free water boluses continued. This morning, pt is is no acute distress laying in bed. He is using pen and paper to communicate. He denies chest pain this morning, but is cough. Pt is asking for ice cream. Review of Systems Review of Systems: As per HPI Physical Exam Physical Exam: Gen: Fail, ill-appearing, HEENT: dry oral mucosa, difficulty projecting voice to speak and saying words, non productive cough CV: RRR, tachycardia no m/r/g, no LE edema Resp: O2 sat >88-90% on bipap, no respiratory distress, symmetric chest rise Abd: Soft, NT/ND, +BS, no HSM Skin: Warm, dry, pink, no rashes or lesions Results & Data Results & Data Vital Signs (Past 12 Hours) Vital Signs Temp Pulse Pulse Resp BP Pulse Ox O2 Del Method 04/08/24 07:18 112 H 17 100 04/08/24 07:11 112 H 17 98 BiPAP 04/08/24 04:32 114 H 22 92 04/08/24 03:43 112 H 25 H 91 04/07/24 23:11 109 H 22 90 04/07/24 21:54 18 93 Oxymask 04/07/24 21:17 91 H 91 Oxymask 04/07/24 21:16 36.3 C L 110 H 18 104/70 90 Oxymask 04/07/24 19:50 Oxymask 04/07/24 19:50 110 H 20 89 L Oxymask O2 Flow Rate FiO2 04/08/24 07:18 10 04/08/24 07:11 100 04/08/24 04:32 100 04/08/24 03:43 100 04/07/24 23:11 40 04/07/24 21:54 8 04/07/24 21:17 8 04/07/24 21:16 8 04/07/24 19:50 8 04/07/24 19:50 7 Resident Activity Tracking Resident Involvement: Resident Care Provided Care Provided: Adult Hospital Medicine
[2024-04-08 07:47] LABS: Hematocrit (blood only) 43.5 % (42.0-52.0); Hemoglobin 14.1 g/dl (14.0-18.0); Mean Corpuscular Hemoglobin 29.9 pg (25.0-34.0); Mean Corpuscular Hgb Conc 32.4 g/dL (32.0-36.0); Mean Corpuscular Volume 92.4 fL (80.0-100.0); Mean Platelet Volume 9.4 fL (9.4-12.4); Platelet Count 210 K/uL (130-400); RDW Coefficient of Variation 14.4 % (11.5-14.5); RDW Standard Deviation 48.8 fL (36.4-46.3); Red Blood Count 4.71 M/uL (4.70-6.10); White Blood Count 17.22 K/ul (4.8-10.8)
[2024-04-08 08:09] LABS: BUN Creatinine Ratio 71.2 (10-20); Calcium 9.4 mg/dl (8.6-10.3); Creatinine Clr Calc Pharmacy 60.4 ml/min; Potassium 4.2 mmol/L (3.5-5.1)
[2024-04-08] MEDS: PANTOprazole 40 MG/10 ML SYR IV SCH (09:33)
--- NOTE | 2024-04-08 10:30 | Palliative Family Discussion ---
Date of Service April 08, 2024 Patient Directed Conference Time of [id number] Participants: Fatuo Fenton DNP Patient participation: unable/no capacity Patient Support System: , dtr, son/GREGORY Aranda Other Healthcare Provider Participation: None Meeting Location: bed side via telemed/[facility] secure iPad Advanced Directive available: no The patient's surrogate medical decision maker participated: yes son and pt An ACP meeting was held for MOSHE ZABALA. This meeting was necessary for determining the appropriate course of treatment. Topics of Discussion Topics of Discussion: 1. I held a family meeting with Chuyita , son, daughter. We discussed the overall clinical issues - I shared my worry that his lung disease is worsening. They would like his Parkinsons meds administered by NG and report from their Parkinsons support group that there should be versions of the medication that can be safely crushed and administered - we will ask pharmacy to assist. 2. Ray is complaining of pain in the same right upper arm/shoulder area - agreed to imaging to assess that as it seems to be persisting. 3. We all agreed Ray is not able to make decisions. 4. Code status: Son and family agree to a no code and understand that putting him on a ventilator at this point would not be beneficial/would be more harmful than helpful. 5. Dispo: His no longer wants to pursue [facility] placement and only wants to options that are local so she can easily see him. 6. What if scenarios: We discussed potential for more acute decline during this admission: we agreed that should that happen, we will transition to a comfort plan of care here in the hospital and work towards a discharge, if he is stable for such. Other Content of Meetin. Opportunity given for participants to speak and ask questions. 2. Participants were assured of attention to patient comfort. 3. Reassurance provided. 4. Support was provided for informed, good-yeny decisions. 5. Emotions expressed by family were acknowledged and addressed. 6. Plan of Care: as outlined above TS 30min Thank you for allowing us to participate in the ongoing care of this patient. Please page with any additional concerns. Lynette Fenton DNP Director, Palliative Medicine
[2024-04-08] MEDS: ACETAMINOPHEN 1,000 MG/100 ML VIAL IV PRN (10:58)
[2024-04-08] MEDS: LACTATED RINGER'S 1,000 ML IV SCH (15:10)
--- NOTE | 2024-04-08 15:42 | XRay Report ---
XR shoulder RT min 2V routine CLINICAL HISTORY: Right shoulder pain. COMPARISON: None FINDINGS: Emphysema is incidentally noted within visualized portions of the right lung. Alignment of the right shoulder is anatomic. There is no fracture. There are no osseous lesions. There is moderat e joint space narrowing and osteophytosis of the acromioclavicular joint. There is mild right glenohu meral joint osteoarthritis. A few small radiodensities project over the right upper arm and right sup raclavicular region. IMPRESSION: 1. No fracture or dislocation within the right shoulder. 2. Moderate AC joint osteoarthritis. Mild glenohumeral joint osteoarthritis. ACT 112: Negative or not required by law. Electronically signed by: Javier Flower M.D. 04/08/2024 3:41 PM
--- NOTE | 2024-04-08 20:16 | Communication Note ---
Date of Service: April 08, 2024 I was notified by nursing at approximately 7:20pm that Mr. Simons was not tolerating BiPAP, appeared more anxious, and seemed to be declining. Patient was placed on high flow oxygen. I went to bedside to evaluate Mr. Simons. Family was present at bedside (, sister, son, daughter, grandson). Discussed with family the discussions from earlier today with Dr. Orantes (palliative care) and his code status change from full code to DNR/DNI, daughter stated that the goal at present for him is that he find placement at a nursing facility. I discussed with family my concerns that with his pattern of decline in the past 24+ hours, he likely will not become stable enough to be discharged to a nursing facility. I shared my concerns that with his medical conditions including end stage COPD, it is likely that he could continue to decline tonight and it is important that we have discussed if/how that would change his care management. After discussion with all family members, they have decided that if he is requiring BiPAP and not able to maintain adequate oxygenation, family would want to be notified overnight to discuss transition to comfort measures only. Transfer order was placed so patient could be moved to PCU status due to need for higher level of care. Patient case was reviewed with Dr. Britt at time of transfer to PCU- after further chart review, patient had increased WBC to 17.22k on morning of 04/08 after possible aspiration event the night prior so the decision was made to add antibiotics (Zosyn), schedule breathing treatments, add humidification to oxygen, suction airway as needed and hold his Losartan. After patient was moved to room [facility] (PCU), I went to bed side at about 10:00pm and spoke with family who felt that he seemed more calm and comfortable since being moved to his new room. Nursing noted that after moving patient to PCU, he coughed up a sizable chunk of very thick yellowish mucus. At this time he was on 12L oxymask. Nursing also noticed that his NG tube was positioned at ~40 instead of the documented 55, so a KUB was ordered as well as a chest x-ray. At approximately 12:30am, nursing notified me that the patient was back on BiPAP with FiO2 100% while satting between 86-87%. High priority tiger alert was then sent by nursing that the patient had a respiratory rate of 44. Dr. Britt and I went to bedside, at this time respiratory was working on trying the patient on heated high flow. Patient's grandson is at bedside. Patient seemed a bit more relaxed on the heated high flow, was able to maintain SPO2 of 93%. Discussed with nursing that at this time we will hold meds given via NG as well as free water flushes (currently receiving IV fluids) considering possibility that NG has shifted again in position. Resident Activity Tracking Resident Involvement: Resident Care Provided Care Provided: Adult Hospital Medicine
[2024-04-08] MEDS: 4.5GM X1 IV STA (21:59)
[2024-04-09] MEDS: PIPERACILLIN/TAZOBACTAM 4.5 GM/100 ML BAG IV SCH (03:59)
--- NOTE | 2024-04-09 06:49 | Hospitalist Progress Note ---
Date of Service April 09, 2024 Assessment & Plan (1) Acute exacerbation of chronic obstructive pulmonary disease: (2) Acute on chronic respiratory failure with hypoxia: (3) Parkinson's disease: (4) COVID-19: (5) Severe protein-calorie malnutrition: (6) Hypernatremia: Plan 78yo with COPD & Parkinson's, presented in acute on chronic respiratory failure with hypoxia. Acute exacerbation of COPD Acute on Chronic Respiratory Failure COVID-19- resolved -End stage COPD - Increased oxygen demand with pressure on 45L high flow. Concern for aspiration following dislodging of NGT on 04/07 and 04/08 - Pt transferred to PCU - Continue LR 80mLs/hr - Continue IV solumedrol 40 mg IV daily - Duoneb q6R, formoterol 20mcg BIDR, budesonide 0.5mg BIDR - Saline nebs PRN - Palliative consult completed, family has made decisions regarding goals of care. Changed code status to DNR/DNI on 04/08 After discuss of pt's decline overnight, family has decided to evoke comfort measures only after Pt's sister and best friend are notified Parkinson's Disease - NPO due to high risk aspiration - Hold Carbidopa-Levodopa 2 x 25-250mg tabs TID and entacapone 200mg tabs (crushed and diluted in water to be given via NGT) post NGT dislodgement Severe Protein-Calorie Nutrition - NGT was repositioned 04/09 after being dislodged - Holding NGT feedings - Hold feedings due risk of aspiration. - Monitor electrolytes Hypernatremia Baseline hypernatremic. Mild decrease from 150 to 146 after 300mL saline boluses via NGT started 04/07. -Stopped sterile water boluses to 300mL q4h via NGT due to dislodged tube and risk for aspiration -Recheck Na in pm Chronic Medical Conditions: Hypertension - Holding Losartan and Metoprolol GERD -Continue Protonix IV BPH -Hold Flomax FEN: NPO Code status: DNR/DNI DVT ppx: Lovenox sq Held home meds: PO meds Dispo: PCU, transition to [employer] early evening Admission and Anticipated Discharge Date Admission Date: March 25, 2024 Supervising Physician Co-Signing Physician Notes Attending Physician Supervision Note: I independently interviewed and examined the patient and verified the pierre history and physical, reviewed labs and image studies and agree with findings and care plan noted above. Became hypoxic and pulled NGT to 40cm emma. Moved to PCU. Needed bipap and oxymask. Put on high flow O2 later on. Water flush and meds held. Alert this am but delirious. Lungs - bilateral exp wheezing in lower lung field. Recurrent aspiration with oral and NGT feeds. Swallowing dysfunction - profound aspiration on swallow eval. Acute respiratory failure d/t recurrent aspiration COPD exac Parkinsons Hypernatremia Severe protein calorie malnutrition/Frailty Delirium Extensive discussion with family (, son, daughter, grandson) regarding the care being futile with recurrent aspirations and respiratory failure. Inability to tolerated tube feeds as well. Everyone in agreement of transition to comfort care. Comfort care orders entered after everyone in family arrived to meet with him. Subjective Pt is a 78 yo male with PMH of COPD and Parkinson's disease who presented with acute hypoxic respiratory failure 12 days ago. Overnight, pt's oxygen sat was managed with BiPAP and high flow due to low O2 sat. He also appears to have dislodged his NGT per KUB obtained overnight. This morning, pt was resting comfortably on 45L heated high flow with his grandson at bedside.He communicated with head nods or shakes and the "ok" symbol with his fingers. He denied chest pain, but c/o pain at his right shoulder. Review of Systems Review of Systems: As per HPI Physical Exam Physical Exam: Gen: Fail, thin and ill-appearing HEENT: dry oral mucosa, CV: RRR, tachycardia no m/r/g, no LE edema Resp: O2 sat >88-90% on 45L high flow, symmetric chest rise Abd: Soft, NT/ND Skin: dry, pale, no rashes or lesions Results & Data Results & Data Vital Signs (Past 12 Hours) Vital Signs Temp Pulse Pulse Resp BP BP Pulse Ox 04/09/24 03:37 36.6 C 108 H 20 101/68 93 04/09/24 03:36 104 H 24 97 04/09/24 00:44 100 H 30 H 92 04/09/24 00:40 110 H 22 93 04/09/24 00:30 103 H 33 H 88 L 04/08/24 23:00 103 H 04/08/24 22:59 36.4 C L 78 22 99/67 L 90 04/08/24 20:45 04/08/24 20:45 98 H 04/08/24 20:38 36.5 C 97 H 20 107/72 94 04/08/24 20:14 99 H 22 94 O2 Del Method O2 Flow Rate FiO2 04/09/24 03:37 High Flow Nasal Cannula 50 90 04/09/24 03:36 High Flow Nasal Cannula 45 70 04/09/24 00:44 High Flow Nasal Cannula 50 90 04/09/24 00:40 High Flow Nasal Cannula 50 90 04/09/24 00:30 100 04/08/24 23:00 04/08/24 22:59 Oxymask 12 04/08/24 20:45 Oxymask 12 04/08/24 20:45 04/08/24 20:38 Oxymask 12 04/08/24 20:14 Oxymask 8 Resident Activity Tracking Resident Involvement: Resident Care Provided Care Provided: Adult Hospital Medicine
--- NOTE | 2024-04-09 06:57 | XRay Report ---
SEMIERECT PORTABLE AP CHEST RADIOGRAPH CLINICAL HISTORY: Hypoxia. COMPARISON STUDY: Chest radiograph April 07, 2024. Chest CT February 21, 2024. FINDINGS: Tip of feeding tube projects over the distal esophagus. There is no pneumothorax. Asymmetri c hazy opacification of the left lung has developed. This may be due to a layering pleural effusion o n this semierect study. Left hemidiaphragm is obscured. There is prominence of the left hilum. Cardia c size is normal. There is underlying emphysema. IMPRESSION: 1. Tip of feeding tube projects over the distal esophagus. The tube should be advanced before obtaini ng a repeat radiograph. 2. Interval development of asymmetric hazy left lung opacification which could be due to a layering p leural fluid. Increase in associated left basilar opacity which could reflect atelectasis or pneumoni a. 3. Prominence of the left pulmonary artery which has developed since prior examination. This is likel y technical however a pulmonary embolus cannot be excluded. A CT chest PE protocol could be obtained for further evaluation. ACT 112: Negative or not required by law. Electronically signed by: Javier Flower M.D. 04/09/2024 6:55 AM
[2024-04-09 07:40] LABS: Hematocrit (blood only) 44.3 % (42.0-52.0); Hemoglobin 14.5 g/dl (14.0-18.0); Mean Corpuscular Hemoglobin 30.3 pg (25.0-34.0); Mean Corpuscular Hgb Conc 32.7 g/dL (32.0-36.0); Mean Corpuscular Volume 92.5 fL (80.0-100.0); Mean Platelet Volume 9.5 fL (9.4-12.4); Platelet Count 187 K/uL (130-400); RDW Coefficient of Variation 14.2 % (11.5-14.5); RDW Standard Deviation 47.8 fL (36.4-46.3); Red Blood Count 4.79 M/uL (4.70-6.10); White Blood Count 19.46 K/ul (4.8-10.8)
[2024-04-09 07:57] LABS: BUN Creatinine Ratio 53.8 (10-20); Calcium 9.1 mg/dl (8.6-10.3); Creatinine Clr Calc Pharmacy 56.5 ml/min; Potassium 3.9 mmol/L (3.5-5.1)
--- NOTE | 2024-04-09 08:02 | XRay Report ---
KUB HISTORY: Status post placement of an enteric tube NGT placement COMPARISON: Radiograph 04/07/2024, CT 07/18/2023. FINDINGS: Cholecystectomy. Probable trace left pleural effusion with mild left basilar opacities. Mod erate fecal retention. The lower abdomen is excluded from the [id number]. Repositioned feeding tub e distal tip projects over the lower chest. Atherosclerosis of the aorta with abdominal aortic aneury sm redemonstrated. No renal calculi. No ureteral calculi. No pneumoperitoneum or pneumatosis. No frac ture. IMPRESSION: Distal tip of feeding tube projects over the lower chest, likely within the distal esophagus. Reposit ioning with follow-up imaging is needed. ACT 112: Negative or not required by law. The above report was generated using voice recognition software. It may contain grammatical, syntax o r spelling errors. Electronically signed by: Esteban Sherman M.D. 04/09/2024 8:01 AM
[2024-04-09 08:09] LABS: Basophils # (auto) 0.03 K/uL (0.00-0.20); Basophils % (auto) 0.2 %; Echinocytes 1+; Immature Granulocytes # (auto) 0.08 K/uL (0.01-0.20); Immature Granulocytes % (auto) 0.4 %; Lymphocytes % (auto) 2.1 %; Monocytes # (auto) 0.25 K/uL (0.11-0.59); Monocytes % (auto) 1.3 %; Toxic Vacuolation 1+
[2024-04-09 15:21] VITALS: RESP 23
[2024-04-09 15:35] VITALS: BP 104/73; TEMP 97.7; O2SAT 92
[2024-04-09] MEDS ORDERED: ONDANSETRON INJ 2 MG/ML 2 ML VIAL IV PRN (16:55)
[2024-04-09] MEDS ORDERED: STAT IV Infusion **Titration per Protocol STA (16:55)
[2024-04-09] MEDS ORDERED: MoRPHine BOLUS from BAG IV PRN (16:55)
[2024-04-09] MEDS: MoRPHine SULF 100 MG/100 ML BAG IV SCH (17:41)
[2024-04-09] MEDS: GLYCOPYRROLATE 0.2 MG/ML VIAL IV PRN (18:35)
[2024-04-09] MEDS: LORazepam 2 MG/1 ML VIAL IV PRN (18:41)
[2024-04-10 01:21] VITALS: PULSE 102
--- NOTE | 2024-04-10 07:34 | Hospitalist Progress Note ---
Date of Service April 10, 2024 Assessment & Plan (1) Acute exacerbation of chronic obstructive pulmonary disease: (2) Acute on chronic respiratory failure with hypoxia: (3) Parkinson's disease: (4) COVID-19: (5) Severe protein-calorie malnutrition: (6) Hypernatremia: Plan 78yo with COPD & Parkinson's, presented in acute on chronic respiratory failure with hypoxia. Acute exacerbation of COPD Acute on Chronic Respiratory Failure COVID-19- resolved - End stage COPD - Pt placed on Comfort measures only at 1800 on 04/09. - NGT removed, Pt is on room air - IV Morphine 1mg/h - IV morphine 1mg [id number], 1mg q3hPRN, 2mg q3hPRN for pain - IV Glycopyrrolate 0.4mg q4h PRN - IV Ondansetron 4mg q4h PRN - IV Lorazepam 0.5mg Q4h PRN Parkinson's Disease - NPO due to high risk aspiration Severe Protein-Calorie Nutrition - Hold feedings due risk of aspiration. Hypernatremia Baseline hypernatremic. Chronic Medical Conditions: Hypertension - DC Losartan and Metoprolol GERD -DC Protonix IV BPH -DC Flomax FEN: NPO Code status: DNR/DNI DVT ppx: Lovenox sq Held home meds: PO meds Dispo: PCU, [employer] Admission and Anticipated Discharge Date Admission Date: March 25, 2024 Supervising Physician Co-Signing Physician Notes Attending Physician Supervision Note: I independently interviewed and examined the patient and verified the pierre history and physical, reviewed labs and image studies and agree with findings and care plan noted above. Comfortable in bed. Hasn't been awake since last night. Family at bedside. Recurrent aspiration with oral and NGT feeds. Swallowing dysfunction - profound aspiration on swallow eval. Acute respiratory failure d/t recurrent aspiration COPD exac Parkinsons Hypernatremia Severe protein calorie malnutrition/Frailty Delirium Extensive discussion with family (, son, daughter, grandson) regarding the care being futile with recurrent aspirations and respiratory failure. Inability to tolerated tube feeds as well. Everyone in agreement of transition to comfort care. -Continue comfort care. Subjective Pt is a 78 yo male with PMH of COPD and Parkinson's disease who presented with acute hypoxic respiratory failure 16 days ago. After meeting with patient's family yesterday afternoon, pt was placed on comfort measures only at approximately 1700. Pt is now on room air. This morning, pt is resting comfortably with family in his room. Pt is no longer opening his eyes or attempting to communicate Review of Systems Review of Systems: As per HPI Physical Exam Physical Exam: Gen: Fail, thin and ill-appearing, not responding to voice or touch, grimacing with pain HEENT: dry oral mucosa, CV: RRR, tachycardia no m/r/g, no LE edema Resp: Shallow labored breathing on RA, symmetric chest rise, minimal lung sounds at lower lobes Abd: Soft, fait bowel sounds Skin: dry, pale, no rashes or lesions Neuro: GCS 7 Results & Data Results & Data Vital Signs (Past 12 Hours) Vital Signs Pulse O2 Del Method 04/10/24 01:20 102 H 04/09/24 21:25 Room Air Resident Activity Tracking Resident Involvement: Resident Care Provided Care Provided: Adult Hospital Medicine
--- NOTE | 2024-04-11 06:38 | Hospitalist Progress Note ---
Date of Service April 11, 2024 Assessment & Plan (1) Acute exacerbation of chronic obstructive pulmonary disease: (2) Acute on chronic respiratory failure with hypoxia: (3) Parkinson's disease: (4) COVID-19: (5) Severe protein-calorie malnutrition: (6) Hypernatremia: Plan 78yo with COPD & Parkinson's, presented in acute on chronic respiratory failure with hypoxia. Placed on [employer] on 04/09 Acute exacerbation of COPD Acute on Chronic Respiratory Failure COVID-19- resolved - End stage COPD - Pt placed on Comfort measures only at 1800 on 04/09. GCS improved from 7 to 9 today. - Pt is on room air - IV Morphine 1mg/h - IV morphine 1mg [id number], 1mg q3hPRN, 2mg q3hPRN for pain - IV Glycopyrrolate 0.4mg q4h PRN - IV Ondansetron 4mg q4h PRN - IV Lorazepam 0.5mg Q4h PRN - Reminded family of option to request PRN pain and anxiety medication if they feel pt is in pain or respiratory distress. Verbalized understanding Parkinson's Disease - NPO due to high risk aspiration Severe Protein-Calorie Nutrition - Hold feedings due risk of aspiration. Hypernatremia Baseline hypernatremic. Chronic Medical Conditions: Hypertension - DC Losartan and Metoprolol GERD -DC Protonix IV BPH -DC Flomax FEN: NPO Code status: DNR/DNI DVT ppx: None Held home meds: PO meds Dispo: Med/surg, [employer] Admission and Anticipated Discharge Date Admission Date: March 25, 2024 Supervising Physician Co-Signing Physician Notes Attending Physician Supervision Note: I independently interviewed and examined the patient and verified the pierre history and physical, reviewed labs and image studies and agree with findings and care plan noted above. Comfortable in bed. Family at bedside. Recurrent aspiration with oral and NGT feeds. Swallowing dysfunction - profound aspiration on swallow eval. Acute respiratory failure d/t recurrent aspiration COPD exac Parkinsons Hypernatremia Severe protein calorie malnutrition/Frailty Delirium Extensive discussion with family (, son, daughter, grandson) regarding the care being futile with recurrent aspirations and respiratory failure. Inability to tolerated tube feeds as well. Everyone in agreement of transition to comfort care. -Continue comfort care. Subjective Pt is a 78 yo male with PMH of COPD and Parkinson's disease who presented with acute hypoxic respiratory failure 16 days ago. After meeting with patient's family yesterday afternoon, pt was placed on comfort measures only at approximately 1700. Pt is now on room air. This morning, pt is resting comfortably with family in his room. Pt is no longer opening his eyes or attempting to communicate Review of Systems Review of Systems: As per HPI Physical Exam Physical Exam: Gen: Fail, thin and ill-appearing, not responding to voice or touch, grimacing with pain HEENT: dry oral mucosa, dry crusting secretions at mouth CV: RRR, tachycardia no m/r/g, no LE edema Resp: Shallow labored breathing, symmetric chest rise, minimal lung sounds at lower lobes, crackles in bilateral upper lungs campuzano Abd: Soft, faint bowel sounds Skin: dry, pale, no rashes or lesions Neuro: GCS 9 Results & Data Results & Data Vital Signs (Past 12 Hours) Vital Signs O2 Del Method 04/10/24 21:30 Room Air 04/10/24 19:37 Room Air Resident Activity Tracking Resident Involvement: Resident Care Provided Care Provided: Adult Hospital Medicine
--- NOTE | 2024-04-12 07:37 | Hospitalist Progress Note ---
Date of Service April 12, 2024 Assessment & Plan (1) Acute exacerbation of chronic obstructive pulmonary disease: (2) Acute on chronic respiratory failure with hypoxia: (3) Parkinson's disease: (4) COVID-19: (5) Severe protein-calorie malnutrition: (6) Hypernatremia: Plan 78yo with COPD & Parkinson's, presented in acute on chronic respiratory failure with hypoxia. Placed on [employer] on 04/09 Acute exacerbation of COPD Acute on Chronic Respiratory Failure COVID-19- resolved - End stage COPD - Pt placed on Comfort measures only at 1800 on 04/09. GCS is from 7 today. - Pt is on room air - IV Morphine 1mg/h - IV morphine 1mg [id number], 1mg q3hPRN, 2mg q3hPRN for pain - IV Glycopyrrolate 0.4mg q4h PRN - IV Ondansetron 4mg q4h PRN - IV Lorazepam 0.5mg Q4h PRN - Reminded family of option to request PRN pain and anxiety medication if they feel pt is in pain or respiratory distress. Verbalized understanding Parkinson's Disease - NPO due to high risk aspiration Severe Protein-Calorie Nutrition - Hold feedings due risk of aspiration. Hypernatremia Baseline hypernatremic. Chronic Medical Conditions: Hypertension - DC Losartan and Metoprolol GERD -DC Protonix IV BPH -DC Flomax FEN: NPO Code status: DNR/DNI DVT ppx: None Held home meds: PO meds Dispo: Med/surg, [employer] Admission and Anticipated Discharge Date Admission Date: March 25, 2024 Supervising Physician Co-Signing Physician Notes Attending Physician Supervision Note: I independently interviewed and examined the patient and verified the pierre history and physical, reviewed labs and image studies and agree with findings and care plan noted above. Comfortable in bed. Family at bedside. Recurrent aspiration with oral and NGT feeds. Swallowing dysfunction - profound aspiration on swallow eval. Acute respiratory failure d/t recurrent aspiration COPD exac Parkinsons Hypernatremia Severe protein calorie malnutrition/Frailty Delirium Extensive discussion with family (, son, daughter, grandson) regarding the care being futile with recurrent aspirations and respiratory failure. Inability to tolerated tube feeds as well. Everyone in agreement of transition to comfort care. -Continue comfort care. Subjective Pt is a 78 yo male with PMH of COPD and Parkinson's disease who presented with acute hypoxic respiratory failure 18 days ago. After meeting with patient's kristy ly, pt was placed on comfort measures only at approximately 1700 on 04/09. Pt is now on room air. This morning, pt is resting comfortably with family in his room. Pt did not open his eyes or attempt to communicate this morning Review of Systems Review of Systems: As per HPI Physical Exam Physical Exam: Gen: Fail, thin and ill-appearing, not responding to voice or touch, grimacing with pain HEENT: dry oral mucosa CV: RRR, tachycardia no m/r/g, no LE edema Resp: Shallow labored breathing, symmetric chest rise, minimal lung sounds at lower lobes, crackles in bilateral upper lungs campuzano Abd: Soft, faint bowel sounds Skin: dry, pale, no rashes or lesions Neuro: GCS 7 Resident Activity Tracking Resident Involvement: Resident Care Provided Care Provided: Adult Hospital Medicine
--- NOTE | 2024-04-13 07:30 | Hospitalist Progress Note ---
Date of Service April 13, 2024 Assessment & Plan (1) Acute exacerbation of chronic obstructive pulmonary disease: (2) Acute on chronic respiratory failure with hypoxia: (3) Parkinson's disease: (4) COVID-19: (5) Severe protein-calorie malnutrition: (6) Hypernatremia: Plan 78yo with COPD & Parkinson's, presented in acute on chronic respiratory failure with hypoxia. Placed on [employer] on 04/09 Acute exacerbation of COPD Acute on Chronic Respiratory Failure COVID-19- resolved - End stage COPD - Pt placed on Comfort measures only at 1800 on 04/09. GCS is from 6 today. - Pt is on room air - IV Morphine 1mg/h - IV morphine 1mg [id number], 1mg q3hPRN, 2mg q3hPRN for pain - IV Glycopyrrolate 0.4mg q4h PRN - IV Ondansetron 4mg q4h PRN - IV Lorazepam 0.5mg Q4h PRN - Reminded family of option to request PRN pain and anxiety medication if they feel pt is in pain or respiratory distress. Verbalized understanding Parkinson's Disease - NPO due to high risk aspiration Severe Protein-Calorie Nutrition - Hold feedings due risk of aspiration. Hypernatremia Baseline hypernatremic. Chronic Medical Conditions: Hypertension - DC Losartan and Metoprolol GERD -DC Protonix IV BPH -DC Flomax FEN: NPO Code status: DNR/DNI DVT ppx: None Held home meds: PO meds Dispo: Med/surg, [employer] Admission and Anticipated Discharge Date Admission Date: March 25, 2024 Supervising Physician Co-Signing Physician Notes I personally examined the patient and verified all pierre points of history and exam, discussed case, and agree with decision making with Dr Aguilar no HPI/ROS from pt. family present - offered empathy and support vitals noted nad laying in bed no appearance of discomfort/distress/respiratory distress. no pallor Recurrent aspiration with oral and NGT feeds. Swallowing dysfunction - profound aspiration on swallow eval. Acute respiratory failure d/t recurrent aspiration COPD exac Parkinsons Hypernatremia Severe protein calorie malnutrition/Frailty Delirium after extensive discussions decision was made to change to comfort care; agree with this completely given his massive decline and inability to maintain nutrition - thereby making any chance of getting stronger impossible -Continue comfort care. Subjective Pt is a 78 yo male with PMH of COPD and Parkinson's disease who presented with acute hypoxic respiratory failure 18 days ago. After meeting with patient's family, pt was placed on comfort measures only at approximately 1700 on 04/09. This morning, pt is resting comfortably with family in his room. Pt did not open his eyes to voice, touch or pain this morning. Review of Systems Review of Systems: As per HPI Physical Exam Physical Exam: Gen: Fail, thin and ill-appearing, not responding to voice or touch, grimacing with pain HEENT: dry oral mucosa CV: RRR, tachycardia no m/r/g, no LE edema Resp: Shallow labored breathing, symmetric chest rise, minimal lung sounds at lower lobes, crackles in bilateral upper lungs campuzano Abd: Soft, faint bowel sounds Skin: dry, pale, no rashes or lesions Neuro: GCS 6 Results & Data Results & Data Vital Signs (Past 12 Hours) Vital Signs O2 Del Method 04/12/24 21:25 Room Air Resident Activity Tracking Resident Involvement: Resident Care Provided Care Provided: Adult Hospital Medicine
--- NOTE | 2024-04-13 12:33 | Billing Data ---
Date of Service April 13, 2024 Coding Level of Care Code 52385 SUB INP/OBS CARE
--- NOTE | 2024-04-13 16:28 | Death Pronouncement Note ---
Date of Service April 13, 2024 Pronouncement Note Admission Date Admission Date: March 25, 2024 Contributing Factors (1) Acute exacerbation of chronic obstructive pulmonary disease: (2) Acute on chronic respiratory failure with hypoxia: (3) Parkinson's disease: (4) COVID-19: (5) Severe protein-calorie malnutrition: (6) Hypernatremia: Summary Additional details: I was called to pronounce the of Danie Simons ( 1945) by Ifrah Moore on 04/13/2024. Upon entering the room, patient was found to be in a terminal state. They were unresponsive to, and did not withdrawal from, verbal or tactile stimuli. They were unresponsive to corneal, pupillary, and oculocephalic reflexes. On cardiopulmonary exam, they were found to be without detectable carotid pulses, and without spontaneous heart tones or respirations. Time of was pronounced by me on 04/13/2024 at 16:20. Attending physician was notified was notified. Next of kin was present in the room. Signed: Jennifer Schmitz DO Additional Data Attending physician: Leeroy Pickett DO
--- NOTE | 2024-04-13 16:47 | Discharge Summary ---
Date of Service April 13, 2024 Admission HPI Per Admitting Provider Danie Simons is a 78yo male with history of COPD, HTN, GERD, PD presenting from home with shortness of breath. Patient was admitted to [facility] from 03/11/24 - 03/16/24 with COPD exacerbation and Covid-19 infection. He was treated with nebulizers and steroids and discharged home to complete a Prednisone taper. Patient qualified for 2L supplemental O2 with ambulation at that time. [facility] - patient developed acute delirium following his discharge from the hospital with increased confusion, agitation not amenable to redirection- Prednisone thought to be contributing in part therefore was discontinued. Trial of Seroquel for agitation. He returns to the ER today by EMS with complaint of SOB, hypoxia to 82% on room air and cough. Patient requiring continuous supplemental O2 - 4L. Patient denies chest pain, palpitations, abdominal pain, nausea, vomiting, diarrhea. NO additional complaints Of note, history is difficulty to obtain due to dysarthria secondary to Parkinson's Disease. Patient's is at bedside and assists with history. ER Course: Dexamethasone 10mg IV Albuterol 3mL neb NSS x 500mL Principal Diagnosis COPD, Failure to Thrive Discharge Data Allergies Allergy/AdvReac Type Severity Reaction Status Date / Time bee venom protein (honey bee) Allergy Severe Anaphylaxis Verified 02/21/24 22:49 rhubarb AdvReac Intermediate ANXIETY, Verified 02/21/24 22:58 "ON EDGE", "FEELS LIKE NAILS ON CHALKBOARD". Consultations 03/25/24 01:13 ED Decision to Admit Stat 03/31/24 19:58 Consult Security Compliance Engineer Stat 04/06/24 13:53 Consult Palliative Care Routine Ordered Studies 03/26/24 11:10 MRI Brain [MR brain wo/w con] Routine 03/31/24 20:47 US venous doppler LE BI Stat 04/03/24 13:45 FL video swallow Routine Hospital Course (1) Acute exacerbation of chronic obstructive pulmonary disease: (2) Acute on chronic respiratory failure with hypoxia: (3) Parkinson's disease: (4) COVID-19: (5) Severe protein-calorie malnutrition: (6) Hypernatremia: Plan 78yo with COPD & Parkinson's, presented in acute on chronic respiratory failure with hypoxia. Placed on DIRECTOR on 04/09 Acute exacerbation of COPD Acute on Chronic Respiratory Failure COVID-19- resolved - End stage COPD - progressive decline with multiple hospitalizations over the past month leading to malnutrition and failure to thrive. Complicated by aspiration. NGT placed with hope of temporary nutrition support, but concern arose for aspiration of tube feeds and decision was ultimately made to stop the tube feedings. - Pt placed on Comfort measures only at 1800 on 04/09. - Passed on 04/13/24 at 1620 Parkinson's Disease - NPO due to high risk aspiration; trial of tube feeds for short term to improve nutritional status- stopped with concern for aspiration as per above - Pt placed on Comfort measures only at 1800 on 04/09. Severe Protein-Calorie Nutrition - Hold feedings due risk of aspiration. - Pt placed on Comfort measures only at 1800 on 04/09. Total Time Total Time Spent Total Time Spent (In Minutes): see attending attestation Discharge Plan Discharge Items Patient Disposition: Other Date/Time: 04/13/24 16:20
== END 2024-04-13 17:45 | disposition expired | DRG 190 ==
LOC: ED 23:54 → SUATTDRO 03-25 01:41 → 2N 03-25 01:41 → 1E 03-31 20:58 → 3E 04-02 17:53 → 4W 04-08 20:39 → 3E 04-10 21:31